=== PATIENT | female | born 1955 | race Caucasian/White ===

== ENCOUNTER 2020-01-18 07:59 | Outpatient (REF) | payer OTHER, SELFPAY ==
--- NOTE | 2020-01-18 | US_ITS ---
EXAMINATION: US RETROPERITONEAL LIMITED (RENAL ONLY) CLINICAL INFORMATION: Nephrolithiasis. COMPARISON: KUB 01/02/2020. Renal ultrasound 11/09/2019. Ultrasound abdomen 03/09/2018. TECHNIQUE: Real-time imaging of the kidneys. FINDINGS: RIGHT KIDNEY: 10.8 x 4.3 x 4.9 cm (SAG x AP x TRV). The kidney is normal in size, contour, and echogenicity. Renal cortical thickness is normal. No calculi or focal parenchymal lesions. No hydronephrosis. LEFT KIDNEY: 10.8 x 4.7 x 4.0 cm (SAG x AP x TRV). The kidney is normal in size, contour, and echogenicity. Renal cortical thickness is normal. No calculi or focal parenchymal lesions. No hydronephrosis. IMPRESSION: Unremarkable renal ultrasound.
== END 2020-01-18 08:00 | disposition home or self-care (01) ==
LOC: HO.US 07:59
PROVIDERS: PCP Internal Medicine; Visit Provider Urology
DX: N20.0 Calculus of kidney (principal)
CPT/HCPCS: 76775

== ENCOUNTER → 2020-04-30 10:30 | Outpatient (BNVA) | payer OTHER, SELFPAY | PROVIDERS: PCP Internal Medicine; Referring Provider Internal Medicine; Visit Provider Urology | DX: Z13.89 Encounter for screening for other disorder (principal) ==

== ENCOUNTER 2020-05-09 10:48 | Outpatient (REF) | payer OTHER, SELFPAY ==
[2020-05-19 15:22] LABS: Stone Source Kidney
== END 2020-05-09 10:49 | disposition home or self-care (01) ==
LOC: CF 10:48
PROVIDERS: PCP Internal Medicine; Visit Provider Urology
DX: N39.3 Stress incontinence (female) (male) (principal); N30.80 Other cystitis without hematuria
CPT/HCPCS: 52000; 81002; 82365; 88300; 99212

== ENCOUNTER 2020-05-16 06:04 | Day surgery (SDC) | payer OTHER, SELFPAY ==
--- NOTE | 2020-05-15 12:16 | HO.ANESPROP2 ---
Documented by User: Tricia Cao 05/15/20 12:19 HPI - Anesthesia Eval Consult details Narrative: 64yo F for Pubovaginal Sling PMFSH Past Medical History Medical History Asthma Cystitis cystica Gallstones HLD (hyperlipidemia) Hypothyroid Nephrolithiasis Nocturia VIVI (stress urinary incontinence, female) Trigeminy Urge incontinence Urinary frequency Urinary urgency Family History Family History Father Heart attack CVD (cardiovascular disease) HTN (hypertension) Mother Dementia Surgical History Surgical History History of gastric bypass (~2004) History of hysterectomy Social History Social History Smoking Status: Never smoker Use of substances other than those prescribed or required for medical reasons: No Have you been hit, kicked, punched, or otherwise hurt by someone within the past year? If so, by whom?: No Advance Directives: Yes Advance Directives Information Provided: No Advance Directives on File: Yes Advance Directives Date on File: 01/18/20 Meds Allergies Allergy/AdvReac Type Severity Reaction Status Date / Time sertraline Allergy Mild Stomach Verified 05/16/20 06:32 Upset levothyroxine sodium AdvReac Unknown insomnia Verified 06/18/15 00:00 bees Allergy Unknown swells Uncoded 06/18/15 00:00 Home Medications Medication Instructions Recorded Confirmed Type escitalopram oxalate 10 mg tablet 10 mg PO DAILY 04/30/20 04/30/20 History levothyroxine 112 mcg tablet 112 mcg PO DAILY 04/30/20 04/30/20 History Exam Exam Date and Time: May 15, 2020 1216 Assessment and Plan Assessment Anesthesia Assessment: Chart Reviewed Documented by User: Miriam Robles 05/16/20 07:26 [facility] Past Medical History Medical History Asthma Cystitis cystica Gallstones HLD (hyperlipidemia) Hypothyroid Nephrolithiasis Nocturia VIVI (stress urinary incontinence, female) Trigeminy Urge incontinence Urinary frequency Urinary urgency Family History Family History Father Heart attack CVD (cardiovascular disease) HTN (hypertension) Mother Dementia Surgical History Surgical History History of gastric bypass (~2004) History of hysterectomy Social History Social History Smoking Status: Never smoker Use of substances other than those prescribed or required for medical reasons: No Have you been hit, kicked, punched, or otherwise hurt by someone within the past year? If so, by whom?: No Advance Directives: Yes Advance Directives Information Provided: No Advance Directives on File: Yes Advance Directives Date on File: 01/18/20 Meds Allergies Allergy/AdvReac Type Severity Reaction Status Date / Time sertraline Allergy Mild Stomach Verified 05/16/20 06:32 Upset levothyroxine sodium AdvReac Unknown insomnia Verified 06/18/15 00:00 bees Allergy Unknown swells Uncoded 06/18/15 00:00 Home Medications Medication Instructions Recorded Confirmed Type escitalopram oxalate 10 mg tablet 10 mg PO DAILY 04/30/20 04/30/20 History levothyroxine 112 mcg tablet 112 mcg PO DAILY 04/30/20 04/30/20 History Exam Airway Mallampati Class: III TM Dist: >3cm Neck ROM: Full Heart: RRR Lungs: CTA
[2020-05-16] VITALS (8 sets, daily range): BP systolic 137–147; BP diastolic 51–68; PULSE 61–79; RESP 16–18; TEMP 36.2–36.6; O2SAT 94–96; BMI 27.8
[2020-05-16] MEDS: Lactated Ringers 1,000 ML 100 ML IVCONT (06:37)
--- NOTE | 2020-05-16 07:13 | MHC.SHP ---
Pre-Procedural Eval Section A The patient is an INPATIENT: No The History & Physical has been completed within 30 days and I have reviewed it.: Yes Section B Chief Complaint: stress incontinence Allergies: Allergies Allergy/AdvReac Type Severity Reaction Status Date / Time sertraline Allergy Mild Stomach Verified 05/16/20 06:32 Upset levothyroxine sodium AdvReac Unknown insomnia Verified 06/18/15 00:00 bees Allergy Unknown swells Uncoded 06/18/15 00:00 Plan Diagnosis/Plan: Unchanged I have reviewed the history and physical and performed a pertinent physical examination on my patient. No changes have occurred unless specified.
--- NOTE | 2020-05-16 08:23 | PM.OP ---
Brief Operative Note Date of Service: 05/16/20 Pre-op diagnosis: Stress Urinary incontinence Post-op diagnosis: same Procedure: Pubovaginal sling Surgeon: Shane Valladares III, MD Anesthesia: GLMA Estimated blood loss (mL): 0 Pathology: none sent Condition: stable Disposition: same day
--- NOTE | 2020-05-16 08:24 | W.PM.OPN ---
Operative Note Operative Note Date of Service: 05/16/20 Narrative: Preop diagnosis female stress urinary incontinence postop diagnosis is the same Procedures pubovaginal sling/lynx Surgeon mary Anesthesia general Drains none Blood loss none Complications none Patient in the operating after adequate anesthesia was obtained had a time-out done and was placed in dorsal lithotomy position. Patient had vaginal retractors Ayala catheter placed. At this point the patient had local injected into the anterior vaginal wall with a midline incision made carried out laterally to but not through into pelvic fascia. Stab wounds were made suprapubically and passers passed down into the vaginal incision under direct palpation of surgeon's finger. This point Ayala catheter is removed which remained clear and she underwent flexible cystoscopy with retroflexion there was no sign of any perforation or damage to the patient's bladder. Scope withdrawn in the Ayala catheter replaced. Patient had the sling elevated into place using the passers wants it was elevated into place with proximally 0.5 cm of space between the sling and the urethra the ends of the sling were truncated below the skin level and the sling deployed. Irrigation was then done and the vaginal wound and the suprapubic stab incisions were closed. Patient's Ayala catheter is removed continue drain clear throughout the case. There were no complications
--- NOTE | 2020-05-16 08:48 | HO.POSTANES ---
Post Anesthesia Evaluation Post Anesthesia Evaluation Vital Signs: Vital Signs Temp Pulse Resp BP Pulse Ox 05/16/20 08:35 98 F 77 16 147/51 H 96 05/16/20 06:15 97.1 F 79 18 137/68 96 Anesthesia: Monitored and General Mental Status: Awake Pain Control: Satisfactory Nausea/Vomiting: None Hydration: Adequate Anesthesia-Related Issues: No Anes. Related Issues
[2020-05-16] MEDS: oxyCODONE HCl Immed Release 5 MG TABLET PO (09:08)
--- NOTE | 2020-05-16 09:43 | PC.NURSE ---
0940MONITORS DCD AMB TO BR GAIT STEADY TO ATTEMPT VOID, BLAYNE PAD WITH BETADYNE STG, PT AWARE OF PACKING STS SHE WILL BE REMOVING IT TOMORROW
--- NOTE | 2020-05-16 10:03 | PC.NURSE ---
0950 VOID 100 ML HUEY URINE RET TO PACU 1 BLADDER SCAN DONE FOR 0 ML PVR, ASST BACK TO BS CHAIR IV DCD DRESSED SELF CALL KELLEY IN REACH PLAN T OAMB TO CT AREA
== END 2020-05-16 10:18 ==
LOC: HO.SSS 06:04
PROVIDERS: PCP Internal Medicine; Visit Provider Urology
PROC: (CPT 57288; principal; 2020-05-16 07:30)
DX: N39.3 Stress incontinence (female) (male) (principal); J45.909 Unspecified asthma, uncomplicated; R00.8 Other abnormalities of heart beat; Z87.442 Personal history of urinary calculi; Z98.84 Bariatric surgery status; Z79.899 Other long term (current) drug therapy; Z88.8 Allergy status to other drugs, medicaments and biological substances
CPT/HCPCS: 57288; C1772; J1100; J1580; J2250; J2405; J3010

== ENCOUNTER → 2020-05-27 08:32 | Outpatient (BNVA) | payer OTHER, SELFPAY | PROVIDERS: PCP Internal Medicine; Visit Provider Urology | DX: N20.0 Calculus of kidney (principal); N39.3 Stress incontinence (female) (male) | CPT/HCPCS: 51798; 81002; 99212 ==

== ENCOUNTER 2020-08-29 10:25 | Outpatient (REF) | payer OTHER, SELFPAY ==
--- NOTE | ~2020-08-29 | US_ITS ---
EXAMINATION: US RETROPERITONEAL LIMITED (RENAL ONLY) CLINICAL INFORMATION: Calculus of kidney. COMPARISON: Renal ultrasound 01/18/2020 and 11/09/2019. KUBs 01/02/2020. TECHNIQUE: Real-time imaging of the kidneys. FINDINGS: RIGHT KIDNEY: 11.3 x 4.9 x 5.1 cm (SAG x AP x TRV). The kidney is normal in size, contour, and echogenicity. Renal cortical thickness is normal. There is a 3 mm echogenic density with twinkle artifact in the upper to midpole questionable for a stone. No focal parenchymal lesions or hydronephrosis. LEFT KIDNEY: 10.5 x 5.2 x 3.6 cm (SAG x AP x TRV). The kidney is normal in size, contour, and echogenicity. Renal cortical thickness is normal. No calculi or focal parenchymal lesions. No hydronephrosis. US/US renal BI IMPRESSION: Question small right renal stone..
== END 2020-08-29 10:26 | disposition home or self-care (01) ==
LOC: HO.US 10:25
PROVIDERS: Visit Provider Urology
DX: N20.0 Calculus of kidney (principal)
CPT/HCPCS: 76775

== ENCOUNTER → 2020-09-30 14:29 | Outpatient (BNVA) | payer OTHER, SELFPAY | PROVIDERS: PCP Internal Medicine | DX: N20.0 Calculus of kidney (principal); N39.41 Urge incontinence; R35.0 Frequency of micturition | CPT/HCPCS: 99212 ==

== ENCOUNTER → 2020-10-14 13:00 | Outpatient (BNVA) | payer OTHER, SELFPAY | PROVIDERS: PCP Internal Medicine ==

== ENCOUNTER 2021-02-10 09:57 | Outpatient (REF) | payer OTHER, SELFPAY | END 2021-02-10 09:58 | disposition home or self-care (01) | LOC: HO.LAB 09:57 | PROVIDERS: PCP Internal Medicine | DX: R35.0 Frequency of micturition (principal); N39.41 Urge incontinence; N39.3 Stress incontinence (female) (male) | CPT/HCPCS: 87086; 87088; 87186 ==

== ENCOUNTER 2021-03-16 11:07 | Outpatient (REF) | payer OTHER, SELFPAY ==
[2021-03-16 13:32] LABS: Appearance Urine CLEAR; Color Urine YELLOW; Glucose Urine UA NEG (NEG); Leukocyte Esterase Urine 1+ (NEG); Nitrite Urine NEG (NEG); PH 5.5 (5.0-8.0); Specific Gravity - Urine >= 1.030 (1.005-1.025); Urine Blood NEG (NEG); Urine Ketones NEG (NEG); Urine Protein NEG (NEG-TRACE)
[2021-03-16 13:49] LABS: Bacteria Urine 1+ /LPF; RBC Urine 0-2 /HPF (0); Squamous Epithelial Cell Urine 1+ /LPF
== END 2021-03-16 11:08 | disposition home or self-care (01) ==
LOC: HO.LAB 11:07
DX: R35.0 Frequency of micturition (principal)
CPT/HCPCS: 81001; 87086

== ENCOUNTER → 2021-04-14 10:25 | Outpatient (BNVA) | payer OTHER, SELFPAY | PROVIDERS: PCP Internal Medicine ==

== ENCOUNTER 2021-10-14 14:56 | Emergency (ER) | payer OTHER, SELFPAY ==
--- NOTE | ~2021-10-14 | CT_ITS ---
EXAMINATION: CT HEAD WITHOUT CONTRAST CLINICAL INFORMATION: Right eye droop. Double vision. COMPARISON: None. TECHNIQUE: Contiguous axial imaging was performed from the skull base to vertex without intravenous contrast. This CT examination was performed using dose optimization techniques as appropriate, variously including the following: * Automated exposure control * Adjustment of mA and/or kV according to patient size (this includes techniques or standardized protocols for targeted exams where dose is matched to indication/reason for exam; i.e. extremities or head) Use of iterative reconstruction technique DLP: 647 mGy-cm. FINDINGS: There is no evidence of acute intracranial hemorrhage or territorial infarction. No abnormal mass effect or midline shift is seen. Cruz to white matter differentiation is well preserved. No extra-axial fluid collections are identified. No hydrocephalus. Proportional prominence of the ventricles and sulcal spaces is consistent with mild volume loss. Patchy periventricular and deep white matter hypoattenuation is consistent with mild small vessel ischemic changes. The osseous structures and soft tissues are normal. The mastoid air cells and visualized portions of the paranasal sinuses are well aerated. CT/CT head/brain wo con IMPRESSION: No acute intracranial pathology.
[2021-10-14 15:04] VITALS: BP 149/76; PULSE 66; RESP 19; TEMP 36.8; O2SAT 98; BMI 28.0
[2021-10-14 17:18] LABS: MANUAL DIFF FLAG NO
[2021-10-14 17:25] LABS: Basophils Absolute Auto 0.1 X10*3/uL (0.0-0.2); Basophils Percent Auto 1.3 % (0-2); Eosinophils Absolute Auto 0.2 X10*3/uL (0.0-0.4); Eosinophils Percent Auto 2.8 % (0-4); Hematocrit 34.9 % (37.0-47.0); Hemoglobin 11.5 g/dl (12.0-16.0); Imm Gran Abs Auto 0.02 X10*3/uL (0.00-0.03); Imm Gran Pct Auto 0.3 % (0.0-0.4); Lymphocytes Absolute Auto 1.8 X10*3/uL (1.2-4.9); Lymphocytes Percent Auto 25.9 % (20-40); Mean Corpuscular Volume 84.9 fL (80.0-98.0); Mean Platelet Volume 10.6 fL (9.4-12.3); Monocytes Absolute Auto 0.7 X10*3/uL (0.1-1.2); Monocytes Percent Auto 9.8 % (2-11); Neutrophils Absolute Auto 4.2 x10*3/uL (2.0-8.3); Neutrophils Percent Auto 59.9 % (45-73); Platelet Count 257 X10*3/uL (160-400); Red Blood Count 4.11 X10*6/uL (4.20-5.50); Red Cell Distribution Width 14.1 % (11.0-16.0); White Blood Count 7.1 X10*3/uL (4.8-10.8)
[2021-10-14 17:39] LABS: Alanine Aminotransferase 21 U/L (0-31); Alkaline Phosphatase 92 U/L (39-117); Anion Gap 11 (12-20); Aspartate Amino Transferase 21 U/L (5-31); Bilirubin Total 0.4 mg/dL (0.0-1.0); Blood Urea Nitrogen 12 mg/dL (9-16); Calcium 8.9 mg/dL (8.4-10.2); Carbon Dioxide 24 mmol/L (22-29); Chloride 107 mmol/L (96-108); Creatinine Clr Calc Pharmacy 51.9; Estimated Glomerular Filt Rate 44; Glucose Random 165 mg/dL (60-115); Potassium 4.7 mmol/L (3.3-5.1); Sodium 137 mmol/L (135-145); Total Protein 6.8 g/dL (6.5-8.0)
--- NOTE | 2021-10-14 22:08 | ED.EYEPROB ---
HPI - Eye Problem General Chief complaint: Eye Problems Stated complaint: double vision eye drooping Time Seen by Provider: 10/14/21 15:19 Source: patient Mode of arrival: ambulatory Limitations: no limitations History of Present Illness HPI Narrative: patient's history of double vision for last 6 months seen brazer repair and salvage negative workup had MRI of the brain no stroke try to close the right eye to see single from the left eye otherwise has double vision now she is saying since yesterday afternoon noticed right eye is more droopy than the left no other weakness no pain in the eye no other weakness no shortness of breath Related Data Home Medications Medication Instructions Recorded Confirmed escitalopram oxalate 10 mg tablet 10 mg PO DAILY 04/30/20 02/10/21 levothyroxine 112 mcg tablet 112 mcg PO DAILY 04/30/20 02/10/21 Previous Rx's Medication Instructions Recorded oxycodone-acetaminophen 5 mg-325 1 tab PO Q4-6H PRN pain #14 tabs 05/16/20 mg tablet (Percocet) levofloxacin 500 mg tablet 500 mg PO Q24H UTI 5 days #5 tabs 02/25/21 oxybutynin chloride 10 mg 10 mg PO DAILY OAB 30 days #90 tabs 06/01/21 tablet,extended release 24 hr Allergies Allergy/AdvReac Type Severity Reaction Status Date / Time sertraline Allergy Mild Stomach Verified 04/14/21 10:26 Upset levothyroxine sodium AdvReac Unknown insomnia Verified 04/14/21 10:26 bees Allergy Unknown swells Uncoded 06/18/15 00:00 Review of Systems Review of Systems: Yes all other systems are reviewed and are negative [facility] Past Medical History Attestation statement: The following information was validated with the patient. Medical History Asthma Cystitis cystica Gallstones HLD (hyperlipidemia) Hypothyroid Nephrolithiasis Nocturia VIVI (stress urinary incontinence, female) Trigeminy Urge incontinence Urinary frequency Urinary incontinence Urinary urgency UTI (urinary tract infection) Surgical History History of gastric bypass (~2004) History of hysterectomy History of pubovaginal sling Family History Family History Father Heart attack CVD (cardiovascular disease) HTN (hypertension) Mother Dementia Social History Social History Alcohol intake: current Alcohol intake frequency: holidays/special occasions only Patient Tobacco Use Status: Former Tobacco user Quit Date: 20 years ago Tobacco use type: Cigarette Advance Directives: No Advance Directives Information Provided: No Advance Directives Date on File: 01/18/20 Physical Exam Vital Signs: Vital Signs: Last Vital Signs Temp 98.1 F 10/14/21 22:49 Pulse 53 10/14/21 22:49 Resp 20 10/14/21 22:49 BP 144/55 H 10/14/21 22:49 Pulse Ox 98 10/14/21 22:49 O2 Del Method 10/14/21 22:49 BMI result Body Mass Index 28.0 Appearance: Alert. Oriented X3. No acute distress. Eyes: PERRLA, No Nystagmus right eyelid droop+ but she can open the right eye when the left eye is closed, EOMI ENT: Pharynx normal. Oral Mucosa moist Neck: Normal inspection. Neck supple. CVS: Normal heart rate and rhythm. Pulses normal. Respiratory: No respiratory distress. Equal air entry bilateral, no wheezing/rales/rhonchi Abdomen: Soft and nontender. Bowel sounds are present, no mass palpable, no CVA tenderness Skin: Skin warm and dry. Normal skin color. Normal skin turgor. Extremities: No lower extremity edema. No calf tenderness Neuro: Oriented X 3. No motor deficit. No sensory deficit.No cerebellar signs , cranial nerves II-XII intact MDM - Eye Problem MDM Narrative Medical decision making narrative: 2214 patient with right-sided eye droop with diplopia likely have myasthenia gravis although she does not have any other symptoms workup so far is negative patient denies any shortness of breath CT scan of the head which was negative for any lesion case discussed with Dr. Bruner plan to see his outpatient ice pack test was positive patient drooping lid of the right eye improved after putting ice pack with few minutes Lab Data Attestation: I reviewed the patient's lab results. Result diagrams: 10/14/21 17:13 10/14/21 17:13 Labs: Lab Results 10/14/21 10/14/21 Range/Units 17:13 17:13 WBC 7.1 (4.8-10.8) X10*3/uL RBC 4.11 L (4.20-5.50) X10*6/uL Hgb 11.5 L (12.0-16.0) g/dl Hct 34.9 L (37.0-47.0) % MCV 84.9 (80.0-98.0) fL MCH 28.0 (27.0-33.0) pg MCHC 33.0 (31.0-35.0) g/dl RDW 14.1 (11.0-16.0) % Plt Count 257 (160-400) X10*3/uL MPV 10.6 (9.4-12.3) fL Immature Gran % (Auto) 0.3 (0.0-0.4) % Neut % (Auto) 59.9 (45-73) % Lymph % (Auto) 25.9 (20-40) % [place] % (Auto) 9.8 (2-11) % Eos % (Auto) 2.8 (0-4) % Baso % (Auto) 1.3 (0-2) % Lymph # (Auto) 1.8 (1.2-4.9) X10*3/uL [place] # (Auto) 0.7 (0.1-1.2) X10*3/uL Eos # (Auto) 0.2 (0.0-0.4) X10*3/uL Baso # (Auto) 0.1 (0.0-0.2) X10*3/uL Abs Immat Gran (auto) 0.02 (0.00-0.03) X10*3/uL Absolute Neuts (auto) 4.2 (2.0-8.3) x10*3/uL Absolute Nucleated RBC 0.000 (0.0-0.012) X10*3/uL Nucleated RBC % (auto) 0.0 (0.0-0.2) /100WBC Sodium 137 (135-145) mmol/L Potassium 4.7 (3.3-5.1) mmol/L Chloride 107 (96-108) mmol/L Carbon Dioxide 24 (22-29) mmol/L Anion Gap 11 L (12-20) BUN 12 (9-16) mg/dL Creatinine 1.23 (0.5-1.4) mg/dL Estim Creat Clear Calc 51.9 Estimated GFR 44 Random Glucose 165 H (60-115) mg/dL Calcium 8.9 (8.4-10.2) mg/dL Total Bilirubin 0.4 (0.0-1.0) mg/dL AST 21 (5-31) U/L ALT 21 (0-31) U/L Alkaline Phosphatase 92 (39-117) U/L Total Protein 6.8 (6.5-8.0) g/dL Albumin 4.0 (3.5-5.0) g/dL Discharge Plan Discharge Clinical Impression: Myasthenia gravis Patient Disposition: Home, Self-Care Instructions: Myasthenia Gravis (ED) Additional Instructions: see neurologist for further workup and treatment report to the ER if increased shortness of breath you likely have myasthenia gravis Prescriptions: No Action oxycodone-acetaminophen [Percocet] 5-325 mg tablet 1 tab PO Q4-6H PRN (Reason: pain) Qty: 14 0RF levofloxacin 500 mg tablet 500 mg PO Q24H 5 Days Qty: 5 0RF oxybutynin chloride 10 mg tablet extended release 24hr 10 mg PO DAILY 30 Days Qty: 90 1RF escitalopram oxalate 10 mg tablet 10 mg PO DAILY levothyroxine 112 mcg tablet 112 mcg PO DAILY Referrals: Zack Bruner MD [Physician] - 1 week
[2021-10-14 22:49] VITALS: BP 144/55; PULSE 53; RESP 20; TEMP 36.7; O2SAT 98
[2021-10-22 19:01] LABS: Acetylcholine Receptor Binding 0.77 nmol/L
== END 2021-10-14 23:48 | disposition home or self-care (01) ==
PROVIDERS: Emergency Provider Internal Medicine; PCP Internal Medicine
DX: G70.00 Myasthenia gravis without (acute) exacerbation (principal); H53.2 Diplopia; Z87.891 Personal history of nicotine dependence
CPT/HCPCS: 36415; 70450; 80053; 83519; 85025; 99283; 99284

== ENCOUNTER 2021-10-21 15:27 | Outpatient (REF) | payer OTHER, SELFPAY ==
[2021-10-27 20:15] LABS: Acetylcholine Recept. Blocking 33 (<15)
[2021-11-05 17:37] LABS: Acetylcholine Recep Modulating 79
== END 2021-10-21 15:28 | disposition home or self-care (01) ==
LOC: HO.LAB 15:27
PROVIDERS: PCP Internal Medicine; Visit Provider Psychiatry & Neurology Neurology
DX: G70.00 Myasthenia gravis without (acute) exacerbation (principal)
CPT/HCPCS: 36415; 83519

== ENCOUNTER 2021-11-03 09:28 | Outpatient (REF) | payer OTHER, SELFPAY ==
--- NOTE | ~2021-11-03 | CT_ITS ---
EXAMINATION: CT CHEST WITH CONTRAST CLINICAL INFORMATION: Myasthenia gravis without acute exacerbation. COMPARISON: Chest x-ray 06/18/2015 TECHNIQUE: Multidetector volumetric CT imaging of the chest was obtained after the administration of 50 mL of Omnipaque 350 intravenous contrast without immediate adverse reactions. Axial MIP volume rendering provided. Sagittal and coronal reformatted images were obtained. This CT examination was performed using dose optimization techniques as appropriate, variously including the following: *Automated exposure control *Adjustment of mA and/or kV according to patient size (this includes techniques or standardized protocols for targeted exams where dose is matched to indication/reason for exam; i.e. extremities or head) *Use of iterative reconstruction technique DLP: 116 mGy-cm FINDINGS: TRENCHER DRIVER: Well-expanded lungs. LUNGS: The lungs are well-expanded and clear of acute pneumonic process. There is a 2 mm calcified nodule in the right lower lobe axial image 82/9, Two 1 mm noncalcified nodules right middle lobe axial image 84/9 and punctate 1-2 mm calcified nodules in the left lung base on axial image 78/8. MEDIASTINUM: The right thyroid lobe is slightly asymmetrically enlarged compared to left. The central trachea and the bronchi are widely patent. Heart size and the great vessels are of normal caliber. There is no pericardial effusion. No abnormal size mediastinal or hilar lymph nodes are seen. No anterior mediastinal mass is seen. PLEURA: There is no pleural effusion. No pleural mass or thickening. AXILLA: There are small shotty lymph nodes in the axilla. The chest wall is unremarkable. UPPER ABDOMEN: The liver is homogeneous in density, is of normal size and contour. No focal lesion or intrahepatic ductal dilatation is seen. The gallbladder has been removed. Visualized pancreas and spleen appear unremarkable. There are gastric bypass surgical changes. OSSEOUS STRUCTURES: No lytic or sclerotic process is seen. CT/CT chest w con IMPRESSION: No anterior mediastinal mass visualized. Several calcified nodules likely granulomas in the right lower lobe and left lower lobe. A solitary 2 mm noncalcified nodule is seen in right middle lobe. This could be a granuloma as well. Fleischner guidelines were followed.
[2021-11-03] MEDS: iohexoL 350 MG/ML 100 ML INFUS..BTL IV (10:41)
== END 2021-11-03 09:29 | disposition home or self-care (01) ==
LOC: HO.CT 09:28
PROVIDERS: PCP Internal Medicine; Visit Provider Internal Medicine
DX: G70.00 Myasthenia gravis without (acute) exacerbation (principal)
CPT/HCPCS: 71260; Q9967

== ENCOUNTER 2021-12-03 11:38 | Outpatient (REF) | payer OTHER, SELFPAY ==
[2021-12-03 14:21] LABS: Alanine Aminotransferase 26 U/L (0-31); Albumin Level 4.2 g/dL (3.5-5.0); Alkaline Phosphatase 83 U/L (39-117); Anion Gap 17 (12-20); Aspartate Amino Transferase 17 U/L (5-31); Bilirubin Total 1.1 mg/dL (0.0-1.0); Blood Urea Nitrogen 26 mg/dL (9-16); Calcium 9.5 mg/dL (8.4-10.2); Carbon Dioxide 24 mmol/L (22-29); Chloride 102 mmol/L (96-108); Cholesterol 206 mg/dL; Estimated Glomerular Filt Rate 32; Glucose Random 206 mg/dL (60-115); HDL Cholesterol 94 mg/dL; LDL Cholesterol Calculated 77 mg/dl; Potassium 4.1 mmol/L (3.3-5.1); Sodium 139 mmol/L (135-145); Total Protein 7.2 g/dL (6.5-8.0); Triglycerides 177 mg/dL
[2021-12-03 15:41] LABS: Creatinine Urine 230.02 mg/dL; Microalbum/Creatinine Ratio Ur 11.7 ug/mg cr
[2021-12-06 11:12] LABS: LDL Cholesterol Direct 87 mg/dL (<100)
== END 2021-12-03 11:39 | disposition home or self-care (01) ==
LOC: HO.LAB 11:38
PROVIDERS: PCP Internal Medicine; Visit Provider Internal Medicine
DX: E11.9 Type 2 diabetes mellitus without complications (principal); E78.5 Hyperlipidemia, unspecified; E27.40 Unspecified adrenocortical insufficiency; I10 Essential (primary) hypertension
CPT/HCPCS: 36415; 80053; 80061; 82043; 82947; 83036; 83721; 99202

== ENCOUNTER 2021-12-05 11:14 | Outpatient (REF) | payer OTHER, SELFPAY ==
--- NOTE | ~2021-12-05 | US_ITS ---
EXAMINATION: US THYROID CLINICAL INFORMATION: Unspecified adrenocortical insufficiency. COMPARISON: None TECHNIQUE: Linear transducer grayscale and color Doppler examination with attention to the region of the thyroid. FINDINGS: SIZE: Measurements of the thyroid lobes and nodules are given in sagittal, anteroposterior and transverse dimensions respectively. Right Thyroid Lobe: 4.0 x 1.4 x 1.1 cm, volume 3.2 mL. Parenchyma: The gland echotexture is heterogeneous. Thyroid vascularity is increased. Left Thyroid Lobe: 2.7 x 0.8 x 0.9 cm, volume 1.1 mL. Parenchyma: The gland echotexture is heterogeneous. Thyroid vascularity is increased. Isthmus: 0.2 cm in maximum AP dimension. Estimated total number of nodules greater than or equal to 1 cm: 0. Rod Piler nodules are described as follows: 1. Location: Right inferior. Size: 0.4 x 0.4 x 0.3 cm, volume 0.02 mL. Nodule characteristics: Composition: Cystic(0). ACR TI-RADS total points: 0 ACR TI-RADS category: 1 NODES: No lymphadenopathy is seen in the tissue surrounding the thyroid gland. US/US thyroid IMPRESSION: Slightly hypervascular and heterogeneous thyroid gland right slightly larger than left but still within normal limits. Solitary nonsuspicious nodule lower pole right lobe. ACR TI-RADS RECOMMENDATION REFERENCE: Ultrasound-guided fine-needle aspiration, followup ultrasound, no further follow up. * TR1 (0 point) and TR 2 (2 points): No FNA or follow up * TR3 (3 points): FNA if more than or equal to 2.5 cm in maximum dimension, followup ultrasound in 1, 3 and 5 years if 1.5 to 2.4 cm in maximum dimension. * TR4 (4-6 points): FNA if more than or equal to 1.5 cm in maximum dimension, followup ultrasound in 1, 2, 3 and 5 years if 1 to 1.4 cm in maximum dimension. * TR5 (more than or equal to 7 points): FNA if more than or equal to 1 cm in maximum dimension, followup ultrasound every year for 5 years if 0.5 to 0.9 cm in maximum dimension. * TR3, TR4 or TR5 nodules that are below the size threshold for follow up receive no follow up.
== END 2021-12-05 11:15 | disposition home or self-care (01) ==
LOC: HO.US 11:14
PROVIDERS: PCP Internal Medicine; Visit Provider Internal Medicine
DX: E27.40 Unspecified adrenocortical insufficiency (principal)
CPT/HCPCS: 76536

== ENCOUNTER → 2021-12-16 11:57 | Outpatient (BNVA) | payer OTHER, SELFPAY | PROVIDERS: PCP Internal Medicine; Visit Provider Internal Medicine | DX: E11.22 Type 2 diabetes mellitus with diabetic chronic kidney disease (principal); I12.9 Hypertensive chronic kidney disease with stage 1 through stage 4 chronic kidney disease, or unspecified chronic kidney disease; N18.9 Chronic kidney disease, unspecified; E27.40 Unspecified adrenocortical insufficiency; E04.1 Nontoxic single thyroid nodule; E78.5 Hyperlipidemia, unspecified | CPT/HCPCS: 82947; 83036; 99212 ==

== ENCOUNTER 2021-12-17 14:33 | Outpatient (REF) | payer OTHER, SELFPAY ==
--- NOTE | ~2021-12-17 | CT_ITS ---
EXAMINATION: CT ABDOMEN AND PELVIS WITHOUT CONTRAST CLINICAL INFORMATION: Left lower quadrant pain COMPARISON: Previous renal ultrasound August 2020 and abdominal ultrasound February 2018 TECHNIQUE: Multidetector volumetric imaging was performed from the superior aspect of the liver through the pubic symphysis. Sagittal and coronal reformatted images were obtained on the technologist's workstation. This CT examination was performed using dose optimization techniques as appropriate, variously including the following: *Automated exposure control *Adjustment of mA and/or kV according to patient size (this includes techniques or standardized protocols for targeted exams where dose is matched to indication/reason for exam; i.e. extremities or head) *Use of iterative reconstruction technique DLP: 735 mGy-cm FINDINGS: LUNG BASES: The visualized lung bases are clear. There is a small pericardial effusion. LIVER, GALLBLADDER, AND BILIARY TREE: The liver is normal in size, shape, and attenuation. No focal hepatic lesion or biliary ductal dilatation is present. The gallbladder has been removed. PANCREAS: Unremarkable. SPLEEN: Unremarkable. ADRENAL GLANDS: Unremarkable. KIDNEYS AND URETERS: There are small bilateral renal stones. No hydronephrosis. There is a 6 mm left distal ureteral stone and mild distal ureteral dilatation. BLADDER: There are small stones in the bladder. GASTROINTESTINAL TRACT: There are postsurgical changes to the stomach following gastric bypass. The small and large bowel are otherwise unremarkable. The appendix is unremarkable. ABDOMINAL WALL: There is a small umbilical hernia containing fat. LYMPH NODES: Normal. VASCULAR: Unremarkable. PELVIC VISCERA: Uterus appears to have been. No pelvic mass. OSSEOUS STRUCTURES: There are degenerative changes of the spine. CT/CT abdomen pelvis wo IV con IMPRESSION: Bilateral renal stones. 6 mm left distal ureteral stone and small bladder stones. Postsurgical changes from gastric bypass. Post cholecystectomy. Small pericardial effusion. Fleischner guidelines were followed. Findings will be communicated by the [place] work flow bight maker.
== END 2021-12-17 14:34 | disposition home or self-care (01) ==
LOC: HO.CT 14:33
PROVIDERS: PCP Internal Medicine; Visit Provider Internal Medicine
DX: R10.32 Left lower quadrant pain (principal)
CPT/HCPCS: 74176

== ENCOUNTER 2021-12-18 19:52 | Emergency (ER) | payer OTHER, SELFPAY ==
[2021-12-18 19:55] VITALS: BP 125/77; PULSE 81; RESP 16; TEMP 35.6; O2SAT 96; BMI 27.7
--- NOTE | 2021-12-18 20:09 | ED.GENADULT ---
HPI - General Adult General Chief complaint: Recheck/Abnormal Lab/Rx Stated complaint: abnormal labs Time Seen by Provider: 12/18/21 20:01 Source: patient and family (daughter) Mode of arrival: ambulatory Limitations: no limitations History of Present Illness HPI narrative: Patient is a 66 year old female presenting to the emergency department today with an elevated lactic acid and a kidney stone. Patient states that she was having intermittent abdominal pain so her doctor ordered some blood work and a CT scan of her abdomen. Patient states that the CT scan showed a 6mm kidney stone in the left ureter and that she had an elevated lactic acid so she thought she should be evaluated further. Patient denies any current dizziness, lightheadedness, abdominal pain, nausea, vomiting, fever, chills, blurry vision, double vision, loss of vision, chest pain, difficulty breathing, shortness of breath, back pain, night sweats, pain with urination, increased urinary frequency, increased urinary urgency, blood in her urine or stool, syncope or a near syncopal episode, recent trauma or falls, bowel incontinence, bladder incontinence, bowel retention, bladder retention, or any other complaints at this time. Patient states that she has an extensive history of kidney stones and passing them. Patient states that she follows with Dr. Chaudhary for this. Patient states that she picked up flomax today to help her pass this large stone. Patient states that she has been on prednisone recently to help with her myasthenia gravis. Location: abdomen Radiation: non-radiation Severity: mild Severity scale (1-10): 1 Quality: dull Pain Consistency: now resolved Relieving factors: none Exacerbating factors: none Associated symptoms: denies other symptoms Treatments prior to arrival: none Related Data Home Medications Medication Instructions Recorded Confirmed escitalopram oxalate 10 mg tablet 10 mg PO DAILY 04/30/20 12/16/21 levothyroxine 112 mcg tablet 112 mcg PO DAILY 04/30/20 12/16/21 albuterol sulfate 90 mcg/actuation 0 mcg inhalation 12/03/21 12/16/21 aerosol inhaler aspirin 81 mg tablet,delayed 81 mg PO DAILY 12/03/21 12/16/21 release (Adult Low Dose Aspirin) calcium carbonate 600 mg calcium 600 mg PO DAILY 12/03/21 12/16/21 (1,500 mg) tablet (Calcium) famotidine 20 mg tablet 20 mg PO BID 12/03/21 12/16/21 insulin glargine 100 unit/mL (3 unit subcut 12/03/21 12/16/21 mL) subcutaneous pen (Lantus Solostar U-100 Insulin) prednisone 20 mg tablet 20 mg PO BID 12/03/21 12/16/21 pyridostigmine bromide 60 mg tablet 60 mg PO TID 12/03/21 12/16/21 Previous Rx's Medication Instructions Recorded oxycodone-acetaminophen 5 mg-325 1 tab PO Q4-6H PRN pain #14 tabs 05/16/20 mg tablet (Percocet) levofloxacin 500 mg tablet 500 mg PO Q24H UTI 5 days #5 tabs 02/25/21 glycopyrrolate 1 mg tablet 1 mg PO TID #30 tabs 10/20/21 pyridostigmine bromide 30 mg tablet 30 mg PO TID #60 tabs 10/20/21 oxybutynin chloride 10 mg 10 mg PO DAILY OAB 30 days #90 tabs 11/20/21 tablet,extended release 24 hr hydrocortisone sod succ (PF) 100 100 mg (2 mL) IM ONCE PRN Unable 12/03/21 mg/2 mL solution for injection to tolerate PO 30 days #1 ea (Solu-Cortef Act-O-Vial (PF)) blood sugar diagnostic (FreeStyle #100 ea 12/07/21 Lite Strips) blood-glucose meter (FreeStyle #1 ea 12/07/21 Lite Meter kit) insulin lispro 100 unit/mL 5 unit (0.05 mL) subcut TID 30 12/07/21 subcutaneous pen (Humalog #4.5 mL (U-100) Insulin) lancets 28 gauge (FreeStyle #100 ea 12/07/21 Lancets) pen needle, diabetic 32 gauge x #100 ea 12/07/21 1/ (BD Ultra-Fine Micro Pen Needle) atorvastatin 40 mg tablet 40 mg PO DAILY 30 days #30 tabs 12/16/21 celecoxib 100 mg capsule 100 mg PO BID 30 days #60 caps 12/18/21 prednisone 20 mg tablet 20 mg PO DAILY 5 days #5 tabs 12/18/21 tamsulosin 0.4 mg capsule 0.4 mg PO BEDTIME 2 weeks #14 caps 12/18/21 cephalexin 500 mg capsule 500 mg PO Q6H 7 days #28 caps 12/19/21 Allergies Allergy/AdvReac Type Severity Reaction Status Date / Time sertraline Allergy Mild Stomach Verified 12/16/21 12:16 Upset levothyroxine sodium AdvReac Unknown insomnia Verified 12/16/21 12:16 bees Allergy Unknown swells Uncoded 12/16/21 12:16 Review of Systems Constitutional: Constitutional: Reports no additional constitutional complaints, Denies chills, Denies fever(s) and Denies night sweats Eyes: Eyes: Reports no additional eye complaints, Denies blurry vision, Denies change in vision, Denies diplopia, Denies eye discharge, Denies loss of vision and Denies eye pain ENT: Denies dizziness Cardiovascular: Cardiovascular: Reports no additional cardiovascular complaints, Denies chest pain, Denies lightheadedness, Denies Loss of Consciousness and Denies dyspnea Respiratory: Respiratory: Reports no additional respiratory complaints and Denies dyspnea Gastrointestinal: Gastrointestinal: Reports no additional gastrointestinal complaints, Denies abdominal pain, Denies melena, Denies hematochezia, Denies change in bowel habits and Denies change in stool character Genitourinary: Genitourinary: Denies hematuria, Denies urinary frequency, Denies dysuria, Denies urinary incontinence, Denies urinary hesitancy and Denies urinary urgency Musculoskeletal: Musculoskeletal: Reports no additional musculoskeletal complaints, Denies numbness and Denies tingling Neurologic: Denies dizziness, Denies loss of vision, Denies numbness and Denies tingling Psychiatric: Psychiatric: Reports no additional psychiatric complaints Endocrine: Endocrine: Reports no additional endocrine complaints Hematologic/Lymphatic: Hematologic/Lymphatic: Reports no additional hematologic/lymphatic complaints Allergic/Immunologic: Allergic/Immunologic: Reports no additional allergic/immunologic complaints [facility] Past Medical History Attestation statement: The following information was validated with the patient. Source: old records reviewed Medical History Adrenal insufficiency Asthma CKD (chronic kidney disease) Cystitis cystica Gallstones HLD (hyperlipidemia) HLD (hyperlipidemia) HTN (hypertension) Hypothyroid Multinodular thyroid Nephrolithiasis Nocturia VIVI (stress urinary incontinence, female) T2DM (type 2 diabetes mellitus) Thyroid nodule Trigeminy Urge incontinence Urinary frequency Urinary incontinence Urinary urgency UTI (urinary tract infection) Surgical History History of gastric bypass (~2004) History of hysterectomy History of pubovaginal sling Hx of cholecystectomy Family History Family History Father Heart attack CVD (cardiovascular disease) HTN (hypertension) Mother Dementia Social History Social History Alcohol intake: current Alcohol intake frequency: holidays/special occasions only Patient Tobacco Use Status: Former Tobacco user Quit Date: 20 years ago Tobacco use type: Cigarette Advance Directives: No Advance Directives Information Provided: No Advance Directives Date on File: 01/18/20 Physical Exam ED Vital Signs: Vital Signs - 24 hr 12/18/21 19:55 12/18/21 22:36 Temperature 96.1 F L Pulse Rate 81 62 Respiratory Rate 16 16 Blood Pressure 125/77 131/69 Pulse Oximetry 96 95 Oxygen Delivery Method Room Air Room Air BMI result Body Mass Index 27.7 Const General: cooperative, no acute distress, alert and awake Nutritional Appearance: well nourished Orientation/consciousness: patient oriented x3 Limitations: no limitations HENMT Head: Yes normal to inspection and Yes atraumatic Ears: hearing grossly normal bilaterally and external ears normal General nose exam: Normal external nose present, no nasal discharge noted and no epistaxis Face and sinus: Yes normal facial exam, No abrasion and No laceration Mouth: Normal oral and palatal mucosa present, no drooling and no muffled voice Eyes General: appearance normal, both eyes and all related structures Periorbital: periorbital findings normal Eyelids: Yes eyelids normal Conjunctivae: conjunctivae normal Pupils: Equal, round and reactive pupils present EOM: EOMs intact bilaterally Neck Neck: Yes normal visual inspection, Yes full ROM and Yes no lymphadenopathy Chest Chest palpation & inspection: normal inspection of the chest Resp Effort & Inspection: normal respiratory effort and able to speak in complete sentences Auscultation: clear to auscultation bilaterally Cardio Rate: regular rate Rhythm: regular rhythm GI Inspection: Yes normal to inspection Palpation (GI): Soft to palpation, not firm, nontender, no guarding and not rigid Neuro General: patient oriented x3 and moves all extremities Cranial nerves: Yes Equal, round and reactive pupils present Cognition (Neuro): normal cognition Motor exam (neuro): 5/5 motor strength present throughout Sensory Exam: Normal double simultaneous stimulation for sensation Coordination: [id number] test normal Extrem General: Yes normal to inspection, Yes full ROM and Yes capillary refill normal Psych Appearance: grossly normal Mental Status: mental status grossly normal Affect: normal affect Attitude: cooperative Thought process: Normal thought process present Thought content: Normal thought content present Insight: Good insight present (Psych) Medical Decision Making MDM Narrative Medical decision making narrative: Patient is a 66 year old female presenting to the emergency department today with an elevated lactic acid and a kidney stone. Patient's physical exam was unremarkable. Patient's blood work did show an elevated lactic acid of 3.5, an elevated creatinine of 1.50 that is chronic for the patient, an elevated BUN of 21 that is chronically elevated for the patient, and an elevated glucose of 425 - the patient is a diabetic on prednisone. Patient's urine showed an acute urinary tract infection. Patient's CT abdomen from earlier today showed a 6mm stone in the left ureter but no signs of obstruction or other acute abdominal process. Patient was given 1,500ml of NS. Her repeat lactic acid decreased significantly to 2.1. I spoke to the urologist electronics production supervisor who agreed with my plan of providing antibiotics and having her follow up on an outpatient basis with their office. I explained my physical exam findings as well as all test results to the patient and the patient's daughter. I answered all questions asked by the patient and the patient's daughter. I stressed the importance of the patient taking her medication as prescribed. I stressed the importance of the patient following up with her primary care provider and her urologist. I stressed the importance of the patient returning to the emergency department immediately if her symptoms were to worsen or if she were to develop any dizziness, shortness of breath, difficulty breathing, chest pain, blurry vision, loss of vision, nausea, vomiting, abdominal pain, fever, chills, back pain, or any other complaints. Patient and the patient's daughter verbalized agreement and understanding with this treatment plan and discharge. Medical Records Medical records reviewed: Yes I reviewed the patient's medical records. Lab Data Lab results reviewed: Yes I reviewed the patient's lab results. Result diagrams: 12/18/21 20:42 12/18/21 20:42 Labs: Lab Results 12/18/21 12/18/21 12/18/21 Range/Units 20:41 20:42 20:42 WBC 9.5 (4.8-10.8) X10*3/uL RBC 4.54 (4.20-5.50) X10*6/uL Hgb 12.6 (12.0-16.0) g/dl Hct 38.4 (37.0-47.0) % MCV 84.6 (80.0-98.0) fL MCH 27.8 (27.0-33.0) pg MCHC 32.8 (31.0-35.0) g/dl RDW 15.1 (11.0-16.0) % Plt Count 201 (160-400) X10*3/uL MPV 10.1 (9.4-12.3) fL Immature Gran % (Auto) 1.3 H (0.0-0.4) % Neut % (Auto) 85.9 H (45-73) % Lymph % (Auto) 7.2 L (20-40) % [place] % (Auto) 5.5 (2-11) % Eos % (Auto) 0.0 (0-4) % Baso % (Auto) 0.1 (0-2) % Lymph # (Auto) 0.7 L (1.2-4.9) X10*3/uL [place] # (Auto) 0.5 (0.1-1.2) X10*3/uL Eos # (Auto) 0.0 (0.0-0.4) X10*3/uL Baso # (Auto) 0.0 (0.0-0.2) X10*3/uL Abs Immat Gran (auto) 0.12 H (0.00-0.03) X10*3/uL Absolute Neuts (auto) 8.2 (2.0-8.3) x10*3/uL Absolute Nucleated RBC 0.000 (0.0-0.012) X10*3/uL Nucleated RBC % (auto) 0.0 (0.0-0.2) /100WBC PT (10.0-13.1) SEC INR (0.9-1.1) APTT (26.0-36.4) SEC Sodium 135 (135-145) mmol/L Potassium 4.0 (3.3-5.1) mmol/L Chloride 103 (96-108) mmol/L Carbon Dioxide 19 L (22-29) mmol/L Anion Gap 17 (12-20) BUN 21 H (9-16) mg/dL Creatinine 1.50 H (0.5-1.4) mg/dL Estim Creat Clear Calc 42.4 Estimated GFR 35 Random Glucose 425 H* (60-115) mg/dL Lactic Acid 3.5 H* (0.5-2.0) mmol/L Lactic Acid F/U @ 2Hr (0.5-2.0) mmol/L Calcium 8.6 D (8.4-10.2) mg/dL Magnesium 2.1 (1.6-2.6) mg/dL Total Bilirubin 0.7 (0.0-1.0) mg/dL AST 12 (5-31) U/L ALT 24 (0-31) U/L Alkaline Phosphatase 70 (39-117) U/L Total Protein 6.3 L (6.5-8.0) g/dL Albumin 3.7 (3.5-5.0) g/dL Urine Color Urine Appearance Urine pH (5.0-9.0) Ur Specific [place] (1.005-1.025) Urine Protein (Neg-Trace) mg/dL Urine Glucose (UA) (Negative) mg/dL Urine Ketones (Negative) mg/dL Urine Blood (Negative) Urine Nitrite (Negative) Ur Leukocyte Esterase (Negative) Urine RBC (0-2) /HPF Urine WBC (0-5) /HPF Ur Squamous Epith Cells (0-2) /HPF Urine Bacteria (None Seen) Hyaline Casts (0-2) /LPF Urine Yeast Influenza Type A (PCR) (Negative) Influenza Type B (PCR) (Negative) RSV RNA Qual (PCR) (Negative) SARS-CoV-2 RNA (RT-PCR) (Negative) 12/18/21 12/18/21 12/18/21 Range/Units 20:42 21:14 21:33 WBC (4.8-10.8) X10*3/uL RBC (4.20-5.50) X10*6/uL Hgb (12.0-16.0) g/dl Hct (37.0-47.0) % MCV (80.0-98.0) fL MCH (27.0-33.0) pg MCHC (31.0-35.0) g/dl RDW (11.0-16.0) % Plt Count (160-400) X10*3/uL MPV (9.4-12.3) fL Immature Gran % (Auto) (0.0-0.4) % Neut % (Auto) (45-73) % Lymph % (Auto) (20-40) % [place] % (Auto) (2-11) % Eos % (Auto) (0-4) % Baso % (Auto) (0-2) % Lymph # (Auto) (1.2-4.9) X10*3/uL [place] # (Auto) (0.1-1.2) X10*3/uL Eos # (Auto) (0.0-0.4) X10*3/uL Baso # (Auto) (0.0-0.2) X10*3/uL Abs Immat Gran (auto) (0.00-0.03) X10*3/uL Absolute Neuts (auto) (2.0-8.3) x10*3/uL Absolute Nucleated RBC (0.0-0.012) X10*3/uL Nucleated RBC % (auto) (0.0-0.2) /100WBC PT 9.5 L (10.0-13.1) SEC INR 0.8 L (0.9-1.1) APTT 21.3 L (26.0-36.4) SEC Sodium (135-145) mmol/L Potassium (3.3-5.1) mmol/L Chloride (96-108) mmol/L Carbon Dioxide (22-29) mmol/L Anion Gap (12-20) BUN (9-16) mg/dL Creatinine (0.5-1.4) mg/dL Estim Creat Clear Calc Estimated GFR Random Glucose (60-115) mg/dL Lactic Acid (0.5-2.0) mmol/L Lactic Acid F/U @ 2Hr (0.5-2.0) mmol/L Calcium (8.4-10.2) mg/dL Magnesium (1.6-2.6) mg/dL Total Bilirubin (0.0-1.0) mg/dL AST (5-31) U/L ALT (0-31) U/L Alkaline Phosphatase (39-117) U/L Total Protein (6.5-8.0) g/dL Albumin (3.5-5.0) g/dL Urine Color Yellow Urine Appearance Cloudy Urine pH 5.5 (5.0-9.0) Ur Specific [place] >= 1.030 H (1.005-1.025) Urine Protein 30 (1+) H (Neg-Trace) mg/dL Urine Glucose (UA) >=1000 H (Negative) mg/dL Urine Ketones Trace (Negative) mg/dL Urine Blood Trace H (Negative) Urine Nitrite Positive H (Negative) Ur Leukocyte Esterase Small (1+) H (Negative) Urine RBC >20 H (0-2) /HPF Urine WBC >50 H (0-5) /HPF Ur Squamous Epith Cells 3-5 (0-2) /HPF Urine Bacteria 4+ (None Seen) Hyaline Casts 6-10 (0-2) /LPF Urine Yeast Present Influenza Type A (PCR) NEGATIVE (Negative) Influenza Type B (PCR) NEGATIVE (Negative) RSV RNA Qual (PCR) NEGATIVE (Negative) SARS-CoV-2 RNA (RT-PCR) NEGATIVE (Negative) 12/18/21 12/19/21 Range/Units 23:05 00:49 WBC (4.8-10.8) X10*3/uL RBC (4.20-5.50) X10*6/uL Hgb (12.0-16.0) g/dl Hct (37.0-47.0) % MCV (80.0-98.0) fL MCH (27.0-33.0) pg MCHC (31.0-35.0) g/dl RDW (11.0-16.0) % Plt Count (160-400) X10*3/uL MPV (9.4-12.3) fL Immature Gran % (Auto) (0.0-0.4) % Neut % (Auto) (45-73) % Lymph % (Auto) (20-40) % [place] % (Auto) (2-11) % Eos % (Auto) (0-4) % Baso % (Auto) (0-2) % Lymph # (Auto) (1.2-4.9) X10*3/uL [place] # (Auto) (0.1-1.2) X10*3/uL Eos # (Auto) (0.0-0.4) X10*3/uL Baso # (Auto) (0.0-0.2) X10*3/uL Abs Immat Gran (auto) (0.00-0.03) X10*3/uL Absolute Neuts (auto) (2.0-8.3) x10*3/uL Absolute Nucleated RBC (0.0-0.012) X10*3/uL Nucleated RBC % (auto) (0.0-0.2) /100WBC PT (10.0-13.1) SEC INR (0.9-1.1) APTT (26.0-36.4) SEC Sodium (135-145) mmol/L Potassium (3.3-5.1) mmol/L Chloride (96-108) mmol/L Carbon Dioxide (22-29) mmol/L Anion Gap (12-20) BUN (9-16) mg/dL Creatinine (0.5-1.4) mg/dL Estim Creat Clear Calc Estimated GFR Random Glucose (60-115) mg/dL Lactic Acid 1.6 (0.5-2.0) mmol/L Lactic Acid F/U @ 2Hr 2.1 H* (0.5-2.0) mmol/L Calcium (8.4-10.2) mg/dL Magnesium (1.6-2.6) mg/dL Total Bilirubin (0.0-1.0) mg/dL AST (5-31) U/L ALT (0-31) U/L Alkaline Phosphatase (39-117) U/L Total Protein (6.5-8.0) g/dL Albumin (3.5-5.0) g/dL Urine Color Urine Appearance Urine pH (5.0-9.0) Ur Specific [place] (1.005-1.025) Urine Protein (Neg-Trace) mg/dL Urine Glucose (UA) (Negative) mg/dL Urine Ketones (Negative) mg/dL Urine Blood (Negative) Urine Nitrite (Negative) Ur Leukocyte Esterase (Negative) Urine RBC (0-2) /HPF Urine WBC (0-5) /HPF Ur Squamous Epith Cells (0-2) /HPF Urine Bacteria (None Seen) Hyaline Casts (0-2) /LPF Urine Yeast Influenza Type A (PCR) (Negative) Influenza Type B (PCR) (Negative) RSV RNA Qual (PCR) (Negative) SARS-CoV-2 RNA (RT-PCR) (Negative) Imaging Data CT scan - abdomen: Attestation: I personally reviewed and interpreted this imaging study as follows: My impression: 6mm stone in the left ureter. Radiologist's impression: EXAMINATION: CT ABDOMEN AND PELVIS WITHOUT CONTRAST? CLINICAL INFORMATION: Left lower quadrant pain? COMPARISON: Previous renal ultrasound August 2020 and abdominal ultrasound February 2018? TECHNIQUE: Multidetector volumetric imaging was performed from the superior aspect of the liver through the pubic symphysis. Sagittal and coronal reformatted images were obtained on the technologist's workstation.? This CT examination was performed using dose optimization techniques as appropriate, variously including the following: *Automated exposure control *Adjustment of mA and/or kV according to patient size (this includes techniques or standardized protocols for targeted exams where dose is matched to indication/reason for exam; i.e. extremities or head) *Use of iterative reconstruction technique DLP: 735 mGy-cm FINDINGS: LUNG BASES: The visualized lung bases are clear. There is a small pericardial effusion. LIVER, GALLBLADDER, AND BILIARY TREE: The liver is normal in size, shape, and attenuation. No focal hepatic lesion or biliary ductal dilatation is present. The gallbladder has been removed. PANCREAS: Unremarkable.? SPLEEN: Unremarkable.? ADRENAL GLANDS: Unremarkable.? KIDNEYS AND URETERS: There are small bilateral renal stones. No hydronephrosis. There is a 6 mm left distal ureteral stone and mild distal ureteral dilatation. BLADDER: There are small stones in the bladder.? GASTROINTESTINAL TRACT: There are postsurgical changes to the stomach following gastric bypass. The small and large bowel are otherwise unremarkable. The appendix is unremarkable.? ABDOMINAL WALL: There is a small umbilical hernia containing fat.? LYMPH NODES: Normal. VASCULAR: Unremarkable. PELVIC VISCERA: Uterus appears to have been. No pelvic mass. OSSEOUS STRUCTURES: There are degenerative changes of the spine. CT/CT abdomen pelvis wo IV con IMPRESSION: Bilateral renal stones. 6 mm left distal ureteral stone and small bladder stones. Postsurgical changes from gastric bypass. Post cholecystectomy. Small pericardial effusion. ? Fleischner guidelines were followed. ? Findings will be communicated by the [place] work flow fish farm manager. Dictated By: Adeline Singh MD Signed By: Electronically signed by Adeline Singh MD 12/18/21 2717 Discharge Plan Discharge Clinical Impression: Urinary tract infection Patient Disposition: Home, Self-Care Instructions: Urinary Tract Infection in Women (ED) Additional Instructions: Follow up with your primary care provider and your urologist. Return to the emergency department immediately if your symptoms worsen or if you develop any dizziness, shortness of breath, difficulty breathing, chest pain, blurry vision, loss of vision, nausea, vomiting, abdominal pain, fever, chills, back pain, or any other complaints. Prescriptions: New cephalexin 500 mg capsule 500 mg PO Q6H 7 Days Qty: 28 0RF No Action oxycodone-acetaminophen [Percocet] 5-325 mg tablet 1 tab PO Q4-6H PRN (Reason: pain) Qty: 14 0RF levofloxacin 500 mg tablet 500 mg PO Q24H 5 Days Qty: 5 0RF oxybutynin chloride 10 mg tablet extended release 24hr 10 mg PO DAILY 30 Days Qty: 90 0RF (DME) blood-glucose meter [FreeStyle Lite Meter] Kit See Rx Instructions .Route Qty: 1 0RF Rx Instructions: As directed (DME) FreeStyle Lite Strips Strip See Rx Instructions .ROUTE .MEDSUPPLY Qty: 100 11RF Rx Instructions: 4x daily (DME) lancets [FreeStyle Lancets] 28 gauge misc See Rx Instructions .ROUTE .MEDSUPPLY Qty: 100 11RF Rx Instructions: 4x daily insulin lispro [Humalog KwikPen Insulin] 100 unit/mL insulin pen 5 unit subcut TID 30 Days Qty: 4.5 11RF (DME) pen needle, diabetic [BD Ultra-Fine Micro Pen Needle] 32 gauge x 1/4 needle See Rx Instructions .ROUTE .MEDSUPPLY Qty: 100 11RF Rx Instructions: 4x daily with insulin tamsulosin 0.4 mg capsule 0.4 mg PO BEDTIME 14 Days Qty: 14 0RF prednisone 20 mg tablet 20 mg PO DAILY 5 Days Qty: 5 0RF celecoxib 100 mg capsule 100 mg PO BID 30 Days Qty: 60 0RF pyridostigmine bromide 30 mg tablet 30 mg PO TID Qty: 60 0RF glycopyrrolate 1 mg tablet 1 mg PO TID Qty: 30 0RF escitalopram oxalate 10 mg tablet 10 mg PO DAILY levothyroxine 112 mcg tablet 112 mcg PO DAILY pyridostigmine bromide 60 mg tablet 60 mg PO TID prednisone 20 mg tablet 20 mg PO BID albuterol sulfate 90 mcg/actuation HFA aerosol inhaler 0 mcg inhalation famotidine 20 mg tablet 20 mg PO BID insulin glargine [Lantus Solostar U-100 Insulin] 100 unit/mL (3 mL) insulin pen subcut calcium carbonate [Calcium 600] 600 mg calcium (1,500 mg) tablet 600 mg PO DAILY aspirin [Adult Low Dose Aspirin] 81 mg tablet,delayed release (DR/EC) 81 mg PO DAILY Solu-Cortef Act-O-Vial (PF) 100 mg/2 mL recon soln 100 mg IM ONCE PRN (Reason: Unable to tolerate PO) 30 Days Qty: 1 3RF atorvastatin 40 mg tablet 40 mg PO DAILY 30 Days Qty: 30 11RF Referrals: Itz Chaudhary MD [Physician] - RoTroy MD [Primary Care Provider] - Interventions: ED Discharge Assessment Last Done: 12/19/21 00:53 Discharge Date/Time: 12/19/21 00:50 Print Language: Tajik
[2021-12-18 20:48] LABS: MANUAL DIFF FLAG NO
[2021-12-18 20:51] LABS: Basophils Percent Auto 0.1 % (0-2); Hematocrit 38.4 % (37.0-47.0); Hemoglobin 12.6 g/dl (12.0-16.0); Imm Gran Abs Auto 0.12 X10*3/uL (0.00-0.03); Imm Gran Pct Auto 1.3 % (0.0-0.4); Lymphocytes Absolute Auto 0.7 X10*3/uL (1.2-4.9); Lymphocytes Percent Auto 7.2 % (20-40); Mean Corpuscular HGB Conc 32.8 g/dl (31.0-35.0); Mean Corpuscular Hemoglobin 27.8 pg (27.0-33.0); Mean Corpuscular Volume 84.6 fL (80.0-98.0); Mean Platelet Volume 10.1 fL (9.4-12.3); Monocytes Absolute Auto 0.5 X10*3/uL (0.1-1.2); Monocytes Percent Auto 5.5 % (2-11); Neutrophils Absolute Auto 8.2 x10*3/uL (2.0-8.3); Neutrophils Percent Auto 85.9 % (45-73); Platelet Count 201 X10*3/uL (160-400); Red Blood Count 4.54 X10*6/uL (4.20-5.50); Red Cell Distribution Width 15.1 % (11.0-16.0); White Blood Count 9.5 X10*3/uL (4.8-10.8)
[2021-12-18 20:55] LABS: INTERNATIONAL NORM RATIO 0.8 (0.9-1.1); Prothrombin Time 9.5 SEC (10.0-13.1)
[2021-12-18 20:59] LABS: Partial Thromboplastin Time 21.3 SEC (26.0-36.4)
[2021-12-18 21:22] LABS: Alanine Aminotransferase 24 U/L (0-31); Albumin Level 3.7 g/dL (3.5-5.0); Alkaline Phosphatase 70 U/L (39-117); Anion Gap 17 (12-20); Aspartate Amino Transferase 12 U/L (5-31); Bilirubin Total 0.7 mg/dL (0.0-1.0); Blood Urea Nitrogen 21 mg/dL (9-16); Calcium 8.6 mg/dL (8.4-10.2); Carbon Dioxide 19 mmol/L (22-29); Chloride 103 mmol/L (96-108); Creatinine Clr Calc Pharmacy 42.4; Estimated Glomerular Filt Rate 35; Glucose Random 425 mg/dL (60-115); Magnesium 2.1 mg/dL (1.6-2.6); Sodium 135 mmol/L (135-145); Total Protein 6.3 g/dL (6.5-8.0)
[2021-12-18 21:23] LABS: Lactic Acid 3.5 mmol/L (0.5-2.0)
[2021-12-18] MEDS: 0.9 % Sodium Chloride 1,000 ML 999 ML IV (21:36)
[2021-12-18 22:02] LABS: Influenza A PCR NEGATIVE (Negative); Influenza B PCR NEGATIVE (Negative); Resp Syncy Virus RNA Qual PCR NEGATIVE (Negative); SARS COV2 PCR INHOUSE NEGATIVE (Negative)
[2021-12-18] MEDS: 0.9 % Sodium Chloride 500 ML IV (22:19)
[2021-12-18 22:29] LABS: Appearance Urine Cloudy; Color Urine Yellow; Glucose Urine UA >=1000 mg/dL (Negative); Leukocyte Esterase Urine Small (1+) (Negative); Nitrite Urine Positive (Negative); PH 5.5 (5.0-9.0); Specific Gravity - Urine >= 1.030 (1.005-1.025); Urine Blood Trace (Negative); Urine Ketones Trace mg/dL (Negative); Urine Protein 30 (1+) mg/dL (Neg-Trace)
[2021-12-18 22:36] VITALS: BP 131/69; PULSE 62; RESP 16; O2SAT 95
[2021-12-18 22:46] LABS: Reflex Lactate? Lactic Acid Added
[2021-12-18 22:48] LABS: Bacteria Urine 4+ (None Seen); RBC Urine >20 /HPF (0-2); UACC Culture Trigger YES; WBC Urine >50 /HPF (0-5)
[2021-12-18 23:32] LABS: ~Lactic Acid-LAB USE ONLY 2.1 mmol/L (0.5-2.0)
--- NOTE | 2021-12-19 00:22 | PC.NURSE ---
Assumed care of pt at 0022
[2021-12-19] MEDS: cephALEXin 500 MG CAPSULE PO (00:41)
--- NOTE | 2021-12-19 00:41 | PC.NURSE ---
Administered 500 mg cephalexin per MAR.
--- NOTE | 2021-12-19 00:52 | PC.NURSE ---
Discharge instructions given and explained to pt. All questions answered. Pt ambulates independently and safely.
[2021-12-19 01:03] LABS: Lactic Acid 1.6 mmol/L (0.5-2.0)
[2021-12-19 01:15] LABS: Reflex Lactate? 2 Y
== END 2021-12-19 00:50 | disposition home or self-care (01) ==
PROVIDERS: Physician Assistant Medical; Emergency Provider Emergency Medicine Emergency Medical Services; PCP Internal Medicine
DX: N39.0 Urinary tract infection, site not specified (principal); R79.89 Other specified abnormal findings of blood chemistry; Z87.891 Personal history of nicotine dependence; Z79.899 Other long term (current) drug therapy; Z20.822 Contact with and (suspected) exposure to COVID-19
CPT/HCPCS: 0241U; 36415; 80053; 81001; 83605; 83735; 85025; 85610; 85730; 87040; 87086; 87088; 87186; 96360; 96361; 99284

== ENCOUNTER 2021-12-23 10:00 | Inpatient (IN) | payer OTHER, SELFPAY ==
[2021-12-23] VITALS (8 sets, daily range): BP systolic 108–136; BP diastolic 56–64; PULSE 64–84; RESP 16–18; TEMP 36.6–37.1; O2SAT 95–99; BMI 27.7
--- NOTE | ~2021-12-23 | CT_ITS ---
EXAMINATION: CT ABDOMEN AND PELVIS WITHOUT CONTRAST CLINICAL INFORMATION: Right flank pain history of known's renal stones COMPARISON: CT abdomen and pelvis 12/17/2021. TECHNIQUE: Multidetector volumetric imaging was performed from the superior aspect of the liver through the pubic symphysis. Sagittal and coronal reformatted images were obtained on the technologist's workstation. This CT examination was performed using dose optimization techniques as appropriate, variously including the following: *Automated exposure control *Adjustment of mA and/or kV according to patient size (this includes techniques or standardized protocols for targeted exams where dose is matched to indication/reason for exam; i.e. extremities or head) *Use of iterative reconstruction technique DLP: 685 mGy-cm FINDINGS: LUNG BASES: There is minimal bibasilar atelectasis. Heart size is mildly enlarged. There is a tiny posterior pericardial effusion. There is minimal posterior pleural thickening LIVER, GALLBLADDER, AND BILIARY TREE: The liver is normal in size, shape, and attenuation. No focal hepatic lesion or biliary ductal dilatation is present. The gallbladder has been surgically removed. PANCREAS: Unremarkable. SPLEEN: Unremarkable. ADRENAL GLANDS: Unremarkable. KIDNEYS AND URETERS: The kidneys are normal in size, shape, and attenuation. There are multiple right radiopaque renal calculi. The largest in the upper pole right kidney measures 4 mm axial image 29/3. Solitary midpole left renal calculi measures 2 mm on axial image 36/3. There is no hydronephrosis or caliectasis. There is an 8 mm partially obstructive left distal ureter calculi unchanged to 12/17/2021. There is bilateral perinephric stranding. BLADDER: There is a calcification in between the bladder and the would be the uterus. The uterus is absent GASTROINTESTINAL TRACT: There is scattered stool and gas seen throughout the colon without distention. The small bowel loops are normal caliber. There is gastric sleeve surgical changes. There is no obstruction, free air free fluid. Scattered surgical luis are seen in the pelvis. ABDOMINAL WALL: No significant hernia is appreciated. LYMPH NODES: Normal. VASCULAR: Unremarkable. PELVIC VISCERA: There is no free air or free fluid. No pelvic mass seen. OSSEOUS STRUCTURES: No lytic or sclerotic process seen. There is mild ventral spondylosis throughout lumbar spine. CT/CT abdomen pelvis wo IV con IMPRESSION: Partially obstructing old left distal ureteral 8 mm calculi and a solitary stone midpole left kidney without caliectasis. Nonobstructive several right renal calculi are stable. Mild constipation without obstruction. Minimal bilateral posterior pleural thickening and small posterior pericardial effusion Fleischner guidelines were followed.
--- NOTE | ~2021-12-23 | XR_ITS ---
EXAMINATION: XR CHEST CLINICAL INFORMATION: Lightheaded COMPARISON: CT chest 11/03/2021 TECHNIQUE: Frontal view of the chest was obtained. FINDINGS: The lungs are well-expanded and clear of acute process. There is no pleural effusion. There is borderline cardiomegaly. Pulmonary vascularity is normal. No gross bony abnormality seen. XR/XR chest 1V IMPRESSION: Unremarkable chest examination.
--- NOTE | ~2021-12-23 | US_ITS ---
EXAMINATION: US RETROPERITONEAL LIMITED (RENAL ONLY) CLINICAL INFORMATION: Right lower quadrant pain. No ureteral stone.. COMPARISON: Previous CT of the abdomen and pelvis 12/17/2020 and renal ultrasound August 2020 TECHNIQUE: Grayscale and color imaging of the kidneys FINDINGS: RIGHT KIDNEY: 12 x 5.3 x 5.5 cm (SAG x AP x TRV). The kidney is normal in size, contour, and echogenicity. Renal cortical thickness is normal. Multiple small stones largest measuring 3 mm in the midpole. No focal parenchymal lesions. No hydronephrosis. LEFT KIDNEY: 11 x 5.2 x 4.4 cm (SAG x AP x TRV). The kidney is normal in size, contour, and echogenicity. Renal cortical thickness is normal. Multiple small stones largest measuring 2 mm in the lower pole. No focal parenchymal lesions. No hydronephrosis. US/US renal BI IMPRESSION: Small bilateral renal stones. No hydronephrosis..
--- NOTE | ~2021-12-23 | FL_ITS ---
EXAMINATION: XR FLUOROSCOPY WITH IMAGES CLINICAL INFORMATION: Left ureteral stone COMPARISON: Previous CT of the abdomen and pelvis most recent from 12/23/2021 TECHNIQUE: Fluoroscopy performed by Dr. Chaudhary. Fluoroscopy time: 19 seconds. Cumulative Dose: 4.7 mGy. Images: 2. FINDINGS: Initial image demonstrates a filling defect in the left distal ureter suggestive of a stone. Final image demonstrates distal end of an internal ureteral stent. FL/FL guidance in OR IMPRESSION: Fluoroscopic guidance for urologic procedure.
--- NOTE | 2021-12-23 11:04 | ECG_ITS ---
Test Reason : Lightheaded Blood Pressure : / mmHG Vent. Rate : 065 BPM Atrial Rate : 065 BPM P-R Int : 172 ms QRS Dur : 088 ms QT Int : 452 ms P-R-T Axes : 033 -04 -02 degrees QTc Int : 470 ms Sinus rhythm with frequent Premature ventricular complexes and Fusion complexes Low voltage QRS Inferior infarct , age undetermined Abnormal ECG No previous ECGs available Referred By: Peace Maddox Electronically Signed By:PATRICIA VIEIRA
--- NOTE | 2021-12-23 11:06 | ED.GENADULT ---
HPI - General Adult General Chief complaint: General Medical Stated complaint: Diabetic issues/Kidney stone Time Seen by Provider: 12/23/21 10:55 Source: patient Mode of arrival: ambulatory History of Present Illness HPI narrative: 66-year-old female with a past medical history of adrenal insufficiency, asthma, CKD, HLD, HTN, hypothyroid, nephrolithiasis, diabetes on insulin, myasthenia gravis on prednisone taper, recently diagnosed with UTI and 6 mm left ureteral stone on 12/18/21 currently on Keflex presenting to the ED complaining of lightheadedness with presyncopal episode in waiting room, nausea, continued RLQ abdominal discomfort since prior visit, and difficulty managing glucose at home. Denies known fever, chills, vomiting, diarrhea, dysuria/hematuria, headache, room spinning dizziness, CP/SOB Onset (ago): day(s) Related Data Home Medications Medication Instructions Recorded Confirmed escitalopram oxalate 10 mg tablet 10 mg PO DAILY 04/30/20 12/16/21 levothyroxine 112 mcg tablet 112 mcg PO DAILY 04/30/20 12/16/21 albuterol sulfate 90 mcg/actuation 0 mcg inhalation 12/03/21 12/16/21 aerosol inhaler aspirin 81 mg tablet,delayed 81 mg PO DAILY 12/03/21 12/16/21 release (Adult Low Dose Aspirin) calcium carbonate 600 mg calcium 600 mg PO DAILY 12/03/21 12/16/21 (1,500 mg) tablet (Calcium) famotidine 20 mg tablet 20 mg PO BID 12/03/21 12/16/21 insulin glargine 100 unit/mL (3 unit subcut 12/03/21 12/16/21 mL) subcutaneous pen (Lantus Solostar U-100 Insulin) prednisone 20 mg tablet 20 mg PO BID 12/03/21 12/16/21 pyridostigmine bromide 60 mg tablet 60 mg PO TID 12/03/21 12/16/21 Previous Rx's Medication Instructions Recorded oxycodone-acetaminophen 5 mg-325 1 tab PO Q4-6H PRN pain #14 tabs 05/16/20 mg tablet (Percocet) levofloxacin 500 mg tablet 500 mg PO Q24H UTI 5 days #5 tabs 02/25/21 glycopyrrolate 1 mg tablet 1 mg PO TID #30 tabs 10/20/21 pyridostigmine bromide 30 mg tablet 30 mg PO TID #60 tabs 10/20/21 oxybutynin chloride 10 mg 10 mg PO DAILY OAB 30 days #90 tabs 11/20/21 tablet,extended release 24 hr hydrocortisone sod succ (PF) 100 100 mg (2 mL) IM ONCE PRN Unable 12/03/21 mg/2 mL solution for injection to tolerate PO 30 days #1 ea (Solu-Cortef Act-O-Vial (PF)) blood sugar diagnostic (FreeStyle #100 ea 12/07/21 Lite Strips) blood-glucose meter (FreeStyle #1 ea 12/07/21 Lite Meter kit) insulin lispro 100 unit/mL 5 unit (0.05 mL) subcut TID 30 12/07/21 subcutaneous pen (Humalog KwikPen days #4.5 mL (U-100) Insulin) lancets 28 gauge (FreeStyle #100 ea 12/07/21 Lancets) pen needle, diabetic 32 gauge x #100 ea 12/07/2104/21 (BD Ultra-Fine Micro Pen Needle) atorvastatin 40 mg tablet 40 mg PO DAILY 30 days #30 tabs 12/16/21 celecoxib 100 mg capsule 100 mg PO BID 30 days #60 caps 12/18/21 prednisone 20 mg tablet 20 mg PO DAILY 5 days #5 tabs 12/18/21 tamsulosin 0.4 mg capsule 0.4 mg PO BEDTIME 2 weeks #14 caps 12/18/21 cephalexin 500 mg capsule 500 mg PO Q6H 7 days #28 caps 12/19/21 ondansetron 4 mg disintegrating 4 mg PO Q8H 3 days #9 tabs 12/20/21 tablet insulin NPH isoph U-100 human 100 12 unit (0.12 mL) subcut QAM 30 12/22/21 unit/mL (3 mL) subcutaneous pen days #3.6 mL (Humulin N NPH U-100 Insulin KwikPen) Allergies Allergy/AdvReac Type Severity Reaction Status Date / Time sertraline Allergy Mild Stomach Verified 12/16/21 12:16 Upset levothyroxine sodium AdvReac Unknown insomnia Verified 12/16/21 12:16 bees Allergy Unknown swells Uncoded 12/16/21 12:16 Review of Systems Review of Systems: Constitutional: No Fever, No Chills, No Fatigue, No Malaise ENT/Mouth: No Ear Pain, No Nasal Congestion, No Sinus Pain, No sore throat, No Rhinorrhea, No Swallowing Difficulty Eyes: No Eye Pain, No Swelling, No Redness, No Vision Changes Cardiovascular: No Chest Pain, No SOB, No Edema, No Palpitations Respiratory: No Cough, No Sputum, No Dyspnea Gastrointestinal: + Nausea, No Vomiting, No Diarrhea, No Constipation, + Abdominal pain Genitourinary: No irregular bleeding, No Dysuria, No Urinary Frequency, No Hematuria, No Urinary Incontinence/retention, + Flank Pain, No Urinary Flow Changes Musculoskeletal: No joint pain, No Myalgias, No Joint Swelling Skin: No Skin Lesions, No rash Neuro: +Generalized Weakness, No Numbness, No Paresthesias, No Loss of Consciousness, + lightheaded, No Headache Yes all other systems are reviewed and are negative Constitutional: Constitutional: Reports as per HPI Neurologic: Denies Abnormal speech present [facility] Past Medical History Attestation statement: The following information was validated with the patient. Medical History Adrenal insufficiency Asthma CKD (chronic kidney disease) Cystitis cystica Gallstones HLD (hyperlipidemia) HLD (hyperlipidemia) HTN (hypertension) Hypothyroid Multinodular thyroid Nephrolithiasis Nocturia VIVI (stress urinary incontinence, female) T2DM (type 2 diabetes mellitus) Thyroid nodule Trigeminy Urge incontinence Urinary frequency Urinary incontinence Urinary urgency UTI (urinary tract infection) Surgical History History of gastric bypass (~2004) History of hysterectomy History of pubovaginal sling Hx of cholecystectomy Family History Family History Father Heart attack CVD (cardiovascular disease) HTN (hypertension) Mother Dementia Social History Social History Alcohol intake: current Alcohol intake frequency: holidays/special occasions only Patient Tobacco Use Status: Former Tobacco user Quit Date: 20 years ago Tobacco use type: Cigarette Advance Directives: No Advance Directives Information Provided: No Advance Directives Date on File: 01/18/20 Physical Exam ED Vital Signs: Vital Signs - 24 hr 12/23/21 10:19 12/23/21 15:33 Temperature 98.8 F 98.2 F Pulse Rate 84 64 Respiratory Rate 16 16 Blood Pressure 108/62 119/58 L Pulse Oximetry 97 98 Oxygen Delivery Method Room Air Room Air BMI result Body Mass Index 27.7 Const General: cooperative, healthy appearing and no acute distress Orientation/consciousness: patient oriented x3 Limitations: no limitations HENMT Head: Yes normal to inspection and Yes atraumatic Ears: hearing grossly normal bilaterally General nose exam: Normal external nose present Face and sinus: Yes normal facial exam Eyes General: appearance normal, both eyes and all related structures EOM: EOMs intact bilaterally Neck Neck: Yes normal visual inspection and Yes no meningeal signs Resp Effort & Inspection: normal respiratory effort and no respiratory distress Auscultation: clear to auscultation bilaterally, no crackles, no rales, no rhonchi and no wheezes Cardio Rate: regular rate Heart sounds: S1 normal heart sound present and S2 normal heart sound present GI Inspection: Yes normal to inspection Palpation (GI): Soft to palpation, Tenderness to palpation present (GI) in the RLQ (mild); with no rebound tenderness, no guarding and not rigid General: Yes CVA tenderness on the right Back/Spine/Pelvis Back: CVA tenderness Skin Rashes: no rashes Wounds: no wounds Neuro General: patient oriented x3, tone normal, moves all extremities, no meningeal signs, no focal motor deficits and CN's II-XI intact bilaterally Cranial nerves: Yes CN's II-XII intact bilaterally and Yes Bilaterally intact EOM present Cognition (Neuro): normal cognition Speech: No Abnormal speech present Gait exam (Neuro): Normal gait present Motor exam (neuro): 5/5 motor strength present throughout Extrem General: Yes normal to inspection Course Course Course Narrative: -1220--mild leukocytosis of 12.9. BUN chronically elevated. Glucose 335, no anion gap. Lactic acid elevated to 2.4 > will give 2 L IVF and repeat. Low suspicion for severe sepsis, likely from dehydration. > patient admits to taking Keflex this AM > which is culture sensitive from 12/18 > case d/w Dr. Hernandez >> will give additional dose IV Rocephin in the ED -Initial troponin 4.8 > will obtain 3 hour repeat XR chest 1V IMPRESSION: Unremarkable chest examination. US renal BI IMPRESSION: Small bilateral renal stones. No hydronephrosis. 1516--CT abdomen pelvis wo IV con IMPRESSION: Partially obstructing old left distal ureteral 8 mm calculi and a solitary stone midpole left kidney without caliectasis. ? Nonobstructive several right renal calculi are stable. ? Mild constipation without obstruction. ? Minimal bilateral posterior pleural thickening and small posterior pericardial effusion ? Fleischner guidelines were followed. > will re-consult Dr. Jet Chaudhary recommended admission, IVF, IV antibiotics and will add on to OR schedule tomorrow. This was discussed with patient who is agreeable with plan Medical Decision Making MDM Narrative Medical decision making narrative: 66-year-old female with a PMHx of adrenal insufficiency, asthma, CKD, HLD, HTN, hypothyroid, nephrolithiasis, diabetes on insulin, myasthenia gravis on prednisone taper, recently diagnosed with UTI and 6 mm left ureteral stone on 12/18/21 currently on Keflex presenting to the ED c/o lightheadedness with presyncopal episode, nausea, continued RLQ abdominal discomfort, and difficulty managing glucose at home. On exam vital signs stable, NAD, nontoxic appearing, abdomen soft with right CVA tenderness and mild right lower quadrant tenderness, no rebound or guarding. No focal neuro deficits. Concern for DKA vs continued renal stone/UTI pain (although on contralateral side-pt reports unchanged) vs metabolic/infectious etiologies including dehydration. Rule out ACS. Lower suspicion for PE. Unlikely appendicitis/diverticulitis/pancreatitis Plan: EKG, labs, UA, CXR, renal ultrasound, IVF, orthostatic, re-evaluate Medical Records Medical records reviewed: Yes I reviewed the patient's medical records. Lab Data Lab results reviewed: Yes I reviewed the patient's lab results. Result diagrams: 12/23/21 11:19 12/23/21 11:19 Labs: Lab Results 12/23/21 12/23/21 12/23/21 Range/Units 11:19 11:19 11:19 WBC 12.9 H (4.8-10.8) X10*3/uL RBC 4.42 (4.20-5.50) X10*6/uL Hgb 12.4 (12.0-16.0) g/dl Hct 37.3 (37.0-47.0) % MCV 84.4 (80.0-98.0) fL MCH 28.1 (27.0-33.0) pg MCHC 33.2 (31.0-35.0) g/dl RDW 15.1 (11.0-16.0) % Plt Count 201 (160-400) X10*3/uL MPV 10.3 (9.4-12.3) fL Immature Gran % (Auto) 1.5 H (0.0-0.4) % Neut % (Auto) 82.8 H (45-73) % Lymph % (Auto) 9.0 L (20-40) % [place] % (Auto) 6.1 (2-11) % Eos % (Auto) 0.4 (0-4) % Baso % (Auto) 0.2 (0-2) % Lymph # (Auto) 1.2 (1.2-4.9) X10*3/uL [place] # (Auto) 0.8 (0.1-1.2) X10*3/uL Eos # (Auto) 0.1 (0.0-0.4) X10*3/uL Baso # (Auto) 0.0 (0.0-0.2) X10*3/uL Abs Immat Gran (auto) 0.19 H (0.00-0.03) X10*3/uL Absolute Neuts (auto) 10.6 H (2.0-8.3) x10*3/uL Absolute Nucleated RBC 0.000 (0.0-0.012) X10*3/uL Nucleated RBC % (auto) 0.0 (0.0-0.2) /100WBC Sodium 136 (135-145) mmol/L Potassium 3.6 (3.3-5.1) mmol/L Chloride 101 (96-108) mmol/L Carbon Dioxide 22 (22-29) mmol/L Anion Gap 17 (12-20) BUN 23 H (9-16) mg/dL Creatinine 1.39 (0.5-1.4) mg/dL Estim Creat Clear Calc 45.7 Estimated GFR 38 Random Glucose 335 H (60-115) mg/dL Lactic Acid 2.4 H* (0.5-2.0) mmol/L Calcium 8.8 (8.4-10.2) mg/dL Magnesium 1.8 (1.6-2.6) mg/dL Total Bilirubin 1.1 H (0.0-1.0) mg/dL Direct Bilirubin 0.5 (0.0-0.5) mg/dL AST 15 (5-31) U/L ALT 22 (0-31) U/L Alkaline Phosphatase 72 (39-117) U/L Troponin I High Sens (<3.5-17.0) ng/L Total Protein 6.3 L (6.5-8.0) g/dL Albumin 3.7 (3.5-5.0) g/dL Lipase 68 (8-78) U/L Acetone, Qual Negative (Negative) COVID-19 (MARIE) (Negative) COVID-19 Clin Com 12/23/21 12/23/21 Range/Units 11:19 11:19 WBC (4.8-10.8) X10*3/uL RBC (4.20-5.50) X10*6/uL Hgb (12.0-16.0) g/dl Hct (37.0-47.0) % MCV (80.0-98.0) fL MCH (27.0-33.0) pg MCHC (31.0-35.0) g/dl RDW (11.0-16.0) % Plt Count (160-400) X10*3/uL MPV (9.4-12.3) fL Immature Gran % (Auto) (0.0-0.4) % Neut % (Auto) (45-73) % Lymph % (Auto) (20-40) % [place] % (Auto) (2-11) % Eos % (Auto) (0-4) % Baso % (Auto) (0-2) % Lymph # (Auto) (1.2-4.9) X10*3/uL [place] # (Auto) (0.1-1.2) X10*3/uL Eos # (Auto) (0.0-0.4) X10*3/uL Baso # (Auto) (0.0-0.2) X10*3/uL Abs Immat Gran (auto) (0.00-0.03) X10*3/uL Absolute Neuts (auto) (2.0-8.3) x10*3/uL Absolute Nucleated RBC (0.0-0.012) X10*3/uL Nucleated RBC % (auto) (0.0-0.2) /100WBC Sodium (135-145) mmol/L Potassium (3.3-5.1) mmol/L Chloride (96-108) mmol/L Carbon Dioxide (22-29) mmol/L Anion Gap (12-20) BUN (9-16) mg/dL Creatinine (0.5-1.4) mg/dL Estim Creat Clear Calc Estimated GFR Random Glucose (60-115) mg/dL Lactic Acid (0.5-2.0) mmol/L Calcium (8.4-10.2) mg/dL Magnesium (1.6-2.6) mg/dL Total Bilirubin (0.0-1.0) mg/dL Direct Bilirubin (0.0-0.5) mg/dL AST (5-31) U/L ALT (0-31) U/L Alkaline Phosphatase (39-117) U/L Troponin I High Sens 4.8 (<3.5-17.0) ng/L Total Protein (6.5-8.0) g/dL Albumin (3.5-5.0) g/dL Lipase (8-78) U/L Acetone, Qual (Negative) COVID-19 (MARIE) Negative (Negative) COVID-19 Clin Com See Note Critical Care Time Critical Care Time Critical Care Time: Yes Total Critical Care Time: 40 Attestation: I have personally provided critical care time exclusive of time spent on separately billable procedures. Time includes review of lab data, radiology results, discussion with consultants, and monitoring for potential decompensation. Intervention performed as documented. Discharge Plan Discharge Clinical Impression: Calculus of distal left ureter, Acute UTI Patient Disposition: Admitted As Inpatient
[2021-12-23] MEDS: 0.9 % Sodium Chloride 1,000 ML 999 ML IV ×2 (11:22→13:07)
--- NOTE | 2021-12-23 11:24 | PC.NURSE ---
lower abd pain and r flank pain 4/10, skin wpd, aware of care plan, nad, ns infusing
[2021-12-23 11:31] LABS: MANUAL DIFF FLAG NO
[2021-12-23 11:35] LABS: Basophils Percent Auto 0.2 % (0-2); Eosinophils Absolute Auto 0.1 X10*3/uL (0.0-0.4); Eosinophils Percent Auto 0.4 % (0-4); Hematocrit 37.3 % (37.0-47.0); Hemoglobin 12.4 g/dl (12.0-16.0); Imm Gran Abs Auto 0.19 X10*3/uL (0.00-0.03); Imm Gran Pct Auto 1.5 % (0.0-0.4); Lymphocytes Absolute Auto 1.2 X10*3/uL (1.2-4.9); Mean Corpuscular HGB Conc 33.2 g/dl (31.0-35.0); Mean Corpuscular Hemoglobin 28.1 pg (27.0-33.0); Mean Corpuscular Volume 84.4 fL (80.0-98.0); Mean Platelet Volume 10.3 fL (9.4-12.3); Monocytes Absolute Auto 0.8 X10*3/uL (0.1-1.2); Monocytes Percent Auto 6.1 % (2-11); Neutrophils Absolute Auto 10.6 x10*3/uL (2.0-8.3); Neutrophils Percent Auto 82.8 % (45-73); Platelet Count 201 X10*3/uL (160-400); Red Blood Count 4.42 X10*6/uL (4.20-5.50); Red Cell Distribution Width 15.1 % (11.0-16.0); White Blood Count 12.9 X10*3/uL (4.8-10.8)
[2021-12-23 11:55] LABS: Alanine Aminotransferase 22 U/L (0-31); Albumin Level 3.7 g/dL (3.5-5.0); Alkaline Phosphatase 72 U/L (39-117); Anion Gap 17 (12-20); Aspartate Amino Transferase 15 U/L (5-31); Bilirubin Direct 0.5 mg/dL (0.0-0.5); Bilirubin Total 1.1 mg/dL (0.0-1.0); Blood Urea Nitrogen 23 mg/dL (9-16); Calcium 8.8 mg/dL (8.4-10.2); Carbon Dioxide 22 mmol/L (22-29); Chloride 101 mmol/L (96-108); Creatinine Clr Calc Pharmacy 45.7; Estimated Glomerular Filt Rate 38; Glucose Random 335 mg/dL (60-115); Lipase 68 U/L (8-78); Magnesium 1.8 mg/dL (1.6-2.6); Potassium 3.6 mmol/L (3.3-5.1); Sodium 136 mmol/L (135-145); Total Protein 6.3 g/dL (6.5-8.0)
[2021-12-23 11:58] LABS: Troponin-I High Sensitivity 4.8 ng/L (<3.5-17.0)
[2021-12-23 12:02] LABS: Lactic Acid 2.4 mmol/L (0.5-2.0)
[2021-12-23 12:05] LABS: COVID-19 Test Negative (Negative); IDNOW Serial# 9DB6401D
[2021-12-23 13:00] LABS: Acetone, serum QL Negative (Negative)
[2021-12-23] MEDS: cefTRIAXone sodium 1 GM in 0.9 % Sodium Chloride 50 ML IV (13:09)
[2021-12-23] MEDS: Ketorolac Tromethamine 15 MG/ML VIAL IVPUSH (13:09)
[2021-12-23 13:25] LABS: Reflex Lactate? Lactic Acid Added
--- NOTE | 2021-12-23 15:46 | P.HPHOSP_ITS ---
History of Present Illness Date of Service: 12/23/21 Attending physician on admission: Ramila Hernandez Chief Complaint: renal obstruction with UTI 66 year old female with history of myasthenia gravis on prednisone taper diag September 2021, adrenal insufficiency, insulin dependent type 2 diabetes, htn, hypothyroidism, hld, CKD stage 3, hiatal hernia with gerd, depression, nephrolithiasis with history lithotripsy, and mild intermittent asthma without exacerbation recently diagnosed with 8mm partially obstructing left ureteral stone and UTI currently on keflex and flomax presented to the ED with nausea, ongoing right lower quadrant pain. Ct abd/pelvis this morning showed old 8mm partially obstructing left ureteral stone and a solitary stone midpole left kidney without caliectasis with several nonobstructing right renal calculi. Urine culture from 12/18 grew e.coli. Repeat pending. Leukocytosis 12.9. Mildly elevated lactic acid 2.4, repeat pending. Afebrile. No tachycardia, hypotension. Renal function at baseline. She tells me she has a short-lived episode of lightheadedness in the ED waiting room like she was going to pass out but did not. Brief vision changes. No associated palpitations, sob, cp. No syncope. EKG with frequent PVC's and age indetermine inferior infarct, sinus rhythm rate 65. Troponin pending. No recurrent episodes. No prior history presyncope. Has received 2L IVF and Iv rocephin in ED. ED spoke with Dr. Mota who will be taking the patient to the OR tomorrow. Review of Systems Review of Systems: General: No fevers, malaise, unintentional weight loss HEENT: +blurred vision. No diplopia Cardiovascular: No chest pain, palpitations, or leg edema Respiratory: No shortness of breath, wheezing, cough GI: +nausea, +RLQ pain. No vomiting, diarrhea, constipation, melena, hematochezia : No dysuria, hematuria, increased urianry frequency Neuro: No headaches, weakness, paresthesias Skin: No rashes or lesions [facility] Medical History Adrenal insufficiency Asthma CKD (chronic kidney disease) Cystitis cystica Gallstones HLD (hyperlipidemia) HLD (hyperlipidemia) HTN (hypertension) Hypothyroid Multinodular thyroid Nephrolithiasis Nocturia VIVI (stress urinary incontinence, female) T2DM (type 2 diabetes mellitus) Thyroid nodule Trigeminy Urge incontinence Urinary frequency Urinary incontinence Urinary urgency UTI (urinary tract infection) Family History Father Heart attack CVD (cardiovascular disease) HTN (hypertension) Mother Dementia Surgical History History of gastric bypass (~2004) History of hysterectomy History of pubovaginal sling Hx of cholecystectomy Social History Alcohol intake: never Patient Tobacco Use Status: Former Tobacco user Quit Date: 20 years ago Tobacco use type: Cigarette Use of substances other than those prescribed or required for medical reasons: No Advance Directives: No Advance Directives Information Provided: No Advance Directives Date on File: 01/18/20 Meds Allergies Allergy/AdvReac Type Severity Reaction Status Date / Time sertraline Allergy Mild Stomach Verified 12/16/21 12:16 Upset levothyroxine sodium AdvReac Unknown insomnia Verified 12/16/21 12:16 bees Allergy Unknown swells Uncoded 12/16/21 12:16 Home Medications Medication Instructions Recorded Confirmed Last Taken Type escitalopram oxalate 10 mg tablet 10 mg PO DAILY 04/30/20 12/23/21 12/23/21 History levothyroxine 112 mcg tablet 112 mcg PO DAILY 04/30/20 12/23/21 12/23/21 History albuterol sulfate 90 mcg/actuation 90 mcg inhalation Q4H PRN 12/03/21 12/23/21 12/23/21 History aerosol inhaler Shortness Of Breath aspirin 81 mg tablet,delayed 81 mg PO DAILY 12/03/21 12/23/21 12/23/21 History release (Adult Low Dose Aspirin) calcium carbonate 600 mg calcium 600 mg PO DAILY 12/03/21 12/23/21 12/23/21 History (1,500 mg) tablet (Calcium) famotidine 20 mg tablet 20 mg PO BID 12/03/21 12/23/21 12/23/21 History insulin glargine 100 unit/mL (3 40 unit subcut DAILY 08/18/22 09/07/22 09/07/22 History mL) subcutaneous pen (Lantus Solostar U-100 Insulin) pyridostigmine bromide 60 mg tablet 60 mg PO TID 12/03/21 12/23/21 12/23/21 History cholecalciferol (vitamin D3) 50 50 mcg PO DAILY 12/23/21 12/23/21 Unknown History mcg (2,000 unit) tablet (Vitamin D3) prednisone 20 mg tablet 30 mg PO DAILY 12/23/21 12/23/21 12/23/21 History trazodone 50 mg tablet 25 mg PO BEDTIME PRN Insomnia 12/23/21 12/23/21 Unknown History Physical Exam Vital Signs and Narrative: Vital Signs: Last Vital Signs Temp 98.2 F 12/23/21 15:33 Pulse 64 12/23/21 15:33 Resp 16 12/23/21 15:33 BP 119/58 L 12/23/21 15:33 Pulse Ox 98 12/23/21 15:33 O2 Del Method 12/23/21 15:33 BMI result Body Mass Index 27.7 Constitutional - Awake and Alert, No apparent distress Eyes - PERRLA, EOMI Cardiovascular - S1S2, RRR, No edema Respiratory - Normal lung expansion, Normal respiratory effort, No respiratory distress, CTA bilaterally Gastrointestinal - Moderate RLQ/suprapubic ttp without guarding or rebound. ND; +BS - No CVA tenderness Extremities - no calf tenderness bilaterally, no swelling Skin - Warm/Dry Neurological - Alert & oriented x3, CN II-XII in tact. 5/5 strength BUE and BLE Psychological - Appropriate affect Results Labs CBC and Chem 7: 12/23/21 11:19 12/23/21 11:19 Labs: Laboratory Results - last 24 hr 12/23/21 12/23/21 12/23/21 11:19 11:19 11:19 MCV 84.4 MCH 28.1 MCHC 33.2 RDW 15.1 Plt Count 201 MPV 10.3 Immature Gran % (Auto) 1.5 H Neut % (Auto) 82.8 H Lymph % (Auto) 9.0 L [place] % (Auto) 6.1 Eos % (Auto) 0.4 Baso % (Auto) 0.2 Lymph # (Auto) 1.2 [place] # (Auto) 0.8 Eos # (Auto) 0.1 Baso # (Auto) 0.0 Abs Immat Gran (auto) 0.19 H Absolute Neuts (auto) 10.6 H Absolute Nucleated RBC 0.000 Nucleated RBC % (auto) 0.0 Anion Gap 17 Estim Creat Clear Calc 45.7 Estimated GFR 38 Random Glucose 335 H Lactic Acid 2.4 H* Calcium 8.8 Magnesium 1.8 Total Bilirubin 1.1 H Direct Bilirubin 0.5 AST 15 ALT 22 Alkaline Phosphatase 72 Total Protein 6.3 L Albumin 3.7 Lipase 68 Acetone, Qual Negative COVID-19 (MARIE) COVID-19 Clin Com 12/23/21 11:19 MCV MCH MCHC RDW Plt Count MPV Immature Gran % (Auto) Neut % (Auto) Lymph % (Auto) [place] % (Auto) Eos % (Auto) Baso % (Auto) Lymph # (Auto) [place] # (Auto) Eos # (Auto) Baso # (Auto) Abs Immat Gran (auto) Absolute Neuts (auto) Absolute Nucleated RBC Nucleated RBC % (auto) Anion Gap Estim Creat Clear Calc Estimated GFR Random Glucose Lactic Acid Calcium Magnesium Total Bilirubin Direct Bilirubin AST ALT Alkaline Phosphatase Total Protein Albumin Lipase Acetone, Qual COVID-19 (MARIE) Negative COVID-19 Clin Com See Note Imaging Radiologist's Impressions: Impressions Chest X-Ray 12/23/21 11:32 IMPRESSION: Unremarkable chest examination. Renal Ultrasound 12/23/21 12:26 IMPRESSION: Small bilateral renal stones. No hydronephrosis.. Abdomen/Pelvis CT 12/23/21 13:52 IMPRESSION: Partially obstructing old left distal ureteral 8 mm calculi and a solitary stone midpole left kidney without caliectasis. Nonobstructive several right renal calculi are stable. Mild constipation without obstruction. Minimal bilateral posterior pleural thickening and small posterior pericardial effusion Fleischner guidelines were followed. Assessment and Plan (1) Calculus of distal left ureter: Status: Acute (2) Acute UTI: Status: Acute Plan 66 year old female with history of myasthenia gravis on prednisone taper diag September 2021, adrenal insufficiency, insulin dependent type 2 diabetes, htn, hld, h ypothyroidism, CKD stage 3, hiatal hernia with gerd, depression, nephrolithiasis with history lithotripsy, and mild intermittent asthma without exacerbation recently diagnosed with 8mm partially obstructing left ureteral stone and UTI currently on keflex and flomax admitted for nephrolithiaisis and UTI. 1-Distal left ureteral calculus- Ct abd/pelvis old 8mm partially obstructing left ureteral stone and a solitary stone midpole left kidney without caliectasis with several nonobstructing right renal calculi -ED discussed case with Dr. Chaudhary. Patient to OR tomorrow. Consult to urology placed -Received 2L IVF in ED. NPO after midnight -Hold asa and nsaids -Ondansetron prn n/v -Oxycodone and dilaudid for pain management per pain scale -Contineu flomax 2-Acute UTI -Urine culture 12/18 with e.coli sensitive to ceftriaxone. Has been on PO keflex since 12/19 -Received IV ceftriaxone in ED. Continue IV ceftriaxone -Leukocytosis of 12.9 likely related to chronic prednisone use, not sepsis. Pt afebrile, vitals stable. Lactic acid intitially elevated 2.4, improved to 1.0. Not severe sepsis 3-Presyncope- isolated incident -EKG with frequent PVC's and inferior infarct indeterminate age. Trops pending. On statin -Received 2l IVF without recurrence. Possible dehydration -No focal neuro deficits on exam -Monitor for recurrent symptoms 3-Insulin dependent type 2 diabetes- uncontrolled -Pt experiencing hyperglycemia secondary to chronic prednisone use and infection -Change lantus 25 units at bedtime. Humalog on ss -Diabetic diet -POC glucose 4-HTN- controlled -Not on meds -Continue monitoring bps 5-HLD -Continue atorvastatin 6-Mild intermittent asthma without exacerbation -Albuterol nebs prn 7-Myasthenia gravis -Continue home prednisone taper and pyridostigmine 8-Adrenal insuffieincy -Continue steroids 9-Hypothyroidism -Continue levothyroxine -GERD-stable -continue famotidine DVt prophylaxis- mechanical and ambulation. Reassess post-operatively Full code Pt to require inpt stay of at least 2 midnights due to partially obstructing nephrolithiasis requiring surgical intervention and UTI failing to improve following outpatient treatment requiring IV abx. Quality Stroke Does the patient have a stroke diagnosis?: No VTE Prior VTE?: No VTE Risk Level:: Medical - moderate - high VTE Device Contraindication: N/A - Device Ordered VTE Drug Contraindication: Treatment Not Indicated
[2021-12-23 16:03] LABS: Troponin-I High Sensitivity 5.9 ng/L (<3.5-17.0)
[2021-12-23 16:29] LABS: Appearance Urine Clear; Color Urine Yellow; Glucose Urine UA 500 mg/dL (Negative); Leukocyte Esterase Urine Moderate (2+) (Negative); Nitrite Urine Negative (Negative); PH 5.5 (5.0-9.0); Specific Gravity - Urine 1.015 (1.005-1.025); Urine Blood Negative (Negative); Urine Ketones Trace mg/dL (Negative); Urine Protein Trace mg/dL (Neg-Trace)
--- NOTE | 2021-12-23 16:53 | PHA.MEDREC ---
Pharmacy Consult ? Medication Reconciliation Pharmacy has completed the medication reconciliation. Patient provided an updated list at bedside. Noted that her prednisone and lantus dose have changed recently.
[2021-12-23 17:50] LABS: Bacteria Urine None Seen (None Seen); Hyaline Casts Urine 0-2 /LPF (0-2); RBC Urine 0-2 /HPF (0-2); Squamous Epithelial Cell Urine 0-2 /HPF (0-2); WBC Urine >50 /HPF (0-5)
[2021-12-23 18:45] LABS: Glucose, Whole Blood 308 mg/dL (60-115)
[2021-12-23] MEDS: Insulin Lispro 100 UNIT/ML 3 ML VIAL SUBCUT (19:53)
[2021-12-23] MEDS: oxyCODONE HCl Immed Release 5 MG TABLET PO (20:03)
--- NOTE | 2021-12-23 20:04 | PC.NURSE ---
pt a&ox3, vss, medicated per provider order, pt reporting 4/10 abd pain, POC 306 per provider okay to give 2100 sliding scale early. .
[2021-12-23 21:52] LABS: Glucose, Whole Blood 252 mg/dL (60-115)
[2021-12-23] MEDS: Tamsulosin HCL 0.4 MG CAPSULE PO (22:06)
[2021-12-23] MEDS: Famotidine 20 MG TABLET PO (22:06)
[2021-12-23] MEDS: Insulin Glargine,Hum.rec.anlog 100 UNIT/ML 10 ML VIAL 25 UNIT SUBCUT (22:06)
[2021-12-24] VITALS (14 sets, daily range): BP systolic 107–151; BP diastolic 53–71; PULSE 52–85; RESP 10–20; TEMP 36.1–37; O2SAT 93–98
--- NOTE | 2021-12-24 01:54 | PC.NURSE ---
Pt up to nearby bathroom with this RN standing by for assistance as needed.PT noted to ambulate to the bathroom with even and steady gait without distress and/or physical assistance required. Pt had an inconitent episode x1 of urine and was provided with clean items to change into.
--- NOTE | 2021-12-24 05:37 | PC.NURSE ---
pt resting comfortably in bed with eyes closed, respirations even and unlabored without distress noted. Call landin remains in place adn RN will continue to monitor.
[2021-12-24] MEDS: Levothyroxine Sodium 112 MCG TABLET PO (06:09)
[2021-12-24] MEDS: 0.9 % Sodium Chloride Flush 3 ML SYRINGE IVFLUSH ×2 (06:10→20:50)
[2021-12-24 08:02] LABS: Glucose, Whole Blood 128 mg/dL (60-115)
--- NOTE | 2021-12-24 08:21 | PM.UROCN ---
History of Present Illness Consult details Consult date: 12/24/21 Narrative: Consulting complaint left distal ureteric stone Sarah is a very pleasant female. Known to Urology for previous kidney stones Had called with left-sided flank pain and been treated for potential kidney stone passage Had episode of pain to 8/10 that was not responsive to medication Present to emergency room and found to have combination of urinary tract infection and distal left ureteric stone Minimal hydro ureteral nephrosis Creatinine 1.6, baseline 1.2 WBC 12.9 Has been admitted to Medicine will get hydration and antibiotics with plan for intervention on left side Review of Systems Constitutional: Constitutional: Reports as per HPI and Reports no additional constitutional complaints Cardiovascular: Cardiovascular: Reports as per HPI and Reports no additional cardiovascular complaints Respiratory: Respiratory: Reports as per HPI and Reports no additional respiratory complaints Gastrointestinal: Gastrointestinal: Reports as per HPI and Reports no additional gastrointestinal complaints Genitourinary: Genitourinary: Reports as per HPI Musculoskeletal: Musculoskeletal: Reports no additional musculoskeletal complaints and Reports as per HPI Neurologic: Reports system reviewed and no additional complaints, except as documented and Reports as per HPI [facility] Past Medical History Medical History Adrenal insufficiency Asthma CKD (chronic kidney disease) Cystitis cystica Gallstones HLD (hyperlipidemia) HLD (hyperlipidemia) HTN (hypertension) Hypothyroid Multinodular thyroid Nephrolithiasis Nocturia VIVI (stress urinary incontinence, female) T2DM (type 2 diabetes mellitus) Thyroid nodule Trigeminy Urge incontinence Urinary frequency Urinary incontinence Urinary urgency UTI (urinary tract infection) Family History Family History Father Heart attack CVD (cardiovascular disease) HTN (hypertension) Mother Dementia Surgical History Surgical History History of gastric bypass (~2004) History of hysterectomy History of pubovaginal sling Hx of cholecystectomy Social History Social History Alcohol intake: never Patient Tobacco Use Status: Former Tobacco user Quit Date: 20 years ago Tobacco use type: Cigarette Use of substances other than those prescribed or required for medical reasons: No Advance Directives: No Advance Directives Information Provided: No Advance Directives Date on File: 01/18/20 Meds Allergies Allergy/AdvReac Type Severity Reaction Status Date / Time sertraline Allergy Mild Stomach Verified 12/16/21 12:16 Upset levothyroxine sodium AdvReac Unknown insomnia Verified 12/16/21 12:16 bees Allergy Unknown swells Uncoded 12/16/21 12:16 Active Medications: Current Medications Atorvastatin Calcium (Atorvastatin Calcium 40 Mg Tablet) 40 mg PO DAILY [facility] Calcium Carbonate (Calcium Carbonate 500 Mg Tablet) 500 mg PO DAILY [facility] Escitalopram Oxalate (Escitalopram Oxalate 10 Mg Tablet) 10 mg PO DAILY [facility] Famotidine (Famotidine 20 Mg Tablet) 20 mg PO BID [facility] Last Admin: 12/23/21 22:06 Dose: 20 mg Hydromorphone HCl (Hydromorphone Hcl 1 Mg/Ml Syringe) 0.5 mg SUBCUT Q4H PRN; Protocol PRN Reason: Pain, Severe (Pain Scale 7-10) Ceftriaxone Sodium 1 gm/ (Sodium Chloride) 50 mls @ 100 mls/hr IV Q24H [facility] Insulin Glargine (Insulin Glargine,Hum.Rec.Anlog 100 Unit/Ml 10 Ml Vial) 25 unit SUBCUT BEDTIME [facility] Last Admin: 12/23/21 22:06 Dose: 25 unit Insulin Human Lispro (Insulin Lispro 100 Unit/Ml 3 Ml Vial) 0 unit SUBCUT QIDACHS [facility]; Protocol Last Admin: 12/23/21 19:53 Dose: 8 unit Levothyroxine Sodium (Levothyroxine Sodium 112 Mcg Tablet) 112 mcg PO DAILY@0600 [facility] Last Admin: 12/24/21 06:09 Dose: 112 mcg Ondansetron HCl (Ondansetron Hcl 4 Mg/2 Ml Vial) 4 mg IVPUSH Q8H PRN PRN Reason: Nausea and Vomiting Oxybutynin Chloride (Oxybutynin Chloride Er 5 Mg Tab.Er.24) 10 mg PO DAILY [facility] Oxycodone HCl (Oxycodone Hcl Immed Release 5 Mg Tablet) 5 mg PO Q6H PRN PRN Reason: Pain, Moderate (Pain Scale 4-6 Last Admin: 12/23/21 20:03 Dose: 5 mg Pharmacy Consult (Consult Rx Perform Med Rec) 1 each MISCELLANE ONCE PRN PRN Reason: Consult order Prednisone (Prednisone 10 Mg Tablet) 30 mg PO DAILY [facility] Pyridostigmine [place] (Pyridostigmine [place] 60 Mg Tablet) 60 mg PO TID [facility] Last Admin: 12/23/21 22:06 Dose: 60 mg Sodium Chloride (0.9 % Sodium Chloride Flush 3 Ml Syringe) 3 ml IVFLUSH QSHIFT [facility] Last Admin: 12/24/21 06:10 Dose: 3 ml Tamsulosin HCl (Tamsulosin Hcl 0.4 Mg Capsule) 0.4 mg PO BEDTIME [facility] Last Admin: 12/23/21 22:06 Dose: 0.4 mg Trazodone HCl (Trazodone Hcl 25 Mg Halftab) 25 mg PO BEDTIME PRN PRN Reason: Insomnia Vitamin D (Cholecalciferol (Vitamin D3) 25 Mcg Tablet) 50 mcg PO DAILY [facility] Home Medications Medication Instructions Recorded Confirmed Last Taken Type escitalopram oxalate 10 mg tablet 10 mg PO DAILY 04/30/20 12/23/21 12/23/21 History levothyroxine 112 mcg tablet 112 mcg PO DAILY 04/30/20 12/23/21 12/23/21 History albuterol sulfate 90 mcg/actuation 90 mcg inhalation Q4H PRN 12/03/21 12/23/21 12/23/21 History aerosol inhaler Shortness Of Breath aspirin 81 mg tablet,delayed 81 mg PO DAILY 12/03/21 12/23/21 12/23/21 History release (Adult Low Dose Aspirin) calcium carbonate 600 mg calcium 600 mg PO DAILY 12/03/21 12/23/21 12/23/21 History (1,500 mg) tablet (Calcium) famotidine 20 mg tablet 20 mg PO BID 12/03/21 12/23/21 12/23/21 History insulin glargine 100 unit/mL (3 40 unit subcut DAILY 12/03/21 12/23/21 12/23/21 History mL) subcutaneous pen (Lantus Solostar U-100 Insulin) pyridostigmine bromide 60 mg tablet 60 mg PO TID 12/03/21 12/23/21 12/23/21 History cholecalciferol (vitamin D3) 50 50 mcg PO DAILY 12/23/21 12/23/21 Unknown History mcg (2,000 unit) tablet (Vitamin D3) prednisone 20 mg tablet 30 mg PO DAILY 12/23/21 12/23/21 12/23/21 History trazodone 50 mg tablet 25 mg PO BEDTIME PRN Insomnia 12/23/21 12/23/21 Unknown History Physical Exam Vital Signs: Vital Signs: Last Vital Signs Temp 98.0 F 12/24/21 08:00 Pulse 59 12/24/21 08:00 Resp 16 12/24/21 08:00 BP 121/56 L 12/24/21 08:00 Pulse Ox 97 12/24/21 08:00 O2 Del Method 12/24/21 08:00 BMI result Body Mass Index 27.7 Const: General: cooperative, healthy appearing, comfortable and no acute distress Orientation/consciousness: patient oriented x3 HEENT: Face and sinus: Yes normal facial exam Mouth: moist mucous membranes Neck: Neck: Yes normal visual inspection, Yes full ROM and Yes trachea midline Chest: Chest palpation & inspection: normal inspection of the chest Resp: Effort & Inspection: normal respiratory effort, able to speak in complete sentences and no respiratory distress GI: Inspection: Yes normal to inspection Back/Spine/Pelvis: Cervical Spine: normal cervical lordosis Thoracic/Lumbar Spine: thoracic and lumbar spine normal to inspection Skin: General skin exam: no rashes or lesions noted Neuro: General: patient oriented x3, tone normal and moves all extremities Extrem: General: Yes normal to inspection and Yes capillary refill normal Results Labs Result diagrams: 12/23/21 11:19 12/23/21 11:19 Labs: Abnormal lab results 12/23/21 12/23/21 12/23/21 Range/Units 11:19 11:19 11:19 WBC 12.9 H (4.8-10.8) X10*3/uL Immature Gran % (Auto) 1.5 H (0.0-0.4) % Neut % (Auto) 82.8 H (45-73) % Lymph % (Auto) 9.0 L (20-40) % Abs Immat Gran (auto) 0.19 H (0.00-0.03) X10*3/uL Absolute Neuts (auto) 10.6 H (2.0-8.3) x10*3/uL BUN 23 H (9-16) mg/dL POC Glucose (60-115) mg/dL Random Glucose 335 H (60-115) mg/dL Lactic Acid 2.4 H* (0.5-2.0) mmol/L Total Bilirubin 1.1 H (0.0-1.0) mg/dL Total Protein 6.3 L (6.5-8.0) g/dL Urine Glucose (UA) (Negative) mg/dL Ur Leukocyte Esterase (Negative) Urine WBC (0-5) /HPF 12/23/21 12/23/21 12/23/21 Range/Units 16:16 18:37 21:46 WBC (4.8-10.8) X10*3/uL Immature Gran % (Auto) (0.0-0.4) % Neut % (Auto) (45-73) % Lymph % (Auto) (20-40) % Abs Immat Gran (auto) (0.00-0.03) X10*3/uL Absolute Neuts (auto) (2.0-8.3) x10*3/uL BUN (9-16) mg/dL POC Glucose 308 H 252 H (60-115) mg/dL Random Glucose (60-115) mg/dL Lactic Acid (0.5-2.0) mmol/L Total Bilirubin (0.0-1.0) mg/dL Total Protein (6.5-8.0) g/dL Urine Glucose (UA) 500 H (Negative) mg/dL Ur Leukocyte Esterase Moderate (2+) H (Negative) Urine WBC >50 H (0-5) /HPF 12/24/21 Range/Units 07:57 WBC (4.8-10.8) X10*3/uL Immature Gran % (Auto) (0.0-0.4) % Neut % (Auto) (45-73) % Lymph % (Auto) (20-40) % Abs Immat Gran (auto) (0.00-0.03) X10*3/uL Absolute Neuts (auto) (2.0-8.3) x10*3/uL BUN (9-16) mg/dL POC Glucose 128 H (60-115) mg/dL Random Glucose (60-115) mg/dL Lactic Acid (0.5-2.0) mmol/L Total Bilirubin (0.0-1.0) mg/dL Total Protein (6.5-8.0) g/dL Urine Glucose (UA) (Negative) mg/dL Ur Leukocyte Esterase (Negative) Urine WBC (0-5) /HPF Short CBC 12/23/21 Range/Units 11:19 WBC 12.9 H (4.8-10.8) X10*3/uL Hgb 12.4 (12.0-16.0) g/dl Hct 37.3 (37.0-47.0) % Plt Count 201 (160-400) X10*3/uL BMP 12/23/21 11:19 Sodium 136 Potassium 3.6 Chloride 101 Carbon Dioxide 22 BUN 23 H Creatinine 1.39 Calcium 8.8 Liver Function 12/23/21 Range/Units 11:19 Total Bilirubin 1.1 H (0.0-1.0) mg/dL Direct Bilirubin 0.5 (0.0-0.5) mg/dL AST 15 (5-31) U/L ALT 22 (0-31) U/L Alkaline Phosphatase 72 (39-117) U/L Albumin 3.7 (3.5-5.0) g/dL Urine 12/23/21 Range/Units 16:16 Urine Color Yellow Urine Appearance Clear Urine pH 5.5 (5.0-9.0) Ur Specific [place] 1.015 (1.005-1.025) Urine Protein Trace (Neg-Trace) mg/dL Urine Glucose (UA) 500 H (Negative) mg/dL All other labs normal. Assessment and Plan (1) Calculus of distal left ureter: Status: Acute Plan Ureteroscopy We discussed the nature of the decision and reasonable alternatives for performing the above surgery. Interventions include chemical dissolution, ESWL, ureteroscopy with laser lithotripsy and stent placement, PCNL. Options such as medical therapy were discussed. The relative uncertainties and benefits related to each alternate procedure were adequately discussed. General surgical risks including, but not limited to, pain, bleeding, infection, myocardial infarction, pulmonary embolus, deep vein thrombosis and cerebrovascular accident which may result in further hospitalization were discussed. Full disclosure of the procedure as well as all major risks, benefits and complications were discussed including but not limited to damage to the urethra, bladder and kidney infection, damage to the ureter, stent migration or malposition, scarring to the renal pelvis, remnant stone fragments, subsequent stone passage with need for secondary procedures. The overall secondary procedure rate is approximately 10-15%. The success rate of the procedure was discussed. Success of the procedure in the short-term does not necessarily guarantee that long-term success will be maintained. Suitable follow up will need to be maintained. The patient showed understanding of discussion and wishes to proceed with - cystoscopy, retrograde, ureteroscopy, possible lithotripsy/stone basketing and stent on the left side Procedures Date of Service Date of Service: 12/24/21
[2021-12-24] MEDS: Insulin Glargine,Hum.rec.anlog 100 UNIT/ML 10 ML VIAL 25 UNIT SUBCUT ×2 (08:56→20:37)
[2021-12-24] MEDS: Cholecalciferol (Vitamin D3) 25 MCG TABLET 50 MCG PO (08:57)
[2021-12-24] MEDS: Atorvastatin Calcium 40 MG TABLET PO (08:58)
[2021-12-24] MEDS: levoFLOXacin/D5W 500 MG/100 ML PIGGYBACK 100 MG IV (08:58)
[2021-12-24] MEDS: Escitalopram Oxalate 10 MG TABLET PO (08:58)
[2021-12-24] MEDS: Famotidine 20 MG TABLET PO ×2 (08:58→20:40)
[2021-12-24] MEDS: predniSONE 10 MG TABLET 30 MG PO (08:58)
[2021-12-24 09:03] LABS: Hematocrit 31.8 % (37.0-47.0); Hemoglobin 10.2 g/dl (12.0-16.0); Mean Corpuscular HGB Conc 32.1 g/dl (31.0-35.0); Mean Corpuscular Hemoglobin 27.6 pg (27.0-33.0); Mean Corpuscular Volume 85.9 fL (80.0-98.0); Mean Platelet Volume 10.1 fL (9.4-12.3); Platelet Count 144 X10*3/uL (160-400); Red Cell Distribution Width 15.6 % (11.0-16.0); White Blood Count 7.6 X10*3/uL (4.8-10.8)
[2021-12-24 10:08] LABS: Anion Gap 13 (12-20); Blood Urea Nitrogen 17 mg/dL (9-16); Calcium 7.9 mg/dL (8.4-10.2); Carbon Dioxide 23 mmol/L (22-29); Chloride 109 mmol/L (96-108); Creatinine Clr Calc Pharmacy 52.5; Estimated Glomerular Filt Rate 44; Glucose Random 116 mg/dL (60-115); Potassium 4.2 mmol/L (3.3-5.1); Sodium 141 mmol/L (135-145)
[2021-12-24] MEDS: cefTRIAXone sodium 1 GM in 0.9 % Sodium Chloride 50 ML IV (12:32)
--- NOTE | 2021-12-24 13:36 | HO.PM.IMPN ---
Subjective Subjective Date of Service: 12/24/21 Interval History: seen and examined this morning Follow-up for left partial obstructing ureteral stone Plan for surgical intervention this afternoon with Dr. Chaudhary no nausea or vomiting, fever or chills Review of Systems Review of Systems: Yes all other systems are reviewed and are negative Constitutional Constitutional: Denies chills and Denies fever(s) ENT Ears, Nose, Mouth, and Throat: Denies dizziness Cardiovascular Cardiovascular: Denies chest pain, Denies palpitations and Denies dyspnea Respiratory Respiratory: Denies cough and Denies dyspnea Gastrointestinal Gastrointestinal: Denies nausea and Denies vomiting Neurologic Neurologic: Denies dizziness Endocrine Endocrine: Denies palpitations Physical Exam Vital Signs: Vital Signs: Last Vital Signs Temp 98.0 F 12/24/21 08:00 Pulse 59 12/24/21 08:00 Resp 16 12/24/21 08:00 BP 121/56 L 12/24/21 08:00 Pulse Ox 97 12/24/21 08:00 O2 Del Method 12/24/21 08:00 BMI result Body Mass Index 27.7 Const: General: cooperative, comfortable and no acute distress Nutritional Appearance: average body habitus Resp: Effort & Inspection: normal respiratory effort and able to speak in complete sentences Cardio: Rate: regular rate Heart sounds: S1 normal heart sound present and S2 normal heart sound present GI: Inspection: No distended Palpation (GI): Soft to palpation Neuro: General: CN's II-XI intact bilaterally Extrem: General: Yes no pedal edema Objective Data Active Medications Atorvastatin Calcium (Atorvastatin Calcium 40 Mg Tablet) 40 mg PO DAILY [facility] Last Admin: 12/24/21 08:58 Dose: 40 mg Documented By: STEVE Calcium Carbonate (Calcium Carbonate 500 Mg Tablet) 500 mg PO DAILY [facility] Last Admin: 12/24/21 10:51 Dose: 500 mg Documented By: STEVE Escitalopram Oxalate (Escitalopram Oxalate 10 Mg Tablet) 10 mg PO DAILY [facility] Last Admin: 12/24/21 08:58 Dose: 10 mg Documented By: STEVE Famotidine (Famotidine 20 Mg Tablet) 20 mg PO BID [facility] Last Admin: 12/24/21 08:58 Dose: 20 mg Documented By: STEVE Hydromorphone HCl (Hydromorphone Hcl 1 Mg/Ml Syringe) 0.5 mg SUBCUT Q4H PRN; Protocol PRN Reason: Pain, Severe (Pain Scale 7-10) Ceftriaxone Sodium 1 gm/ (Sodium Chloride) 50 mls @ 100 mls/hr IV Q24H [facility] Last Admin: 12/24/21 12:32 Dose: 100 mls/hr Documented By: STEVE Insulin Glargine (Insulin Glargine,Hum.Rec.Anlog 100 Unit/Ml 10 Ml Vial) 25 unit SUBCUT BEDTIME [facility] Last Admin: 12/24/21 08:56 Dose: 25 unit Documented By: STEVE Insulin Human Lispro (Insulin Lispro 100 Unit/Ml 3 Ml Vial) 0 unit SUBCUT QIDACHS [facility]; Protocol Last Admin: 12/24/21 11:43 Dose: Not Given Documented By: STEVE Non-Admin Reason: No Insulin Coverage Levothyroxine Sodium (Levothyroxine Sodium 112 Mcg Tablet) 112 mcg PO DAILY@0600 [facility] Last Admin: 12/24/21 06:09 Dose: 112 mcg Documented By: PARKER Ondansetron HCl (Ondansetron Hcl 4 Mg/2 Ml Vial) 4 mg IVPUSH Q8H PRN PRN Reason: Nausea and Vomiting Oxybutynin Chloride (Oxybutynin Chloride Er 5 Mg Tab.Er.24) 10 mg PO DAILY [facility] Last Admin: 12/24/21 08:57 Dose: 10 mg Documented By: STEVE Oxycodone HCl (Oxycodone Hcl Immed Release 5 Mg Tablet) 5 mg PO Q6H PRN PRN Reason: Pain, Moderate (Pain Scale 4-6 Last Admin: 12/23/21 20:03 Dose: 5 mg Documented By: DAVIDA Pharmacy Consult (Consult Rx Perform Med Rec) 1 each MISCELLANE ONCE PRN PRN Reason: Consult order Prednisone (Prednisone 10 Mg Tablet) 30 mg PO DAILY [facility] Last Admin: 12/24/21 08:58 Dose: 30 mg Documented By: STEVE Pyridostigmine [place] (Pyridostigmine [place] 60 Mg Tablet) 60 mg PO TID [facility] Last Admin: 12/24/21 08:58 Dose: 60 mg Documented By: STEVE Sodium Chloride (0.9 % Sodium Chloride Flush 3 Ml Syringe) 3 ml IVFLUSH QSHIFT [facility] Last Admin: 12/24/21 10:27 Dose: Not Given Documented By: STEVE Non-Admin Reason: IV Running Tamsulosin HCl (Tamsulosin Hcl 0.4 Mg Capsule) 0.4 mg PO BEDTIME [facility] Last Admin: 12/23/21 22:06 Dose: 0.4 mg Documented By: MADDENL Trazodone HCl (Trazodone Hcl 25 Mg Halftab) 25 mg PO BEDTIME PRN PRN Reason: Insomnia Vitamin D (Cholecalciferol (Vitamin D3) 25 Mcg Tablet) 50 mcg PO DAILY [facility] Last Admin: 12/24/21 08:57 Dose: 50 mcg Documented By: STEVE Labs CBC & Chem 7: 12/24/21 08:41 12/24/21 08:41 Labs: Laboratory Results - last 24 hr 12/23/21 12/23/21 12/23/21 15:38 16:16 18:37 MCV MCH MCHC RDW Plt Count MPV Absolute Nucleated RBC Nucleated RBC % (auto) Anion Gap Estim Creat Clear Calc Estimated GFR POC Glucose 308 H Random Glucose Lactic Acid F/U @ 2Hr 1.0 Calcium Urine Color Yellow Urine Appearance Clear Urine pH 5.5 Ur Specific [place] 1.015 Urine Protein Trace Urine Glucose (UA) 500 H Urine Ketones Trace Urine Blood Negative Urine Nitrite Negative Ur Leukocyte Esterase Moderate (2+) H Urine RBC 0-2 Urine WBC >50 H Ur Squamous Epith Cells 0-2 Urine Bacteria None Seen Hyaline Casts 0-2 Urine Yeast Present 12/23/21 12/24/21 12/24/21 21:46 07:57 08:41 MCV 85.9 MCH 27.6 MCHC 32.1 RDW 15.6 Plt Count 144 L D MPV 10.1 Absolute Nucleated RBC 0.000 Nucleated RBC % (auto) 0.0 Anion Gap Estim Creat Clear Calc Estimated GFR POC Glucose 252 H 128 H Random Glucose Lactic Acid F/U @ 2Hr Calcium Urine Color Urine Appearance Urine pH Ur Specific [place] Urine Protein Urine Glucose (UA) Urine Ketones Urine Blood Urine Nitrite Ur Leukocyte Esterase Urine RBC Urine WBC Ur Squamous Epith Cells Urine Bacteria Hyaline Casts Urine Yeast 12/24/21 08:41 MCV MCH MCHC RDW Plt Count MPV Absolute Nucleated RBC Nucleated RBC % (auto) Anion Gap 13 Estim Creat Clear Calc 52.5 Estimated GFR 44 POC Glucose Random Glucose 116 H Lactic Acid F/U @ 2Hr Calcium 7.9 L D Urine Color Urine Appearance Urine pH Ur Specific [place] Urine Protein Urine Glucose (UA) Urine Ketones Urine Blood Urine Nitrite Ur Leukocyte Esterase Urine RBC Urine WBC Ur Squamous Epith Cells Urine Bacteria Hyaline Casts Urine Yeast Microbiology Microbiology Results: Microbiology 12/23/21 11:19 Blood Culture - Preliminary Blood - Venous No growth after 24 hours. Assessment and Plan (1) Calculus of distal left ureter: Status: Acute Plan 66 year old female with history of myasthenia gravis on prednisone taper diag September 2021, adrenal insufficiency, insulin dependent type 2 diabetes, htn, hld, hypothyroidism, CKD stage 3, hiatal hernia with gerd, depression, nephrolithiasis with history lithotripsy, and mild intermittent asthma without exacerbation recently diagnosed with 8mm partially obstructing left ureteral stone and UTI currently on keflex and flomax admitted for nephrolithiaisis and UTI. 1-Distal left ureteral calculus- Ct abd/pelvis showing old 8mm partially obstructing left ureteral stone and a solitary stone midpole left kidney without caliectasis -ED discussed case with Dr. Chaudhary. Patient to OR today -Hold asa and nsaids -Oxycodone and dilaudid for pain management -Continue flomax 2-Acute UTI Urine culture 12/18 with e.coli sensitive to ceftriaxone. Has been on PO keflex since 12/19 -Continue IV ceftriaxone -Leukocytosis resolved. likely related to chronic prednisone use, not sepsis. Pt afebrile, vitals stable. Lactic acid initially elevated 2.4, improved to 1.0. Not severe sepsis 3-Presyncope- isolated incident -EKG with frequent PVC's Trops flat -Received 2l IVF without recurrence. Possible dehydration -Monitor for recurrent symptoms 3-Insulin dependent type 2 diabetes- uncontrolled -Change lantus 25 units at bedtime. Humalog on ss -Diabetic diet 4-HTN- controlled -Not on meds -Continue monitoring bps 5-HLD -Continue atorvastatin 6-Mild intermittent asthma without exacerbation -Albuterol nebs prn 7-Myasthenia gravis -Continue home prednisone taper and pyridostigmine 8-Adrenal insuffieincy -Continue steroids 9-Hypothyroidism -Continue levothyroxine -GERD-stable -continue famotidine DVt prophylaxis- mechanical and ambulation. Reassess post-operatively Full code attending - dr. estrada requires ongoing inpatient hospitalization for intervention secondary to partially obstructing kidney stone Quality Stroke Does the patient have a stroke diagnosis?: No VTE Prior VTE?: No VTE Risk Level:: Medical - moderate - high VTE Device Contraindication: N/A - Device Ordered VTE Drug Contraindication: Treatment Not Indicated
[2021-12-24 16:17] LABS: Glucose, Whole Blood 184 mg/dL (60-115)
--- NOTE | 2021-12-24 16:29 | P.HPSUR_ITS ---
Pre-Procedural Eval Section A Date of Service: 12/24/21 The patient is an INPATIENT: Yes Changes since office visit: No Cold of Flu in the past 2 weeks, No New Medical Problems, No Changes in Medication and No Patient answered all questions The History & Physical has been completed within 30 days and I have reviewed it.: Yes Section B Chief Complaint: Nephrolithiasis,UTI Details of Present Illness: distal left ureteric stone Relevant Family History (Specify if Yes): No Relevant Social History: None Present Medications: see Short Stay Collaborative assessment Medical History: No relevant PMH History of Previous Operations: No relevant previous surgery Allergies: Allergies Allergy/AdvReac Type Severity Reaction Status Date / Time sertraline Allergy Mild Stomach Verified 12/16/21 12:16 Upset levothyroxine sodium AdvReac Unknown insomnia Verified 12/16/21 12:16 bees Allergy Unknown swells Uncoded 12/16/21 12:16 Review of Systems Sugical H&P ROS: Negative: Constitution, Cardiovascular, Respiratory, Neurological, Psychiatric, Hem-Onc, Allergic/Immunologic, Gastrointestinal, Genitourinary, Musculoskeletal, Integumentary, Endocrine and Eyes/Ears /Nose/Throat Exam Surgical H&P Exam: Normal: HEENT, Normal: Heart, Normal: Lungs, Normal: Extremities, Normal: Abdomen, Normal: Skin and Normal: Neurological Plan Diagnosis/Plan: Unchanged (left rigid ureteroscopy with laser) I have reviewed the history and physical and performed a pertinent physical examination on my patient. No changes have occurred unless specified.
--- NOTE | 2021-12-24 16:47 | HO.ANESPROP2 ---
[facility] Active Problems Active Problems: All Active Problems (Updated 12/23/21 @ 15:39 by JAZIEL Haro) Calculus of distal left ureter (Acute) Acute UTI (Acute) Thyroid nodule (Acute) CKD (chronic kidney disease) (Acute) Multinodular thyroid (Acute) Adrenal insufficiency (Acute) HLD (hyperlipidemia) (Acute) HTN (hypertension) (Acute) T2DM (type 2 diabetes mellitus) (Acute) Urinary incontinence (Acute) Nephrolithiasis (Acute) Cystitis cystica (Acute) VIVI (stress urinary incontinence, female) (Acute) Urinary frequency (Acute) Urge incontinence (Acute) Past Medical History Medical History Adrenal insufficiency Asthma CKD (chronic kidney disease) Cystitis cystica Gallstones HLD (hyperlipidemia) HLD (hyperlipidemia) HTN (hypertension) Hypothyroid Multinodular thyroid Nephrolithiasis Nocturia VIVI (stress urinary incontinence, female) T2DM (type 2 diabetes mellitus) Thyroid nodule Trigeminy Urge incontinence Urinary frequency Urinary incontinence Urinary urgency UTI (urinary tract infection) Family History Family History Father Heart attack CVD (cardiovascular disease) HTN (hypertension) Mother Dementia Family history of problems with anesthesia: No Surgical History Surgical History History of gastric bypass (~2004) History of hysterectomy History of pubovaginal sling Hx of cholecystectomy History of Problems with Anesthesia: No Social History Social History Alcohol intake: never Patient Tobacco Use Status: Former Tobacco user Quit Date: 20 years ago Tobacco use type: Cigarette Use of substances other than those prescribed or required for medical reasons: No Are you DNR?: No Advance Directives: No Advance Directives Information Provided: No Advance Directives Date on File: 01/18/20 Meds Allergies Allergy/AdvReac Type Severity Reaction Status Date / Time sertraline Allergy Mild Stomach Verified 12/16/21 12:16 Upset levothyroxine sodium AdvReac Unknown insomnia Verified 12/16/21 12:16 bees Allergy Unknown swells Uncoded 12/16/21 12:16 Active Medications: Current Medications Atorvastatin Calcium (Atorvastatin Calcium 40 Mg Tablet) 40 mg PO DAILY [facility] Last Admin: 12/24/21 08:58 Dose: 40 mg Calcium Carbonate (Calcium Carbonate 500 Mg Tablet) 500 mg PO DAILY [facility] Last Admin: 12/24/21 10:51 Dose: 500 mg Escitalopram Oxalate (Escitalopram Oxalate 10 Mg Tablet) 10 mg PO DAILY [facility] Last Admin: 12/24/21 08:58 Dose: 10 mg Famotidine (Famotidine 20 Mg Tablet) 20 mg PO BID [facility] Last Admin: 12/24/21 08:58 Dose: 20 mg Hydromorphone HCl (Hydromorphone Hcl 1 Mg/Ml Syringe) 0.5 mg SUBCUT Q4H PRN; Protocol PRN Reason: Pain, Severe (Pain Scale 7-10) Ceftriaxone Sodium 1 gm/ (Sodium Chloride) 50 mls @ 100 mls/hr IV Q24H [facility] Last Infusion: 12/24/21 13:57 Dose: Infused Insulin Glargine (Insulin Glargine,Hum.Rec.Anlog 100 Unit/Ml 10 Ml Vial) 25 unit SUBCUT BEDTIME [facility] Last Admin: 12/24/21 08:56 Dose: 25 unit Insulin Human Lispro (Insulin Lispro 100 Unit/Ml 3 Ml Vial) 0 unit SUBCUT QIDACHS [facility]; Protocol Last Admin: 12/24/21 11:43 Dose: Not Given Levothyroxine Sodium (Levothyroxine Sodium 112 Mcg Tablet) 112 mcg PO DAILY@0600 [facility] Last Admin: 12/24/21 06:09 Dose: 112 mcg Ondansetron HCl (Ondansetron Hcl 4 Mg/2 Ml Vial) 4 mg IVPUSH Q8H PRN PRN Reason: Nausea and Vomiting Oxybutynin Chloride (Oxybutynin Chloride Er 5 Mg Tab.Er.24) 10 mg PO DAILY [facility] Last Admin: 12/24/21 08:57 Dose: 10 mg Oxycodone HCl (Oxycodone Hcl Immed Release 5 Mg Tablet) 5 mg PO Q6H PRN PRN Reason: Pain, Moderate (Pain Scale 4-6 Last Admin: 12/23/21 20:03 Dose: 5 mg Pharmacy Consult (Consult Rx Perform Med Rec) 1 each MISCELLANE ONCE PRN PRN Reason: Consult order Prednisone (Prednisone 10 Mg Tablet) 30 mg PO DAILY [facility] Last Admin: 12/24/21 08:58 Dose: 30 mg Pyridostigmine [place] (Pyridostigmine [place] 60 Mg Tablet) 60 mg PO TID [facility] Last Admin: 12/24/21 14:01 Dose: 60 mg Sodium Chloride (0.9 % Sodium Chloride Flush 3 Ml Syringe) 3 ml IVFLUSH QSHIFT [facility] Last Admin: 12/24/21 10:27 Dose: Not Given Tamsulosin HCl (Tamsulosin Hcl 0.4 Mg Capsule) 0.4 mg PO BEDTIME [facility] Last Admin: 12/23/21 22:06 Dose: 0.4 mg Trazodone HCl (Trazodone Hcl 25 Mg Halftab) 25 mg PO BEDTIME PRN PRN Reason: Insomnia Vitamin D (Cholecalciferol (Vitamin D3) 25 Mcg Tablet) 50 mcg PO DAILY [facility] Last Admin: 12/24/21 08:57 Dose: 50 mcg Home Medications Medication Instructions Recorded Confirmed Last Taken Type escitalopram oxalate 10 mg tablet 10 mg PO DAILY 04/30/20 12/23/21 12/23/21 History levothyroxine 112 mcg tablet 112 mcg PO DAILY 04/30/20 12/23/21 12/23/21 History albuterol sulfate 90 mcg/actuation 90 mcg inhalation Q4H PRN 12/03/21 12/23/21 12/23/21 History aerosol inhaler Shortness Of Breath aspirin 81 mg tablet,delayed 81 mg PO DAILY 12/03/21 12/23/21 12/23/21 History release (Adult Low Dose Aspirin) calcium carbonate 600 mg calcium 600 mg PO DAILY 12/03/21 12/23/21 12/23/21 History (1,500 mg) tablet (Calcium) famotidine 20 mg tablet 20 mg PO BID 12/03/21 12/23/21 12/23/21 History insulin glargine 100 unit/mL (3 40 unit subcut DAILY 12/03/21 12/23/21 12/23/21 History mL) subcutaneous pen (Lantus Solostar U-100 Insulin) pyridostigmine bromide 60 mg tablet 60 mg PO TID 12/03/21 12/23/21 12/23/21 History cholecalciferol (vitamin D3) 50 50 mcg PO DAILY 12/23/21 12/23/21 Unknown History mcg (2,000 unit) tablet (Vitamin D3) prednisone 20 mg tablet 30 mg PO DAILY 12/23/21 12/23/21 12/23/21 History trazodone 50 mg tablet 25 mg PO BEDTIME PRN Insomnia 12/23/21 12/23/21 Unknown History Exam Exam Date and Time: December 24, 2021 1647 Height,Weight and Vital Signs: Height 5 ft 9 in Weight 188 lb Last Vital Signs Temp 97.4 F 12/24/21 15:54 Pulse 63 12/24/21 15:54 Resp 20 12/24/21 15:54 BP 121/71 12/24/21 15:54 Pulse Ox 98 12/24/21 15:54 O2 Del Method 12/24/21 15:54 Pertinent Lab Results Pertinent Lab Results: Laboratory Tests 12/23/21 12/23/21 12/23/21 11:19 11:19 11:19 WBC 12.9 H RBC 4.42 Hgb 12.4 Hct 37.3 MCV 84.4 MCH 28.1 MCHC 33.2 RDW 15.1 Plt Count 201 MPV 10.3 Immature Gran % (Auto) 1.5 H Neut % (Auto) 82.8 H Lymph % (Auto) 9.0 L [place] % (Auto) 6.1 Eos % (Auto) 0.4 Baso % (Auto) 0.2 Lymph # (Auto) 1.2 [place] # (Auto) 0.8 Eos # (Auto) 0.1 Baso # (Auto) 0.0 Abs Immat Gran (auto) 0.19 H Absolute Neuts (auto) 10.6 H Absolute Nucleated RBC 0.000 Nucleated RBC % (auto) 0.0 Sodium 136 Potassium 3.6 Chloride 101 Carbon Dioxide 22 Anion Gap 17 BUN 23 H Creatinine 1.39 Estim Creat Clear Calc 45.7 Estimated GFR 38 POC Glucose Random Glucose 335 H Lactic Acid 2.4 H* Lactic Acid F/U @ 2Hr Calcium 8.8 Magnesium 1.8 Total Bilirubin 1.1 H Direct Bilirubin 0.5 AST 15 ALT 22 Alkaline Phosphatase 72 Troponin I High Sens Total Protein 6.3 L Albumin 3.7 Lipase 68 Urine Color Urine Appearance Urine pH Ur Specific [place] Urine Protein Urine Glucose (UA) Urine Ketones Urine Blood Urine Nitrite Ur Leukocyte Esterase Urine RBC Urine WBC Ur Squamous Epith Cells Urine Bacteria Hyaline Casts Urine Yeast Acetone, Qual Negative COVID-19 (MARIE) COVID-19 Clin Com 12/23/21 12/23/21 12/23/21 11:19 11:19 15:38 WBC RBC Hgb Hct MCV MCH MCHC RDW Plt Count MPV Immature Gran % (Auto) Neut % (Auto) Lymph % (Auto) [place] % (Auto) Eos % (Auto) Baso % (Auto) Lymph # (Auto) [place] # (Auto) Eos # (Auto) Baso # (Auto) Abs Immat Gran (auto) Absolute Neuts (auto) Absolute Nucleated RBC Nucleated RBC % (auto) Sodium Potassium Chloride Carbon Dioxide Anion Gap BUN Creatinine Estim Creat Clear Calc Estimated GFR POC Glucose Random Glucose Lactic Acid Lactic Acid F/U @ 2Hr Calcium Magnesium Total Bilirubin Direct Bilirubin AST ALT Alkaline Phosphatase Troponin I High Sens 4.8 5.9 Total Protein Albumin Lipase Urine Color Urine Appearance Urine pH Ur Specific [place] Urine Protein Urine Glucose (UA) Urine Ketones Urine Blood Urine Nitrite Ur Leukocyte Esterase Urine RBC Urine WBC Ur Squamous Epith Cells Urine Bacteria Hyaline Casts Urine Yeast Acetone, Qual COVID-19 (MARIE) Negative COVID-19 [facility] See Note 12/23/21 12/23/21 12/23/21 15:38 16:16 18:37 WBC RBC Hgb Hct MCV MCH MCHC RDW Plt Count MPV Immature Gran % (Auto) Neut % (Auto) Lymph % (Auto) [place] % (Auto) Eos % (Auto) Baso % (Auto) Lymph # (Auto) [place] # (Auto) Eos # (Auto) Baso # (Auto) Abs Immat Gran (auto) Absolute Neuts (auto) Absolute Nucleated RBC Nucleated RBC % (auto) Sodium Potassium Chloride Carbon Dioxide Anion Gap BUN Creatinine Estim Creat Clear Calc Estimated GFR POC Glucose 308 H Random Glucose Lactic Acid Lactic Acid F/U @ 2Hr 1.0 Calcium Magnesium Total Bilirubin Direct Bilirubin AST ALT Alkaline Phosphatase Troponin I High Sens Total Protein Albumin Lipase Urine Color Yellow Urine Appearance Clear Urine pH 5.5 Ur Specific [place] 1.015 Urine Protein Trace Urine Glucose (UA) 500 H Urine Ketones Trace Urine Blood Negative Urine Nitrite Negative Ur Leukocyte Esterase Moderate (2+) H Urine RBC 0-2 Urine WBC >50 H Ur Squamous Epith Cells 0-2 Urine Bacteria None Seen Hyaline Casts 0-2 Urine Yeast Present Acetone, Qual COVID-19 (MARIE) COVID-19 [facility] 12/23/21 12/24/21 12/24/21 21:46 07:57 08:41 WBC 7.6 RBC 3.70 L Hgb 10.2 L Hct 31.8 L MCV 85.9 MCH 27.6 MCHC 32.1 RDW 15.6 Plt Count 144 L D MPV 10.1 Immature Gran % (Auto) Neut % (Auto) Lymph % (Auto) [place] % (Auto) Eos % (Auto) Baso % (Auto) Lymph # (Auto) [place] # (Auto) Eos # (Auto) Baso # (Auto) Abs Immat Gran (auto) Absolute Neuts (auto) Absolute Nucleated RBC 0.000 Nucleated RBC % (auto) 0.0 Sodium Potassium Chloride Carbon Dioxide Anion Gap BUN Creatinine Estim Creat Clear Calc Estimated GFR POC Glucose 252 H 128 H Random Glucose Lactic Acid Lactic Acid F/U @ 2Hr Calcium Magnesium Total Bilirubin Direct Bilirubin AST ALT Alkaline Phosphatase Troponin I High Sens Total Protein Albumin Lipase Urine Color Urine Appearance Urine pH Ur Specific [place] Urine Protein Urine Glucose (UA) Urine Ketones Urine Blood Urine Nitrite Ur Leukocyte Esterase Urine RBC Urine WBC Ur Squamous Epith Cells Urine Bacteria Hyaline Casts Urine Yeast Acetone, Qual COVID-19 (MARIE) COVID-[employer] 12/24/21 12/24/21 08:41 16:13 WBC RBC Hgb Hct MCV MCH MCHC RDW Plt Count MPV Immature Gran % (Auto) Neut % (Auto) Lymph % (Auto) [place] % (Auto) Eos % (Auto) Baso % (Auto) Lymph # (Auto) [place] # (Auto) Eos # (Auto) Baso # (Auto) Abs Immat Gran (auto) Absolute Neuts (auto) Absolute Nucleated RBC Nucleated RBC % (auto) Sodium 141 Potassium 4.2 Chloride 109 H Carbon Dioxide 23 Anion Gap 13 BUN 17 H Creatinine 1.21 Estim Creat Clear Calc 52.5 Estimated GFR 44 POC Glucose 184 H Random Glucose 116 H Lactic Acid Lactic Acid F/U @ 2Hr Calcium 7.9 L D Magnesium Total Bilirubin Direct Bilirubin AST ALT Alkaline Phosphatase Troponin I High Sens Total Protein Albumin Lipase Urine Color Urine Appearance Urine pH Ur Specific [place] Urine Protein Urine Glucose (UA) Urine Ketones Urine Blood Urine Nitrite Ur Leukocyte Esterase Urine RBC Urine WBC Ur Squamous Epith Cells Urine Bacteria Hyaline Casts Urine Yeast Acetone, Qual COVID-19 (MARIE) COVID-19 [facility] Airway Mallampati Class: III TM Dist: >3cm Neck ROM: Full Loose/Missing/Broken Teeth: Yes Assessment and Plan Assessment Anesthesia Assessment: Anesthesia Plan Discussed and Chart Reviewed Final Anesthetic Review Family History of Problems with Anesthesia: No History of Problems with Anesthesia: No NPO: Yes ASA Class: III Final Preanesthetic Review: No Changes in Pt Med Stat, Meds/Allgs Chart Reviewed, Consent Obtained/Reviewed and Anes Risks/Benef Reviewed Patient Risk: Intermediate Procedure Risk: Low Anesthetic Plan Anesthetic Plan: GA Disposition: Standard PACU
--- NOTE | 2021-12-24 17:13 | P.OP_ITS ---
Operative Note Operative Note Date of Service: 12/24/21 Narrative: PreOperative Diagnosis: left distal ureteric stone Post Operative Diagnosis: left distal ureteric stone Procedure: - cystoscopy, left retrograde - left dilatation of ureteric orifice under fluoroscopy - left rigid ureteroscopy, laser lithotripsy, stone basketing - left stent placement Surgeon: Dr Itz Chaudhary Anesthesia: General Indications for procedure: left distal 6 mm stone failure to pass with medical therapy. Procedure: After informed consent was verified patient was brought to the operating placed in supine position. Anesthesia was administered per protocol. Patient was placed in modified dorsal lithotomy position and prepped and draped in a sterile fashion. Safety pause time-out and side of surgery confirmed. Antibiotics confirmed. A 22 [place] cystoscope was inserted per urethra. Bladder was normal in its entirety. Both ureteric orifices were in normal position. The Left ureteric orifice was cannulated and a retrograde examination was performed. filling defect of left distal ureter with proximal hydrouret eronephrosis . A Sensor guidewire was placed up to the level of the renal pelvis under fluoroscopy. The rigid cystoscope was removed. The semi rigid ureteral scope was placed alongside the Sensor guidewire. stone was encountered in using a 362 micron holmium laser fiber the stone was broken into small pieces. Using a sure catch basket fragments of stone within removed will be sent for analysis. A 6 [place] by Twenty-six cm double-J stent was placed into the renal pelvis and bladder under a combination of fluoroscopy and direct visualization. The bladder was emptied. The patient tolerated the procedure well and was extubated in the operating room, and transferred in stable condition to the recovery area. Pathology: stones Drains: double-J stent
[2021-12-24 20:11] LABS: Glucose, Whole Blood 229 mg/dL (60-115)
[2021-12-24 20:20] LABS: Anion Gap 13 (12-20); Blood Urea Nitrogen 14 mg/dL (9-16); Calcium 8.4 mg/dL (8.4-10.2); Carbon Dioxide 24 mmol/L (22-29); Chloride 104 mmol/L (96-108); Estimated Glomerular Filt Rate 45; Glucose Random 229 mg/dL (60-115); Magnesium 1.8 mg/dL (1.6-2.6); Potassium 4.2 mmol/L (3.3-5.1); Sodium 137 mmol/L (135-145)
[2021-12-24] MEDS: Tamsulosin HCL 0.4 MG CAPSULE PO (20:39)
[2021-12-24] MEDS: Insulin Lispro 100 UNIT/ML 3 ML VIAL SUBCUT (20:41)
[2021-12-24] MEDS: oxyCODONE HCl Immed Release 5 MG TABLET PO (20:49)
[2021-12-25] VITALS (7 sets, daily range): BP systolic 113–146; BP diastolic 57–69; PULSE 53–62; RESP 15–19; TEMP 36.2–36.9; O2SAT 92–96
[2021-12-25] MEDS: Levothyroxine Sodium 112 MCG TABLET PO (05:16)
[2021-12-25 07:30] LABS: Glucose, Whole Blood 142 mg/dL (60-115)
[2021-12-25] MEDS: predniSONE 10 MG TABLET 30 MG PO (08:26)
[2021-12-25] MEDS: Atorvastatin Calcium 40 MG TABLET PO (08:26)
[2021-12-25] MEDS: Famotidine 20 MG TABLET PO ×2 (08:26→20:56)
[2021-12-25] MEDS: Cholecalciferol (Vitamin D3) 25 MCG TABLET 50 MCG PO (08:26)
[2021-12-25] MEDS: 0.9 % Sodium Chloride Flush 3 ML SYRINGE IVFLUSH (08:27)
[2021-12-25] MEDS: Escitalopram Oxalate 10 MG TABLET PO (08:27)
[2021-12-25 08:50] LABS: Anion Gap 12 (12-20); Blood Urea Nitrogen 14 mg/dL (9-16); Calcium 8.5 mg/dL (8.4-10.2); Carbon Dioxide 28 mmol/L (22-29); Chloride 106 mmol/L (96-108); Creatinine Clr Calc Pharmacy 38.5; Estimated Glomerular Filt Rate 31; Glucose Random 132 mg/dL (60-115); Potassium 4.3 mmol/L (3.3-5.1); Sodium 142 mmol/L (135-145)
--- NOTE | 2021-12-25 08:58 | HO.POSTANES ---
Post Anesthesia Evaluation Post Anesthesia Evaluation Vital Signs: Vital Signs Temp Pulse Resp BP Pulse Ox O2 Del Method 12/25/21 07:38 97.4 F 53 18 118/61 96 Room Air 12/25/21 03:03 97.1 F 62 16 114/62 95 Room Air 12/24/21 23:20 122/62 12/24/21 23:12 97 F 59 16 107/53 L 95 Room Air Anesthesia: General Mental Status: Awake Pain Control: Satisfactory Nausea/Vomiting: None Hydration: Adequate Anesthesia-Related Issues: No Anes. Related Issues
--- NOTE | 2021-12-25 09:16 | CA_ITS ---
Transthoracic Echocardiogram Patient (Last, First, Middle): Sarah Mobley, Gender: Female Date of : 1955 Age: 66 Procedure Date: 12/25/2021 Procedure Type: Transthoracic Echocardiogram Location: S3E Height: 175.26 cm Weight: 85.28 kg BSA: 2.01 m2 Heart Rate: bpm BP: 118 / 61 mmHg Quill Stripper: SB Referring MD: Iman SHERIFF Symptoms: frequent bigeminy Study Quality: Adequate ECG Rhythm: Sinus w occasional PVCs Conclusions: - Normal left ventricular size and systolic function. There is mildly increased left ventricular wall thickness. The visually estimated ejection fraction is between 60-65%. - E/E prime ratio is >15, consistent with elevated filling pressures. - Normal right ventricular cavity size and systolic function. - Prominent epicardial adipose tissue noted. There is a small pericardial effusion. There are no definitive echocardiographic findings of tamponade physiology. Findings Procedure Information Contrast agent, definity, is being given per protocol without apparent complications. Left Ventricle Normal left ventricular size and systolic function. There is mildly increased left ventricular wall thickness. The visually estimated ejection fraction is between 60-65%. There is no evidence of regional wall motion abnormalities. Abnormal diastolic function is noted. Spectral Doppler is indicative of an impaired relaxation filling pattern. E/E prime ratio is >15, consistent with elevated filling pressures. Right Ventricle Normal right ventricular cavity size and systolic function. Atria The left atrium is normal in size. Aortic Valve There is a normal trileaflet aortic valve. There is mild calcification of the aortic valve. There is no aortic valve stenosis. There is no aortic valve regurgitation. Mitral Valve Normal mitral valve structure and function. There is trace mitral valve regurgitation. There is no mitral valve stenosis. Pulmonic Valve Normal pulmonic valve structure and function. There is trace pulmonic valve regurgitation. Tricuspid Valve Normal tricuspid valve structure. There is no tricuspid valve regurgitation. Tricuspid regurgitation envelope is inadequate for calculation of right ventricular systolic pressure. Normal right atrial pressure. Great Vessels All visible segments of the aorta are normal in size. The visualized portions of the pulmonary artery and branches are normal. Venous The inferior vena cava is normal in size and collapses greater than 50% with inspiration. Pericardium/Pleural Prominent epicardial adipose tissue noted. There is a small pericardial effusion. There are no definitive echocardiographic findings of tamponade physiology. Prior Study Comparison No prior study available for comparison. Measurements 2D Linear Measurements IVSd: 1.03 0.6-0.9/0.6-1.0 cm LVIDd: 4.75 3.9-5.3/4.2-5.9 cm LVIDd Index: 2.36 2.4-3.2/2.2-3.1 cm/m2 LVIDs: 2.64 2.0-3.6 cm LVPWd: 0.96 0.7-1.1 cm LA Diam: 3.90 2.7-3.8/3.0-4.0 cm LAIDs Index: 1.94 1.5-2.3 cm/m2 LV Mass: 206.55 67-162/88-224 g LV Mass Index: 102.76 43-95/49-115 g/m2 LVOT Diam: 2.10 3.0+(-)1.3 cm 2D Systolic Function EF 4C: 56.70 >55% EF 2C: 68.80 >55% EF BiP: 64.10 >55% Mitral Valve MV Pk E: 1.00 MV PK A: 1.10 MV Decel Time: 223.00 E/A: 0.90 E'Lateral: 5.00 E'Medial: 5.11 E/E' Med: 19.60 E/E' Lat: 20.00 PHT: 65.00 MVA PHT: 3.38 Decel Dewey: 4.50 Aortic Valve AoV Pk Peng: 1.70 AoV Mn Peng: 1.07 AoV VTI: 0.31 AoV Pk Grad: 12.00 Aov Mn Grad: 5.00 JOSUE Cont.VTI: 2.86 LVOT LVOT Pk Peng: 1.26 LVOT Mn Peng: 0.83 LVOT VTI: 0.25 LVOT Pk Grad: 6.00 LVOT Mn Grad: 3.00 LVOT Diam: 2.10 LVOT Area: 3.46 Diastolic Function MV Pk E: 1.00 MV Pk A: 1.10 E/A: 0.90 E'Medial: 5.11 E/E' Med: 19.60 E' Laterial: 5.00 E/E' Lat: 20.00 Right Ventricle TVS' Peng: 19.40 Great Vessels Aorta Sinus of Valsalva: 2.80 2.0-3.5 cm Ao Asc: 3.20 2.1-3.4 cm Ao Arch: 2.80 Pulmonary Veins Pulm Vein S/D 1.70 Pulmonary Valve PV Pk Peng: 1.08 Peak PV Grad: 5.00 Updated in Other Vendor System with Status of Final Nghia Vicente MD electronically signed on 12/25/2021 9:59:38 PM with status of Final
--- NOTE | 2021-12-25 09:31 | MHC.CM.PN ---
JEFFERSON ADDRESSED, ORIGINAL TO PATIENT/YELLOW COPY IN CHART PATIENT LIVES WITH HER SPOUSE HCP- COPY REQUESTED INDEPENDENT AT HOME AND COMMUNITY NO SERVICES [employer] X2 BOOSTER PCP: [facility] WILL TRANSPORT D/C PLAN: HOME SELF-CARE
--- NOTE | 2021-12-25 10:01 | MHC.CLN ---
NUTRITION DIET CHANGED TO DIABETIC 2000 KCALS, 2 GRAM SODIUM. PATIENT WTH DX DM AND CKD STAGE 3.
[2021-12-25 11:14] LABS: Glucose, Whole Blood 254 mg/dL (60-115)
[2021-12-25] MEDS: Lactated Ringers 1,000 ML 100 ML IVCONT ×2 (12:01→21:00)
[2021-12-25] MEDS: Insulin Lispro 100 UNIT/ML 3 ML VIAL SUBCUT ×3 (12:01→20:55)
[2021-12-25] MEDS: cefTRIAXone sodium 1 GM in 0.9 % Sodium Chloride 50 ML IV (12:01)
[2021-12-25] MEDS: traMADoL HCL 50 MG TABLET PO (12:13)
--- NOTE | 2021-12-25 13:16 | P.PNIM_ITS ---
Subjective Subjective Date of Service: 12/25/21 Interval History: Seen and examined this morning Follow-up for kidney stones Underwent cystoscopy with laser lithotripsy and left stent placement yesterday afternoon with Dr. Chaudhary. During procedure noted to have frequent trigeminy. Was monitored on telemetry overnight, had occasional PVCs but no bigeminy or trigeminy. Patient asymptomatic. Reporting some crampy abdominal pain. No nausea, vomiting no fever, chills Stating some blurry vision last night and today - initially started when she was diagnosed with myasthenia gravis. Dose of prednisone decreased yesterday, patient concern she should increase her dose of prednisone. Review of Systems Review of Systems: Yes all other systems are reviewed and are negative Constitutional Constitutional: Denies chills and Denies fever(s) Eyes Eyes: Reports blurry vision ENT Ears, Nose, Mouth, and Throat: Denies dizziness Cardiovascular Cardiovascular: Denies chest pain, Denies palpitations and Denies dyspnea Respiratory Respiratory: Denies cough and Denies dyspnea Gastrointestinal Gastrointestinal: Denies nausea and Denies vomiting Neurologic Neurologic: Denies dizziness Endocrine Endocrine: Denies palpitations Physical Exam Vital Signs: Vital Signs: Last Vital Signs Temp 97.7 F 12/25/21 11:06 Pulse 57 12/25/21 11:06 Resp 17 12/25/21 11:06 BP 113/57 L 12/25/21 11:06 Pulse Ox 92 12/25/21 11:06 O2 Del Method 12/25/21 11:06 O2 Flow Rate 2 12/24/21 17:30 BMI result Body Mass Index 27.7 Const: General: cooperative, comfortable and no acute distress Nutritional Appearance: average body habitus Resp: Effort & Inspection: normal respiratory effort and able to speak in complete sentences Cardio: Rate: regular rate Heart sounds: S1 normal heart sound present and S2 normal heart sound present GI: Inspection: No distended Palpation (GI): Soft to palpation Neuro: General: CN's II-XI intact bilaterally Extrem: General: Yes no pedal edema Objective Data Active Medications Acetaminophen (Acetaminophen 325 Mg Tablet) 650 mg PO ONCE PRN PRN Reason: Pain, Mild (Pain Scale 1-3) Atorvastatin Calcium (Atorvastatin Calcium 40 Mg Tablet) 40 mg PO DAILY HAYDE Last Admin: 12/25/21 08:26 Dose: 40 mg Documented By: TYLER Calcium Carbonate (Calcium Carbonate 500 Mg Tablet) 500 mg PO DAILY [facility] Last Admin: 12/25/21 08:26 Dose: 500 mg Documented By: TYLER Escitalopram Oxalate (Escitalopram Oxalate 10 Mg Tablet) 10 mg PO DAILY [facility] Last Admin: 12/25/21 08:27 Dose: 10 mg Documented By: TYLER Famotidine (Famotidine 20 Mg Tablet) 20 mg PO BID [facility] Last Admin: 12/25/21 08:26 Dose: 20 mg Documented By: TYLER Fentanyl (Fentanyl Citrate/Pf 100 Mcg/2 Ml Vial) 25 mcg IVPUSH Q5M PRN; Protocol PRN Reason: Pain, Moderate (Pain Scale 4-6 Hydromorphone HCl (Hydromorphone Hcl 1 Mg/Ml Syringe) 0.5 mg SUBCUT Q4H PRN; Protocol PRN Reason: Pain, Severe (Pain Scale 7-10) Ceftriaxone Sodium 1 gm/ (Sodium Chloride) 50 mls @ 100 mls/hr IV Q24H [facility] Last Admin: 12/25/21 12:01 Dose: 100 mls/hr Documented By: TYLER Lactated Ringer's (Lr) 1,000 mls @ 100 mls/hr IVCONT .Q10H [facility] Last Admin: 12/25/21 12:01 Dose: 100 mls/hr Documented By: TYLER Insulin Glargine (Insulin Glargine,Hum.Rec.Anlog 100 Unit/Ml 10 Ml Vial) 25 unit SUBCUT BEDTIME [facility] Last Admin: 12/24/21 20:37 Dose: 25 unit Documented By: WING Insulin Human Lispro (Insulin Lispro 100 Unit/Ml 3 Ml Vial) 0 unit SUBCUT QIDAC HS [facility]; Protocol Last Admin: 12/25/21 12:01 Dose: 6 unit Documented By: TYLER Levothyroxine Sodium (Levothyroxine Sodium 112 Mcg Tablet) 112 mcg PO DAILY@0600 [facility] Last Admin: 12/25/21 05:16 Dose: 112 mcg Documented By: WING Ondansetron HCl (Ondansetron Hcl 4 Mg/2 Ml Vial) 4 mg IVPUSH Q8H PRN PRN Reason: Nausea and Vomiting Ondansetron HCl (Ondansetron Hcl 4 Mg/2 Ml Vial) 4 mg IVPUSH ONCE PRN PRN Reason: Nausea and Vomiting Oxybutynin Chloride (Oxybutynin Chloride Er 5 Mg Tab.Er.24) 10 mg PO DAILY [facility] Last Admin: 12/25/21 08:26 Dose: 10 mg Documented By: TYLER Oxycodone HCl (Oxycodone Hcl Immed Release 5 Mg Tablet) 5 mg PO Q6H PRN PRN Reason: Pain, Moderate (Pain Scale 4-6 Last Admin: 12/24/21 20:49 Dose: 5 mg Documented By: WING Pharmacy Consult (Consult Rx Perform Med Rec) 1 each MISCELLANE ONCE PRN PRN Reason: Consult order Prednisone (Prednisone 10 Mg Tablet) 30 mg PO DAILY [facility] Last Admin: 12/25/21 08:26 Dose: 30 mg Documented By: TYLER Pyridostigmine [place] (Pyridostigmine [place] 60 Mg Tablet) 60 mg PO TID [facility] Last Admin: 12/25/21 08:36 Dose: 60 mg Documented By: TYLER Sodium Chloride (0.9 % Sodium Chloride Flush 3 Ml Syringe) 3 ml IVFLUSH [facility] Last Admin: 12/25/21 08:27 Dose: 3 ml Documented By: TYLER Tamsulosin HCl (Tamsulosin Hcl 0.4 Mg Capsule) 0.4 mg PO BEDTIME [facility] Last Admin: 12/24/21 20:39 Dose: 0.4 mg Documented By: WING Tramadol HCl (Tramadol Hcl 50 Mg Tablet) 50 mg PO Q6H PRN PRN Reason: Pain, Moderate (Pain Scale 4-6 Last Admin: 12/25/21 12:13 Dose: 50 mg Documented By: TYLER Trazodone HCl (Trazodone Hcl 25 Mg Halftab) 25 mg PO BEDTIME PRN PRN Reason: Insomnia Vitamin D (Cholecalciferol (Vitamin D3) 25 Mcg Tablet) 50 mcg PO DAILY [facility] Last Admin: 12/25/21 08:26 Dose: 50 mcg Documented By: TYLER Labs CBC & Chem 7: 12/24/21 08:41 12/25/21 07:44 Labs: Laboratory Results - last 24 hr 12/24/21 12/24/21 12/24/21 16:13 19:36 19:49 Anion Gap 13 Estim Creat Clear Calc 53.0 Estimated GFR 45 POC Glucose 184 H 229 H Random Glucose 229 H Calcium 8.4 D Magnesium 1.8 12/25/21 12/25/21 12/25/21 07:26 07:44 11:08 Anion Gap 12 Estim Creat Clear Calc 38.5 Estimated GFR 31 POC Glucose 142 H 254 H Random Glucose 132 H Calcium 8.5 Magnesium 2.0 Microbiology Microbiology Results: Microbiology 12/23/21 11:44 Blood Culture - Preliminary Blood - Venous No growth after 24 hours. 12/23/21 11:19 Blood Culture - Preliminary Blood - Venous No growth after 24 hours. Assessment and Plan (1) Calculus of distal left ureter: Status: Acute Plan 66 year old female with history of myasthenia gravis on prednisone taper diag September 2021, adrenal insufficiency, insulin dependent type 2 diabetes, htn, hld, hypothyroidism, CKD stage 3, hiatal hernia with gerd, depression, nephrolithiasis with history lithotripsy, and mild intermittent asthma without exacerbation recently diagnosed with 8mm partially obstructing left ureteral stone and UTI currently on keflex and flomax admitted for nephrolithiaisis and UTI. MELVA on CKD 3 Creatinine up to 1.65 -IV fluid -monitor renal function Distal left ureteral calculus- Ct abd/pelvis showing old 8mm partially obst ructing left ureteral stone and a solitary stone midpole left kidney without caliectasis s/p cystoscopy, lithotripsy, left stent placement - plan for follow up in office for stent removal next week -Hold asa and nsaids -Oxycodone and dilaudid for pain management -Continue flomax Trigeminy No further episodes overnight on telemetry Echocardiogram pending Monitor electrolyte Acute UTI Urine culture 12/18 with e.coli sensitive to ceftriaxone. Has been on PO keflex since 12/19 -Continue IV ceftriaxone -urine culture pending -Leukocytosis resolved. likely related to chronic prednisone use, not sepsis. Pt afebrile, vitals stable. Lactic acid initially elevated 2.4, improved to 1.0. Not severe sepsis Presyncope- isolated incident -EKG with frequent PVC's Trops flat -Received 2l IVF without recurrence. Possible dehydration -Monitor for recurrent symptoms Insulin dependent type 2 diabetes -Change lantus 25 units at bedtime. Humalog on ss -Diabetic diet HTN- controlled -Not on meds -Continue monitoring bps HLD -Continue atorvastatin Mild intermittent asthma without exacerbation -Albuterol nebs prn Myasthenia gravis -Continue home prednisone taper and pyridostigmine -pt reporting blurry vision - intermittent - d/w neuro, recommended outpatient follow up Adrenal insuffieincy -Continue steroids Hypothyroidism -Continue levothyroxine -GERD-stable -continue famotidine DVt prophylaxis- mechanical and ambulation. Reassess post-operatively Full code attending - dr. estrada requires ongoing inpatient hospitalization for intervention secondary to MELVA Quality Stroke Does the patient have a stroke diagnosis?: No VTE Prior VTE?: No VTE Risk Level:: Medical - moderate - high VTE Device Contraindication: N/A - Device Ordered VTE Drug Contraindication: Treatment Not Indicated
[2021-12-25] MEDS: predniSONE 10 MG TABLET PO (14:27)
[2021-12-25 16:51] LABS: Glucose, Whole Blood 137 mg/dL (60-115)
[2021-12-25 17:01] LABS: Glucose, Whole Blood 234 mg/dL (60-115)
[2021-12-25 20:34] LABS: Glucose, Whole Blood 311 mg/dL (60-115)
[2021-12-25] MEDS: Insulin Glargine,Hum.rec.anlog 100 UNIT/ML 10 ML VIAL 25 UNIT SUBCUT (20:55)
[2021-12-25] MEDS: Tamsulosin HCL 0.4 MG CAPSULE PO (20:56)
[2021-12-26 03:27] VITALS: BP 151/70; PULSE 55; RESP 17; TEMP 36.1; O2SAT 95
[2021-12-26] MEDS: Levothyroxine Sodium 112 MCG TABLET PO (06:34)
[2021-12-26 07:04] VITALS: BP 136/63; PULSE 58; RESP 20; TEMP 36.1; O2SAT 96
[2021-12-26 07:32] LABS: Glucose, Whole Blood 106 mg/dL (60-115)
[2021-12-26 07:41] LABS: Anion Gap 13 (12-20); Blood Urea Nitrogen 14 mg/dL (9-16); Calcium 8.3 mg/dL (8.4-10.2); Carbon Dioxide 27 mmol/L (22-29); Chloride 107 mmol/L (96-108); Creatinine Clr Calc Pharmacy 51.3; Estimated Glomerular Filt Rate 43; Glucose Random 113 mg/dL (60-115); Potassium 4.7 mmol/L (3.3-5.1); Sodium 142 mmol/L (135-145)
[2021-12-26] MEDS: Cholecalciferol (Vitamin D3) 25 MCG TABLET 50 MCG PO (08:23)
[2021-12-26] MEDS: Famotidine 20 MG TABLET PO (08:23)
[2021-12-26] MEDS: Atorvastatin Calcium 40 MG TABLET PO (08:23)
[2021-12-26] MEDS: predniSONE 20 MG TABLET PO (08:23)
[2021-12-26] MEDS: Escitalopram Oxalate 10 MG TABLET PO (08:23)
--- NOTE | 2021-12-26 10:47 | MHC.CM.PN ---
PT WILL DC HOME TODAY WITH NO SERVICES. PT TO ARRANGE TRANSPORT
[2021-12-26 11:04] VITALS: BP 117/59; PULSE 60; RESP 18; TEMP 36.3; O2SAT 95
--- NOTE | 2021-12-26 11:23 | P.DS_ITS ---
DS: Providers Provider Date of Service: 12/26/21 Date of admission: 12/23/21 16:51 Date of discharge: 12/26/21 Primary care physician: Troy Montgomery MD Consults: 12/23/21 17:00 Consult to Urology Routine Consulting Provider: Itz Chaudhary Reason for consultation: nephrolithiasis, lithotripsy Has provider been notified: No Attending physician on discharge: Ramila Hernandez Discharging clinician: Iman Bess DS: Diagnosis Discharge Diagnosis (1) Calculus of distal left ureter: Status: Acute (2) Acute UTI: Status: Acute (3) MELVA (acute kidney injury): Status: Acute DS: Summary Hospital Course Hospital Course: From H&P on day of admission 66 year old female with history of myasthenia gravis on prednisone taper diag September 2021, adrenal insufficiency, insulin dependent type 2 diabetes, htn, hypothyroidism, hld, CKD stage 3, hiatal hernia with gerd, depression, nephrolithiasis with history lithotripsy, and mild intermittent asthma without exacerbation recently diagnosed with 8mm partially obstructing left ureteral stone and UTI currently on keflex and flomax presented to the ED with nausea, ongoing right lower quadrant pain. Ct abd/pelvis this morning showed old 8mm partially obstructing left ureteral stone and a solitary stone midpole left kidney without caliectasis with several nonobstructing right renal calculi. Urine culture from 12/18 grew e.coli. Repeat pending. Leukocytosis 12.9. Mildly elevated lactic acid 2.4, repeat pending. Afebrile. No tachycardia, hypotension. Renal function at baseline. She tells me she has a short-lived episode of lightheadedness in the ED waiting room like she was going to pass out but did not. Brief vision changes. No associated palpitations, sob, cp. No syncope. EKG with frequent PVC's and age indetermine inferior infarct, sinus rhythm rate 65. Troponin pending. No recurrent episodes. No prior history presyncope. Has received 2L IVF and Iv rocephin in ED. ED spoke with Dr. Mota who will be taking the patient to the OR tomorrow. MELVA on CKD 3. The day after procedure, Creatinine increased up to 1.65. She was treated with IV fluid and her creatinine improved to 1.2 on the day of discharge Distal left ureteral calculus- Ct abd/pelvis showing old 8mm partially o bstructing left ureteral stone and a solitary stone midpole left kidney without caliectasis. She was seen by urology and had cystoscopy, lithotripsy, left stent placement on 12/24?. plan for follow up in office for stent removal in urology office next week. Continue antibiotics as prescribed. During procedure she was noted to have Trigeminy. She was given a dose of IV magnesium empirically. Magnesium levels were checked and were normal at 2.0. She was monitored on telemetry and had no further episodes of bigeminy or trigeminy. Echocardiogram was obtained and showed impaired relaxation filling pattern and small pericardial effusion with no findings of tamponade physiology. Patient had no chest pain, palpitations, shortness of breath. Recommend outpatient follow-up with PCP Acute UTI Urine culture 12/18 with e.coli sensitive to ceftriaxone. Has been on PO keflex since 12/19. She was treated with IV ceftriaxone during her hospitalization. Levofloxacin has been prescribed by Urology for the next 1 week. Leukocytosis resolved, patient has remained afebrile. Myasthenia gravis Patient is currently being tapered on prednisone. She noted some blurry vision, this was discussed with Neurology who recommended to increase her prednisone back to 20 mg twice daily for the next 1 week. She is encouraged to call the neurology office on Tuesday to check in and see how she is doing. She should call earlier if she develops any new symptoms or if symptoms worsen. Time Spent with Patient Time attestation: Total time spent providing and/or coordinating discharge services: Discharge coordination time: Greater than 30 minutes Quality: Safe Use of Opioids Does Pt have an Active Cancer Diagnosis on the Problem List?: No Quality: Stroke Does the patient have a stroke diagnosis?: No Physical Exam Vital Signs: Vital Signs: Last Vital Signs Temp 97.4 F 12/26/21 11:04 Pulse 60 12/26/21 11:04 Resp 18 12/26/21 11:04 BP 117/59 L 12/26/21 11:04 Pulse Ox 95 12/26/21 11:04 O2 Del Method 12/26/21 11:04 O2 Flow Rate 2 12/24/21 17:30 BMI result Body Mass Index 27.7 Const: General: cooperative, comfortable and no acute distress Nutritional Appearance: average body habitus Resp: Effort & Inspection: normal respiratory effort and able to speak in complete sentences Cardio: Rate: regular rate Heart sounds: S1 normal heart sound present and S2 normal heart sound present GI: Inspection: No distended Palpation (GI): Soft to palpation Neuro: General: CN's II-XI intact bilaterally Extrem: General: Yes no pedal edema DS: Data Data Completed and Pending Pending studies at discharge: Pending at discharge 12/24/21 17:27 Surgical [PTH] Routine Labs on day of discharge: Laboratory Results - last 24 hr 12/24/21 12/25/21 12/25/21 11:42 16:57 20:19 Sodium Potassium Chloride Carbon Dioxide Anion Gap BUN Creatinine Estim Creat Clear Calc Estimated GFR POC Glucose 137 H 234 H 311 H Random Glucose Calcium 12/26/21 12/26/21 06:35 07:08 Sodium 142 Potassium 4.7 Chloride 107 Carbon Dioxide 27 Anion Gap 13 BUN 14 Creatinine 1.24 Estim Creat Clear Calc 51.3 Estimated GFR 43 POC Glucose 106 Random Glucose 113 Calcium 8.3 L Preliminary micro results at discharge 12/23/21 16:16 Urine Culture - Preliminary Urine clean catch - Urine garcia top Yeast 12/23/21 11:44 Blood Culture - Preliminary Blood - Venous No growth after 48 hours. 12/23/21 11:19 Blood Culture - Preliminary Blood - Venous No growth after 48 hours. Discharge Plan Discharge Patient Disposition: Home, Self-Care Discharge Diagnosis: Left ureteral stone UTI Referrals: Itz Chaudhary MD [Physician] - 1 Week Troy Montgomery MD [Primary Care Provider] - 1 Week Discharge Medications: New tramadol 50 mg tablet 50 mg PO Q6H PRN (Reason: pain (scale score 1-3)) Qty: 8 0RF tamsulosin 0.4 mg capsule 0.4 mg PO BEDTIME 14 Days Qty: 14 0RF phenazopyridine [Pyridium] 100 mg tablet 100 mg PO TID PRN (Reason: spasm) 4 Days Qty: 12 0RF levofloxacin 500 mg tablet 500 mg PO DAILY Qty: 7 0RF naproxen 500 mg tablet 500 mg PO BID PRN (Reason: pain) 7 Days Qty: 14 0RF Continued oxybutynin chloride 10 mg tablet extended release 24hr 10 mg PO DAILY 30 Days Qty: 90 0RF (DME) blood-glucose meter [FreeStyle Lite Meter] Kit See Rx Instructions .Route Qty: 1 0RF Rx Instructions: As directed (DME) FreeStyle Lite Strips Strip See Rx Instructions .ROUTE .MEDSUPPLY Qty: 100 11RF Rx Instructions: 4x daily (DME) lancets [FreeStyle Lancets] 28 gauge misc See Rx Instructions .ROUTE .MEDSUPPLY Qty: 100 11RF Rx Instructions: 4x daily insulin lispro [Humalog KwikPen Insulin] 100 unit/mL insulin pen 5 unit subcut TID 30 Days Qty: 4.5 11RF (DME) pen needle, diabetic [BD Ultra-Fine Micro Pen Needle] 32 gauge x 1/4 needle See Rx Instructions .ROUTE .MEDSUPPLY Qty: 100 11RF Rx Instructions: 4x daily with insulin tamsulosin 0.4 mg capsule 0.4 mg PO BEDTIME 14 Days Qty: 14 0RF celecoxib 100 mg capsule 100 mg PO BID 30 Days Qty: 60 0RF prednisone 20 mg tablet 30 mg PO DAILY trazodone 50 mg Tablet 25 mg PO BEDTIME PRN (Reason: Insomnia) cholecalciferol (vitamin D3) [Vitamin D3] 50 mcg (2,000 unit) Tablet 50 mcg PO DAILY escitalopram oxalate 10 mg tablet 10 mg PO DAILY levothyroxine 112 mcg tablet 112 mcg PO DAILY pyridostigmine bromide 60 mg tablet 60 mg PO TID albuterol sulfate 90 mcg/actuation HFA aerosol inhaler 90 mcg inhalation Q4H PRN (Reason: Shortness Of Breath) famotidine 20 mg tablet 20 mg PO BID insulin glargine [Lantus Solostar U-100 Insulin] 100 unit/mL (3 mL) insulin pen 40 unit subcut DAILY calcium carbonate [Calcium 600] 600 mg calcium (1,500 mg) tablet 600 mg PO DAILY aspirin [Adult Low Dose Aspirin] 81 mg tablet,delayed release (DR/EC) 81 mg PO DAILY atorvastatin 40 mg tablet 40 mg PO DAILY 30 Days Qty: 30 11RF Discharge Orders: Discharge Order (Routine); Ordered 12/26/21 Ordered By: Iman Bess Activity on Discharge: As tolerated Stand Alone Forms: Patient Portal Discharge page Care Plan Goals: see below Health Concerns: Left ureteral kidney stone UTI Trigeminy Myasthenia gravis MELVA Pericardial Effusion Plan of Treatment: Left ureteral stone status post cystoscopy, lithotripsy, left stent placement - please continue antibiotics as prescribed by Dr. Chaudhary. Call to schedule follow-up appointment in his office next week for stent removal. MELVA. Renal function improved back to baseline Trigeminy - no further episodes seen on telemetry following procedure. Outpatient follow up with PCP Myasthenia gravis- your dose of prednisone has been increased back to 20 mg twice daily for the next week. call Dr. Bruner's office and let him know how you are doing next tuesday. Call his office sooner if you have any additional symptoms Pericardial Effusion - small effusion seen on echo. recommend to repeat ECHO is 6 weeks to ensure resolution Assessment: see discharge summary Discharge Date/Time: 12/26/21 12:44
[2021-12-26 11:26] LABS: Glucose, Whole Blood 221 mg/dL (60-115)
[2021-12-26] MEDS: Insulin Lispro 100 UNIT/ML 3 ML VIAL SUBCUT (12:19)
[2021-12-31 15:46] LABS: Stone Source URETERAL STONE
== END 2021-12-26 12:44 | disposition home or self-care (01) | DRG 660 ==
LOC: HO.ED 15:39 → HO.EDOVER 17:11 → HO.S3 12-24 13:54
PROVIDERS: Physician Assistant; Urology; Admitting Provider Physician Assistant; Emergency Provider Emergency Medicine Emergency Medical Services; PCP Internal Medicine; Visit Provider Physician Assistant Medical
PROC: 0T778DZ Dilation of Left Ureter with Intraluminal Device, Via Natural or Artificial Opening Endoscopic (ICD-10-PCS; principal; 2021-12-24 16:30)
DX: N20.1 Calculus of ureter (principal); E27.40 Unspecified adrenocortical insufficiency; N39.0 Urinary tract infection, site not specified; I12.9 Hypertensive chronic kidney disease with stage 1 through stage 4 chronic kidney disease, or unspecified chronic kidney disease; N18.30 Chronic kidney disease, stage 3 unspecified; E11.22 Type 2 diabetes mellitus with diabetic chronic kidney disease; J45.20 Mild intermittent asthma, uncomplicated; E86.0 Dehydration; G70.00 Myasthenia gravis without (acute) exacerbation; E11.65 Type 2 diabetes mellitus with hyperglycemia; E03.9 Hypothyroidism, unspecified; Z20.822 Contact with and (suspected) exposure to COVID-19; Z98.84 Bariatric surgery status; Z87.891 Personal history of nicotine dependence; Z91.030 Bee allergy status; Z87.440 Personal history of urinary (tract) infections; Z87.442 Personal history of urinary calculi; Z88.8 Allergy status to other drugs, medicaments and biological substances; Z79.4 Long term (current) use of insulin; Z79.52 Long term (current) use of systemic steroids; Z79.82 Long term (current) use of aspirin; Z79.890 Hormone replacement therapy; Z79.899 Other long term (current) drug therapy
CPT/HCPCS: 36415; 71045; 74176; 76775; 80048; 80076; 81001; 82009; 82365; 82947; 83605; 83690; 83735; 84484; 85025; 85027; 87040; 87086; 87088; 87635; 88300; 93005; 93306; 96361; 96374; 96375; 99285; C1758; C1769; J0696; J1885; J1956; J2250; J3010; Q9957; Q9967

== ENCOUNTER → 2021-12-29 14:52 | Outpatient (BNVA) | payer OTHER, SELFPAY | PROVIDERS: PCP Internal Medicine; Visit Provider Registered Nurse Diabetes Educator | DX: E11.9 Type 2 diabetes mellitus without complications (principal) | CPT/HCPCS: 99211 ==

== ENCOUNTER → 2022-01-01 08:56 | Outpatient (BNVA) | payer OTHER, SELFPAY | PROVIDERS: PCP Internal Medicine; Visit Provider Urology | DX: Z48.816 Encounter for surgical aftercare following surgery on the genitourinary system (principal); N39.3 Stress incontinence (female) (male) | CPT/HCPCS: 52310; 99212 ==

== ENCOUNTER → 2022-01-06 15:23 | Outpatient (BNVA) | payer OTHER, SELFPAY | PROVIDERS: PCP Internal Medicine; Visit Provider Internal Medicine | DX: E11.22 Type 2 diabetes mellitus with diabetic chronic kidney disease (principal); I12.9 Hypertensive chronic kidney disease with stage 1 through stage 4 chronic kidney disease, or unspecified chronic kidney disease; N18.30 Chronic kidney disease, stage 3 unspecified; E78.5 Hyperlipidemia, unspecified; E27.40 Unspecified adrenocortical insufficiency; E04.1 Nontoxic single thyroid nodule | CPT/HCPCS: 82947; 99212 ==

== ENCOUNTER → 2022-01-08 07:30 | Outpatient (REF) | payer OTHER, SELFPAY ==
--- NOTE | ~2022-01-08 | XR_ITS ---
EXAMINATION: XR CHEST CLINICAL INFORMATION: Heartburn. COMPARISON: Chest radiograph dated from 12/23/2021. TECHNIQUE: 2 views of the chest were obtained. FINDINGS: Stable prominence of the cardiomediastinal silhouette. No focal airspace opacity, pleural effusion or pneumothorax. No acute osseous abnormalities. The included portions of the upper abdomen are within normal limits. Mild thoracic spondylosis. XR/XR chest 2V IMPRESSION: No acute cardiopulmonary findings.
--- NOTE | ~2022-01-08 | NM_ITS ---
PULMONARY PERFUSION ONLY STUDY: CLINICAL INDICATION: Shortness of breath. Abnormal blood work. PROCEDURE: Following the intravenous administration of 4.0 millicuries technetium 99m MAA, images of the chest were obtained in multiple projections using a gamma scintiphotographic camera. COMPARISON: Chest radiograph done on 01/08/2022. PERFUSION IMAGES: Segmental perfusion defects are present, one on each side, at both lower lobes (left greater than right). Given the absence of airspace disease on the chest radiograph done today, the findings are consistent with thromboembolism based on modified PIOPED 2 criteria. NM/NM pul perfusion IMPRESSION: Abnormal study. Based on modified PIOPED 2 criteria, pulmonary thromboembolism is present. This critical result was discussed with Dr. Montgomery at 10:22 AM on 01/08/2022 and it was ascertained that the content and urgency of the report was understood at the time of direct communication.
== END ==
LOC: HO.NUCMED 07:30
PROVIDERS: PCP Internal Medicine; Visit Provider Internal Medicine
DX: R79.89 Other specified abnormal findings of blood chemistry (principal); R12 Heartburn
CPT/HCPCS: 71046; 78580; A9540

== ENCOUNTER 2022-01-08 10:43 | Emergency (ER) | payer OTHER, SELFPAY ==
--- NOTE | ~2022-01-08 | US_ITS ---
EXAMINATION: US VENOUS ULTRASOUND WITH DOPPLER LOWER EXTREMITY, BILATERAL CLINICAL INFORMATION: Pulmonary embolism. COMPARISON: None TECHNIQUE: Ultrasound of the deep veins is performed from the hip to the calf with compression sonography and color and pulse Doppler assessment. Spectral analysis with color-flow imaging is performed. FINDINGS: RIGHT: There is normal venous compression and respiratory variation and augmented flow. The visualized common femoral vein, superficial femoral vein, profunda femoral vein, popliteal vein, and the trifurcation region show no evidence of deep venous thrombosis. LEFT: Examination demonstrates lack of flow within the left peroneal vein. There is otherwise normal venous compression and respiratory variation and augmented flow. The visualized common femoral vein, superficial femoral vein, profunda femoral vein, popliteal vein, and remaining veins of the trifurcation region show no evidence of deep venous thrombosis. No Panda's cyst cyst is seen on either side. US/US venous duplex LE BI IMPRESSION: Findings consistent with left peroneal venous thrombosis (infrapopliteal). Otherwise, no evidence of deep venous thrombosis throughout the remainder of the lower extremity deep venous systems, bilaterally.
[2022-01-08 10:49] VITALS: BP 147/45; PULSE 56; RESP 18; TEMP 36.8; O2SAT 98; BMI 27.3
--- NOTE | 2022-01-08 11:41 | ECG_ITS ---
Test Reason : cp Blood Pressure : / mmHG Vent. Rate : 059 BPM Atrial Rate : 059 BPM P-R Int : 158 ms QRS Dur : 080 ms QT Int : 396 ms P-R-T Axes : 031 -03 -04 degrees QTc Int : 392 ms Sinus bradycardia with occasional Premature ventricular complexes Low voltage QRS Cannot rule out Anterior infarct , age undetermined Nonspecific T wave abnormality Abnormal ECG When compared with ECG of 23-DEC-2021 12:18, Fusion complexes are no longer Present Nonspecific T wave abnormality, worse in Lateral leads QT has shortened Referred By: Peace Maddox Electronically Signed By:PATRICIA VIEIRA
--- NOTE | 2022-01-08 11:57 | ED.GENADULT ---
HPI - General Adult General Chief complaint: General Medical Stated complaint: Pulmonary embolism Time Seen by Provider: 01/08/22 11:23 Source: patient Mode of arrival: ambulatory History of Present Illness HPI narrative: 66-year-old female with past medical history of myasthenia gravis on prednisone taper, adrenal insufficiency diabetes, HC, hypothyroid, HLD, CKD stage 3, hiatal hernia, GERD, depression, nephrolithiasis s/p recent lithotripsy stent placement, presenting to the ED from PCP for positive PE on V/Q scan today. Patient reports lower chest pain x few weeks with associated shallow breathing and mild SOB. Admit saw PCP yesterday who did outpatient labs which showed elevated D-dimer which prompted V/Q scan today. Denies history of clots, recent travel, pedal edema, calf pain, abdominal pain, nausea/vomiting, fever. Was previous cigarette smoker 40 years ago. Onset (ago): week(s) Related Data Home Medications Medication Instructions Recorded Confirmed escitalopram oxalate 10 mg tablet 10 mg PO DAILY 04/30/20 01/06/22 levothyroxine 112 mcg tablet 112 mcg PO DAILY 04/30/20 01/06/22 albuterol sulfate 90 mcg/actuation 90 mcg inhalation Q4H PRN 12/03/21 01/06/22 aerosol inhaler Shortness Of Breath aspirin 81 mg tablet,delayed 81 mg PO DAILY 12/03/21 01/06/22 release (Adult Low Dose Aspirin) calcium carbonate 600 mg calcium 600 mg PO DAILY 12/03/21 01/06/22 (1,500 mg) tablet (Calcium) famotidine 20 mg tablet 20 mg PO BID 12/03/21 01/06/22 insulin glargine 100 unit/mL (3 40 unit subcut DAILY 12/03/21 01/06/22 mL) subcutaneous pen (Lantus Solostar U-100 Insulin) pyridostigmine bromide 60 mg tablet 60 mg PO TID 12/03/21 01/06/22 cholecalciferol (vitamin D3) 50 50 mcg PO DAILY 12/23/21 01/06/22 mcg (2,000 unit) tablet (Vitamin D3) prednisone 20 mg tablet 30 mg PO DAILY 12/23/21 01/06/22 trazodone 50 mg tablet 25 mg PO BEDTIME PRN Insomnia 12/23/21 01/06/22 insulin NPH isoph U-100 human 100 unit subcut 01/01/22 01/06/22 unit/mL (3 mL) subcutaneous pen (Humulin N NPH U-100 Insulin KwikPen) Previous Rx's Medication Instructions Recorded oxybutynin chloride 10 mg 10 mg PO DAILY OAB 30 days #90 tabs 11/20/21 tablet,extended release 24 hr blood sugar diagnostic (FreeStyle #100 ea 12/07/21 Lite Strips) blood-glucose meter (FreeStyle #1 ea 12/07/21 Lite Meter kit) insulin lispro 100 unit/mL 5 unit (0.05 mL) subcut TID 30 12/07/21 subcutaneous pen (Humalog KwikPen days #4.5 mL (U-100) Insulin) lancets 28 gauge (FreeStyle #100 ea 12/07/21 Lancets) atorvastatin 40 mg tablet 40 mg PO DAILY 30 days #30 tabs 12/16/21 celecoxib 100 mg capsule 100 mg PO BID 30 days #60 caps 12/18/21 tamsulosin 0.4 mg capsule 0.4 mg PO BEDTIME 2 weeks #14 caps 12/18/21 levofloxacin 500 mg tablet 500 mg PO DAILY #7 tabs 12/24/21 naproxen 500 mg tablet 500 mg PO BID PRN pain 7 days #14 12/24/21 tabs phenazopyridine 100 mg tablet 100 mg PO TID PRN spasm 4 days #12 12/24/21 (Pyridium) tabs tamsulosin 0.4 mg capsule 0.4 mg PO BEDTIME 14 days #14 caps 12/24/21 tramadol 50 mg tablet 50 mg PO Q6H PRN pain (scale score 12/24/21 1-3) #8 tabs flash glucose sensor (FreeStyle #2 ea 12/30/21 Coretta 2 Sensor kit) allopurinol 100 mg tablet 100 mg PO DAILY 90 days #90 tabs 01/01/22 pyridoxine (vitamin B6) 100 mg 100 mg PO DAILY 90 days #90 tabs 01/01/22 tablet pen needle, diabetic 31 gauge x #100 ea 01/04/2208/31 (BD Ultra-Fine Short Pen Needle) apixaban 5 mg (74 tabs) tablets in 5 mg PO BID #74 ea 01/08/22 a dose pack (Eliquis DVT-PE Treat 30D Start) Allergies Allergy/AdvReac Type Severity Reaction Status Date / Time sertraline Allergy Mild Stomach Verified 01/06/22 15:46 Upset levothyroxine sodium AdvReac Unknown insomnia Verified 01/06/22 15:46 bees Allergy Unknown swells Uncoded 01/06/22 15:46 Review of Systems Review of Systems: Constitutional:No Fever, No Chills, No Fatigue, No Malaise ENT/Mouth: No Hearing loss, No Ear Pain, No Nasal Congestion, No sore throat, No Rhinorrhea, No Swallowing Difficulty Eyes: No Eye Pain, No Swelling, No Redness, No Vision Changes Cardiovascular: + Chest Pain, + SOB, No Edema, No Palpitations Respiratory: No Cough, No Sputum, No Dyspnea Gastrointestinal: No Nausea, No Vomiting, No Diarrhea, No Constipation, No Abdominal pain Genitourinary: No Dysuria, No Urinary Frequency, No Hematuria, No Flank Pain, No Urinary Flow Changes, No Hesitancy Musculoskeletal: No joint pain, No Myalgias, No Joint Swelling Skin: No Skin Lesions, No rash Neuro: No Weakness, No Numbness, No Dizziness, No Headache Yes all other systems are reviewed and are negative Constitutional: Constitutional: Reports as per [facility] Past Medical History Attestation statement: The following information was validated with the patient. Medical History Adrenal insufficiency Asthma CKD (chronic kidney disease) Cystitis cystica Gallstones HLD (hyperlipidemia) HLD (hyperlipidemia) HTN (hypertension) Hypothyroid Multinodular thyroid Nephrolithiasis Nocturia VIVI (stress urinary incontinence, female) T2DM (type 2 diabetes mellitus) Thyroid nodule Trigeminy Urge incontinence Urinary frequency Urinary incontinence Urinary urgency UTI (urinary tract infection) Surgical History History of gastric bypass (~2004) History of hysterectomy History of pubovaginal sling Hx of cholecystectomy Family History Family History Father Heart attack CVD (cardiovascular disease) HTN (hypertension) Mother Dementia Social History Social History Alcohol intake: never Patient Tobacco Use Status: Former Tobacco user Quit Date: 20 years ago Tobacco use type: Cigarette Advance Directives: Yes Advance Directives Information Provided: Yes Advance Directives on File: No Advance Directives Date on File: 01/18/20 service: No Current occupational status: other Physical Exam ED Vital Signs: Vital Signs - 24 hr 01/08/22 10:49 01/08/22 12:30 Temperature 98.2 F 98.3 F Pulse Rate 56 57 Respiratory Rate 18 14 Blood Pressure 147/45 H 148/60 H Pulse Oximetry 98 97 Oxygen Delivery Method Room Air Room Air BMI result Body Mass Index 27.3 Const General: cooperative, healthy appearing and no acute distress Orientation/consciousness: patient oriented x3 Limitations: no limitations HENMT Head: Yes normal to inspection and Yes atraumatic Ears: hearing grossly normal bilaterally General nose exam: Normal external nose present Face and sinus: Yes normal facial exam Eyes General: appearance normal, both eyes and all related structures EOM: EOMs intact bilaterally Neck Neck: Yes normal visual inspection and Yes no meningeal signs Resp Effort & Inspection: normal respiratory effort and no respiratory distress Auscultation: clear to auscultation bilaterally, no crackles, no rales, no rhonchi and no wheezes Cardio Rate: regular rate Heart sounds: S1 normal heart sound present and S2 normal heart sound present GI Inspection: Yes normal to inspection Palpation (GI): Soft to palpation, nontender, no guarding and not rigid General: Yes no CVA tenderness Back/Spine/Pelvis Back: no CVA tenderness Skin Rashes: no rashes Wounds: no wounds Neuro General: patient oriented x3, tone normal and no meningeal signs Gait exam (Neuro): Normal gait present Extrem General: Yes normal to inspection, Yes no pedal edema and Yes no calf tenderness Course Course Course Narrative: -1428--mild leukocytosis of 12.2. H&H at patient's baseline. Troponin WNL. BNP 123 US venous duplex LE BIIMPRESSION: Findings consistent with left peroneal venous thrombosis (infrapopliteal). ? Otherwise, no evidence of deep venous thrombosis throughout the remainder of the lower extremity deep venous systems, bilaterally. > suspect DVT/PE from patient's recent hospital admissions/sedentary. Patient reports previous coagulopathy workup which was negative > patient's vital signs are stable, no hypoxia, no tachycardia. No evidence of right heart strain. Case discussed with Dr. Roberts who agrees with plan, patient is safe to discharge home with close Hematology/cardiology follow-up. Will initiate on Eliquis PESI score =67 which is low risk Medical Decision Making MDM Narrative Medical decision making narrative: 66-year-old female with past medical history of myasthenia gravis on prednisone taper, adrenal insufficiency diabetes, HC, hypothyroid, HLD, CKD stage 3, hiatal hernia, GERD, depression, nephrolithiasis s/p recent lithotripsy stent placement, presenting to the ED from PCP for positive PE on V/Q scan today. On exam vital signs stable, NAD, no tachycardia, satting 98% on RA, lungs CTA, no pedal edema/calf tenderness. First fusion scan from this morning showing segmental perfusion defects on both lower lobes. CXR was unremarkable. Concern for DVT. Rule right heart strain. ? Clotting disorder Plan: EKG, labs, bilateral venous duplex ultrasound, reassess Medical Records Medical records reviewed: Yes I reviewed the patient's medical records. Lab Data Lab results reviewed: Yes I reviewed the patient's lab results. Result diagrams: 01/08/22 12:44 01/08/22 12:44 Labs: Lab Results 01/08/22 01/08/22 01/08/22 Range/Units 12:36 12:44 12:44 WBC 12.2 H (4.8-10.8) X10*3/uL RBC 3.90 L (4.20-5.50) X10*6/uL Hgb 10.9 L (12.0-16.0) g/dl Hct 34.2 L (37.0-47.0) % MCV 87.7 (80.0-98.0) fL MCH 27.9 (27.0-33.0) pg MCHC 31.9 (31.0-35.0) g/dl RDW 17.0 H (11.0-16.0) % Plt Count 207 D (160-400) X10*3/uL MPV 10.4 (9.4-12.3) fL Immature Gran % (Auto) 1.3 H (0.0-0.4) % Neut % (Auto) 83.9 H (45-73) % Lymph % (Auto) 10.7 L (20-40) % [place] % (Auto) 3.9 (2-11) % Eos % (Auto) 0.1 (0-4) % Baso % (Auto) 0.1 (0-2) % Lymph # (Auto) 1.3 (1.2-4.9) X10*3/uL [place] # (Auto) 0.5 (0.1-1.2) X10*3/uL Eos # (Auto) 0.0 (0.0-0.4) X10*3/uL Baso # (Auto) 0.0 (0.0-0.2) X10*3/uL Abs Immat Gran (auto) 0.16 H (0.00-0.03) X10*3/uL Absolute Neuts (auto) 10.2 H (2.0-8.3) x10*3/uL Absolute Nucleated RBC 0.000 (0.0-0.012) X10*3/uL Nucleated RBC % (auto) 0.0 (0.0-0.2) /100WBC PT 10.1 (10.0-13.1) SEC INR 0.9 (0.9-1.1) APTT 19.6 L (26.0-36.4) SEC Sodium (135-145) mmol/L Potassium (3.3-5.1) mmol/L Chloride (96-108) mmol/L Carbon Dioxide (22-29) mmol/L Anion Gap (12-20) BUN (9-16) mg/dL Creatinine (0.5-1.4) mg/dL Estim Creat Clear Calc Estimated GFR POC Glucose 139 H (60-115) mg/dL Random Glucose (60-115) mg/dL Calcium (8.4-10.2) mg/dL Troponin I High Sens (<3.5-17.0) ng/L B-Natriuretic Peptide (<100) pg/mL COVID-19 (MARIE) (Negative) COVID-19 Clin Com 01/08/22 01/08/22 01/08/22 Range/Units 12:44 12:44 12:44 WBC (4.8-10.8) X10*3/uL RBC (4.20-5.50) X10*6/uL Hgb (12.0-16.0) g/dl Hct (37.0-47.0) % MCV (80.0-98.0) fL MCH (27.0-33.0) pg MCHC (31.0-35.0) g/dl RDW (11.0-16.0) % Plt Count (160-400) X10*3/uL MPV (9.4-12.3) fL Immature Gran % (Auto) (0.0-0.4) % Neut % (Auto) (45-73) % Lymph % (Auto) (20-40) % [place] % (Auto) (2-11) % Eos % (Auto) (0-4) % Baso % (Auto) (0-2) % Lymph # (Auto) (1.2-4.9) X10*3/uL [place] # (Auto) (0.1-1.2) X10*3/uL Eos # (Auto) (0.0-0.4) X10*3/uL Baso # (Auto) (0.0-0.2) X10*3/uL Abs Immat Gran (auto) (0.00-0.03) X10*3/uL Absolute Neuts (auto) (2.0-8.3) x10*3/uL Absolute Nucleated RBC (0.0-0.012) X10*3/uL Nucleated RBC % (auto) (0.0-0.2) /100WBC PT (10.0-13.1) SEC INR (0.9-1.1) APTT (26.0-36.4) SEC Sodium 143 (135-145) mmol/L Potassium 4.1 (3.3-5.1) mmol/L Chloride 107 (96-108) mmol/L Carbon Dioxide 27 (22-29) mmol/L Anion Gap 13 (12-20) BUN 17 H (9-16) mg/dL Creatinine 1.09 (0.5-1.4) mg/dL Estim Creat Clear Calc 57.9 Estimated GFR 50 POC Glucose (60-115) mg/dL Random Glucose 148 H (60-115) mg/dL Calcium 8.9 D (8.4-10.2) mg/dL Troponin I High Sens 4.3 (<3.5-17.0) ng/L B-Natriuretic Peptide 123 H (<100) pg/mL COVID-19 (MARIE) Negative (Negative) COVID-19 Clin Com See Note ECG Data Attestation: I personally reviewed and interpreted this ECG as follows: Prior ECG tracings: available for review Interpretation: EKG showing sinus bradycardia with occasional PVCs at a rate of 59. [place] interval 158. QTC 392. No STEMI Discharge Plan Discharge Clinical Impression: Pulmonary embolism, Acute deep vein thrombosis of left peroneal vein Patient Disposition: Home, Self-Care Instructions: Deep Vein Thrombosis (ED) Additional Instructions: You have pulmonary embolisms and a clot in your left leg You need to start taking Eliquis, 10 mg twice daily for the 1st 7 days and then followed by 5 mg twice daily. YOU NEED TO HAVE VERY CLOSE FOLLOW-UP WITH HEMATOLOGY AND CARDIOLOGY If her symptoms persist or worsen, you develop constant worsening chest pain, shortness of breath, swelling in her legs, fever, he feels short of breath, lightheaded or dizzy please return to the emergency department immediately If you fall, hit her head, or develop blood in her stool please return to the Prescriptions: New Eliquis DVT-PE Treat 30D Start 5 mg (74 tabs) tablets,dose pack 5 mg PO BID Qty: 74 0RF No Action oxybutynin chloride 10 mg tablet extended release 24hr 10 mg PO DAILY 30 Days Qty: 90 0RF (DME) blood-glucose meter [FreeStyle Lite Meter] Kit See Rx Instructions .Route Qty: 1 0RF Rx Instructions: As directed (DME) FreeStyle Lite Strips Strip See Rx Instructions .ROUTE .MEDSUPPLY Qty: 100 11RF Rx Instructions: 4x daily (DME) lancets [FreeStyle Lancets] 28 gauge misc See Rx Instructions .ROUTE .MEDSUPPLY Qty: 100 11RF Rx Instructions: 4x daily insulin lispro [Humalog KwikPen Insulin] 100 unit/mL insulin pen 5 unit subcut TID 30 Days Qty: 4.5 11RF tamsulosin 0.4 mg capsule 0.4 mg PO BEDTIME 14 Days Qty: 14 0RF celecoxib 100 mg capsule 100 mg PO BID 30 Days Qty: 60 0RF (DME) FreeStyle Coretta 2 Sensor Kit See Rx Instructions .ROUTE .MEDSUPPLY Qty: 2 11RF Rx Instructions: Once every 14 days (DME) pen needle, diabetic [BD Ultra-Fine Short Pen Needle] 31 gauge x 5/16 needle See Rx Instructions .Route Qty: 100 11RF Rx Instructions: 4x daily prednisone 20 mg tablet 30 mg PO DAILY trazodone 50 mg Tablet 25 mg PO BEDTIME PRN (Reason: Insomnia) cholecalciferol (vitamin D3) [Vitamin D3] 50 mcg (2,000 unit) Tablet 50 mcg PO DAILY tramadol 50 mg tablet 50 mg PO Q6H PRN (Reason: pain (scale score 1-3)) Qty: 8 0RF tamsulosin 0.4 mg capsule 0.4 mg PO BEDTIME 14 Days Qty: 14 0RF phenazopyridine [Pyridium] 100 mg tablet 100 mg PO TID PRN (Reason: spasm) 4 Days Qty: 12 0RF levofloxacin 500 mg tablet 500 mg PO DAILY Qty: 7 0RF naproxen 500 mg tablet 500 mg PO BID PRN (Reason: pain) 7 Days Qty: 14 0RF escitalopram oxalate 10 mg tablet 10 mg PO DAILY levothyroxine 112 mcg tablet 112 mcg PO DAILY pyridostigmine bromide 60 mg tablet 60 mg PO TID albuterol sulfate 90 mcg/actuation HFA aerosol inhaler 90 mcg inhalation Q4H PRN (Reason: Shortness Of Breath) famotidine 20 mg tablet 20 mg PO BID insulin glargine [Lantus Solostar U-100 Insulin] 100 unit/mL (3 mL) insulin pen 40 unit subcut DAILY calcium carbonate [Calcium 600] 600 mg calcium (1,500 mg) tablet 600 mg PO DAILY aspirin [Adult Low Dose Aspirin] 81 mg tablet,delayed release (DR/EC) 81 mg PO DAILY atorvastatin 40 mg tablet 40 mg PO DAILY 30 Days Qty: 30 11RF Humulin N NPH Insulin KwikPen 100 unit/mL (3 mL) insulin pen subcut allopurinol 100 mg tablet 100 mg PO DAILY 90 Days Qty: 90 1RF pyridoxine (vitamin B6) 100 mg tablet 100 mg PO DAILY 90 Days Qty: 90 1RF Referrals: Nohemi Palmer MD [Physician] - Otto Johnson MD [Physician] - Discharge Date/Time: 01/08/22 15:20
[2022-01-08 12:30] VITALS: BP 148/60; PULSE 57; RESP 14; TEMP 36.8; O2SAT 97
[2022-01-08 12:42] LABS: Glucose, Whole Blood 139 mg/dL (60-115)
[2022-01-08 12:52] LABS: MANUAL DIFF FLAG NO
[2022-01-08 12:53] LABS: Basophils Percent Auto 0.1 % (0-2); Eosinophils Percent Auto 0.1 % (0-4); Hematocrit 34.2 % (37.0-47.0); Hemoglobin 10.9 g/dl (12.0-16.0); Imm Gran Abs Auto 0.16 X10*3/uL (0.00-0.03); Imm Gran Pct Auto 1.3 % (0.0-0.4); Lymphocytes Absolute Auto 1.3 X10*3/uL (1.2-4.9); Lymphocytes Percent Auto 10.7 % (20-40); Mean Corpuscular HGB Conc 31.9 g/dl (31.0-35.0); Mean Corpuscular Hemoglobin 27.9 pg (27.0-33.0); Mean Corpuscular Volume 87.7 fL (80.0-98.0); Mean Platelet Volume 10.4 fL (9.4-12.3); Monocytes Absolute Auto 0.5 X10*3/uL (0.1-1.2); Monocytes Percent Auto 3.9 % (2-11); Neutrophils Absolute Auto 10.2 x10*3/uL (2.0-8.3); Neutrophils Percent Auto 83.9 % (45-73); Platelet Count 207 X10*3/uL (160-400); White Blood Count 12.2 X10*3/uL (4.8-10.8)
[2022-01-08 13:06] LABS: Anion Gap 13 (12-20); Blood Urea Nitrogen 17 mg/dL (9-16); Calcium 8.9 mg/dL (8.4-10.2); Carbon Dioxide 27 mmol/L (22-29); Chloride 107 mmol/L (96-108); Creatinine Clr Calc Pharmacy 57.9; Estimated Glomerular Filt Rate 50; Glucose Random 148 mg/dL (60-115); Potassium 4.1 mmol/L (3.3-5.1); Sodium 143 mmol/L (135-145)
[2022-01-08 13:09] LABS: COVID-19 Test Negative (Negative); IDNOW Serial# 16C4AD1C
[2022-01-08 13:14] LABS: B Type Natriuretic Peptide 123 pg/mL (<100); Troponin-I High Sensitivity 4.3 ng/L (<3.5-17.0)
[2022-01-08 13:35] LABS: INTERNATIONAL NORM RATIO 0.9 (0.9-1.1); Prothrombin Time 10.1 SEC (10.0-13.1)
[2022-01-08 13:38] LABS: Partial Thromboplastin Time 19.6 SEC (26.0-36.4)
[2022-01-08] MEDS: Apixaban 5 MG TABLET 10 MG PO (15:18)
[2022-01-08 15:27] LABS: Fibrinogen 430 MG/DL (259-690)
== END 2022-01-08 15:20 | disposition home or self-care (01) ==
PROVIDERS: Physician Assistant; Emergency Provider Emergency Medicine; PCP Internal Medicine
DX: I26.99 Other pulmonary embolism without acute cor pulmonale (principal); I82.452 Acute embolism and thrombosis of left peroneal vein; R06.02 Shortness of breath; E11.22 Type 2 diabetes mellitus with diabetic chronic kidney disease; I12.9 Hypertensive chronic kidney disease with stage 1 through stage 4 chronic kidney disease, or unspecified chronic kidney disease; N18.9 Chronic kidney disease, unspecified; E78.5 Hyperlipidemia, unspecified; Z79.82 Long term (current) use of aspirin; Z79.899 Other long term (current) drug therapy; Z79.4 Long term (current) use of insulin; Z79.02 Long term (current) use of antithrombotics/antiplatelets; Z20.822 Contact with and (suspected) exposure to COVID-19; Z87.891 Personal history of nicotine dependence
CPT/HCPCS: 80048; 82947; 83880; 84484; 85025; 85384; 85610; 85730; 87635; 93005; 93970; 99284

== ENCOUNTER → 2022-01-19 10:55 | Outpatient (BNVA) | payer OTHER, SELFPAY | PROVIDERS: PCP Internal Medicine; Visit Provider Registered Nurse Diabetes Educator | DX: E11.9 Type 2 diabetes mellitus without complications (principal) | CPT/HCPCS: 99211 ==

== ENCOUNTER → 2022-01-27 12:53 | Outpatient (BNVA) | payer OTHER, SELFPAY | PROVIDERS: PCP Internal Medicine; Visit Provider Physician Assistant Surgical | DX: Z98.84 Bariatric surgery status (principal); E66.3 Overweight | CPT/HCPCS: 99202; 99212 ==

== ENCOUNTER 2022-02-01 15:14 | Outpatient (REF) | payer OTHER, SELFPAY ==
[2022-02-01 17:51] LABS: Appearance Urine Cloudy; Color Urine Yellow; Glucose Urine UA Negative (Negative); Leukocyte Esterase Urine Large (3+) (Negative); Nitrite Urine Positive (Negative); PH 5.5 (5.0-9.0); Specific Gravity - Urine 1.015 (1.005-1.025); UMIC TRIGGER UA YES; Urine Blood Moderate (2+) (Negative); Urine Ketones Negative (Negative); Urine Protein Trace mg/dL (Neg-Trace)
[2022-02-01 18:14] LABS: Bacteria Urine 4+ (None Seen); Calcium Oxalate Crystals Urine Present; Hyaline Casts Urine 0-2 /LPF (0-2); RBC Urine >20 /HPF (0-2); WBC Urine >50 /HPF (0-5)
== END 2022-02-01 15:15 | disposition home or self-care (01) ==
LOC: HO.XRAY 15:14
PROVIDERS: Urology; PCP Internal Medicine; Visit Provider Urology
DX: N39.0 Urinary tract infection, site not specified (principal)
CPT/HCPCS: 81001; 87086; 87088; 87186

== ENCOUNTER → 2022-02-04 10:56 | Outpatient (BNVA) | payer OTHER, SELFPAY | PROVIDERS: PCP Internal Medicine; Visit Provider Registered Nurse Diabetes Educator | DX: E11.9 Type 2 diabetes mellitus without complications (principal); Z79.4 Long term (current) use of insulin | CPT/HCPCS: 99211 ==

== ENCOUNTER 2022-02-08 12:25 | Outpatient (REF) | payer OTHER, SELFPAY ==
--- NOTE | ~2022-02-08 | CT_ITS ---
EXAMINATION: CT ABDOMEN WITHOUT CONTRAST CLINICAL INFORMATION: Bariatric surgery status COMPARISON: 12/23/2021 TECHNIQUE: Contiguous axial thin section helical images of the abdomen were performed without contrast. The data set was reformatted in the coronal and sagittal planes and reviewed on an independent workstation. This CT examination was performed using dose optimization techniques as appropriate, variously including the following: *Automated exposure control *Adjustment of mA and/or kV according to patient size (this includes techniques or standardized protocols for targeted exams where dose is matched to indication/reason for exam; i.e. extremities or head) *Use of iterative reconstruction technique DLP: 289 mGy-cm FINDINGS: LUNG BASES: Trace left pleural effusion. Normal heart size. Moderate circumferential pericardial effusion. No coronary artery calcification seen. LIVER, GALLBLADDER, BILIARY TREE: No focal liver lesion on noncontrast imaging. Gallbladder surgically absent. No biliary ductal dilatation. PANCREAS: Normal. No mass or peripancreatic inflammatory changes. SPLEEN: Normal. ADRENAL GLANDS AND KIDNEYS: No adrenal mass. 2 mm right proximal ureteral calculus. Punctate 1 to 2 mm right lower pole renal calculus. No left renal calculi. BOWEL LOOPS: Postoperative changes status post Hemal-en-Y gastric bypass. Oral contrast is seen in the small bowel beyond the gastrojejunostomy. Small bowel is nondilated. There is runoff of contrast into the distal small bowel as far distally as the right colon. LYMPH NODES: Normal. VASCULAR: Normal caliber aorta. BONES: Degenerative changes. No acute or suspicious osseous abnormality. CT/CT abdomen wo IV con IMPRESSION: Status post Hemal-en-Y gastric bypass. No evidence of obstruction. Oral contrast followed distally to the colon. Nonobstructing tiny right renal calculi. Fleischner guidelines were followed.
[2022-02-08] MEDS: Barium Sulfate Oral (Vanilla) 450 ML ORAL.SUSP 900 ML PO (13:41)
== END 2022-02-08 12:26 | disposition home or self-care (01) ==
LOC: HO.CT 12:25
PROVIDERS: PCP Internal Medicine; Visit Provider Physician Assistant Surgical
DX: K21.9 Gastro-esophageal reflux disease without esophagitis (principal); Z98.84 Bariatric surgery status
CPT/HCPCS: 74150

== ENCOUNTER → 2022-02-09 14:52 | Outpatient (BNVA) | payer OTHER, SELFPAY | PROVIDERS: PCP Internal Medicine; Visit Provider Internal Medicine Cardiovascular Disease | DX: I31.39 Other pericardial effusion (noninflammatory) (principal); E78.5 Hyperlipidemia, unspecified; R79.89 Other specified abnormal findings of blood chemistry | CPT/HCPCS: 99202 ==

== ENCOUNTER → 2022-02-10 12:47 | Outpatient (REF) | payer OTHER, SELFPAY ==
--- NOTE | 2022-02-10 13:11 | CA_ITS ---
Transthoracic Echocardiogram Patient (Last, First, Middle): Sarah Mobley, Gender: Female Date of : 1955 Age: 66 Procedure Date: 02/10/2022 Procedure Type: Transthoracic Echocardiogram Location: OP Height: 175.26 cm Weight: 82.56 kg BSA: 1.98 m2 Heart Rate: 70 bpm BP: 120 / 70 mmHg Recreation Aide: JUAN Wilson MD: George Rosado MD Pipe Fitter Gas Pipe: George Rosado MD Symptoms: I31.39 - Other pericardial effusion (noninflammatory) Study Quality: Fair ECG Rhythm: Sinus Conclusions: - Small pericardial effusion without evidence of tamponade Findings Left Ventricle Normal left ventricular size, thickness, and systolic function. The visually estimated ejection fraction is between 60-65%. Spectral Doppler is indicative of an impaired relaxation filling pattern. Pericardium/Pleural There is a small circumferential pericardial effusion. There are no definitive echocardiographic findings of tamponade physiology. Measurements Tricuspid Valve RA Press: 3.00 Updated in Other Vendor System with Status of Final George Rosado MD electronically signed on 02/10/2022 4:52:44 PM with status of Final
[2022-02-10 14:27] LABS: Rheumatoid Factor < 15.0 IU/mL (<15.0)
[2022-02-10 14:40] LABS: Erythrocyte Sedimentation Rate 16 MM/HR (0-20)
[2022-02-10 14:51] LABS: TSH reflex Free T4 15.79 uIU/mL (0.32-4.0)
[2022-02-10 16:13] LABS: Free T4 (Free Thyroxine) 1.02 ng/dL (0.71-1.85)
[2022-02-12 11:43] LABS: CRP High Sensitivity 1.7 mg/L
[2022-02-12 15:52] LABS: Anti Nuclear Antibody Screen NEGATIVE (NEGATIVE)
== END ==
LOC: HO.CARD 12:47
PROVIDERS: PCP Internal Medicine; Visit Provider Internal Medicine Cardiovascular Disease
DX: I31.39 Other pericardial effusion (noninflammatory) (principal); E78.5 Hyperlipidemia, unspecified
CPT/HCPCS: 36415; 84439; 84443; 85652; 86038; 86039; 86141; 86431; 93308

== ENCOUNTER 2022-02-18 09:39 | Outpatient (REF) | payer OTHER, SELFPAY ==
[2022-02-18 11:07] LABS: Anion Gap 17 (12-20); Blood Urea Nitrogen 13 mg/dL (9-16); Calcium 8.8 mg/dL (8.4-10.2); Carbon Dioxide 24 mmol/L (22-29); Chloride 104 mmol/L (96-108); Estimated Glomerular Filt Rate 35; Glucose Random 243 mg/dL (60-115); Potassium 3.8 mmol/L (3.3-5.1); Sodium 141 mmol/L (135-145)
[2022-02-18 11:11] LABS: B Type Natriuretic Peptide 25 pg/mL (<100)
== END 2022-02-18 09:40 | disposition home or self-care (01) ==
LOC: HO.LAB 09:39
PROVIDERS: PCP Internal Medicine; Visit Provider Internal Medicine Cardiovascular Disease
DX: R79.89 Other specified abnormal findings of blood chemistry (principal)
CPT/HCPCS: 36415; 80048; 83880; 99211

== ENCOUNTER 2022-03-10 12:17 | Outpatient (REF) | payer OTHER, SELFPAY ==
--- NOTE | ~2022-03-10 | US_ITS ---
EXAMINATION: US RETROPERITONEAL LIMITED (RENAL ONLY) CLINICAL INFORMATION: Calculus of kidney. COMPARISON: CT abdomen 02/08/2022. Renal ultrasound 12/23/2021 and 08/29/2020. X-ray abdomen KUB 01/02/2020. TECHNIQUE: Real-time imaging of the kidneys. FINDINGS: RIGHT KIDNEY: 10.1 x 4.0 x 5.2 cm (SAG x AP x TRV). The kidney is normal in size, contour, and echogenicity. Renal cortical thickness is normal. No focal parenchymal lesions or hydronephrosis. There is an echogenic stone midpole measuring 3 mm without caliectasis LEFT KIDNEY: 10.0 x 4.3 x 4.6 cm (SAG x AP x TRV). The kidney is normal in size, contour, and echogenicity. Renal cortical thickness is normal. No focal parenchymal lesions or hydronephrosis. There are nonobstructive echogenic stone lower pole measuring 5 mm. US/US renal BI IMPRESSION: Nonobstructive bilateral echogenic renal calculi without caliectasis or hydronephrosis.
== END 2022-03-10 12:18 | disposition home or self-care (01) ==
LOC: HO.US 12:17
PROVIDERS: Visit Provider Urology
DX: N20.0 Calculus of kidney (principal)
CPT/HCPCS: 76775

== ENCOUNTER → 2022-03-16 12:50 | Outpatient (REF) | payer OTHER, SELFPAY ==
--- NOTE | 2022-03-16 12:56 | CA_ITS ---
Transthoracic Echocardiogram Patient (Last, First, Middle): Sarah Mobley, Gender: Female Date of : 1955 Age: 66 Procedure Date: 03/16/2022 Procedure Type: Transthoracic Echocardiogram Location: OP Height: 175.26 cm Weight: 83.01 kg BSA: 1.99 m2 Heart Rate: bpm BP: 122 / 60 mmHg Director Workforce Management: Referring MD: George Rosado MD Symptoms: I42.9 - Cardiomyopathy, unspecified, assess Pericardial effusion Study Quality: Fair ECG Rhythm: Sinus Conclusions: - The left ventricular systolic function is normal. The calculated ejection fraction is 65% by biplane method. - There is a small loculated pericardial effusion overlying the left ventricle. Findings Left Ventricle Normal left ventricular cavity size. There is mildly increased left ventricular wall thickness. The left ventricular systolic function is normal. The calculated ejection fraction is 65% by biplane method. There is no evidence of regional wall motion abnormalities. Venous The inferior vena cava is normal in size and collapses greater than 50% with inspiration. Pericardium/Pleural Prominent epicardial adipose tissue noted. There is a small loculated pericardial effusion overlying the left ventricle. Prior Study Comparison No significant change compared to prior study dated: 02/10/2022. Measurements 2D Linear Measurements IVSd: 1.09 0.6-0.9/0.6-1.0 cm LVIDd: 4.61 3.9-5.3/4.2-5.9 cm LVIDd Index: 2.32 2.4-3.2/2.2-3.1 cm/m2 LVIDs: 3.04 2.0-3.6 cm LVPWd: 1.13 0.7-1.1 cm LV Mass: 229.47 67-162/88-224 g LV Mass Index: 115.31 43-95/49-115 g/m2 2D Systolic Function EF 4C: 61.20 >55% EF 2C: 71.40 >55% EF BiP: 65.10 >55% Updated in Other Vendor System with Status of Final Otto Johnson MD electronically signed on 03/17/2022 9:52:21 AM with status of Final
== END ==
LOC: HO.CARD 12:50
PROVIDERS: Visit Provider Internal Medicine Cardiovascular Disease
DX: I31.39 Other pericardial effusion (noninflammatory) (principal); I42.9 Cardiomyopathy, unspecified
CPT/HCPCS: 93308

== ENCOUNTER → 2022-03-17 09:15 | Outpatient (BNVA) | payer OTHER, SELFPAY | PROVIDERS: PCP Internal Medicine; Visit Provider Internal Medicine Cardiovascular Disease | DX: R79.89 Other specified abnormal findings of blood chemistry (principal); I31.39 Other pericardial effusion (noninflammatory); Z79.899 Other long term (current) drug therapy | CPT/HCPCS: 99212 ==

== ENCOUNTER → 2022-03-18 14:59 | Outpatient (BNVA) | payer OTHER, SELFPAY | PROVIDERS: PCP Internal Medicine; Visit Provider Internal Medicine | DX: E11.22 Type 2 diabetes mellitus with diabetic chronic kidney disease (principal); I12.9 Hypertensive chronic kidney disease with stage 1 through stage 4 chronic kidney disease, or unspecified chronic kidney disease; N18.9 Chronic kidney disease, unspecified; E27.40 Unspecified adrenocortical insufficiency; E04.1 Nontoxic single thyroid nodule; E03.9 Hypothyroidism, unspecified; E78.5 Hyperlipidemia, unspecified | CPT/HCPCS: 82947; 83036; 99212 ==

== ENCOUNTER → 2022-04-07 13:54 | Outpatient (BNVA) | payer OTHER, SELFPAY | PROVIDERS: PCP Internal Medicine; Visit Provider Urology | DX: Z13.89 Encounter for screening for other disorder (principal) ==

== ENCOUNTER 2022-04-09 12:11 | Outpatient (REF) | payer OTHER, SELFPAY ==
--- NOTE | ~2022-04-09 | XR_ITS ---
EXAMINATION: XR CHEST CLINICAL INFORMATION: Covid 19 COMPARISON: None TECHNIQUE: 2 views of the chest were obtained. FINDINGS: No significant abnormality is noted involving the heart, lungs, mediastinum, bony thorax or soft tissues. XR/XR chest 2V IMPRESSION: Unremarkable chest exam.
== END 2022-04-09 12:12 | disposition home or self-care (01) ==
LOC: HO.XRAY 12:11
PROVIDERS: PCP Internal Medicine; Visit Provider Surgery
DX: U07.1 COVID-19 (principal)
CPT/HCPCS: 71046

== ENCOUNTER → 2022-04-13 05:56 | Day surgery (SDC) | payer OTHER, SELFPAY ==
[2022-03-30 10:21] VITALS: BMI 26.6
--- NOTE | 2022-03-31 09:31 | HO.ANESPROP2 ---
HPI - Anesthesia Eval Consult details Narrative: 66yo F for Upper Endoscopy Mysethenia Gravis - taking pyridostigmine & prednisone Eliquis for PE/DVT - to bridge with lovenox per Heme s/p cysto etc 12/2021 with GA-LMA 4 PMFSH Active Problems Active Problems: All Active Problems (Updated 03/30/22 @ 10:29 by Jessica Pinto RN) Urge incontinence (Acute) Urinary incontinence (Acute) Thyroid nodule (Acute) Calculus of distal left ureter (Acute) Acute UTI (Acute) MELVA (acute kidney injury) (Acute) Pulmonary emboli (Acute) History of Hemal-en-Y gastric bypass (Acute) Overweight (Acute) Acid reflux (Acute) Pericardial effusion (Acute) Hypothyroidism (Acute) Elevated brain natriuretic peptide (BNP) level (Acute) Hypothyroidism (Acute) CKD (chronic kidney disease) (Acute) Multinodular thyroid (Acute) Adrenal insufficiency (Acute) HLD (hyperlipidemia) (Acute) HTN (hypertension) (Acute) T2DM (type 2 diabetes mellitus) (Acute) Nephrolithiasis (Acute) Cystitis cystica (Acute) VIVI (stress urinary incontinence, female) (Acute) Urinary frequency (Acute) Past Medical History Medical History (Updated 03/30/22 @ 10:29 by Jessica Pinto RN) Adrenal insufficiency Asthma CKD (chronic kidney disease) Congenital myasthenia gravis 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 Gallstones HLD (hyperlipidemia) HTN (hypertension) Hypothyroidism Multinodular thyroid Nephrolithiasis Nocturia Pulmonary embolism VIVI (stress urinary incontinence, female) T2DM (type 2 diabetes mellitus) Trigeminy Urinary frequency Urinary urgency UTI (urinary tract infection) Family History Family History Father CVD (cardiovascular disease) Heart attack HTN (hypertension) Mother Dementia Family history of problems with anesthesia: No Surgical History Surgical History (Updated 03/30/22 @ 10:28 by Jessica Pinto RN) History of gastric bypass (~2004) History of hysterectomy History of lithotripsy History of pubovaginal sling Hx of cholecystectomy Hx of cystoscopy History of Problems with Anesthesia: No Social History Social History Household Members: Spouse Housing: House Are you a primary healthcare receptionist to a significant other at home: No Do you presently have visiting nurse or other home services: No Alcohol intake: never Patient Tobacco Use Status: Former Tobacco user Quit Date: age 46 Tobacco use type: Cigarette Advance Directives Date on File: 02/18/20 service: No Current occupational status: retired and other Meds Allergies Allergy/AdvReac Type Severity Reaction Status Date / Time bee pollen [bee stings] Allergy Intermediate Swelling Verified 03/26/22 12:00 sertraline Allergy Mild Stomach Verified 03/18/22 15:31 Upset Home Medications Medication Instructions Recorded Confirmed Last Taken Type escitalopram oxalate 10 mg tablet 10 mg PO DAILY 04/30/20 03/30/22 12/23/21 History (Lexapro) albuterol sulfate 90 mcg/actuation 90 mcg inhalation Q4H PRN 12/03/21 03/30/22 12/23/21 History aerosol inhaler Shortness Of Breath calcium carbonate 600 mg calcium 600 mg PO DAILY 12/03/21 03/30/22 12/23/21 History (1,500 mg) tablet (Calcium) famotidine 20 mg tablet 20 mg PO BID 12/03/21 03/30/22 12/23/21 History pyridostigmine bromide 60 mg tablet 60 mg PO TID 12/03/21 03/30/22 12/23/21 History cholecalciferol (vitamin D3) 50 50 mcg PO DAILY 12/23/21 03/30/22 Unknown History mcg (2,000 unit) tablet (Vitamin D3) insulin lispro 100 unit/mL See Rx Instructions .Route .COMPLEX 03/30/22 03/30/22 Unknown History subcutaneous pen (Humalog KwikPen (U-100) Insulin) prednisone 5 mg tablet 15 mg PO DAILY 03/30/22 03/30/22 Unknown History Exam Exam Date and Time: March 31, 2022 0931 Height,Weight and Vital Signs: Height 5 ft 9 in Weight 82 kg Pertinent Lab Results Pertinent Lab Results: Laboratory Tests 01/08/22 02/18/22 12:44 09:55 WBC 12.2 H Hgb 10.9 L Hct 34.2 L Sodium 141 Potassium 3.8 Chloride 104 Carbon Dioxide 24 BUN 13 Creatinine 1.48 H Narrative Narrative: EKG 11/30/22 SR with occ PVCs Low volt QRS Cannot r/o anterior infarct, age undetermined Assessment and Plan Assessment Anesthesia Assessment: Chart Reviewed Final Anesthetic Review Family History of Problems with Anesthesia: No History of Problems with Anesthesia: No
[2022-03-31 14:44] LABS: COVID-19 Test Positive (Negative); IDNOW Serial# 16C4AD1C
[2022-04-09 12:25] LABS: COVID-19 Test Negative (Negative); IDNOW Serial# 9DB6401D
--- NOTE | 2022-04-10 14:09 | MHC.SHP ---
Pre-Procedural Eval Section A Date of Service: 04/10/22 The patient is an INPATIENT: No The History & Physical has been completed within 30 days and I have reviewed it.: Yes Section B Chief Complaint: Bariatric surgery status Relevant Family History (Specify if Yes): No Relevant Social History: None Present Medications: None Medical History: No relevant PMH History of Previous Operations: Relevant previous surgery/procedure and date(s) (lap gastric bypass) Allergies: Allergies Allergy/AdvReac Type Severity Reaction Status Date / Time bee pollen [bee stings] Allergy Intermediate Swelling Verified 04/07/22 13:55 sertraline Allergy Mild Stomach Verified 04/07/22 13:55 Upset Review of Systems Sugical H&P ROS: Negative: Constitution, Cardiovascular, Respiratory, Neurological, Psychiatric, Hem-Onc, Allergic/Immunologic, Gastrointestinal, Genitourinary, Musculoskeletal, Integumentary, Endocrine and Eyes/Ears/Nose/Throat Exam Surgical H&P Exam: Normal: HEENT, Normal: Heart, Normal: Lungs, Normal: Extremities, Normal: Abdomen, Normal: Skin and Normal: Neurological Plan Diagnosis/Plan: Unchanged (Endoscopy to assess for esophagitis and hiatal hernia. Risks of bleeding and perforation were discussed with the patient.) I have reviewed the history and physical and performed a pertinent physical examination on my patient. No changes have occurred unless specified. Time Spent With Patient Time: Total time managing care of this patient today ____ minutes.
[2022-04-13 06:31] LABS: COVID-19 Test Positive (Negative); IDNOW Serial# 16C4AD1C
[2022-04-13 06:37] LABS: Glucose, Whole Blood 127 mg/dL (60-115)
[2022-04-13 06:42] VITALS: BP 139/58; PULSE 73; RESP 18; TEMP 36.6; O2SAT 97; BMI 26.6
--- NOTE | 2022-04-13 06:44 | PC.NURSE ---
pt covid neg 04/09/22, covid + 04/13/22 - team aware, case cancelled. pt updated, dressed, no iv
== END ==
PROVIDERS: Physician Assistant Surgical; PCP Internal Medicine; Visit Provider Surgery
DX: K21.9 Gastro-esophageal reflux disease without esophagitis (principal); Z98.84 Bariatric surgery status; Z53.8 Procedure and treatment not carried out for other reasons; U07.1 COVID-19; E11.9 Type 2 diabetes mellitus without complications; Z20.822 Contact with and (suspected) exposure to COVID-19
CPT/HCPCS: 82947; 87635

== ENCOUNTER 2022-04-15 07:54 | Outpatient (REF) | payer OTHER, SELFPAY ==
--- NOTE | ~2022-04-15 | FL_ITS ---
EXAMINATION: XR FLUOROSCOPY UPPER GI WITH AIR CLINICAL INFORMATION: Obesity. Preop COMPARISON: None TECHNIQUE: Routine upper GI air-contrast study was performed in upright and lying position. FINDINGS: Following oral administration of thick barium and effervescent granules, there is normal propagation of bolus from the oral cavity through the pharynx, esophagus into stomach without any evidence of obstruction, narrowing or stricture. On placing patient supine and prone lying, there is evidence of previous gastric bypass with a small stomach. The gastroduodenal anastomosis is widely patent. There is spontaneous passage of barium from the stomach into the small bowel. Minimal gastroesophageal reflux was seen but no hiatal hernia noted. The mucosal pattern of stomach appears normal. There is evidence of previous cholecystectomy. FLUOROSCOPY TIME: 2.0 DOSE AREA PRODUCT: 32.590 uGy-m2 (microgray-meter squared) FL/FL upper GI w air IMPRESSION: Previous gastric bypass surgery noted. There is a widely patent gastrojejunal anastomosis. There is mild gastroesophageal reflux.
== END 2022-04-15 07:55 | disposition home or self-care (01) ==
LOC: HO.XRAY 07:54
PROVIDERS: PCP Internal Medicine; Visit Provider Surgery
DX: K21.9 Gastro-esophageal reflux disease without esophagitis (principal); E66.9 Obesity, unspecified; Z98.84 Bariatric surgery status; Z90.49 Acquired absence of other specified parts of digestive tract
CPT/HCPCS: 74246

== ENCOUNTER 2022-04-29 13:28 | Outpatient (REF) | payer OTHER, SELFPAY | END 2022-04-29 13:29 | disposition home or self-care (01) | LOC: HO.LAB 13:28 | PROVIDERS: PCP Internal Medicine; Visit Provider Internal Medicine | DX: Z13.89 Encounter for screening for other disorder (principal) ==

== ENCOUNTER 2022-05-06 06:51 | Day surgery (SDC) | payer OTHER, SELFPAY ==
[2022-04-29 14:43] LABS: Estimated Average Glucose 194 mg/dL; Hemoglobin A1c % 8.4 %
[2022-04-29 15:17] LABS: Alanine Aminotransferase 41 U/L (0-31); Albumin Level 3.9 g/dL (3.5-5.0); Alkaline Phosphatase 71 U/L (39-117); Anion Gap 13 (12-20); Aspartate Amino Transferase 46 U/L (5-31); Bilirubin Total 0.7 mg/dL (0.0-1.0); Blood Urea Nitrogen 12 mg/dL (9-16); Calcium 9.1 mg/dL (8.4-10.2); Carbon Dioxide 24 mmol/L (22-29); Chloride 107 mmol/L (96-108); Cholesterol 123 mg/dL; Estimated Glomerular Filt Rate 41; Glucose Random 159 mg/dL (60-115); HDL Cholesterol 71 mg/dL; LDL Cholesterol Calculated 38 mg/dl; Sodium 140 mmol/L (135-145); Total Protein 6.3 g/dL (6.5-8.0); Triglycerides 74 mg/dL
[2022-04-29 15:34] LABS: Free T4 (Free Thyroxine) 1.29 ng/dL (0.71-1.85); Thyroid Stimulating Hormone 2.19 uIU/mL (0.32-4.0)
[2022-04-29 16:30] LABS: Appearance Urine Cloudy; Color Urine Yellow; Glucose Urine UA Negative (Negative); Leukocyte Esterase Urine Moderate (2+) (Negative); Nitrite Urine Positive (Negative); PH 5.5 (5.0-9.0); UMIC TRIGGER UA YES; Urine Blood Negative (Negative); Urine Ketones Trace mg/dL (Negative); Urine Protein Negative (Neg-Trace)
[2022-04-29 16:36] LABS: Bacteria Urine 4+ (None Seen); Hyaline Casts Urine 0-2 /LPF (0-2); RBC Urine 0-2 /HPF (0-2); Squamous Epithelial Cell Urine 0-2 /HPF (0-2); WBC Urine >50 /HPF (0-5)
[2022-04-29 16:42] LABS: Creatinine Urine 215.47 mg/dL; Microalbum/Creatinine Ratio Ur 12.9 ug/mg cr
[2022-04-30 14:15] VITALS: BMI 29.5
--- NOTE | 2022-04-30 23:32 | MHC.SHP ---
Pre-Procedural Eval Section A Date of Service: 04/30/22 The patient is an INPATIENT: No The History & Physical has been completed within 30 days and I have reviewed it.: Yes Section B Chief Complaint: Bariatric surgery status Relevant Family History (Specify if Yes): No Relevant Social History: None Present Medications: None Medical History: No relevant PMH History of Previous Operations: Relevant previous surgery/procedure and date(s) (Gastric bypass surgery) Allergies: Allergies Allergy/AdvReac Type Severity Reaction Status Date / Time bee pollen [bee stings] Allergy Intermediate Swelling Verified 04/07/22 13:55 sertraline Allergy Mild Stomach Verified 04/07/22 13:55 Upset Review of Systems Sugical H&P ROS: Negative: Constitution, Cardiovascular, Respiratory, Neurological, Psychiatric, Hem-Onc, Allergic/Immunologic, Gastrointestinal, Genitourinary, Musculoskeletal, Integumentary, Endocrine and Eyes/Ears/Nose/Throat Exam Surgical H&P Exam: Normal: HEENT, Normal: Heart, Normal: Lungs, Normal: Extremities, Normal: Abdomen, Normal: Skin and Normal: Neurological Plan Diagnosis/Plan: Unchanged (Upper endoscopy to assess the gastric bypass surgery. Risks for perforation and bleeding were discussed with patient. She is in agreement with the plan) I have reviewed the history and physical and performed a pertinent physical examination on my patient. No changes have occurred unless specified. Time Spent With Patient Time: Total time managing care of this patient today ____ minutes.
[2022-05-01 02:29] LABS: LDL Cholesterol Direct 34 mg/dL (<100)
--- NOTE | 2022-05-05 10:30 | HO.ANESPROP2 ---
Documented by User: Tricia Cao NP 05/05/22 10:37 HPI - Anesthesia Eval Consult details Narrative: 66yo F for Upper Endoscopy Cardiac cleared previously cx'd 03/2022 d/t COVID+ s/p cysto, etc 12/2021 with GA-LMA 4 PMFSH Active Problems Active Problems: All Active Problems (Updated 04/30/22 @ 14:13 by Jessica Pinto, RN) Urge incontinence (Acute) Urinary incontinence (Acute) Thyroid nodule (Acute) Calculus of distal left ureter (Acute) Acute UTI (Acute) MELVA (acute kidney injury) (Acute) Pulmonary emboli (Acute) History of Hemal-en-Y gastric bypass (Acute) Overweight (Acute) Acid reflux (Acute) Pericardial effusion (Acute) Hypothyroidism (Acute) Elevated brain natriuretic peptide (BNP) level (Acute) COVID (Acute) Hypothyroidism (Acute) CKD (chronic kidney disease) (Acute) Multinodular thyroid (Acute) Adrenal insufficiency (Acute) HLD (hyperlipidemia) (Acute) HTN (hypertension) (Acute) T2DM (type 2 diabetes mellitus) (Acute) Nephrolithiasis (Acute) Cystitis cystica (Acute) VIVI (stress urinary incontinence, female) (Acute) Urinary frequency (Acute) Past Medical History Medical History Adrenal insufficiency Asthma CKD (chronic kidney disease) Congenital myasthenia gravis 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 Gallstones History of COVID-19 HLD (hyperlipidemia) HTN (hypertension) Hypothyroidism Multinodular thyroid Myasthenia gravis Nephrolithiasis Nocturia Pulmonary embolism VIVI (stress urinary incontinence, female) T2DM (type 2 diabetes mellitus) Trigeminy Urinary frequency Urinary urgency UTI (urinary tract infection) Family History Family History Father CVD (cardiovascular disease) Heart attack HTN (hypertension) Mother Dementia Family history of problems with anesthesia: No Surgical History Surgical History History of gastric bypass (~2004) History of hysterectomy History of lithotripsy History of pubovaginal sling Hx of cholecystectomy Hx of cystoscopy History of Problems with Anesthesia: No Social History Social History Household Members: Spouse Housing: House Are you a primary in home caregiver to a significant other at home: No Do you presently have visiting nurse or other home services: No Alcohol intake: never Patient Tobacco Use Status: Former Tobacco user Quit Date: age 46 Tobacco use type: Cigarette Are you DNR?: No Advance Directives: Yes Advance Directives on File: Yes Advance Directives Date on File: 02/18/20 Patient : Yes service: No Current occupational status: retired and other Meds Allergies Allergy/AdvReac Type Severity Reaction Status Date / Time bee pollen [bee stings] Allergy Intermediate Swelling Verified 04/07/22 13:55 sertraline Allergy Mild Stomach Verified 04/07/22 13:55 Upset Home Medications Medication Instructions Recorded Confirmed Last Taken Type escitalopram oxalate 10 mg tablet 10 mg PO DAILY 04/30/20 04/07/22 05/06/22 History (Lexapro) albuterol sulfate 90 mcg/actuation 90 mcg inhalation Q4H PRN 12/03/21 04/07/22 03/03/22 History aerosol inhaler Shortness Of Breath calcium carbonate 600 mg calcium 600 mg PO DAILY 12/03/21 04/07/22 05/05/22 History (1,500 mg) tablet (Calcium) famotidine 20 mg tablet 20 mg PO BID 12/03/21 04/07/22 05/05/22 History pyridostigmine bromide 60 mg tablet 60 mg PO TID 12/03/21 04/07/22 05/05/22 History cholecalciferol (vitamin D3) 50 50 mcg PO DAILY 12/23/21 04/07/22 05/05/22 History mcg (2,000 unit) tablet (Vitamin D3) prednisone 5 mg tablet 10 mg PO DAILY 03/30/22 04/07/22 05/05/22 History Exam Exam Date and Time: May 05, 2022 1030 Height,Weight and Vital Signs: Height 5 ft 9 in Weight 90.718 kg Pertinent Lab Results Pertinent Lab Results: Laboratory Tests 04/29/22 04/29/22 04/29/22 13:38 13:38 13:44 Sodium 140 Potassium 4.0 Chloride 107 Carbon Dioxide 24 Anion Gap 13 BUN 12 Creatinine 1.30 Estim Creat Clear Calc TNP Estimated GFR 41 Random Glucose 159 H Estimat Average Glucose Hemoglobin A1c % Calcium 9.1 Total Bilirubin 0.7 AST 46 H ALT 41 H Alkaline Phosphatase 71 Total Protein 6.3 L Albumin 3.9 Triglycerides 74 Cholesterol 123 LDL Cholesterol Direct LDL Cholesterol, Calc 38 HDL Cholesterol 71 TSH 2.19 Free T4 1.29 Urine Color Yellow Urine Appearance Cloudy Urine pH 5.5 Ur Specific [place] 1.020 Urine Protein Negative Urine Glucose (UA) Negative Urine Ketones Trace Urine Blood Negative Urine Nitrite Positive H Ur Leukocyte Esterase Moderate (2+) H Urine RBC 0-2 Urine WBC >50 H Ur Squamous Epith Cells 0-2 Urine Bacteria 4+ Hyaline Casts 0-2 Urine Creatinine 215.47 Urine Microalbumin 28.0 Microalb/Creat Ratio 12.9 04/29/22 04/29/22 13:44 13:44 Sodium Potassium Chloride Carbon Dioxide Anion Gap BUN Creatinine Estim Creat Clear Calc Estimated GFR Random Glucose Estimat Average Glucose 194 Hemoglobin A1c % 8.4 Calcium Total Bilirubin AST ALT Alkaline Phosphatase Total Protein Albumin Triglycerides Cholesterol LDL Cholesterol Direct 34 LDL Cholesterol, Calc HDL Cholesterol TSH Free T4 Urine Color Urine Appearance Urine pH Ur Specific [place] Urine Protein Urine Glucose (UA) Urine Ketones Urine Blood Urine Nitrite Ur Leukocyte Esterase Urine RBC Urine WBC Ur Squamous Epith Cells Urine Bacteria Hyaline Casts Urine Creatinine Urine Microalbumin Microalb/Creat Ratio Narrative Narrative: ECHO 2021 Conclusions: - The left ventricular systolic function is normal.? The ? calculated ejection fraction is 65% by biplane method. ? - There is a small loculated pericardial effusion overlying the? left ventricle.? ? ? EKG 02/2022 SR with occ PVC Low volt QRS Cannot r/o anterior infarct, age undetermined Assessment and Plan Assessment Anesthesia Assessment: Chart Reviewed Final Anesthetic Review Family History of Problems with Anesthesia: No History of Problems with Anesthesia: No Documented by User: Adeline Pizano MD 05/06/22 08:20 [facility] Past Medical History Medical History Adrenal insufficiency Asthma CKD (chronic kidney disease) Congenital myasthenia gravis 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 Gallstones History of COVID-19 HLD (hyperlipidemia) HTN (hypertension) Hypothyroidism Multinodular thyroid Myasthenia gravis Nephrolithiasis Nocturia Pulmonary embolism VIVI (stress urinary incontinence, female) T2DM (type 2 diabetes mellitus) Trigeminy Urinary frequency Urinary urgency UTI (urinary tract infection) Patient : Yes Family History Family History Father CVD (cardiovascular disease) Heart attack HTN (hypertension) Mother Dementia Surgical History Surgical History History of gastric bypass (~2004) History of hysterectomy History of lithotripsy History of pubovaginal sling Hx of cholecystectomy Hx of cystoscopy Social History Social History Household Members: Spouse Housing: House Are you a primary in home caregiver to a significant other at home: No Do you presently have visiting nurse or other home services: No Alcohol intake: never Patient Tobacco Use Status: Former Tobacco user Quit Date: age 46 Tobacco use type: Cigarette Are you DNR?: No Advance Directives: Yes Advance Directives on File: Yes Advance Directives Date on File: 02/18/20 Patient : Yes service: No Current occupational status: retired and other Meds Allergies Allergy/AdvReac Type Severity Reaction Status Date / Time bee pollen [bee stings] Allergy Intermediate Swelling Verified 04/07/22 13:55 sertraline Allergy Mild Stomach Verified 04/07/22 13:55 Upset Home Medications Medication Instructions Recorded Confirmed Last Taken Type escitalopram oxalate 10 mg tablet 10 mg PO DAILY 04/30/20 04/07/22 05/06/22 History (Lexapro) albuterol sulfate 90 mcg/actuation 90 mcg inhalation Q4H PRN 12/03/21 04/07/22 03/03/22 History aerosol inhaler Shortness Of Breath calcium carbonate 600 mg calcium 600 mg PO DAILY 12/03/21 04/07/22 05/05/22 History (1,500 mg) tablet (Calcium) famotidine 20 mg tablet 20 mg PO BID 12/03/21 04/07/22 05/05/22 History pyridostigmine bromide 60 mg tablet 60 mg PO TID 12/03/21 04/07/22 05/05/22 History cholecalciferol (vitamin D3) 50 50 mcg PO DAILY 12/23/21 04/07/22 05/05/22 History mcg (2,000 unit) tablet (Vitamin D3) prednisone 5 mg tablet 10 mg PO DAILY 03/30/22 04/07/22 05/05/22 History Exam Airway Mallampati Class: II TM Dist: >3cm Neck ROM: Full Loose/Missing/Broken Teeth: No Heart: RRR Lungs: CTA Assessment and Plan Assessment Anesthesia Assessment: Anesthesia Plan Discussed Final Anesthetic Review NPO: Yes ASA Class: III Final Preanesthetic Review: Meds/Allgs Chart Reviewed, Consent Obtained/Reviewed and Anes Risks/Benef Reviewed Patient Risk: Intermediate Procedure Risk: Intermediate Anesthetic Plan Anesthetic Plan: MAC: Disposition: Standard PACU
[2022-05-05 13:52] LABS: COVID-19 Test Negative (Negative); IDNOW Serial# 16C4AD1C
[2022-05-06 07:08] VITALS: BP 130/45; PULSE 82; RESP 18; TEMP 36.8; O2SAT 98
[2022-05-06 07:10] LABS: Glucose, Whole Blood 188 mg/dL (60-115)
[2022-05-06] MEDS: Lactated Ringers 1,000 ML 100 ML IVCONT (07:21)
--- NOTE | 2022-05-06 08:09 | P.BOP_ITS ---
Brief Operative Note Date of Service: 05/06/22 Pre-op diagnosis: Left mid-abdominal pain Post-op diagnosis: same Procedure: PROCEDURE DATE: ?05/06/2022 PREOPERATIVE DIAGNOSIS: Left side mid-abdominal pain, s/p gastric bypass POSTOPERATIVE DIAGNOSIS: ?Same as above. 1) Small hiatal hernia PROCEDURE: [id number] with biopsies Surgeon: ?Alejandro Severino M.D.. Ph.D. Diesel Machinist: ?None ? Anesthesia: IV sedation Estimated blood loss: ?Minimal FINDINGS AND PROCEDURE: ? OPERATIVE INDICATIONS: ?The patient is a 66 year old female known to me who underwent a laparoscopic gastric bypass at [facility]. The patient had adequate weight loss so far. The last 6 months has been complaining of left side mid- abdominal pain that seems to be associated with food intake. She also has a previous diagnosis of an ulcer based on a capsule endoscopy.? Based on this information I recommended an upper endoscopy to evaluate the patient's symptoms.? Risks and complications of the surgery were discussed with the patient in advance particularly the possibility of perforation or bleeding that may require surgical intervention. The patient understood the risks and was in agreement with the plan. ? PROCEDURE: After informed consent was obtained by the patient, the patient was ?transferred to the Operating Room and was placed in the supine position.? After successful induction of IV sedation, a mouth block was placed and the patient was placed in the left lateral decubitus position. An upper endoscopy was performed next, the oropharynx and esophagus appeared within the normal limits. There is a 1-2 cm hiatal hernia.? The z-line was smooth. The small pouch was entered, appeared to be of normal size. There was no gastritis and the gastrojejunostomy was patent. There was no anastomotic ulcer.? At that point the scope was advanced into the proximal small intestine (proximal Hemal limb) up to 80cm from incisors which appeared to be normal as well. The Hemal limb and the pouch were decompressed and the scope was withdrawn from the patient's mouth. No biopsies were obtained as the patient needs to re-start her Eliquis. The patient was awaken and was transferred in stable condition to the Recovery Room for further care. I was present and performed all steps of the procedure. There were no residents to assist with this case. Alejandro Severino M.D., Ph.D. Surgeon: Kolby Severino MD Anesthesia: MAC Was an Diesel Machinist used for this Procedure?: No Estimated blood loss (mL): 0 IV fluids (mL): 400 Urine output (mL): 0 (No Ayala to record output) Pathology: none sent Condition: stable Disposition: PACU
[2022-05-06 08:34] VITALS: BP 123/56; PULSE 88; RESP 16; TEMP 36.9; O2SAT 98
[2022-05-06 08:49] VITALS: BP 129/56; PULSE 67; RESP 16; TEMP 36.9; O2SAT 96
== END 2022-05-06 09:15 | disposition home or self-care (01) ==
PROVIDERS: Internal Medicine; Physician Assistant Surgical; Urology; PCP Internal Medicine; Visit Provider Surgery
PROC: 0DJ08ZZ Inspection of Upper Intestinal Tract, Via Natural or Artificial Opening Endoscopic (ICD-10-PCS; CPT 43235; principal; 2022-05-06 08:10)
DX: R10.9 Unspecified abdominal pain (principal); E66.3 Overweight; Z68.27 Body mass index [BMI] 27.0-27.9, adult; Z98.84 Bariatric surgery status; K21.9 Gastro-esophageal reflux disease without esophagitis; Z87.11 Personal history of peptic ulcer disease; E04.2 Nontoxic multinodular goiter; K44.9 Diaphragmatic hernia without obstruction or gangrene; G70.00 Myasthenia gravis without (acute) exacerbation; E11.22 Type 2 diabetes mellitus with diabetic chronic kidney disease; I12.9 Hypertensive chronic kidney disease with stage 1 through stage 4 chronic kidney disease, or unspecified chronic kidney disease; N18.9 Chronic kidney disease, unspecified; Z79.4 Long term (current) use of insulin; Z79.01 Long term (current) use of anticoagulants; Z79.52 Long term (current) use of systemic steroids; Z79.899 Other long term (current) drug therapy; Z88.8 Allergy status to other drugs, medicaments and biological substances; Z90.49 Acquired absence of other specified parts of digestive tract; Z87.891 Personal history of nicotine dependence; Z20.822 Contact with and (suspected) exposure to COVID-19
CPT/HCPCS: 43235; 36415; 80053; 80061; 81001; 82043; 82947; 83036; 83721; 84439; 84443; 87086; 87088; 87186; 87635

== ENCOUNTER → 2022-05-10 09:45 | Outpatient (BNVA) | payer OTHER, SELFPAY | PROVIDERS: PCP Internal Medicine; Referring Provider Internal Medicine; Visit Provider Physician Assistant Surgical | DX: E66.3 Overweight (principal); Z98.84 Bariatric surgery status; Z68.26 Body mass index [BMI] 26.0-26.9, adult | CPT/HCPCS: 99212 ==

== ENCOUNTER → 2022-05-24 09:53 | Outpatient (BNVA) | payer OTHER, SELFPAY | PROVIDERS: PCP Internal Medicine; Visit Provider Physician Assistant Surgical | DX: R10.9 Unspecified abdominal pain (principal); Z98.84 Bariatric surgery status | CPT/HCPCS: 99212 ==

== ENCOUNTER → 2022-06-02 13:17 | Outpatient (BNVA) | payer OTHER, SELFPAY | PROVIDERS: PCP Internal Medicine; Visit Provider Dietitian, Registered | DX: Z13.89 Encounter for screening for other disorder (principal) ==

== ENCOUNTER 2022-06-23 10:30 | Outpatient (REF) | payer OTHER, SELFPAY ==
[2022-06-25 14:47] LABS: Immunoglobulin A 247 mg/dL (70-320)
[2022-06-28 11:39] LABS: Transglutaminase Ab IgG 2.8 U/mL
== END 2022-06-23 10:31 | disposition home or self-care (01) ==
LOC: HO.10HDL 10:30
PROVIDERS: Visit Provider Internal Medicine Gastroenterology
DX: R10.9 Unspecified abdominal pain (principal)
CPT/HCPCS: 36415; 82784; 86364

== ENCOUNTER 2022-06-28 11:03 | Outpatient (REF) | payer OTHER, SELFPAY ==
--- NOTE | ~2022-06-28 | US_ITS ---
EXAMINATION: US VENOUS ULTRASOUND WITH DOPPLER LOWER EXTREMITY, LEFT CLINICAL INFORMATION: History of DVT COMPARISON: 01/08/2022 TECHNIQUE: Ultrasound of the deep veins is performed from the hip to the calf with compression sonography and color and pulse Doppler assessment. Spectral analysis with color-flow imaging is performed. FINDINGS: There is normal venous compression and respiratory variation and augmented flow. The visualized common femoral vein, superficial femoral vein, profunda femoral vein, popliteal vein, and the trifurcation region shows no evidence of deep venous thrombosis. There is no significant popliteal fossa cyst. If the patient's symptoms persist, followup ultrasound in 5 days 7 days might be of value to exclude proximal propagation from a non-visualized calf vein. US/US venous duplex LE LT IMPRESSION: No DVT demonstrated in the left lower extremity.
== END 2022-06-28 11:04 | disposition home or self-care (01) ==
LOC: HO.US 11:03
PROVIDERS: PCP Internal Medicine; Visit Provider Internal Medicine
DX: I80.202 Phlebitis and thrombophlebitis of unspecified deep vessels of left lower extremity (principal)
CPT/HCPCS: 93971

== ENCOUNTER 2022-07-07 07:21 | Outpatient (REF) | payer OTHER, SELFPAY ==
[2022-07-07 08:10] LABS: Anion Gap 11 (12-20); Blood Urea Nitrogen 13 mg/dL (9-16); Calcium 9.1 mg/dL (8.4-10.2); Carbon Dioxide 28 mmol/L (22-29); Chloride 109 mmol/L (96-108); Estimated Glomerular Filt Rate 46; Glucose Fasting 115 mg/dL (60-99); Potassium 4.2 mmol/L (3.3-5.1); Sodium 144 mmol/L (135-145)
[2022-07-07 08:24] LABS: Free T4 (Free Thyroxine) 1.25 ng/dL (0.71-1.85); Insulin 8 uU/mL (2-29); Thyroid Stimulating Hormone 0.16 uIU/mL (0.32-4.0)
[2022-07-07 10:44] LABS: Glucose 1 Hour 383 mg/dL
[2022-07-07 11:34] LABS: Glucose 2 Hour 269 mg/dL
[2022-07-07 11:38] LABS: Glucose 3 Hour 162 mg/dL
[2022-07-07 13:06] LABS: Glucose 4 Hour 117 mg/dL
[2022-07-10 21:19] LABS: C Peptide 2.25 ng/mL (0.80-3.85); DHEA Sulfate 21 mcg/dL (9-118)
[2022-07-12 12:33] LABS: Adrenocorticotropic Hormone 18 pg/mL (6-50)
[2022-07-15 03:10] LABS: Proinsulin 10.9 pmol/L (< OR = 18.8)
[2022-07-15 15:59] LABS: Insulin Growth Factor 2 658 ng/mL (267-616)
[2022-07-15 16:19] LABS: Insulinoma associated 2 aatb <5.4 U/mL (<5.4)
[2022-07-16 03:04] LABS: Beta-Hydroxybutyrate 0.09 mmol/L
[2022-07-19 15:10] LABS: Chlorpropamide None Detected; Glimepiride None Detected; Glipizide None Detected; Glyburide None Detected; Nateglinide None Detected; Pioglitazone None Detected; Repaglinide None Detected; Rosiglitazone None Detected; Tolazamide None Detected; Tolbutamide None Detected
== END 2022-07-07 07:22 | disposition home or self-care (01) ==
LOC: HO.LAB 07:21
PROVIDERS: PCP Internal Medicine; Visit Provider Internal Medicine
DX: E16.2 Hypoglycemia, unspecified (principal)
CPT/HCPCS: 36415; 80048; 80337; 82010; 82024; 82533; 82627; 82951; 82952; 83525; 83789; 84206; 84439; 84443; 84681

== ENCOUNTER 2022-07-13 10:46 | Day surgery (SDC) | payer OTHER, SELFPAY ==
--- NOTE | 2022-07-12 14:11 | HO.ANESPROP2 ---
Documented by User: Tricia Cao NP 07/12/22 14:16 HPI - Anesthesia Eval Consult details Narrative: 66yo F for Upper Endoscopy s/p EGD 04/2022 with TIVA Myesthenia gravis - prednisone 10mg daily Eliquis for DVT/PE 12/2021 [facility] Active Problems Active Problems: All Active Problems (Updated 07/05/22 @ 10:23 by Laverne Ruano DO) Hypoglycemia (Acute) Abdominal pain (Acute) Urge incontinence (Acute) Urinary incontinence (Acute) Thyroid nodule (Acute) Calculus of distal left ureter (Acute) Acute UTI (Acute) MELVA (acute kidney injury) (Acute) Pulmonary emboli (Acute) History of Hemal-en-Y gastric bypass (Acute) Overweight (Acute) Acid reflux (Acute) Pericardial effusion (Acute) Hypothyroidism (Acute) Elevated brain natriuretic peptide (BNP) level (Acute) COVID (Acute) Hypothyroidism (Acute) CKD (chronic kidney disease) (Acute) Multinodular thyroid (Acute) Adrenal insufficiency (Acute) HLD (hyperlipidemia) (Acute) HTN (hypertension) (Acute) T2DM (type 2 diabetes mellitus) (Acute) Nephrolithiasis (Acute) Cystitis cystica (Acute) VIVI (stress urinary incontinence, female) (Acute) Urinary frequency (Acute) Past Medical History Medical History Adrenal insufficiency Asthma CKD (chronic kidney disease) Congenital myasthenia gravis 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 Gallstones GERD (gastroesophageal reflux disease) History of COVID-19 HLD (hyperlipidemia) HTN (hypertension) Hypoglycemia Hypothyroidism Multinodular thyroid Myasthenia gravis Nephrolithiasis Nocturia Pulmonary embolism VIVI (stress urinary incontinence, female) T2DM (type 2 diabetes mellitus) Trigeminy Urinary frequency Urinary urgency UTI (urinary tract infection) Family History Family History Father CVD (cardiovascular disease) Heart attack HTN (hypertension) Mother Dementia Family history of problems with anesthesia: No Surgical History Surgical History History of gastric bypass (~2004) History of hysterectomy History of lithotripsy History of pubovaginal sling Hx of cholecystectomy Hx of cystoscopy S/P panniculectomy History of Problems with Anesthesia: No Social History Social History Household Members: Spouse Housing: House Are you a primary child care lead teacher to a significant other at home: No Do you presently have visiting nurse or other home services: No Alcohol intake: never Patient Tobacco Use Status: Former Tobacco user Quit Date: 42 YRS AGO Tobacco use type: Cigarette Advance Directives Date on File: 02/18/20 service: No Current occupational status: retired and other Meds Allergies Allergy/AdvReac Type Severity Reaction Status Date / Time bee pollen [bee stings] Allergy Intermediate Swelling Verified 07/13/22 11:32 sertraline Allergy Mild Stomach Verified 07/13/22 11:32 Upset Home Medications Medication Instructions Recorded Confirmed Last Taken Type escitalopram oxalate 10 mg tablet 10 mg PO DAILY 04/30/20 06/28/22 05/06/22 History (Lexapro) albuterol sulfate 90 mcg/actuation 90 mcg inhalation Q4H PRN 12/03/21 06/28/22 03/03/22 History aerosol inhaler (ProAir HFA) Shortness Of Breath calcium carbonate 600 mg calcium 600 mg PO DAILY 12/03/21 06/28/22 05/05/22 History (1,500 mg) tablet (Calcium) famotidine 20 mg tablet (Pepcid) 20 mg PO BID 12/03/21 06/28/22 05/05/22 History pyridostigmine bromide 60 mg 60 mg PO TID 12/03/21 06/28/22 05/05/22 History tablet (Mestinon) cholecalciferol (vitamin D3) 50 50 mcg PO DAILY 12/23/21 06/28/22 05/05/22 History mcg (2,000 unit) tablet (Vitamin D3) prednisone 5 mg tablet 10 mg PO DAILY 03/30/22 06/28/22 05/05/22 History allopurinol 100 mg tablet 100 mg PO DAILY 07/13/22 Unknown History (Zyloprim) apixaban 5 mg (74 tabs) tablets in 5 mg PO BID 07/13/22 06/29/22 History a dose pack (Eliquis DVT-PE Treat 30D Start) atorvastatin 40 mg tablet (Lipitor) 40 mg PO DAILY 07/13/22 Unknown History ferrous sulfate 325 mg (65 mg 325 mg PO DAILY 07/13/22 07/06/22 History iron) tablet (Iron (ferrous sulfate)) furosemide 20 mg tablet 20 mg PO DAILY PRN LEG EDEMA 07/13/22 07/13/22 06/29/22 History levothyroxine 112 mcg tablet 112 mcg PO DAILY 07/13/22 Unknown History (Synthroid) oxybutynin chloride 10 mg 10 mg PO DAILY OAB 07/13/22 Unknown History tablet,extended release 24 hr (Ditropan XL) potassium citrate 10 mEq (1,080 PO 07/13/22 07/13/22 Unknown History mg) tablet,extended release Exam Exam Date and Time: July 12, 2022 1411 Height,Weight and Vital Signs: Height 5 ft 9 in Weight 90.718 kg Pertinent Lab Results Pertinent Lab Results: Laboratory Tests 06/28/22 07/07/22 10:38 07:39 WBC 9.6 Hgb 10.3 L Hct 35.1 L Plt Count 265 D Sodium 144 Potassium 4.2 Chloride 109 H Carbon Dioxide 28 BUN 13 Creatinine 1.17 Narrative Narrative: ECHO 2021 Conclusions: - The left ventricular systolic function is normal.? The ? calculated ejection fraction is 65% by biplane method. ? - There is a small loculated pericardial effusion overlying the? left ventricle.? ? ? EKG 02/2022 SR with occ PVC Low volt QRS Cannot r/o anterior infarct, age undetermined Assessment and Plan Assessment Anesthesia Assessment: Chart Reviewed Final Anesthetic Review Family History of Problems with Anesthesia: No History of Problems with Anesthesia: No Documented by User: Cammie Seo MD 07/13/22 13:21 HPI - Anesthesia Eval Consult details Narrative: 66yo F for Colonoscopy s/p EGD 04/2022 with MAC Anesthesia Myasthenia gravis - prednisone 10mg daily. Taper. Started 10/2021 at 40mg Eliquis for DVT/PE 12/2021. Last dose 06/29/22 [facility] Active Problems Active Problems: All Active Problems (Updated 07/05/22 @ 10:23 by Laverne Ruano DO) Hypoglycemia (Acute) Abdominal pain (Acute) Urge incontinence (Acute) Urinary incontinence (Acute) Thyroid nodule (Acute) Calculus of distal left ureter (Acute) Acute UTI (Acute). On antibiotics MELVA (acute kidney injury) (Acute) Pulmonary emboli (Acute) History of Hemal-en-Y gastric bypass (Acute) Overweight (Acute) Acid reflux (Acute) Pericardial effusion (Acute) Hypothyroidism (Acute) Elevated brain natriuretic peptide (BNP) level (Acute) COVID (Acute) Hypothyroidism (Acute) CKD (chronic kidney disease) (Acute) Multinodular thyroid (Acute) Adrenal insufficiency (Acute) HLD (hyperlipidemia) (Acute) HTN (hypertension) (Acute) T2DM (type 2 diabetes mellitus) (Acute) Nephrolithiasis (Acute) Cystitis cystica (Acute) VIVI (stress urinary incontinence, female) (Acute) Urinary frequency (Acute) Myasthenia gravis. Pyridostigmine dose 180mg/ day. Doing well. No recent respiratory issues Past Medical History Medical History Adrenal insufficiency Asthma CKD (chronic kidney disease) Congenital myasthenia gravis 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 Gallstones GERD (gastroesophageal reflux disease) History of COVID-19 HLD (hyperlipidemia) HTN (hypertension) Hypoglycemia Hypothyroidism Multinodular thyroid Myasthenia gravis Nephrolithiasis Nocturia Pulmonary embolism VIVI (stress urinary incontinence, female) T2DM (type 2 diabetes mellitus) Trigeminy Urinary frequency Urinary urgency UTI (urinary tract infection) Family History Family History Father CVD (cardiovascular disease) Heart attack HTN (hypertension) Mother Dementia Surgical History Surgical History History of gastric bypass (~2004) History of hysterectomy History of lithotripsy History of pubovaginal sling Hx of cholecystectomy Hx of cystoscopy S/P panniculectomy Social History Social History Household Members: Spouse Housing: House Are you a primary child care lead teacher to a significant other at home: No Do you presently have visiting nurse or other home services: No Alcohol intake: never Patient Tobacco Use Status: Former Tobacco user Quit Date: 42 YRS AGO Tobacco use type: Cigarette Advance Directives Date on File: 02/18/20 service: No Current occupational status: retired and other Meds Allergies Allergy/AdvReac Type Severity Reaction Status Date / Time bee pollen [bee stings] Allergy Intermediate Swelling Verified 07/13/22 11:32 sertraline Allergy Mild Stomach Verified 07/13/22 11:32 Upset Home Medications Medication Instructions Recorded Confirmed Last Taken Type escitalopram oxalate 10 mg tablet 10 mg PO DAILY 04/30/20 06/28/22 05/06/22 History (Lexapro) albuterol sulfate 90 mcg/actuation 90 mcg inhalation Q4H PRN 12/03/21 06/28/22 03/03/22 History aerosol inhaler (ProAir HFA) Shortness Of Breath calcium carbonate 600 mg calcium 600 mg PO DAILY 12/03/21 06/28/22 05/05/22 History (1,500 mg) tablet (Calcium) famotidine 20 mg tablet (Pepcid) 20 mg PO BID 12/03/21 06/28/22 05/05/22 History pyridostigmine bromide 60 mg 60 mg PO TID 12/03/21 06/28/22 05/05/22 History tablet (Mestinon) cholecalciferol (vitamin D3) 50 50 mcg PO DAILY 12/23/21 06/28/22 05/05/22 History mcg (2,000 unit) tablet (Vitamin D3) prednisone 5 mg tablet 10 mg PO DAILY 03/30/22 06/28/22 05/05/22 History allopurinol 100 mg tablet 100 mg PO DAILY 07/13/22 Unknown History (Zyloprim) apixaban 5 mg (74 tabs) tablets in 5 mg PO BID 07/13/22 06/29/22 History a dose pack (Eliquis DVT-PE Treat 30D Start) atorvastatin 40 mg tablet (Lipitor) 40 mg PO DAILY 07/13/22 Unknown History ferrous sulfate 325 mg (65 mg 325 mg PO DAILY 07/13/22 07/06/22 History iron) tablet (Iron (ferrous sulfate)) furosemide 20 mg tablet 20 mg PO DAILY PRN LEG EDEMA 07/13/22 07/13/22 06/29/22 History levothyroxine 112 mcg tablet 112 mcg PO DAILY 07/13/22 Unknown History (Synthroid) oxybutynin chloride 10 mg 10 mg PO DAILY OAB 07/13/22 Unknown History tablet,extended release 24 hr (Ditropan XL) potassium citrate 10 mEq (1,080 PO 07/13/22 07/13/22 Unknown History mg) tablet,extended release Exam Height,Weight and Vital Signs: Height 5 ft 9 in Weight 90.718 kg Vital Signs Temp Pulse Resp BP Pulse Ox O2 Del Method 07/13/22 11:32 97.9 F 65 15 130/57 L 98 Room Air Pertinent Lab Results Pertinent Lab Results: Laboratory Tests 06/28/22 07/07/22 10:38 07:39 WBC 9.6 Hgb 10.3 L Hct 35.1 L Plt Count 265 D Sodium 144 Potassium 4.2 Chloride 109 H Carbon Dioxide 28 BUN 13 Creatinine 1.17 Lab Results 07/13/22 Range/Units 11:41 POC Glucose 122 H (60-115) mg/dL Airway Mallampati Class: II TM Dist: >3cm Neck ROM: Full Loose/Missing/Broken Teeth: No (Denies broken, loose, missing teeth) Heart: RRR Lungs: CTAB Assessment and Plan Assessment Anesthesia Assessment: Anesthesia Plan Discussed Final Anesthetic Review NPO: Yes ASA Class: III Final Preanesthetic Review: No Changes in Pt Med Stat, Meds/Allgs Chart Reviewed, Consent Obtained/Reviewed and Anes Risks/Benef Reviewed Patient Risk: Intermediate Procedure Risk: Low Assessment/Block/Sedation in SS: Assess/Block/Sedation-SS Anesthetic Plan Anesthetic Plan: MAC: Disposition: Standard PACU
[2022-07-13 11:24] VITALS: BMI 25.8
[2022-07-13 11:32] VITALS: BP 130/57; PULSE 65; RESP 15; TEMP 36.6; O2SAT 98
[2022-07-13] MEDS: Lactated Ringers 1,000 ML 100 ML IVCONT (11:50)
[2022-07-13 11:55] LABS: Glucose, Whole Blood 122 mg/dL (60-115)
--- NOTE | 2022-07-13 12:26 | MHC.SHP ---
Pre-Procedural Eval Section A Date of Service: 07/13/22 The patient is an INPATIENT: No Changes since office visit: No Cold of Flu in the past 2 weeks, No New Medical Problems, No Changes in Medication and No Patient answered all questions The History & Physical has been completed within 30 days and I have reviewed it.: Yes Section B Chief Complaint: Unspecified abdominal pain Allergies: Allergies Allergy/AdvReac Type Severity Reaction Status Date / Time bee pollen [bee stings] Allergy Intermediate Swelling Verified 07/13/22 11:32 sertraline Allergy Mild Stomach Verified 07/13/22 11:32 Upset Plan I have reviewed the history and physical and performed a pertinent physical examination on my patient. No changes have occurred unless specified. Time Spent With Patient Time: Total time managing care of this patient today ____ minutes.
[2022-07-13 13:14] VITALS: BP 94/48; PULSE 61; RESP 18; TEMP 36.2; O2SAT 97
[2022-07-13 13:38] VITALS: BP 124/54; PULSE 64; RESP 17; TEMP 36.9; O2SAT 97
--- NOTE | 2022-07-13 23:26 | OP_ITS ---
DATE OF SERVICE: 07/13/2022 SURGEON: Antonino Kaur MD INDICATIONS: Abdominal pain and diarrhea. PREOPERATIVE DIAGNOSIS: POSTOPERATIVE DIAGNOSIS: PROCEDURE PERFORMED: Colonoscopy to the terminal ileum with biopsy and snare polypectomy. ESTIMATED BLOOD LOSS: COMPLICATIONS: ANESTHESIA: Monitored anesthesia care. ASSISTANTS: SPECIMENS: DESCRIPTION OF PROCEDURE: A history and physical was performed. The risks and benefits of the procedure were explained to the patient. The procedure was performed on 07/13/2022. Informed consent was obtained. The patient was placed in the left lateral decubitus position. A digital rectal exam was performed and was found to be normal. The Olympus pediatric video colonoscope was introduced into the rectum and advanced to the cecum without difficulty. The cecum was identified by transillumination, palpation, and identification of ileocecal valve. Examination was performed. The scope was removed. She tolerated the procedure well and was returned to the recovery area in stable condition. FINDINGS: The terminal ileum was examined and appeared normal. This was biopsied. The visualized colonic mucosa appeared normal. There was some liquid stool left, which limited the sensitivity examination for detection of small polyps. This was washed and suctioned. There was a small 6 mm, polyp in the right colon just above the ileocecal valve. This was removed with a hot snare and recovered via suction. No other polyps were identified. Random sigmoid biopsies were obtained to rule out microscopic colitis. There were a few scattered diverticula seen throughout the colon. Retroflexed examination showed moderate-sized internal hemorrhoids. IMPRESSION: Colon polyp. RECOMMENDATION: Follow up the biopsy results. MD AVE Dye/LEANDROL / [id number]
== END 2022-07-13 14:06 | disposition home or self-care (01) ==
PROVIDERS: PCP Internal Medicine; Visit Provider Internal Medicine Gastroenterology
PROC: 0DJD8ZZ Inspection of Lower Intestinal Tract, Via Natural or Artificial Opening Endoscopic (ICD-10-PCS; CPT 45378; principal; 2022-07-13 12:00)
DX: R10.9 Unspecified abdominal pain (principal); R19.7 Diarrhea, unspecified; D12.2 Benign neoplasm of ascending colon; K57.30 Diverticulosis of large intestine without perforation or abscess without bleeding; K64.8 Other hemorrhoids; Z83.79 Family history of other diseases of the digestive system; G70.00 Myasthenia gravis without (acute) exacerbation; E03.9 Hypothyroidism, unspecified; E78.00 Pure hypercholesterolemia, unspecified; E11.9 Type 2 diabetes mellitus without complications; E27.40 Unspecified adrenocortical insufficiency; H91.91 Unspecified hearing loss, right ear; Z86.718 Personal history of other venous thrombosis and embolism; Z79.52 Long term (current) use of systemic steroids; Z79.899 Other long term (current) drug therapy; Z79.01 Long term (current) use of anticoagulants; Z79.85 Long-term (current) use of injectable non-insulin antidiabetic drugs; Z88.8 Allergy status to other drugs, medicaments and biological substances; Z87.442 Personal history of urinary calculi; Z98.84 Bariatric surgery status; Z90.49 Acquired absence of other specified parts of digestive tract; Z87.891 Personal history of nicotine dependence
CPT/HCPCS: 45385; 45380; 82947; 88305

== ENCOUNTER 2022-07-17 09:55 | Outpatient (REF) | payer OTHER, SELFPAY ==
[2022-07-17 10:39] LABS: Appearance Urine Cloudy; Color Urine Yellow; Glucose Urine UA Negative (Negative); Leukocyte Esterase Urine Large (3+) (Negative); Nitrite Urine Negative (Negative); PH 5.5 (5.0-9.0); UMIC TRIGGER UA YES; Urine Blood Small (1+) (Negative); Urine Ketones Negative (Negative); Urine Protein Trace mg/dL (Neg-Trace)
[2022-07-17 11:15] LABS: Bacteria Urine None Seen (None Seen); Hyaline Casts Urine 0-2 /LPF (0-2); WBC Urine >50 /HPF (0-5)
== END 2022-07-17 09:56 | disposition home or self-care (01) ==
LOC: HO.LAB 09:55
PROVIDERS: PCP Internal Medicine; Visit Provider Urology
DX: N39.0 Urinary tract infection, site not specified (principal)
CPT/HCPCS: 81001; 87086

== ENCOUNTER → 2022-07-22 14:24 | Outpatient (BNVA) | payer OTHER, SELFPAY | PROVIDERS: PCP Internal Medicine; Visit Provider Internal Medicine | DX: E11.22 Type 2 diabetes mellitus with diabetic chronic kidney disease (principal); I12.9 Hypertensive chronic kidney disease with stage 1 through stage 4 chronic kidney disease, or unspecified chronic kidney disease; N18.9 Chronic kidney disease, unspecified; E78.5 Hyperlipidemia, unspecified; E27.40 Unspecified adrenocortical insufficiency; E04.1 Nontoxic single thyroid nodule; E03.9 Hypothyroidism, unspecified | CPT/HCPCS: 82947; 83036; 99212 ==

== ENCOUNTER → 2022-08-27 12:54 | Outpatient (REF) | payer OTHER, SELFPAY ==
--- NOTE | 2022-08-27 12:59 | CA_ITS ---
Transthoracic Echocardiogram Patient (Last, First, Middle): Sarah Mobley, Gender: Female Date of : 1955 Age: 67 Procedure Date: 08/27/2022 Procedure Type: Transthoracic Echocardiogram Location: OP Height: 175.26 cm Weight: 79.38 kg BSA: 1.95 m2 Heart Rate: bpm BP: 118 / 68 mmHg Lens Molder: TO Referring MD: George Rosado MD Symptoms: I42.9 - Cardiomyopathy, unspecified Study Quality: Fair ECG Rhythm: Sinus Conclusions: - The left ventricular systolic function is low normal. The calculated ejection fraction is 54% by biplane method. - There is a small loculated pericardial effusion overlying the left ventricle. Findings Left Ventricle Normal left ventricular cavity size. The left ventricular systolic function is low normal. The calculated ejection fraction is 54% by biplane method. There is no evidence of regional wall motion abnormalities. There is mild septal asymmetric hypertrophy. LV peak GLS -15.8%. Right Ventricle Normal right ventricular cavity size and systolic function. Aortic Valve There is no aortic valve stenosis. There is no aortic valve regurgitation. Tricuspid Valve There is trace tricuspid valve regurgitation. There is no evidence of pulmonary hypertension. Venous The inferior vena cava is normal in size and collapses greater than 50% with inspiration. Pericardium/Pleural There is a small loculated pericardial effusion overlying the left ventricle. Prior Study Comparison Changes noted compared to prior study dated: 03/16/2022. LVEF slightly lower; this could also be technical as the endocardial definition is suboptimal Measurements 2D Linear Measurements IVSd: 1.10 0.6-0.9/0.6-1.0 cm LVIDd: 5.02 3.9-5.3/4.2-5.9 cm LVIDd Index: 2.57 2.4-3.2/2.2-3.1 cm/m2 LVIDs: 3.22 2.0-3.6 cm LVPWd: 0.74 0.7-1.1 cm LV Mass: 204.18 67-162/88-224 g LV Mass Index: 104.71 43-95/49-115 g/m2 LVOT Diam: 2.10 3.0+(-)1.3 cm 2D Systolic Function EF 4C: 56.30 >55% EF 2C: 52.00 >55% EF BiP: 54.10 >55% LVOT LVOT Pk Peng: 0.71 LVOT Mn Peng: 0.42 LVOT VTI: 0.18 LVOT Pk Grad: 2.00 LVOT Mn Grad: 1.00 LVOT Diam: 2.10 LVOT Area: 3.46 Tricuspid Valve TR Pk Peng: 1.93 TR Pk Grad: 15.00 RA Press: 3.00 RVSP: 18.00 Updated in Other Vendor System with Status of Final Otto Johnson MD electronically signed on 08/28/2022 11:24:50 AM with status of Final
[2022-08-27 14:10] LABS: Free T4 (Free Thyroxine) 1.14 ng/dL (0.71-1.85); Thyroid Stimulating Hormone 0.13 uIU/mL (0.32-4.0)
== END ==
LOC: HO.CARD 12:54
PROVIDERS: Internal Medicine; PCP Internal Medicine; Visit Provider Internal Medicine Cardiovascular Disease
DX: I31.39 Other pericardial effusion (noninflammatory) (principal); I42.9 Cardiomyopathy, unspecified; E03.9 Hypothyroidism, unspecified
CPT/HCPCS: 36415; 84439; 84443; 93308; 93356

== ENCOUNTER 2022-09-21 11:18 | Outpatient (REF) | payer OTHER, SELFPAY ==
--- NOTE | ~2022-09-21 | US_ITS ---
EXAMINATION: US RETROPERITONEAL LIMITED (RENAL ONLY) CLINICAL INFORMATION: Calculus of kidney. COMPARISON: Bilateral renal ultrasound dated 03/10/2022 and 12/23/2021. CT abdomen without contrast dated 02/08/2022. KUB dated 01/02/2020. TECHNIQUE: Real-time imaging of the kidneys. FINDINGS: RIGHT KIDNEY: 11.1 x 4.7 x 4.7 cm (SAG x AP x TRV). The kidney is normal in size, contour, and echogenicity. Renal cortical thickness is normal. No calculi or focal parenchymal lesions. No hydronephrosis. Scattered punctate hyperechoic foci with no shadowing or twinkle, likely related with vascular calcifications. LEFT KIDNEY: 10.1 x 3.9 x 4.7 cm (SAG x AP x TRV). The kidney is normal in size, contour, and echogenicity. Renal cortical thickness is normal. No focal parenchymal lesions or hydronephrosis. Scattered punctate hyperechoic foci with no shadowing and twinkle, likely related with vascular calcifications. There is a 0.2 cm hyperechoic focus in the lower pole that could represent a nonobstructive calculus, there is no discrete associated posterior shadowing or twinkle artifact. US/US renal BI IMPRESSION: 1. There is a 0.2 cm hyperechoic focus in the lower pole of the left kidney that likely represents a nonobstructive calculus. 2. No hydronephrosis. 3. Bilateral renal vascular calcifications
== END 2022-09-21 11:19 | disposition home or self-care (01) ==
LOC: HO.US 11:18
PROVIDERS: PCP Internal Medicine; Visit Provider Urology
DX: I31.39 Other pericardial effusion (noninflammatory) (principal); N20.0 Calculus of kidney; R79.89 Other specified abnormal findings of blood chemistry; E78.5 Hyperlipidemia, unspecified; R35.0 Frequency of micturition
CPT/HCPCS: 76775; 99212

== ENCOUNTER → 2022-09-24 08:27 | Outpatient (BNVA) | payer OTHER, SELFPAY | PROVIDERS: PCP Internal Medicine; Visit Provider Internal Medicine Gastroenterology ==

== ENCOUNTER → 2022-10-13 15:07 | Outpatient (BNVA) | payer OTHER, SELFPAY | PROVIDERS: Visit Provider Urology | DX: N20.0 Calculus of kidney (principal); N39.0 Urinary tract infection, site not specified; N39.46 Mixed incontinence; Z79.52 Long term (current) use of systemic steroids; Z79.899 Other long term (current) drug therapy | CPT/HCPCS: 51798; 99212 ==

== ENCOUNTER 2022-11-03 09:49 | Outpatient (REF) | payer OTHER, SELFPAY ==
[2022-11-03 10:54] LABS: Estimated Average Glucose 140 mg/dL; Hemoglobin A1c % 6.5 %
[2022-11-03 11:32] LABS: Creatinine Urine 142.33 mg/dL; Microalbum/Creatinine Ratio Ur 9.1 ug/mg cr
[2022-11-03 11:34] LABS: Alanine Aminotransferase 67 U/L (0-31); Albumin Level 3.8 g/dL (3.5-5.0); Alkaline Phosphatase 84 U/L (39-117); Anion Gap 11 (12-20); Aspartate Amino Transferase 56 U/L (5-31); Bilirubin Total 0.8 mg/dL (0.0-1.0); Blood Urea Nitrogen 12 mg/dL (9-16); Calcium 9.4 mg/dL (8.4-10.2); Carbon Dioxide 28 mmol/L (22-29); Chloride 107 mmol/L (96-108); Cholesterol 128 mg/dL; Estimated Glomerular Filt Rate 49; Glucose Random 119 mg/dL (60-115); HDL Cholesterol 74 mg/dL; LDL Cholesterol Calculated 41 mg/dl; Potassium 4.2 mmol/L (3.3-5.1); Sodium 142 mmol/L (135-145); Total Protein 6.5 g/dL (6.5-8.0); Triglycerides 67 mg/dL
[2022-11-03 11:52] LABS: Free T4 (Free Thyroxine) 0.88 ng/dL (0.71-1.85); Thyroid Stimulating Hormone 1.09 uIU/mL (0.32-4.0)
[2022-11-05 14:17] LABS: LDL Cholesterol Direct 42 mg/dL (<100)
== END 2022-11-03 09:50 | disposition home or self-care (01) ==
LOC: HO.LAB 09:49
PROVIDERS: PCP Internal Medicine; Visit Provider Internal Medicine
DX: E11.9 Type 2 diabetes mellitus without complications (principal); E03.9 Hypothyroidism, unspecified
CPT/HCPCS: 36415; 80053; 80061; 82043; 83036; 83721; 84439; 84443

== ENCOUNTER 2022-11-04 12:29 | Outpatient (REF) | payer OTHER, SELFPAY ==
[2022-11-04 15:22] LABS: Alanine Aminotransferase 64 U/L (0-31); Alkaline Phosphatase 86 U/L (39-117); Aspartate Amino Transferase 50 U/L (5-31); Bilirubin Direct 0.3 mg/dL (0.0-0.5); Bilirubin Total 0.9 mg/dL (0.0-1.0); Total Protein 6.7 g/dL (6.5-8.0)
[2022-11-04 16:00] LABS: Free T4 (Free Thyroxine) 1.08 ng/dL (0.71-1.85)
[2022-11-10 20:38] LABS: CK-BB None Detected (None Detected); CK-MB 0 % (<5); CK-MM 100 % (95-100); Creatine Kinase,Total,Serum 45 U/L (29-143)
== END 2022-11-04 12:30 | disposition home or self-care (01) ==
LOC: HO.LAB 12:29
PROVIDERS: PCP Internal Medicine; Visit Provider Internal Medicine
DX: E03.9 Hypothyroidism, unspecified (principal); E11.9 Type 2 diabetes mellitus without complications
CPT/HCPCS: 36415; 80076; 82552; 84439; 84443

== ENCOUNTER 2022-11-19 09:48 | Outpatient (REF) | payer OTHER, SELFPAY ==
[2022-11-19 22:33] LABS: Alanine Aminotransferase 35 U/L (0-31); Albumin Level 3.7 g/dL (3.5-5.0); Alkaline Phosphatase 74 U/L (39-117); Aspartate Amino Transferase 28 U/L (5-31); Bilirubin Direct 0.3 mg/dL (0.0-0.5); Bilirubin Total 0.9 mg/dL (0.0-1.0); Total Protein 6.2 g/dL (6.5-8.0)
== END 2022-11-19 09:49 | disposition home or self-care (01) ==
LOC: HO.LAB 09:48
PROVIDERS: PCP Internal Medicine; Visit Provider Internal Medicine
DX: R10.9 Unspecified abdominal pain (principal)
CPT/HCPCS: 36415; 80076

== ENCOUNTER 2023-03-17 14:26 | Outpatient (REF) | payer OTHER, SELFPAY ==
[2023-03-17 14:59] LABS: Hematocrit 43.3 % (37.0-47.0); Hemoglobin 13.7 g/dl (12.0-16.0); Mean Corpuscular HGB Conc 31.6 g/dl (31.0-35.0); Mean Corpuscular Hemoglobin 29.8 pg (27.0-33.0); Mean Corpuscular Volume 94.1 fL (80.0-98.0); Mean Platelet Volume 9.9 fL (9.4-12.3); Platelet Count 222 X10*3/uL (160-400); Red Cell Distribution Width 14.4 % (11.0-16.0); White Blood Count 13.8 X10*3/uL (4.8-10.8)
[2023-03-17 15:50] LABS: Anion Gap 14 (12-20); Blood Urea Nitrogen 17 mg/dL (9-16); Calcium 9.3 mg/dL (8.4-10.2); Carbon Dioxide 27 mmol/L (22-29); Chloride 98 mmol/L (96-108); Estimated Glomerular Filt Rate 38; Glucose Random 544 mg/dL (60-115); Potassium 4.8 mmol/L (3.3-5.1); Sodium 134 mmol/L (135-145); Uric Acid 3.3 mg/dL (2.4-5.7)
== END 2023-03-17 14:27 | disposition home or self-care (01) ==
LOC: HO.LAB 14:26
PROVIDERS: Visit Provider Internal Medicine Hypertension Specialist
DX: N20.0 Calculus of kidney (principal); N18.31 Chronic kidney disease, stage 3a
CPT/HCPCS: 36415; 80048; 84550; 85027

== ENCOUNTER 2023-03-21 15:56 | Outpatient (REF) | payer OTHER, SELFPAY ==
--- NOTE | 2023-03-21 16:54 | PFT_ITS ---
Indication: Myasthenia gravis Spirometry [FEV1 to FVC 70%; with an SUV 1 of 2.23 L which is 102% predicted; FVC 3.17 L which is 113% predicted. There is a significant response to bronchodilators noted. Maximum voluntary ventilation 85% predicted.] Lung Volumes [Total lung capacity 68% predicted] Diffusion Capacity [DLCO 66% predicted in correcting to 106% predicted when corrected for the alveolar volume] MIP/MEP(Max inspiratory pressure/Max expiratory pressure) [Not done] Interpretation [No obstructive ventilatory defects identified. The patient did have a significant response to bronchodilators noted. Normal maximum voluntary ventilation which is reassuring with a history of myasthenia gravis. Although, the patient has a restrictive ventilatory defect consistent with [id number] restrictive lung disease. Indeed this may be due to the underlying neuromuscular condition although cannot rule out underlying parenchymal lung conditions. The diffusing capacity is mildly decreased although it does correct to normal when correcting for the alveolar volume. Would be helpful to assess the maximum inspiratory and maximum expiratory pressures. Clinical correlation warranted. No comparison is at this time.] MTDD
== END 2023-03-21 15:57 | disposition home or self-care (01) ==
LOC: HO.US 15:56
PROVIDERS: PCP Internal Medicine; Visit Provider Student in an Organized Health Care Education/Training Program
DX: G70.00 Myasthenia gravis without (acute) exacerbation (principal)
CPT/HCPCS: 94010; 94727; 94729

== ENCOUNTER 2023-03-22 13:06 | Outpatient (REF) | payer OTHER, SELFPAY ==
[2023-03-22 13:41] LABS: Appearance Urine Hazy; Color Urine Yellow; Glucose Urine UA >=1000 mg/dL (Negative); Leukocyte Esterase Urine Trace (Negative); Nitrite Urine Positive (Negative); PH 5.5 (5.0-9.0); Specific Gravity - Urine 1.025 (1.005-1.025); UMIC TRIGGER UA YES; Urine Blood Negative (Negative); Urine Ketones Trace mg/dL (Negative); Urine Protein Negative (Neg-Trace)
[2023-03-22 13:53] LABS: Bacteria Urine 4+ (None Seen); Hyaline Casts Urine 0-2 /LPF (0-2); Squamous Epithelial Cell Urine 0-2 /HPF (0-2); WBC Urine >50 /HPF (0-5)
== END 2023-03-22 13:07 | disposition home or self-care (01) ==
LOC: HO.LAB 13:06
PROVIDERS: Visit Provider Urology
DX: N39.0 Urinary tract infection, site not specified (principal)
CPT/HCPCS: 81001; 87086; 87088; 87186

== ENCOUNTER 2023-03-23 10:24 | Outpatient (REF) | payer OTHER, SELFPAY ==
--- NOTE | ~2023-03-23 | US_ITS ---
EXAMINATION: US RETROPERITONEAL LIMITED (RENAL ONLY) CLINICAL INFORMATION: Calculus of kidney. COMPARISON: Renal ultrasound 09/21/2022 and 03/10/2022. CT abdomen 02/08/2022. TECHNIQUE: Real-time imaging of the kidneys. FINDINGS: RIGHT KIDNEY: 11.6 x 4.6 x 5.0 cm (SAG x AP x TRV). The kidney is normal in size, contour, and echogenicity. Renal cortical thickness is normal. No calculi or focal parenchymal lesions. No hydronephrosis. LEFT KIDNEY: 9.8 x 4.6 x 4.2 cm (SAG x AP x TRV). The kidney is normal in size, contour, and echogenicity. Renal cortical thickness is normal. No focal parenchymal lesions or hydronephrosis. 4 mm nonobstructing calculus in the lower kidney. US/US renal BI IMPRESSION: 4 mm nonobstructing calculus in the lower pole of the left kidney is similar to the prior study. No hydronephrosis.
== END 2023-03-23 10:25 | disposition home or self-care (01) ==
LOC: HO.US 10:24
PROVIDERS: PCP Internal Medicine; Visit Provider Student in an Organized Health Care Education/Training Program
DX: N20.0 Calculus of kidney (principal)
CPT/HCPCS: 76775

== ENCOUNTER 2023-03-30 11:00 | Outpatient (AMB) | payer OTHER, SELFPAY ==
--- NOTE | 2023-03-30 11:07 | HO.NEPHOV ---
HPI HPI Comments History of Present Illness Details I had the privilege of seeing Sarah in the office in follow-up of her chronic kidney disease. She has myasthenia gravis and has been followed up by neurologist in [facility]. She is not on Mestinone, Imuran, cellcept or IVIG. She has not had a chest CT. She is not having any weight loss, chest pain, shortness of breath, cough. She remains on significantly high dose of prednisone and has developed mariano facies. Her blood sugar control is quite suboptimal. She is just on Ozempic. She has not been on any Jardiance or Farxiga. She has history of renal calculus and is on potassium citrate. Her last renal ultrasound showed 1 calculus on the lower pole of the kidney. She used to get frequent UTIs. She claims that she does not have any symptoms. Recently she had a CBC done which showed high WBC which on further investigation proved that she has UTI. She has been treated with antibiotics. She is concerned about her high blood sugar. She denies nausea, vomiting, diarrhea, fever, chills, rigors, chest pain, shortness of breath, proximal nocturnal dyspnea, orthopnea, pedal edema or orthostatic symptoms. She does not take any nonsteroidal anti-inflammatory medications. She tries to maintain good hydration. She also sees urologist. He was accompanied by her during this office visit. 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 Gallstones GERD (gastroesophageal reflux disease) History of COVID-19 HLD (hyperlipidemia) HTN (hypertension) Hypoglycemia Hypothyroidism Multinodular thyroid Myasthenia gravis Nephrolithiasis Nocturia Pulmonary embolism VIVI (stress urinary incontinence, female) T2DM (type 2 diabetes mellitus) Trigeminy Urinary frequency Urinary urgency UTI (urinary tract infection) Surgical History Hx of colonoscopy S/P panniculectomy History of lithotripsy Hx of cystoscopy Hx of cholecystectomy History of pubovaginal sling History of hysterectomy History of gastric bypass (~2004) Family History Father CVD (cardiovascular disease) Heart attack HTN (hypertension) Mother Dementia Social History Household Members: Spouse Housing: House Are you a primary home health care respiratory therapist to a significant other at home: No Do you presently have visiting nurse or other home services: No Alcohol intake: never Patient Tobacco Use Status: Former Tobacco user Quit Date: 42 YRS AGO Tobacco use type: Cigarette Advance Directives Date on File: 02/18/20 service: No Current occupational status: retired and other Vital Signs 03/30/23 11:08 Height 5 ft 9 in Weight 170 lb 2 oz BMI 25.1 BP 102/68 Blood Pressure Location Rt brachial Position Sitting Pulse 82 Pulse Source Pulse Oximeter Pulse Oximetry (%) 99 Oxygen Delivery Method Room Air Physical Exam Vital Signs: Last Vital Signs Pulse 82 03/30/23 11:08 BP 102/68 03/30/23 11:08 Pulse Ox 99 03/30/23 11:08 Oxygen Delivery Method Room Air 03/30/23 11:08 BMI result Body Mass Index 25.1 Const General: comfortable and no acute distress Orientation/consciousness: patient oriented x3 HEENT Head: Yes normocephalic Mouth: Normal oral and palatal mucosa present Eyes EOM: EOMs intact bilaterally Neck Neck: Yes supple Resp Auscultation: clear to auscultation bilaterally Cardio Jugular venous distension: no JVD Rate: regular rate GI Palpation (GI): Soft to palpation Auscultation: normal bowel sounds General: Yes no CVA tenderness Back/Spine/Pelvis Back: no CVA tenderness Skin General skin exam: no rashes or lesions noted Neuro General: patient oriented x3 and moves all extremities Extrem General: Yes no pedal edema Assessment & Plan Assessment & Plan (1) CKD (chronic kidney disease) stage 3, GFR 30-59 ml/min: Code(s): N18.30 - Chronic kidney disease, stage 3 unspecified Qualifiers: Chronic kidney disease stage 3 subtype: stage 3a (GFR 45-59) Qualified Code(s): N18.31 - Chronic kidney disease, stage 3a (2) Nephrolithiasis: Code(s): N20.0 - Calculus of kidney Plan Sarah has stage 3 chronic kidney disease. Her renal functions are currently stable. She recently had UTI which has been treated. She is renal calculus which is stable in size. She is on potassium citrate. Her blood sugar control is suboptimal. She is a great candidate for [place]. She needs further workup and aggressive management for her myasthenia gravis by her neurologist. Her blood pressure is at goal. She avoids nonsteroidal anti-inflammatory medications and maintain good hydration. She should closely follow up with her urologist as well.(she had overactive bladder and a sling procedure done in the past). I did not make any medication changes today. I ordered follow-up lab work. Time spent retrieving data, patient encounter and documentation 39 minutes. Follow-up given. Orders: Orders Protein Creatinine Ratio, Ur 03/30/23 N18.30 - Chronic kidney disease, stage 3 unspecified Electrolytes 03/30/23 N18.30 - Chronic kidney disease, stage 3 unspecified Blood Urea Nitrogen 03/30/23 N18.30 - Chronic kidney disease, stage 3 unspecified Creatinine 03/30/23 N18.30 - Chronic kidney disease, stage 3 unspecified Coding Level of Care Code Est Pt Level 4 (84745) Diagnoses Stage 3a chronic kidney disease N18.31 Chronic kidney disease stage 3 subtype: stage 3a (GFR 45-59) Nephrolithiasis N20.0 Results Reviewed Nephrology Results: Hgb 13.7 g/dl (12.0-16.0) 03/17/23 WBC 13.8 X10*3/uL (4.8-10.8) H 03/17/23 Plt Count 222 X10*3/uL (160-400) 03/17/23 Sodium 134 mmol/L (135-145) L 03/17/23 Potassium 4.8 mmol/L (3.3-5.1) 03/17/23 Chloride 98 mmol/L (96-108) 03/17/23 Carbon Dioxide 27 mmol/L (22-29) 03/17/23 BUN 17 mg/dL (9-16) H 03/17/23 Creatinine 1.37 mg/dL (0.5-1.4) 03/17/23 Calcium 9.3 mg/dL (8.4-10.2) 03/17/23 Urine Protein Negative mg/dL (Neg-Trace) 03/22/23 Urine Creatinine 142.33 mg/dL 11/03/22 Renal US 03/23/23
[2023-03-30 11:08] VITALS: BP 102/68; PULSE 82; O2SAT 99; BMI 25.1
== END 2023-03-30 11:56 | disposition home or self-care (01) ==
PROVIDERS: PCP Internal Medicine; Visit Provider Internal Medicine Nephrology
DX: N18.31 Chronic kidney disease, stage 3a (principal); N20.0 Calculus of kidney
CPT/HCPCS: 99214

== ENCOUNTER → 2023-03-30 11:00 | Outpatient (BNVA) | payer OTHER, SELFPAY | PROVIDERS: PCP Internal Medicine; Visit Provider Internal Medicine Nephrology | DX: N18.31 Chronic kidney disease, stage 3a (principal); N20.0 Calculus of kidney | CPT/HCPCS: 99212 ==

== ENCOUNTER 2023-04-05 14:22 | Outpatient (REF) | payer OTHER, SELFPAY ==
--- NOTE | ~2023-04-05 | FL_ITS ---
EXAMINATION: Modified Barium Swallows CLINICAL INFORMATION: Dysphagia COMPARISON: None TECHNIQUE: Modified barium swallow was performed under lateral fluoroscopy with patient in standing position. Different consistency of barium was administered by the speech therapist. FINDINGS: No laryngeal penetration or aspiration is seen on this examination. FLUOROSCOPY TIME: 29 seconds Number of Spot Images: 1 DOSE AREA PRODUCT: 288 uGy-m2 (microgray-meter squared) FL/FL barium swallow modified IMPRESSION: No laryngeal penetration or aspiration Refer to the speech therapy report for further clarification This procedure was performed by Ousmane Mishra PA-C, and supervised by Dr. Mcdaniel
--- NOTE | 2023-04-12 21:01 | MHC.SL.IMP ---
Date of Plan of Treatment: 04/05/23 Onset of Symptoms/Illness: 04/05/23 Date Treatment Started: 04/05/23 Admitting Diagnosis: Myasthenia gravis Primary Speech & Language Diagnosis: R13.12 Oropharyngeal Phase Dysphagia Reason for Today's Visit: 10102 Modified Barium Swallow Study Comments: Pre-evaluation Dietary Consistencies: Regular Pre-evaluation Liquid Consistency: Thin Pre-evaluation Medication Administration: Whole with Liquid Medical History: Comments: Past medical History includes: Adrenal insufficiency Asthma CKD (chronic kidney disease) Congenital myasthenia gravis 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 Gallstones GERD (gastroesophageal reflux disease) History of COVID-19 HLD (hyperlipidemia) HTN (hypertension) Hypoglycemia Hypothyroidism Multinodular thyroid Myasthenia gravis Nephrolithiasis Nocturia Pulmonary embolism VIVI (stress urinary incontinence, female) T2DM (type 2 diabetes mellitus) Trigeminy Urinary frequency Urinary urgency UTI (urinary tract infection) Surgical History includes: Hx of colonoscopy S/P panniculectomy History of lithotripsy Hx of cystoscopy Hx of cholecystectomy History of pubovaginal sling History of hysterectomy History of gastric bypass (~2004) Oral Motor Exam Facial Symmetry: Normal for Patient Symmetrical Mouth Occlusion: Normal Oral-Facial Teeth Characteristics: Intact/Normal Oral-Facial Lip Pucker Description: Normal Oral-Facial Smile (Lips) Description: Normal Oral-Facial Puff Cheeks Description: Normal Tongue Size: Normal Tongue Frenum Length: Oral Expression Ability: No Impairment Is patient able to manage secretions?: Yes Is patient able to produce volitional cough?: Yes Food and Liquid Trials: Oral Impairment: Lip Closure: 0=No labial escape Oral Impairment: Tongue Control During Bolus Hold: 0=Cohesive bolus between tongue to palatal seal Oral Impairment: Bolus Preparation/Mastication: 0=Timely and efficient chewing and mashing Oral Impairment: Bolus Transport/Lingual Motion: 0=Brisk tongue motion Oral Impairment: Oral Residue: 1=Trace residue lining oral structures Oral Impairment:Initiation of Pharyngeal Swallow: 2=Bolus head at posterior laryngeal surface of epiglottis Pharyngeal Impairment: Soft Palate Elevation: 0=No bolus between soft palate (SP)/pharyngeal wall (PW) Pharyngeal Impairment: Laryngeal Elevation: 0=Complete superior movement of thyroid cartilage (see description) Pharyngeal Impairment: Anterior Hyoid Excursion: 1=Partial anterior movement Pharyngeal Impairment: Epiglottic Movement: 1=Partial inversion Pharyngeal Impairment: Laryngeal Vestibular Closure:: 0=Complete: no air/contrast in laryngeal vestibule Pharyngeal Impairment: Pharyngeal Stripping Wave: 0=Present: complete Pharyngeal Impairment: Pharyngeal Contraction: Did not test Pharyngeal Impairment: Pharyngoesophageal Segment Opening: Pharyngeal Impairment: Tongue Base (TB) Retraction: 1=Trace column of contrast/air between TB and posterior PW Pharyngeal Impairment: Pharyngeal Residue: 2=Collection of residue within or on pharyngeal structures Pharyngeal Impairment: Esophageal Clearance Upright Position: Did not test Impressions and Recommendations [id number] Results: Lip closure for intraoral bolus containment resulted in no labial escape. Tongue control during bolus hold maintained a cohesive bolus held between tongue to palate seal. Bolus preparation and mastication resulted in timely and efficient chewing and mashing. Bolus transport/lingual motion was with brisk tongue motion. Oral residue was a trace, lining oral structures. Initiation of the pharyngeal swallow occurred as the bolus head was at the posterior laryngeal surface of the epiglottis. Soft palate elevation resulted in no bolus between the soft palate and the pharyngeal wall. Laryngeal elevation demonstrated complete superior movement of the thyroid cartilage with complete approximation of the arytenoids to the epiglottic petiole. Anterior hyoid excursion demonstrated partial anterior movement. Epiglottic movement resulted in partial inversion. Laryngeal vestibular closure was complete, as indicated by no air or contrast within the laryngeal vestibule at the height of the swallow. Pharyngeal stripping wave was present and complete. Pharyngeal contraction could not be determined due to logistical reasons not related to physiologic impairment. Pharyngoesophageal segment opening demonstrated partial distension/partial duration, with partial obstruction of bolus flow. Tongue base retraction allowed a trace column of contrast or air between the retracted tongue base and the posterior pharyngeal wall. Pharyngeal residue was a trace within or on pharyngeal structures. Esophageal clearance in the upright position could not be assessed due to logistical reasons not related to physiologic impairment. Oral Impairment Score: 2 Pharyngeal Impairment Score: 3 (absence of score, component 13) Esophageal Impairment Score: --- (absence of score, component 17) Laryngeal Penetration and Aspiration: Neither penetration nor aspiration was observed in today's study with Cookie, Pudding-thick, Thin. SUMMARY: Pt was given Thin Liquids, Puree and Regular Solids coated in Barium contrast. Significant findings included mild pharyngeal retention, reduced hyoid excursion, reduced thyroid cartilage elevation, delayed swallow initiation with the bolus head coating the posterior wall of the epiglottis. Contrast passed through the upper esophageal sphincter with no pharyngeal residue that would explain her sensation of food being stuck in her throat. She did not endorse this sensation, however with the limited trials attempted. Liquid Intake Recommendation: Thin Liquid Intake Strategies: Unrestricted Dietary Recommendations: Regular Medication Administration: Whole with Liquid Please contact the pharmacy regarding appropriate crushable or liquid drug formulations that are available whenever modified delivery is recommended. Compensatory Strategies Recommended: Sitting Upright (90 deg) Small Bites and Sips Alternate Liquids/Solids Rate of Ingestion Change Supervision during eating and or drinking: None Needed Recommended Treatments: Compens. Strategy Educat. Recommendation for Speech Therapy: NA:Typical Evaluation Text Comment: Pt provided with recommendations to prevent symptoms of esophageal dysphagia. Recommend full Esophagram to rule out esophageal dysmotility or stricture. Recommend Pt follow-up with her referring provider to review results and determine further assessment. Timeline to reassess: PRN Rn Clinician Clinician/Clinical Fellow: No Supervisory Statement: N/A Speech Language Pathologist: Ho Cancino M.A., CCC-BAG MACHINE ADJUSTER
== END 2023-04-05 14:23 | disposition home or self-care (01) ==
LOC: HO.XRAY 14:22
PROVIDERS: PCP Internal Medicine; Visit Provider Student in an Organized Health Care Education/Training Program
DX: G70.00 Myasthenia gravis without (acute) exacerbation (principal)
CPT/HCPCS: 74230; 92611

== ENCOUNTER → 2023-04-05 14:24 | Outpatient (BNV) | payer OTHER, SELFPAY | PROVIDERS: PCP Internal Medicine; Visit Provider Radiology Diagnostic Radiology | DX: R13.10 Dysphagia, unspecified (principal) | CPT/HCPCS: 74230 ==

== ENCOUNTER 2023-04-12 14:13 | Outpatient (AMB) | payer OTHER, SELFPAY ==
--- NOTE | 2023-04-12 14:13 | A.OFFVIS_ITS ---
Intake Intake Visit Reasons: 6m/US(03/21) Intake Note: Patient is present for follow up nephrolithiasis/incontinence/ultrasound (imaging 03/23/23) Urology Medication: Oxybutynin Blood Thinner: none Aquatics Assistant Department Head Required: No Accompanied by: Self / Same As Patient Allergies bee pollen [bee stings] Allergy (Intermediate, Verified 04/12/23 21:01) Swelling sertraline Allergy (Mild, Verified 04/12/23 21:01) Stomach Upset Medication List - Last Reconciled 04/12/23 by MALIHA Dorado- albuterol sulfate 90 mcg/actuation (ProAir HFA) 90 mcg inhalation Q4H PRN allopurinol 100 mg PO DAILY 90 days atorvastatin (Lipitor) 40 mg PO DAILY 30 days blood sugar diagnostic (FreeStyle Lite Strips) 4x daily blood-glucose meter (FreeStyle Lite Meter kit) As directed blood-glucose meter,continuous (Dexcom G6 Sheet Metal Former) As directed blood-glucose sensor (Dexcom G6 Sensor device) As directed blood-glucose transmitter (Dexcom G6 Transmitter device) As directed calcium carbonate (Calcium) 600 mg PO DAILY cholecalciferol (vitamin D3) (Vitamin D3) 50 mcg PO DAILY empagliflozin (Jardiance) 10 mg PO DAILY escitalopram oxalate 20 mg PO DAILY estradiol (Yuvafem) 10 mcg vaginal 2XW 90 days ferrous sulfate 325 mg PO DAILY flash glucose sensor (FreeStyle Coretta 2 Sensor kit) Once every 14 days lancets (FreeStyle Lancets) 4x daily oxybutynin chloride ER 10 mg PO DAILY 90 days pen needle, diabetic (BD Ultra-Fine Short Pen Needle) 4x daily potassium citrate ER 20 mEq (2 x 10 mEq (1,080 mg)) PO BID 90 days prednisone 40 mg PO DAILY semaglutide (Ozempic) mg subcut Synthroid (levothyroxine) 100 mcg PO DAILY 30 days NS HPI HPI Comments History of Present Illness Details Sarah is a pleasant 67-year-old female patient of Dr. Montgomery. She has a past medical history of GERD, myasthenia gravis, hypothyroidism, DVT, chronic kidney disease, hyperlipidemia, hypertension, type 2 diabetes, recurrent urinary tract infections, trigeminy, asthma, stress urinary incontinence, gallstones, and nephrolithiasis. She is being follow-up on today via video telehealth for her nephrolithiasis, recurrent urinary tract infections, and stress urinary incontinence. Recent renal imaging results reviewed with the patient today. 4 mm nonobstructing calculus in the lower pole of the left kidney which is similar to prior study. No hydronephrosis. She reports having finished antibiotic therapy as prescribed with Dr. Chaudhary however has not had any UTI like symptoms. When asked she reports compliance with Vagifem as prescribed. She currently denies any bothersome urinary issues or concerns. However she does discuss her increase use in steroids related to her myasthenia gravis at which time she has been noting increased sugars related to use of prednisone. She reports that although she has no UTI like symptoms she did take a home test for urinary tract infection and was noted to be positive. Discussed at length treatment of urinary tract infection despite no UTI like symptoms versus surveillance monitoring. She otherwise reports to be happy with current voiding parameters on 10 mg of oxybutynin daily. Nephrolithiasis Recurrent Prior gastric bypass TUMS with main meal Intervention - 01/07 left ureteroscopy Imaging - 01/07 CT scan left 6 mm distal ureteric stone, right 4 mm - 10/08 renal US minimal stones -04/09 renal US 4 mm left lower pole Composition - 01/07 mixed calcium oxalate monohydrate 80% Therapeutic plan - continue potassium citrate from At [facility] Stress urinary incontinence Status post vaginal sling Slight feelings of incomplete emptying PVR is less than 30 cc Otherwise doing well Would like to go on the water in 2 weeks time. She is cleared for water walking but not swimming. At cystoscopy had low Valsalva leak point pressure with posterior urethra rotation Overactive Bladder Good response to oxybuytinin [facility] Medical History GERD (gastroesophageal reflux disease) Hypoglycemia Myasthenia gravis History of COVID-19 Hypothyroidism Deep vein thrombophlebitis of left leg Pulmonary embolism Congenital myasthenia gravis CKD (chronic kidney disease) Multinodular thyroid Adrenal insufficiency HLD (hyperlipidemia) HTN (hypertension) T2DM (type 2 diabetes mellitus) UTI (urinary tract infection) Trigeminy Asthma Cystitis cystica VIVI (stress urinary incontinence, female) Urinary frequency Gallstones Nocturia Urinary urgency Nephrolithiasis Surgical History Hx of colonoscopy S/P panniculectomy History of lithotripsy Hx of cystoscopy Hx of cholecystectomy History of pubovaginal sling History of hysterectomy History of gastric bypass (~2004) Family History Father CVD (cardiovascular disease) Heart attack HTN (hypertension) Mother Dementia Social History Household Members: Spouse Housing: House Are you a primary pediatric care coordinator to a significant other at home: No Do you presently have visiting nurse or other home services: No Alcohol intake: never Patient Tobacco Use Status: Former Tobacco user Quit Date: 42 YRS AGO Tobacco use type: Cigarette Advance Directives Date on File: 02/18/20 service: No Current occupational status: retired and other Review of Systems Const Reports as per HPI Eyes Reports as per HPI ENT Reports no additional complaints Card Reports as per HPI Resp Reports as per HPI GI Reports as per HPI Reports as per HPI Musc Reports as per HPI Neuro Reports as per HPI Psych Reports no additional complaints Endo Reports as per HPI Physical Exam Const General: cooperative, healthy appearing, comfortable, no acute distress, well developed, alert and awake Orientation/consciousness: patient oriented x3 Resp Effort & Inspection: normal respiratory effort and able to speak in complete sentences Neuro General: patient oriented x3 Psych Appearance: grossly normal Mental Status: mental status grossly normal Speech and movement: Clear speech present Affect: normal affect Attitude: cooperative Thought process: Normal thought process present Thought content: Normal thought content present Insight: Fair insight present (Psych) Judgement: Fair judgement present (Psych) Results Reviewed Results Reviewed: Date of Service: 03/23/23 EXAMINATION: US RETROPERITONEAL LIMITED (RENAL ONLY) FINDINGS: RIGHT KIDNEY: 11.6 x 4.6 x 5.0 cm (SAG x AP x TRV). The kidney is normal in size, contour, and echogenicity. Renal cortical thickness is normal. No calculi or focal parenchymal lesions. No hydronephrosis. LEFT KIDNEY: 9.8 x 4.6 x 4.2 cm (SAG x AP x TRV). The kidney is normal in size, contour, and echogenicity. Renal cortical thickness is normal. No focal parenchymal lesions or hydronephrosis. 4 mm nonobstructing calculus in the lower kidney. IMPRESSION: 4 mm nonobstructing calculus in the lower pole of the left kidney is similar to the prior study. No hydronephrosis. Assessment & Plan Assessment & Plan (1) Urge incontinence: Code(s): N39.41 - Urge incontinence (2) Urinary incontinence: Code(s): R32 - Unspecified urinary incontinence (3) VIVI (stress urinary incontinence, female): Code(s): N39.3 - Stress incontinence (female) (male) (4) Nephrolithiasis: Code(s): N20.0 - Calculus of kidney (5) Recurrent urinary tract infection: Code(s): N39.0 - Urinary tract infection, site not specified Plan Recent renal imaging results reviewed with the patient today; as noted above. Patient currently denies any bothersome urinary issues or concerns at this time Will send order for urine culture for further assessment evaluation. Discussed at length treatment of a symptomatic urinary tract infection versus surveillance monitoring; all questions were answered Continue Vagifem, vitamin B6, and oxybutynin as prescribed. Discussed UTI prevention with D mannose supplement, vitamin-C, increasing fluid intake, behavioral therapy with timed voiding, perineal hygiene and postcoital voiding, and management of constipation with stool softeners and increased fiber intake. Discussed at length affects of diabetes on the bladder as well as overall health and well-being. Follow-up in 3 months with PVR; or sooner with any issues, concerns, and or questions. Orders: Orders Urine Culture Today N39.0 - Urinary tract infection, site not specified Patient Instructions: The patient had an opportunity to ask questions regarding the treatment plan. All questions were answered. Physical exam, labs, and imaging were discussed and reviewed in detail. As well as risks, benefits, and discussion of treatment choices. No major barriers to understanding were identified. The patient expressed understanding and agreement with the above treatment plan. The patient was made aware they should contact our office by phone for worsening of their current condition, the appearance of new symptoms, or with any question s or concerns. Compliance is encouraged with any medications and follow up testing that is ordered. It is a privilege to be allowed the opportunity to participate in? your urological care.? Again, if you have any questions or concerns If you have any questions or concerns please do not hesitate to contact me. The office is [phone]. This note is constructed using voice recognition software. While every effort has been made to ensure accuracy stuntman errors may have been included. Yours sincerely, MALIHA Dorado- Telehealth Telehealth Location of provider rendering services: practice address Location of patient: address on file Patient Identification confirmed using: Name, : Yes Telehealth method: video Patient verbally consented to treatment: Yes Patient verbally consented to billing insurance company: Yes Patient informed of any privacy concerns related to visit: Yes Minutes spent on Phone/Video with Pt.: 25 Coding Level of Care Code Est Pt Level 3 (27048) Diagnoses Urge incontinence N39.41 Urinary incontinence R32 VIVI (stress urinary incontinence, female) N39.3 Nephrolithiasis N20.0 Recurrent urinary tract infection N39.0
== END 2023-04-12 15:21 | disposition home or self-care (01) ==
LOC: HO.HUSH 14:13
PROVIDERS: PCP Internal Medicine; Visit Provider Nurse Practitioner Family
DX: N39.41 Urge incontinence (principal); R32 Unspecified urinary incontinence; N39.3 Stress incontinence (female) (male); N20.0 Calculus of kidney; N39.0 Urinary tract infection, site not specified
CPT/HCPCS: 99213

== ENCOUNTER → 2023-04-12 14:13 | Outpatient (BNVA) | payer OTHER, SELFPAY | LOC: CF 04-13 11:29 | PROVIDERS: PCP Internal Medicine; Visit Provider Nurse Practitioner Family | DX: N39.41 Urge incontinence (principal); N39.3 Stress incontinence (female) (male); N20.0 Calculus of kidney; R32 Unspecified urinary incontinence; N39.0 Urinary tract infection, site not specified | CPT/HCPCS: 99212 ==

== ENCOUNTER 2023-04-13 11:29 | Outpatient (REF) | payer OTHER, SELFPAY | END 2023-04-13 11:30 | disposition home or self-care (01) | LOC: HO.LAB 11:29 | PROVIDERS: PCP Internal Medicine; Visit Provider Nurse Practitioner Family | DX: N39.0 Urinary tract infection, site not specified (principal); N18.30 Chronic kidney disease, stage 3 unspecified | CPT/HCPCS: 87086; 87088; 87186 ==

== ENCOUNTER 2023-06-23 14:10 | Outpatient (REF) | payer OTHER, SELFPAY ==
[2023-06-23 15:25] LABS: Anion Gap 15 (12-20); Blood Urea Nitrogen 10 mg/dL (9-16); Carbon Dioxide 25 mmol/L (22-29); Chloride 103 mmol/L (96-108); Estimated Glomerular Filt Rate 48; Sodium 139 mmol/L (135-145)
[2023-06-23 16:11] LABS: Creatinine Urine 67.42 mg/dL; Total Protein Urine Random < 7 mg/dL (<12)
== END 2023-06-23 14:11 | disposition home or self-care (01) ==
LOC: HO.LAB 14:10
PROVIDERS: PCP Internal Medicine; Visit Provider Internal Medicine Nephrology
DX: N18.30 Chronic kidney disease, stage 3 unspecified (principal)
CPT/HCPCS: 36415; 80051; 82565; 82570; 84156; 84520

== ENCOUNTER 2023-06-29 10:57 | Outpatient (AMB) | payer OTHER, SELFPAY ==
[2023-06-29 10:59] VITALS: BP 114/76; PULSE 82; O2SAT 98; BMI 24.5
--- NOTE | 2023-06-29 10:59 | HO.NEPHOV ---
HPI HPI Comments History of Present Illness Details I had the privilege of seeing Sarah in the office in follow-up of her chronic kidney disease. She has myasthenia gravis and has been followed up by neurologist in [facility]. She is not on Mestinone, Imuran, cellcept or IVIG. She has not had a chest CT. She is not having any weight loss, chest pain, shortness of breath, cough. She remains on significantly high dose of prednisone and has developed mariano facies. Her blood sugar control is quite suboptimal. She is just on Ozempic. She has not been on any Jardiance or Farxiga. She has history of renal calculus and is on potassium citrate. Her last renal ultrasound showed 1 calculus on the lower pole of the kidney. She used to get frequent UTIs. She claims that she does not have any symptoms. Recently she had a CBC done which showed high WBC which on further investigation proved that she has UTI. She has been treated with antibiotics. She is concerned about her high blood sugar. She denies nausea, vomiting, diarrhea, fever, chills, rigors, chest pain, shortness of breath, proximal nocturnal dyspnea, orthopnea, pedal edema or orthostatic symptoms. She does not take any nonsteroidal anti-inflammatory medications. She tries to maintain good hydration. She also sees urologist. He was accompanied by her and daughter during this office visit. [facility] Medical History GERD (gastroesophageal reflux disease) Hypoglycemia Myasthenia gravis History of COVID-19 Hypothyroidism Deep vein thrombophlebitis of left leg Pulmonary embolism Congenital myasthenia gravis CKD (chronic kidney disease) Multinodular thyroid Adrenal insufficiency HLD (hyperlipidemia) HTN (hypertension) T2DM (type 2 diabetes mellitus) UTI (urinary tract infection) Trigeminy Asthma Cystitis cystica VIVI (stress urinary incontinence, female) Urinary frequency Gallstones Nocturia Urinary urgency Nephrolithiasis Surgical History Hx of colonoscopy S/P panniculectomy History of lithotripsy Hx of cystoscopy Hx of cholecystectomy History of pubovaginal sling History of hysterectomy History of gastric bypass (~2004) Family History Father CVD (cardiovascular disease) Heart attack HTN (hypertension) Mother Dementia Social History Household Members: Spouse Housing: House Are you a primary care coordination manager to a significant other at home: No Do you presently have visiting nurse or other home services: No Alcohol intake: never Patient Tobacco Use Status: Former Tobacco user Quit Date: 42 YRS AGO Tobacco use type: Cigarette Advance Directives Date on File: 02/18/20 service: No Current occupational status: retired and other Vital Signs 06/29/23 10:59 Height 5 ft 9 in Weight 166 lb BMI 24.5 BP 114/76 Blood Pressure Location Lt brachial Position Sitting Pulse 82 Pulse Source Pulse Oximeter Pulse Oximetry (%) 98 Oxygen Delivery Method Room Air Physical Exam Vital Signs: Last Vital Signs Pulse 82 06/29/23 10:59 BP 114/76 06/29/23 10:59 Pulse Ox 98 06/29/23 10:59 Oxygen Delivery Method Room Air 06/29/23 10:59 BMI result Body Mass Index 24.5 Const General: comfortable and no acute distress Orientation/consciousness: patient oriented x3 HEENT Head: Yes normocephalic Mouth: Normal oral and palatal mucosa present Eyes EOM: EOMs intact bilaterally Neck Neck: Yes supple Resp Auscultation: clear to auscultation bilaterally Cardio Jugular venous distension: no JVD Rate: regular rate GI Palpation (GI): Soft to palpation Auscultation: normal bowel sounds General: Yes no CVA tenderness Back/Spine/Pelvis Back: no CVA tenderness Skin General skin exam: no rashes or lesions noted Neuro General: patient oriented x3 and moves all extremities Extrem General: Yes no pedal edema Assessment & Plan Assessment & Plan (1) CKD (chronic kidney disease) stage 3, GFR 30-59 ml/min: Code(s): N18.30 - Chronic kidney disease, stage 3 unspecified Qualifiers: Chronic kidney disease stage 3 subtype: stage 3a (GFR 45-59) Qualified Code(s): N18.31 - Chronic kidney disease, stage 3a (2) Nephrolithiasis: Code(s): N20.0 - Calculus of kidney (3) HTN (hypertension): Code(s): I10 - Essential (primary) hypertension Qualifiers: Hypertension type: primary hypertension Qualified Code(s): I10 - Essential (primary) hypertension Plan Sarah has stage 3 chronic kidney disease. Her renal functions are currently stable She is renal calculus which had been stable in size. She is on potassium citrate. Her blood sugar control is suboptimal. She is on Jardiance. She needs further workup and aggressive management for her myasthenia gravis by her neurologist. Her blood pressure is at goal. She avoids nonsteroidal anti-inflammatory medications and maintain good hydration. She should closely follow up with her urologist as well.(she had overactive bladder and a sling procedure done in the past). I did not make any medication changes today. I ordered follow-up lab work. All questions answered Orders: Orders Creatinine Today I10 - Essential (primary) hypertension, N18.30 - Chronic kidney disease, stage 3 unspecified, N20.0 - Calculus of kidney Blood Urea Nitrogen Today I10 - Essential (primary) hypertension, N18.30 - Chronic kidney disease, stage 3 unspecified, N20.0 - Calculus of kidney Electrolytes Today I10 - Essential (primary) hypertension, N18.30 - Chronic kidney disease, stage 3 unspecified, N20.0 - Calculus of kidney Protein Creatinine Ratio, Ur Today I10 - Essential (primary) hypertension, N18.30 - Chronic kidney disease, stage 3 unspecified, N20.0 - Calculus of kidney Coding Level of Care Code Est Pt Level 4 (97737) Diagnoses Stage 3a chronic kidney disease N18.31 Chronic kidney disease stage 3 subtype: stage 3a (GFR 45-59) Nephrolithiasis N20.0 Primary hypertension I10 Hypertension type: primary hypertension Results Reviewed Nephrology Results: Sodium 139 mmol/L (135-145) 06/23/23 Potassium 4.0 mmol/L (3.3-5.1) 06/23/23 Chloride 103 mmol/L (96-108) 06/23/23 Carbon Dioxide 25 mmol/L (22-29) 06/23/23 BUN 10 mg/dL (9-16) 06/23/23 Creatinine 1.12 mg/dL (0.5-1.4) 06/23/23 Urine Protein Negative mg/dL (Neg-Trace) 03/22/23 Urine Creatinine 67.42 mg/dL 06/23/23 Protein/Creatinin Ratio TNP 06/23/23 Renal US 03/23/23
== END 2023-06-29 11:37 | disposition home or self-care (01) ==
PROVIDERS: PCP Internal Medicine; Visit Provider Internal Medicine Nephrology
DX: N18.31 Chronic kidney disease, stage 3a (principal); N20.0 Calculus of kidney; I10 Essential (primary) hypertension
CPT/HCPCS: 99214

== ENCOUNTER → 2023-06-29 10:57 | Outpatient (BNVA) | payer OTHER, SELFPAY | PROVIDERS: PCP Internal Medicine; Visit Provider Internal Medicine Nephrology | DX: I12.9 Hypertensive chronic kidney disease with stage 1 through stage 4 chronic kidney disease, or unspecified chronic kidney disease (principal); N18.31 Chronic kidney disease, stage 3a; N20.0 Calculus of kidney | CPT/HCPCS: 99212 ==

== ENCOUNTER 2023-07-15 12:49 | Outpatient (AMB) | payer OTHER, SELFPAY ==
--- NOTE | 2023-07-15 13:12 | MHC.OFFVIS ---
Intake Intake Visit Reasons: 3m/PVR Intake Note: Patient presents today for a follow up on PVR Meds- None Allergies to Antibiotic- No Known Allergies Blood Thinner- None [facility] Nurse Required: No Accompanied by: Self / Same As Patient Allergies bee pollen [bee stings] Allergy (Intermediate, Verified 07/15/23 13:28) Swelling sertraline Allergy (Mild, Verified 07/15/23 13:28) Stomach Upset Medication List - Last Reconciled 07/15/23 by Itz Chaudhary MD albuterol sulfate 90 mcg/actuation (ProAir HFA) 90 mcg inhalation Q4H PRN alendronate (Fosamax) 70 mg PO QWEEK allopurinol 100 mg PO DAILY 90 days blood-glucose meter,continuous (Dexcom G6 Water Meter Installer) As directed blood-glucose sensor (Intelligent Mobile Supportcom G6 Sensor device) As directed blood-glucose transmitter (Dexcom G6 Transmitter device) As directed calcium carbonate (Calcium) 600 mg PO DAILY cholecalciferol (vitamin D3) (Vitamin D3) 50 mcg PO DAILY empagliflozin (Jardiance) 10 mg PO DAILY escitalopram oxalate 20 mg PO DAILY estradiol (Yuvafem) 10 mcg vaginal 2XW 90 days ferrous sulfate 325 mg PO DAILY oxybutynin chloride ER 10 mg PO DAILY 90 days potassium citrate ER 20 mEq (2 x 10 mEq (1,080 mg)) PO BID 90 days prednisone 20 mg PO DAILY semaglutide (Ozempic) mg subcut Synthroid (levothyroxine) 100 mcg PO DAILY 30 days NS HPI HPI Comments History of Present Illness Details Sarah is a pleasant female. She is a patient of Dr. Montgomery. Seen for the following urologic conditions - nephrolithiasis - stress urinary incontinence - urge incontinence PVR 0 cc Nitrites positive with glucose on visit today Great improvement with potassium citrate Followed by Dr. Knight Continues with estradiol Add methenamine and vitamin-C Stop Jardiance which is putting glucose in urine leading to colonization 3 month follow-up Nephrolithiasis Recurrent Prior gastric bypass TUMS with main meal Intervention - 01/07 left ureteroscopy Imaging - 01/07 CT scan left 6 mm distal ureteric stone, right 4 mm - 10/08 renal US minimal stones - 04/09 renal ultrasound 4 mm left Composition - 01/07 mixed calcium oxalate monohydrate 80% Therapeutic plan - continue potassium citrate from Dr. Knight Stress urinary incontinence Status post vaginal sling Slight feelings of incomplete emptying PVR is less than 30 cc Otherwise doing well Would like to go on the water in 2 weeks time. She is cleared for water walking but not swimming. At cystoscopy had low Valsalva leak point pressure with posterior urethra rotation Overactive Bladder Good response to oxybuytinin PFSH Medical History GERD (gastroesophageal reflux disease) Hypoglycemia Myasthenia gravis History of COVID-19 Hypothyroidism Deep vein thrombophlebitis of left leg Pulmonary embolism Congenital myasthenia gravis CKD (chronic kidney disease) Multinodular thyroid Adrenal insufficiency HLD (hyperlipidemia) HTN (hypertension) T2DM (type 2 diabetes mellitus) UTI (urinary tract infection) Trigeminy Asthma Cystitis cystica VIVI (stress urinary incontinence, female) Urinary frequency Gallstones Nocturia Urinary urgency Nephrolithiasis Surgical History Hx of colonoscopy S/P panniculectomy History of lithotripsy Hx of cystoscopy Hx of cholecystectomy History of pubovaginal sling History of hysterectomy History of gastric bypass (~2004) Family History Father CVD (cardiovascular disease) Heart attack HTN (hypertension) Mother Dementia Social History Household Members: Spouse Housing: House Are you a primary home care specialist to a significant other at home: No Do you presently have visiting nurse or other home services: No Alcohol intake: never Patient Tobacco Use Status: Former Tobacco user Quit Date: 42 YRS AGO Tobacco use type: Cigarette Advance Directives Date on File: 02/18/20 service: No Current occupational status: retired and other Review of Systems Const Denies chills and Denies fever(s) Card Reports no additional complaints and Denies syncope Resp Denies cough GI Denies abdominal pain and Denies heartburn Reports as per HPI and Denies change in libido Neuro Denies syncope Psych Denies change in libido Endo Denies change in libido Physical Exam Const General: cooperative, healthy appearing, comfortable and no acute distress Orientation/consciousness: patient oriented x3 HEENT Face and sinus: Yes normal facial exam Mouth: moist mucous membranes Neck Neck: Yes normal visual inspection, Yes full ROM and Yes trachea midline Chest Chest palpation & inspection: normal inspection of the chest Resp Effort & Inspection: normal respiratory effort, able to speak in complete sentences and no respiratory distress GI Inspection: Yes normal to inspection Back/Spine/Pelvis Cervical Spine: normal cervical lordosis Thoracic/Lumbar Spine: thoracic and lumbar spine normal to inspection Skin General skin exam: no rashes or lesions noted Neuro General: patient oriented x3, gait normal, tone normal and moves all extremities Extrem General: Yes normal to inspection and Yes capillary refill normal Office Procedures Post Void Residual Post Residual Void Post Void Residual (PVR): 0 [id number]-[id number] Void Residual by ultrasound Results AMB Urinalysis, Automated UA Leukoctes 0 Angelica/uL Last Edit by Maryjo Eastman CMA on 07/15/23 13:29 UA Nitrite Positive Last Edit by Maryjo Eastman CMA on 07/15/23 13:29 UA Urobilinogen 0.2 mg/dL Last Edit by Maryjo Eastman CMA on 07/15/23 13:29 UA Protein 0 mg/dL Last Edit by Maryjo Eastman CMA on 07/15/23 13:29 UA pH 6.0 Last Edit by Maryjo Eastman CMA on 07/15/23 13:29 UA Blood 10 Armond/uL Last Edit by Maryjo Eastman CMA on 07/15/23 13:29 UA Specific Gary 1.015 Last Edit by Maryjo Eastman CMA on 07/15/23 13:29 UA Ketone Negative Last Edit by Maryjo Eastman CMA on 07/15/23 13:29 UA Bilirubin 0 mg/dL Last Edit by Maryjo Eastman CMA on 07/15/23 13:29 UA Glucose 1000 mg/dL Last Edit by Maryjo Eastman CMA on 07/15/23 13:29 Results Reviewed Results Reviewed: Laboratory Last Values Urine pH (Auto) 6.0 07/15/23 13:13 Specific Gary (Auto) 1.015 07/15/23 13:13 Urine Protein (Auto) 0 mg/dL 07/15/23 13:13 Glucose (UA)(Auto) 1000 mg/dL 07/15/23 13:13 Urine Ketones (Auto) Negative 07/15/23 13:13 Urine Blood (Auto) 10 Armond/uL 07/15/23 13:13 Urine Nitrite (Auto) Positive 07/15/23 13:13 Urine Bilirubin (Auto) 0 mg/dL 07/15/23 13:13 Urine Urobilinogen (Auto) 0.2 mg/dL 07/15/23 13:13 Leukocyte Esterase (Auto) 0 Angelica/uL 07/15/23 13:13 Assessment & Plan Assessment & Plan (1) Recurrent urinary tract infection: Code(s): N39.0 - Urinary tract infection, site not specified (2) Nephrolithiasis: Code(s): N20.0 - Calculus of kidney (3) Cystitis cystica: Code(s): N30.80 - Other cystitis without hematuria Plan Three-month follow-up UA Orders: Orders AMB Urinalysis Automated Today R33.9 - Retention of urine, unspecified AMB Post Void Residual by ultrasound Today R33.9 - Retention of urine, unspecified Medications: New ascorbic acid (vitamin C) 1 g PO DAILY 90 days 90 tabs 1RF N30.80 - Other cystitis without hematuria, N39.0 - Urinary tract infection, site not specified methenamine hippurate 1 g PO DAILY 90 days 90 tabs 1RF N30.80 - Other cystitis without hematuria, N39.0 - Urinary tract infection, site not specified Refilled estradiol (Yuvafem) 10 mcg vaginal 2XW 90 days 26 tabs 1RF N20.0 - Calculus of kidney, N39.0 - Urinary tract infection, site not specified, N95.8 - Other specified menopausal and perimenopausal disorders Patient Instructions: Imaging studies, laboratory and physical exam results were discussed and reviewed in detail. No major barriers to patient understanding were identified. An opportunity to ask questions regarding the treatment plan was provided. All questions were answered. The patient expressed understanding and agreement with the above treatment plan. The patient is aware they should contact our office by phone for worsening of their current condition or the appearance of new urologic symptoms. Compliance is encouraged with any medications and followup testing that is ordered. It is a privilege to participate in the urologic care of your patient. If you have any questions or concerns regarding treatment for the above conditions, or other urologic issues, please do not hesitate to contact me. The office telephone contact is [phone]. This note is constructed using voice recognition software. While every effort has been made to ensure accuracy locomotive operator helper errors may have been included. Yours sincerely, Dr Itz Chaudhary MD, [facility] - Urology Providers of Expert, Compassionate Care for the Genitourinary System Coding Level of Care Code Est Pt Level 4 (68065) Diagnoses Recurrent urinary tract infection N39.0 Nephrolithiasis N20.0 Cystitis cystica N30.80 CPT Codes Post Residual Void - PVR CPT Code: 32146-Owhf Void Residual by ultrasound ([id number])
== END 2023-07-15 13:58 | disposition home or self-care (01) ==
PROVIDERS: PCP Internal Medicine; Referring Provider Internal Medicine; Visit Provider Urology
DX: N39.0 Urinary tract infection, site not specified (principal); N20.0 Calculus of kidney; N30.80 Other cystitis without hematuria; R33.9 Retention of urine, unspecified
CPT/HCPCS: 99214

== ENCOUNTER 2023-07-15 12:49 | Outpatient (REF) | payer OTHER, SELFPAY | END 2023-07-15 12:50 | disposition home or self-care (01) | LOC: HO.LAB 12:49 | PROVIDERS: PCP Internal Medicine; Visit Provider Urology | DX: N30.80 Other cystitis without hematuria (principal); N20.0 Calculus of kidney; N39.3 Stress incontinence (female) (male); N32.81 Overactive bladder; R33.9 Retention of urine, unspecified; N95.8 Other specified menopausal and perimenopausal disorders; Z79.899 Other long term (current) drug therapy | CPT/HCPCS: 51798; 81003; 87086; 87088; 87186; 99212 ==

== ENCOUNTER 2023-09-27 10:25 | Outpatient (AMB) | payer OTHER, SELFPAY ==
[2023-09-27 10:33] VITALS: BP 120/80; PULSE 76; BMI 24.7
--- NOTE | 2023-09-27 10:33 | A.OFFVIS_ITS ---
Vital Signs 09/27/23 10:33 Height 5 ft 9 in Weight 167 lb 8.821 oz BMI 24.7 BP 120/80 Blood Pressure Location Lt brachial Position Sitting Pulse 76 Intake Visit Reasons: 1 yr f/up Intake Note: 1 year follow-up with Ekg [employer] Pl Sql Developer Required: No Allergies bee pollen [bee stings] Allergy (Intermediate, Verified 07/15/23 13:28) Swelling sertraline Allergy (Mild, Verified 07/15/23 13:28) Stomach Upset Medication List - Last Reconciled 09/27/23 by George Rosado MD albuterol sulfate 90 mcg/actuation (ProAir HFA) 90 mcg inhalation Q4H PRN alendronate (Fosamax) 70 mg PO QWEEK allopurinol 100 mg PO DAILY 90 days ascorbic acid (vitamin C) 1 g PO DAILY 90 days blood-glucose meter,continuous (Dexcom G6 Mold Dresser) As directed blood-glucose sensor (Dexcom G6 Sensor device) As directed blood-glucose transmitter (Dexcom G6 Transmitter device) As directed calcium carbonate (Calcium 600) 600 mg PO DAILY cholecalciferol (vitamin D3) (Vitamin D3) 50 mcg PO DAILY escitalopram oxalate 20 mg PO DAILY estradiol (Yuvafem) 10 mcg vaginal 2XW 90 days ferrous sulfate 325 mg PO DAILY methenamine hippurate 1 g PO DAILY 90 days oxybutynin chloride ER 10 mg PO DAILY 90 days potassium citrate ER 20 mEq (2 x 10 mEq (1,080 mg)) PO BID 90 days prednisone 20 mg PO DAILY semaglutide (Ozempic) mg subcut Synthroid (levothyroxine) 100 mcg PO DAILY 30 days NS HPI Comments Details: Sarah comes for follow-up. She is done well over the last year. Currently o ff oral diuretic therapy. Has not had any congestive heart failure symptoms. Denies any orthopnea, PND, leg edema. Currently still on tapering dose of prednisone for her myasthenia gravis. She is being followed by [facility]. She denies any prolonged palpitations, lightheadedness, syncope. No exertional chest pain. [facility] Medical History GERD (gastroesophageal reflux disease) Hypoglycemia Myasthenia gravis History of COVID-19 Hypothyroidism Deep vein thrombophlebitis of left leg Pulmonary embolism Congenital myasthenia gravis CKD (chronic kidney disease) Multinodular thyroid Adrenal insufficiency HLD (hyperlipidemia) HTN (hypertension) T2DM (type 2 diabetes mellitus) UTI (urinary tract infection) Trigeminy Asthma Cystitis cystica VIVI (stress urinary incontinence, female) Urinary frequency Gallstones Nocturia Urinary urgency Nephrolithiasis Surgical History Hx of colonoscopy S/P panniculectomy History of lithotripsy Hx of cystoscopy Hx of cholecystectomy History of pubovaginal sling History of hysterectomy History of gastric bypass (~2004) Family History Father CVD (cardiovascular disease) Heart attack HTN (hypertension) Mother Dementia Social History Household Members: Spouse Housing: House Are you a primary manager critical care unit to a significant other at home: No Do you presently have visiting nurse or other home services: No Alcohol intake: never Patient Tobacco Use Status: Former Tobacco user Tobacco use type: Cigarette Advance Directives Date on File: 02/18/20 service: No Current occupational status: retired and other Review of Systems Const Denies chills, Denies fatigue, Denies fever(s), Denies frequent falls, Denies weakness, Denies weight gain and Denies weight loss ENT Denies dizziness Card Denies chest pain, Denies leg edema, Denies lightheadedness, Denies palpitations, Denies dyspnea, Denies dyspnea on exertion, Denies orthopnea and Denies other (loss of consciousness) Resp Denies cough, Denies dyspnea and Denies dyspnea on exertion GI Denies hematochezia and Denies change in stool character Musc Denies abnormal gait, Denies muscle weakness, Denies numbness, Denies radiating pain into limb and Denies tingling Neuro Denies Abnormal speech present, Denies abnormal gait, Denies dizziness, Denies frequent falls, Denies numbness, Denies tingling and Denies weakness Endo Denies fatigue and Denies palpitations Physical Exam Vital Signs: Last Vital Signs Pulse 76 09/27/23 10:33 BP 120/80 09/27/23 10:33 BMI result Body Mass Index 24.7 Const General: cooperative, comfortable, no acute distress, alert and awake Nutritional Appearance: overweight Orientation/consciousness: patient oriented x3 Limitations: no limitations HEENT Head: Yes normocephalic and Yes atraumatic Neck Neck: Yes trachea midline, Yes supple and Yes no JVD Chest Chest palpation & inspection: normal inspection of the chest Resp Effort & Inspection: normal respiratory effort Auscultation: clear to auscultation bilaterally Cardio Jugular venous distension: no JVD Palpation: normal PMI Rate: regular rate Rhythm: regular rhythm Heart sounds: S1 normal heart sound present, S2 normal heart sound present, no click, no gallops and no murmurs GI Auscultation: normal bowel sounds Skin General skin exam: no rashes or lesions noted Neuro General: patient oriented x3 and no focal motor deficits Speech: No Abnormal speech present Assessment & Plan Assessment & Plan (1) Elevated brain natriuretic peptide (BNP) level: Code(s): R79.89 - Other specified abnormal findings of blood chemistry Category: Medical Plan: Elevated BNP which normalized with diuretic therapy with transient heart failure syndrome which has now resolved. She would mild LV systolic dysfunction which is also improved by last echocardiogram with LVEF of 54%. Discussed that although this heart failure syndrome was triggered by steroid therapy she is at risk for developing heart failure syndrome in the future. Advised to monitor for any signs or symptoms of heart failure. Avoid any specific therapy for the same. Continue aggressive risk factor modification with good blood pressure control as well as diabetes control. Advise avoidance of salt loading. Will follow up in the clinic if need be. Thank you for allowing me to partake in the care Coding Level of Care Code Est Pt Level 4 (86152) Diagnoses Elevated brain natriuretic peptide (BNP) level R79.89
== END 2023-09-27 11:40 | disposition home or self-care (01) ==
PROVIDERS: PCP Internal Medicine; Visit Provider Internal Medicine Cardiovascular Disease
DX: R79.89 Other specified abnormal findings of blood chemistry (principal)
CPT/HCPCS: 93010; 99214

== ENCOUNTER → 2023-09-27 10:25 | Outpatient (BNVA) | payer OTHER, SELFPAY | PROVIDERS: PCP Internal Medicine; Visit Provider Internal Medicine Cardiovascular Disease | DX: R79.89 Other specified abnormal findings of blood chemistry (principal) | CPT/HCPCS: 93005; 99212 ==

== ENCOUNTER 2023-10-07 13:33 | Outpatient (AMB) | payer OTHER, SELFPAY ==
--- NOTE | 2023-10-07 13:52 | MHC.OFFVIS ---
Intake Visit Reasons: 3M UA/PVR Follow Up Intake Note: Pt presents to the office today for a 3 month follow up UA/PVR. Urology meds:oxybutinin,Methenamine hippurate,estradiol, Blood thinners: None Allergies bee pollen [bee stings] Allergy (Intermediate, Verified 10/07/23 13:52) Swelling sertraline Allergy (Mild, Verified 10/07/23 13:52) Stomach Upset Medication List - Last Reconciled 10/07/23 by Itz Chaudhary MD albuterol sulfate 90 mcg/actuation (ProAir HFA) 90 mcg inhalation Q4H PRN alendronate (Fosamax) 70 mg PO QWEEK allopurinol 100 mg PO DAILY 90 days ascorbic acid (vitamin C) 1 g PO DAILY 90 days blood-glucose meter,continuous (Dexcom G6 Machining And Assembly Supervisor) As directed blood-glucose sensor (Dexcom G6 Sensor device) As directed blood-glucose transmitter (Dexcom G6 Transmitter device) As directed calcium carbonate (Calcium 600) 600 mg PO DAILY cholecalciferol (vitamin D3) (Vitamin D3) 50 mcg PO DAILY escitalopram oxalate 20 mg PO DAILY estradiol (Yuvafem) 10 mcg vaginal 2XW 90 days ferrous sulfate 325 mg PO DAILY methenamine hippurate 1 g PO DAILY 90 days oxybutynin chloride ER 10 mg PO DAILY 90 days potassium citrate ER 20 mEq (2 x 10 mEq (1,080 mg)) PO BID 90 days prednisone 20 mg PO DAILY semaglutide (Ozempic) mg subcut Synthroid (levothyroxine) 100 mcg PO DAILY 30 days NS HPI Comments Details: Sarah is a pleasant female. She is a patient of Dr. Montgomery. Seen for the following urologic conditions - nephrolithiasis - stress urinary incontinence - urge incontinence PVR 0 cc Positive leuks but negative nitrites Followed by Dr. Knight Continues with estradiol Continue methenamine and vitamin-C with Estrace Off Jardiance - negative urine today Six-month follow-up Recurrent urinary tract infection E coli pansensitive 04/09, 07/09 Nephrolithiasis Recurrent Prior gastric bypass TUMS with main meal Intervention - 01/07 left ureteroscopy Imaging - 01/07 CT scan left 6 mm distal ureteric stone, right 4 mm - 10/08 renal US minimal stones - 04/09 renal ultrasound 4 mm left Composition - 01/07 mixed calcium oxalate monohydrate 80% Therapeutic plan - continue potassium citrate from Dr. Knight Stress urinary incontinence Status post vaginal sling Slight feelings of incomplete emptying PVR is less than 30 cc Otherwise doing well Would like to go on the water in 2 weeks time. She is cleared for water walking but not swimming. At cystoscopy had low Valsalva leak point pressure with posterior urethra rotation Overactive Bladder Good response to oxybuytinin PFSH Medical History GERD (gastroesophageal reflux disease) Hypoglycemia Myasthenia gravis History of COVID-19 Hypothyroidism Deep vein thrombophlebitis of left leg Pulmonary embolism Congenital myasthenia gravis CKD (chronic kidney disease) Multinodular thyroid Adrenal insufficiency HLD (hyperlipidemia) HTN (hypertension) T2DM (type 2 diabetes mellitus) UTI (urinary tract infection) Trigeminy Asthma Cystitis cystica VIVI (stress urinary incontinence, female) Urinary frequency Gallstones Nocturia Urinary urgency Nephrolithiasis Surgical History Hx of colonoscopy S/P panniculectomy History of lithotripsy Hx of cystoscopy Hx of cholecystectomy History of pubovaginal sling History of hysterectomy History of gastric bypass (~2004) Family History Father CVD (cardiovascular disease) Heart attack HTN (hypertension) Mother Dementia Social History Household Members: Spouse Housing: House Are you a primary healthcare administrative assistant to a significant other at home: No Do you presently have visiting nurse or other home services: No Alcohol intake: never Patient Tobacco Use Status: Former Tobacco user Tobacco use type: Cigarette Advance Directives Date on File: 02/18/20 service: No Current occupational status: retired and other Review of Systems Const Denies chills and Denies fever(s) Card Reports no additional complaints and Denies syncope Resp Denies cough GI Denies abdominal pain and Denies heartburn Reports as per HPI and Denies change in libido Neuro Denies syncope Psych Denies change in libido Endo Denies change in libido Physical Exam Const General: cooperative, healthy appearing, comfortable and no acute distress Orientation/consciousness: patient oriented x3 HEENT Face and sinus: Yes normal facial exam Mouth: moist mucous membranes Neck Neck: Yes normal visual inspection, Yes full ROM and Yes trachea midline Chest Chest palpation & inspection: normal inspection of the chest Resp Effort & Inspection: normal respiratory effort, able to speak in complete sentences and no respiratory distress GI Inspection: Yes normal to inspection Back/Spine/Pelvis Cervical Spine: normal cervical lordosis Thoracic/Lumbar Spine: thoracic and lumbar spine normal to inspection Skin General skin exam: no rashes or lesions noted Neuro General: patient oriented x3, gait normal, tone normal and moves all extremities Extrem General: Yes normal to inspection and Yes capillary refill normal Office Procedures Post Void Residual Post Residual Void Post Void Residual (PVR): 22 [id number]-[id number] Void Residual by ultrasound Results AMB Urinalysis, Automated UA Leukoctes 125 Angelica/uL Last Edit by Hermelinda Flood CMA on 10/07/23 14:07 UA Nitrite Negative Last Edit by Hermelinda Flood CMA on 10/07/23 14:07 UA Urobilinogen 0.2 mg/dL Last Edit by Hermelinda Flood CMA on 10/07/23 14:07 UA Protein 30 mg/dL Last Edit by Hermelinda Flood CMA on 10/07/23 14:07 UA pH 5.0 Last Edit by Hermelinda Flood CMA on 10/07/23 14:07 UA Blood 0 Armond/uL Last Edit by Hermelinda Flood CMA on 10/07/23 14:07 UA Specific Orient 1.030 Last Edit by Hermelinda Flood CMA on 10/07/23 14:07 UA Ketone Positive Last Edit by Hermelinda Flood CMA on 10/07/23 14:07 UA Bilirubin 0 mg/dL Last Edit by Hermelinda Flood CMA on 10/07/23 14:07 UA Glucose 0 mg/dL Last Edit by Hermelinda Flood CMA on 10/07/23 14:07 Results Reviewed Results Reviewed: Laboratory Last Values Urine pH (Auto) 5.0 10/07/23 14:00 Specific Orient (Auto) 1.030 10/07/23 14:00 Urine Protein (Auto) 30 mg/dL 10/07/23 14:00 Glucose (UA)(Auto) 0 mg/dL 10/07/23 14:00 Urine Ketones (Auto) Positive 10/07/23 14:00 Urine Blood (Auto) 0 Armond/uL 10/07/23 14:00 Urine Nitrite (Auto) Negative 10/07/23 14:00 Urine Bilirubin (Auto) 0 mg/dL 10/07/23 14:00 Urine Urobilinogen (Auto) 0.2 mg/dL 10/07/23 14:00 Leukocyte Esterase (Auto) 125 Angelica/uL 10/07/23 14:00 Assessment & Plan Assessment & Plan (1) Recurrent urinary tract infection: Code(s): N39.0 - Urinary tract infection, site not specified Category: Medical (2) Urge incontinence: Code(s): N39.41 - Urge incontinence Category: Medical Plan Six-month follow-up Referred Dr. Pantoja stress incontinence Orders: Orders AMB Post Void Residual by ultrasound Today R32 - Unspecified urinary incontinence AMB Urinalysis Automated Today Z13.9 - Encounter for screening, unspecified Medications: Refilled estradiol (Yuvafem) 10 mcg vaginal 2XW 90 days 26 tabs 1RF N20.0 - Calculus of kidney, N39.0 - Urinary tract infection, site not specified, N95.8 - Other specified menopausal and perimenopausal disorders Patient Instructions: Imaging studies, laboratory and physical exam results were discussed and reviewed in detail. No major barriers to patient understanding were identified. An opportunity to ask questions regarding the treatment plan was provided. All questions were answered. The patient expressed understanding and agreement with the above treatment plan. The patient is aware they should contact our office by phone for worsening of their current condition or the appearance of new urologic symptoms. Compliance is encouraged with any medications and followup testing that is ordered. It is a privilege to participate in the urologic care of your patient. If you have any questions or concerns regarding treatment for the above conditions, or other urologic issues, please do not hesitate to contact me. The office telephone contact is [phone]. This note is constructed using voice recognition software. While every effort has been made to ensure accuracy audio production manager errors may have been included. Yours sincerely, Dr Itz Chaudhary MD, [facility] - Urology Providers of Expert, Compassionate Care for the Genitourinary System Coding Level of Care Code Est Pt Level 3 (70758) Diagnoses Recurrent urinary tract infection N39.0 Urge incontinence N39.41 CPT Codes Post Residual Void - PVR CPT Code: 15308-Lszu Void Residual by ultrasound ([id number])
== END 2023-10-07 15:04 | disposition home or self-care (01) ==
PROVIDERS: PCP Internal Medicine; Visit Provider Urology
DX: N39.0 Urinary tract infection, site not specified (principal); N39.41 Urge incontinence; Z13.9 Encounter for screening, unspecified
CPT/HCPCS: 99213

== ENCOUNTER → 2023-10-07 13:33 | Outpatient (BNVA) | payer OTHER, SELFPAY | PROVIDERS: PCP Internal Medicine; Visit Provider Urology | DX: N39.0 Urinary tract infection, site not specified (principal); N39.41 Urge incontinence | CPT/HCPCS: 51798; 81003; 99212 ==

== ENCOUNTER 2023-11-14 11:55 | Outpatient (REF) | payer OTHER, SELFPAY ==
[2023-11-14 14:54] LABS: Appearance Urine Turbid; Color Urine Yellow; Glucose Urine UA Negative (Negative); Leukocyte Esterase Urine Large (3+) (Negative); Nitrite Urine Positive (Negative); PH 5.5 (5.0-9.0); Specific Gravity - Urine 1.025 (1.005-1.025); UMIC TRIGGER UA YES; Urine Blood Negative (Negative); Urine Ketones Trace mg/dL (Negative); Urine Protein Trace mg/dL (Neg-Trace)
[2023-11-14 15:34] LABS: Bacteria Urine 4+ (None Seen); Hyaline Casts Urine 0-2 /LPF (0-2); RBC Urine 0-2 /HPF (0-2); WBC Urine >50 /HPF (0-5)
== END 2023-11-14 11:56 | disposition home or self-care (01) ==
LOC: HO.LAB 11:55
PROVIDERS: PCP Internal Medicine; Visit Provider Urology
DX: N39.0 Urinary tract infection, site not specified (principal); N39.41 Urge incontinence; R32 Unspecified urinary incontinence; B96.20 Unspecified Escherichia coli [E. coli] as the cause of diseases classified elsewhere
CPT/HCPCS: 81001; 87086; 87088; 87186

== ENCOUNTER 2023-12-20 09:21 | Outpatient (REF) | payer OTHER, SELFPAY ==
[2023-12-20 10:58] LABS: Anion Gap 13 (12-20); Blood Urea Nitrogen 13 mg/dL (9-16); Carbon Dioxide 28 mmol/L (22-29); Chloride 106 mmol/L (96-108); Estimated Glomerular Filt Rate 51; Sodium 142 mmol/L (135-145)
[2023-12-20 12:23] LABS: Creatinine Urine 167.73 mg/dL; Protein/Creatinine Ratio, Ur 0.19 (<0.2); Total Protein Urine Random 32 mg/dL (<12)
== END 2023-12-20 09:22 | disposition home or self-care (01) ==
LOC: HO.LAB 09:21
PROVIDERS: PCP Internal Medicine; Visit Provider Internal Medicine Nephrology
DX: I12.9 Hypertensive chronic kidney disease with stage 1 through stage 4 chronic kidney disease, or unspecified chronic kidney disease (principal); N18.30 Chronic kidney disease, stage 3 unspecified; N20.0 Calculus of kidney
CPT/HCPCS: 36415; 80051; 82565; 82570; 84156; 84520

== ENCOUNTER 2023-12-28 09:54 | Outpatient (AMB) | payer OTHER, SELFPAY ==
[2023-12-28 10:02] VITALS: BP 122/72; PULSE 83; O2SAT 97; BMI 25.9
--- NOTE | 2023-12-28 10:02 | HO.NEPHOV ---
Vital Signs 12/28/23 10:02 Height 5 ft 9 in Weight 175 lb 2 oz BMI 25.9 BP 122/72 Blood Pressure Location Rt brachial Position Sitting Pulse 83 Pulse Source Pulse Oximeter Pulse Oximetry (%) 97 Oxygen Delivery Method Room Air Intake Visit Reasons: CKD/ 6 MO FU- Conf Diffusion Furnace Operator Required: No Accompanied by: Daughter Allergies bee pollen [bee stings] Allergy (Intermediate, Verified 12/28/23 10:07) Swelling sertraline Allergy (Mild, Verified 12/28/23 10:07) Stomach Upset HPI Comments Details: I had the privilege of seeing Sarah in the office in follow-up of her chronic kidney disease. She has myasthenia gravis and has been followed up by neurologist in [facility]. She is not on Mestinone, Imuran, cellcept or IVIG. She has not had a chest CT. She is not having any weight loss, chest pain, shortness of breath, cough. She remains on significantly high dose of prednisone and has developed mariano facies. Her blood sugar control is quite suboptimal. She was on Farxiga which has been discontinued due to recurrent UTI. She has history of renal calculus and is on potassium citrate ( had USS which showed 4 mm calculus left kidney lower pole. Last 24 hour urine was in 2021). She denies nausea, vomiting, diarrhea, fever, chills, rigors, chest pain, shortness of breath, proximal nocturnal dyspnea, orthopnea, pedal edema or orthostatic symptoms. She does not take any nonsteroidal anti-inflammatory medications. She tries to maintain good hydration. She also sees urologist. He was accompanied by her daughter during this office visit. [facility] Medical History GERD (gastroesophageal reflux disease) Hypoglycemia Myasthenia gravis History of COVID-19 Hypothyroidism Deep vein thrombophlebitis of left leg Pulmonary embolism Congenital myasthenia gravis CKD (chronic kidney disease) Multinodular thyroid Adrenal insufficiency HLD (hyperlipidemia) HTN (hypertension) T2DM (type 2 diabetes mellitus) UTI (urinary tract infection) Trigeminy Asthma Cystitis cystica VIVI (stress urinary incontinence, female) Urinary frequency Gallstones Nocturia Urinary urgency Nephrolithiasis Surgical History Hx of colonoscopy S/P panniculectomy History of lithotripsy Hx of cystoscopy Hx of cholecystectomy History of pubovaginal sling History of hysterectomy History of gastric bypass (~2004) Family History Father CVD (cardiovascular disease) Heart attack HTN (hypertension) Mother Dementia Social History Household Members: Spouse Housing: House Are you a primary child care education coordinator to a significant other at home: No Do you presently have visiting nurse or other home services: No Alcohol intake: never Patient Tobacco Use Status: Former Tobacco user Tobacco use type: Cigarette Advance Directives Date on File: 02/18/20 service: No Current occupational status: retired and other Review of Systems Const All systems reviewed & are unremarkable except as noted in HPI and below Physical Exam Vital Signs: Last Vital Signs Pulse 83 12/28/23 10:02 BP 122/72 12/28/23 10:02 Pulse Ox 97 12/28/23 10:02 Oxygen Delivery Method Room Air 12/28/23 10:02 BMI result Body Mass Index 25.9 Const General: comfortable and no acute distress Orientation/consciousness: patient oriented x3 HEENT Head: Yes normocephalic Mouth: Normal oral and palatal mucosa present Eyes EOM: EOMs intact bilaterally Neck Neck: Yes supple Resp Auscultation: clear to auscultation bilaterally Cardio Jugular venous distension: no JVD Rate: regular rate GI Palpation (GI): Soft to palpation Auscultation: normal bowel sounds General: Yes no CVA tenderness Back/Spine/Pelvis Back: no CVA tenderness Skin General skin exam: no rashes or lesions noted Neuro General: patient oriented x3 and moves all extremities Extrem General: Yes no pedal edema Results Reviewed Nephrology Results: Sodium 142 mmol/L (135-145) 12/20/23 Potassium 5.0 mmol/L (3.3-5.1) 12/20/23 Chloride 106 mmol/L (96-108) 12/20/23 Carbon Dioxide 28 mmol/L (22-29) 12/20/23 BUN 13 mg/dL (9-16) 12/20/23 Creatinine 1.07 mg/dL (0.5-1.4) 12/20/23 Urine Protein Trace mg/dL (Neg-Trace) 11/14/23 Urine Creatinine 167.73 mg/dL 12/20/23 Protein/Creatinin Ratio 0.19 (<0.2) 12/20/23 Assessment & Plan Assessment & Plan (1) CKD (chronic kidney disease) stage 3, GFR 30-59 ml/min: Code(s): N18.30 - Chronic kidney disease, stage 3 unspecified Category: Medical Qualifiers: Chronic kidney disease stage 3 subtype: stage 3a (GFR 45-59) Qualified Code(s): N18.31 - Chronic kidney disease, stage 3a (2) Nephrolithiasis: Code(s): N20.0 - Calculus of kidney Category: Medical Plan Sarah has stage 3 chronic kidney disease. Her renal functions are currently stable She is renal calculus which had been stable in size. She is on potassium citrate. Her blood sugar control is suboptimal. She needs further workup and aggressive management for her myasthenia gravis by her neurologist. Her blood pressure is at goal. She avoids nonsteroidal anti-inflammatory medications and maintain good hydration. She should closely follow up with her urologist as well.(she had overactive bladder and a sling procedure done in the past). I did not make any medication changes today. I ordered follow-up lab work. All questions answered Orders: Orders Blood Urea Nitrogen 6 Months N18.31 - Chronic kidney disease, stage 3a Electrolytes 6 Months N18.31 - Chronic kidney disease, stage 3a Creatinine 6 Months N18.31 - Chronic kidney disease, stage 3a Coding Level of Care Code Est Pt Level 4 (14893) Diagnoses Stage 3a chronic kidney disease N18.31 Chronic kidney disease stage 3 subtype: stage 3a (GFR 45-59) Nephrolithiasis N20.0
== END 2023-12-28 10:35 | disposition home or self-care (01) ==
PROVIDERS: PCP Internal Medicine; Visit Provider Internal Medicine Nephrology
DX: N18.31 Chronic kidney disease, stage 3a (principal); N20.0 Calculus of kidney
CPT/HCPCS: 99214

== ENCOUNTER → 2023-12-28 09:54 | Outpatient (BNVA) | payer OTHER, SELFPAY | PROVIDERS: PCP Internal Medicine; Visit Provider Internal Medicine Nephrology | DX: N18.31 Chronic kidney disease, stage 3a (principal); N20.0 Calculus of kidney; G70.00 Myasthenia gravis without (acute) exacerbation | CPT/HCPCS: 99212 ==

== ENCOUNTER 2024-03-27 14:16 | Outpatient (AMB) | payer OTHER, SELFPAY ==
--- NOTE | 2024-03-27 14:20 | A.OFFVIS_ITS ---
Intake Visit Reasons: 6m follow up Intake Note: Patient is present for 6M F/U Urology Medication:OXYBUTYNIN,ALLOPURINOL,POTASSUM CITRATE,METHENAMINE HIPPURATE,ESTRADIOL Antibiotic Allergy:NONE Blood Thinner:NONE Dealer Compliance Representative Required: No Allergies bee pollen [bee stings] Allergy (Intermediate, Verified 03/27/24 14:22) Swelling sertraline Allergy (Mild, Verified 03/27/24 14:22) Stomach Upset HPI Comments Details: Sarah is a pleasant female. She is a patient of Dr. Alcantara Seen for the following urologic conditions - nephrolithiasis - stress urinary incontinence - urge incontinence PVR 0 cc UTI today in office Will organize culture Treat with Levaquin then used suppression Macrobid Followed by Dr. Knight Continues with estradiol Continue methenamine and vitamin-C with Estrace Off Jardiance - negative urine today Recurrent urinary tract infection E coli pansensitive 04/09, 07/09, 01/09 Nephrolithiasis Recurrent Prior gastric bypass TUMS with main meal Intervention - 01/07 left ureteroscopy Imaging - 01/07 CT scan left 6 mm distal ureteric stone, right 4 mm - 10/08 renal US minimal stones - 04/09 renal ultrasound 4 mm left Composition - 01/07 mixed calcium oxalate monohydrate 80% Therapeutic plan - continue potassium citrate from Dr. Knight Stress urinary incontinence Status post vaginal sling Slight feelings of incomplete emptying PVR is less than 30 cc Otherwise doing well Would like to go on the water in 2 weeks time. She is cleared for water walking but not swimming. At cystoscopy had low Valsalva leak point pressure with posterior urethra rotation Overactive Bladder Good response to oxybuytinin PFSH Medical History GERD (gastroesophageal reflux disease) Hypoglycemia Myasthenia gravis History of COVID-19 Hypothyroidism Deep vein thrombophlebitis of left leg Pulmonary embolism Congenital myasthenia gravis CKD (chronic kidney disease) Multinodular thyroid Adrenal insufficiency HLD (hyperlipidemia) HTN (hypertension) T2DM (type 2 diabetes mellitus) UTI (urinary tract infection) Trigeminy Asthma Cystitis cystica VIVI (stress urinary incontinence, female) Urinary frequency Gallstones Nocturia Urinary urgency Nephrolithiasis Surgical History Hx of colonoscopy S/P panniculectomy History of lithotripsy Hx of cystoscopy Hx of cholecystectomy History of pubovaginal sling History of hysterectomy History of gastric bypass (~2004) Family History Father CVD (cardiovascular disease) Heart attack HTN (hypertension) Mother Dementia Social History Household Members: Spouse Housing: House Are you a primary hospice care transitions coordinator to a significant other at home: No Do you presently have visiting nurse or other home services: No Alcohol intake: never Patient Tobacco Use Status: Former Tobacco user Tobacco use type: Cigarette Advance Directives Date on File: 02/18/20 service: No Current occupational status: retired and other Review of Systems Const Denies chills and Denies fever(s) Card Reports no additional complaints and Denies syncope Resp Denies cough GI Denies abdominal pain and Denies heartburn Reports as per HPI and Denies change in libido Neuro Denies syncope Psych Denies change in libido Endo Denies change in libido Physical Exam Const General: cooperative, healthy appearing, comfortable and no acute distress Orientation/consciousness: patient oriented x3 HEENT Face and sinus: Yes normal facial exam Mouth: moist mucous membranes Neck Neck: Yes normal visual inspection, Yes full ROM and Yes trachea midline Chest Chest palpation & inspection: normal inspection of the chest Resp Effort & Inspection: normal respiratory effort, able to speak in complete sentences and no respiratory distress GI Inspection: Yes normal to inspection Back/Spine/Pelvis Cervical Spine: normal cervical lordosis Thoracic/Lumbar Spine: thoracic and lumbar spine normal to inspection Skin General skin exam: no rashes or lesions noted Neuro General: patient oriented x3, gait normal, tone normal and moves all extremities Extrem General: Yes normal to inspection and Yes capillary refill normal Results AMB Urinalysis, Automated UA Leukoctes 125 Angelica/uL Last Edit by KATHERINE Garvey on 03/27/24 14:42 UA Nitrite Positive Last Edit by KATHERINE Garvey on 03/27/24 14:42 UA Urobilinogen 0.2 mg/dL Last Edit by KATHERINE Garvey on 03/27/24 14:4 2 UA Protein 30 mg/dL Last Edit by KATHERINE Garvey on 03/27/24 14:42 UA pH 6.0 Last Edit by KATHERINE Garvey on 03/27/24 14:42 UA Blood 25 Armond/uL Last Edit by KATHERINE Garvey on 03/27/24 14:42 UA Specific Nelson 1.025 Last Edit by KATHERINE Garvey on 03/27/24 14: 42 UA Ketone Negative Last Edit by KATHERINE Garvey on 03/27/24 14:42 UA Bilirubin 0 mg/dL Last Edit by KATHERINE Garvey on 03/27/24 14:42 UA Glucose 0 mg/dL Last Edit by KATHERINE Garvey on 03/27/24 14:42 Assessment & Plan Assessment & Plan (1) Nephrolithiasis: Code(s): N20.0 - Calculus of kidney Category: Medical (2) Urinary frequency: Code(s): R35.0 - Frequency of micturition Category: Medical Plan Start suppression antibiotics Repeat ultrasound Review in office Orders: Orders AMB Urinalysis Automated Today Z13.9 - Encounter for screening, unspecified Medications: New nitrofurantoin macrocrystal must administer with a meal/food. Start once you finish levaquin course. 50 mg PO BEDTIME 90 days 90 caps 1RF N39.0 - Urinary tract infection, site not specified levofloxacin 500 mg PO DAILY 14 days 14 tabs 0RF N39.0 - Urinary tract infection, site not specified Patient Instructions: Imaging studies, laboratory and physical exam results were discussed and reviewed in detail. No major barriers to patient understanding were identified. An opportunity to ask questions regarding the treatment plan was provided. All questions were answered. The patient expressed understanding and agreement with the above treatment plan. The patient is aware they should contact our office by phone for worsening of their current condition or the appearance of new urologic symptoms. Compliance is encouraged with any medications and followup testing that is ordered. It is a privilege to participate in the urologic care of your patient. If you have any questions or concerns regarding treatment for the above conditions, or other urologic issues, please do not hesitate to contact me. The office telephone contact is [phone]. This note is constructed using voice recognition software. While every effort has been made to ensure accuracy qc manager errors may have been included. Yours sincerely, Dr Itz Chaudhary MD, [facility] - Urology Providers of Expert, Compassionate Care for the Genitourinary System Coding Level of Care Code Est Pt Level 4 (64585) Diagnoses Nephrolithiasis N20.0 Urinary frequency R35.0
== END 2024-03-27 14:58 | disposition home or self-care (01) ==
PROVIDERS: PCP Internal Medicine; Visit Provider Urology
DX: N20.0 Calculus of kidney (principal); R35.0 Frequency of micturition; Z13.9 Encounter for screening, unspecified
CPT/HCPCS: 99214

== ENCOUNTER → 2024-03-27 14:16 | Outpatient (BNVA) | payer OTHER, SELFPAY | PROVIDERS: PCP Internal Medicine; Visit Provider Urology | DX: N20.0 Calculus of kidney (principal); R35.0 Frequency of micturition | CPT/HCPCS: 81003; 99212 ==

== ENCOUNTER 2024-06-21 12:44 | Outpatient (REF) | payer OTHER, SELFPAY ==
--- NOTE | ~2024-06-21 | US_ITS ---
EXAMINATION: US KIDNEY BILATERAL HISTORY: N39.0 - Urinary tract infection, site not specified TECHNIQUE: Real-time grayscale ultrasound imaging of the kidneys was performed and images were reviewed. COMPARISON: Comparison is made with the prior examination dated 03/23/2023. FINDINGS: Right kidney: The right kidney measures 12.1 x 4.5 x 5.3 cm. Renal parenchymal echotexture and thickness are normal. There are no masses. There is no hydronephrosis or renal calculi. Left Kidney: The left kidney measures 10.1 x 4.5 x 4.1 cm. Renal parenchymal echotexture and thickness are normal. There are no masses. There is a 2 mm nonobstructing calculus in the interpolar region. There is no hydronephrosis. US/US renal BI IMPRESSION: 2 mm left renal calculus. Otherwise unremarkable renal ultrasound. Electronically signed by: Moncho Strickland MD 06/22/2024 02:14 PM JENNIFER
--- OUTSIDE RECORDS SUMMARY | 2024-06-21 15:21 | XMS_ITS | Clinical Summary ---
Author Organization [facility] Address [address] [place] [address] Care Team Providers Care Air Operations Manager Name Role Phone Troy Montgomery Primary Care Provider [phone] Allergies Active Allergy Reactions Criticality Noted Date Comments Bee Venom Protein (Honey Bee) Swelling,Hives High Medications albuterol sulfate 90 mcg/actuation aerosol powdr breath activated Inhale 2 puffs by mouth. Active cholecalciferol , vitamin D3, 50 mcg (2,000 unit) tablet,chewable Chew and swallow 50 mcg by mouth. Active oxybutynin XL (DITROPAN XL) 10 mg tablet Take 1 tablet by mouth. 10/16/2021 Active escitalopram (LEXAPRO) 20 mg tablet 10/16/2021 Active calcium carbonate-vitam in D3 (Calcium 600 + D,3,) 600 mg-10 mcg (400 unit) per tablet 10/16/2021 Active Synthroid 100 mcg tablet Take 100 mcg by mouth. 09/19/2022 Active allopurinoL (ZYLOPRIM) 100 mg tablet Take 100 mg by mouth. 10/16/2021 Active Yuvafem 10 mcg tablet Insert into the vagina 2 times a week. 01/12/2023 Active potassium citrate ER (UROCIT-K) 10 mEq (1,080 mg) tablet Take 10 mEq by mouth once a day. 03/17/2022 Active vit C/E/Zn/coppr/lex tein/zeaxan (PRESERVISION AREDS-2 ORAL) Take by mouth 2 times a day. 04/23/2022 Active ascorbic acid, vitamin C, 1,000 mg capsule Take 1,000 mg by mouth once a day. 07/15/2023 Active methenamine (HIPREX) 1 gram tablet Take 1 g by mouth once a day. 07/15/2023 Active Ozempic 0.25 mg or 0.5 mg (2 mg/3 mL) pen injector Inject 0.25 mg under the skin per week. 02/28/2023 Active alendronate (FOSAMAX) 70 mg tablet Take 70 mg by mouth once a week. 06/01/2023 Active atorvastatin (LIPITOR) 10 mg tablet 10 mg nightly. 11/11/2023 Active metFORMIN 625 mg tablet once a day. 11/16/2023 Active aspirin chewable tablet 81 mg Chew and swallow 81 mg by mouth daily. Active predniSONE (DELTASONE) 2.5 mg tablet Take 1 tablet (2.5 mg total) by mouth once a day. 90 tablet 05/17/2024 Active predniSONE (DELTASONE) 10 mg tablet Take 1 tablet (10 mg total) by mouth once a day. 90 tablet 05/17/2024 Active Active Problems Problem Noted Date Diagnosed Date Ocular myasthenia gravis 12/06/2023 Encounters Date Type Department Care Team Description 05/17/2024 3:30 PM EST Office Visit [facility] [address] [place] [phone] Alva Thompson DO Ocular myasthenia gravis (HCC) (Primary Dx); Dry mouth; Dry eyes 03/29/2024 Refill [facility] [address] [place] [address] Alva Thompson DO 03/28/2024 myChart Message [facility] [address] [place] [address] Alva Thompson DO Levaquin from Last 3 Months Social History Tobacco Use Types Packs/Day Years Used Date Smoking Tobacco: Former Cigarettes Smokeless Tobacco: Former Tobacco Cessation:Counseling Given: Not Answered Alcohol Use Standard Drinks/Week Comments Never 0 (1 standard drink = 0.6 oz pur e alcohol) Comments Unknown Sex and Gender Information Value Date Recorded Sex Assigned at Female 10/04/2022 11:35 AM EDT Legal Sex Female 2:55 PM EDT Gender Identity Female 10/04/2022 11:35 AM EDT Sexual Orientation Straight 10/04/2022 11 :35 AM EDT Last Filed Vital Signs Vital Sign Reading Time Taken Comments Blood Pressure 122/75 05/17/2024 3:17 PM EST Pulse 87 05/17/2024 3:17 PM EST Temperature 36.3 ??C (97.3 ??F) 05/17/2024 3:17 PM ES T Respiratory Rate 18 05/17/2024 3:17 PM EST Oxygen Saturation 96% 05/17/2024 3:17 PM EST Inhaled Oxygen Concentration - - Weight 78 kg (172 lb) 05/17/2024 3:17 PM EST Height 175.3 cm (5' 9 ) 05/17/2024 3:17 PM EST Body Mass Index 25.4 05/17/2024 3:17 PM EST Plan of Treatment Upcoming Encounters Date Type Department Care Team (Late st Contact Info) Description 09/27/2024 2:45 PM EDT Office Visit [facility] [address] [place] [address] Alva Thompson, [address] [place] [address] Health Maintenance Due Date Last Done Comments Cologuard 1955 Colon Cancer Screening 1955 Colonoscopy 1954 FOBT / Fit Test 1955 Hepatitis C Screening 1955 Sigmoidoscopy [address] Lung Cancer Screening (Baseline) 2004 Osteoporosis Screening 2004 Hepatitis B Vaccines (3 of 3 - Hep B Twinrix 3-dose series) 07/31/2009 02/26/2009, 01/30/2009 DTaP,Tdap,and Td Vaccines (2 - Td or Tdap) 03/26/2020 03/26/2010 Zoster Vaccines (3 of 3) 06/24/2020 04/29/2020, 10/2016 Alcohol/Substance Use Screening 04/18/2024 Depression Screening and Follow-Up 04/18/2024 Health Care Proxy Review 04/18/2024 Social Drivers of Health Cally ual Screening 04/18/2024 COVID-19 Vaccine (2023-2 5 season) 2024 12/27/2023, 01/14/2023, 01/26/2022, Additional history exists Influenza Vaccine Completed 12/27/2023, , 02/02/2022, Additional history exists RSV Vaccine (60+ years old a nd patients) Completed 12/27/2023, 03/14/2023 Pneumococcal Vaccine: 50+ Years Completed 01/11/2024, 11/19/2022, 03/26/2010 Insurance [facility] Care Teams Air Operations Manager Relationship Specialty Start Date End Date Troy Montgomery [address] [place] [address] [place] [address] PCP - General 06/10/22
--- OUTSIDE RECORDS SUMMARY | 2024-06-21 15:21 | XMS_ITS | Clinical Summary ---
Author Organization [facility] Address [address] [place] [address] Phone Care Team Providers Care Turbine Engine Assembler Name Role Phone Troy Montgomery MD Primary Care Provider [phone] Allergies No known active allergies Medications allopurinol (ZYLOPRIM) 100 MG tablet Take 100 mg by mouth 1 (one) time each day Active Pyridostigmine [place] 30 MG tablet Take 30 mg by mouth 3 times a day Active predniSONE (DELTASONE) 1 MG tablet Take 30 mg by mouth 1 (one) time each day Active Cholecalciferol (Vitamin D3) 50 MCG (2000 UT) chewable tablet Chew 50 mcg 1 (one) time each day Active Albuterol Sulfate 108 (90 Base) MCG/ACT aerosol powder Inhale 2 puffs 4 (four) times a day if needed Active ESCITALOPRAM OXALATE PO Take 1.5 tablets by mouth 1 (one) time each day Active famotidine (PEPCID) 20 MG tablet Take 20 mg by mouth in the morning and 20 mg in the evening. Active atorvastatin (LIPITOR) 40 MG tablet Take 1 tablet by mouth 1 (one) time each day 01/13/2022 Active oxybutynin XL (DITROPAN-XL) 10 MG 24 hr tablet Take 1 tablet by mouth 1 (one) time each day 11/20/2021 Active calcium carbonate (Tums) 500 MG chewable tablet Chew 1 tablet (500 mg total) in the morning and 1 tablet (500 mg total) in the evening and 1 tablet (500 mg total) before bedtime. 100 tablet 3 03/17/2022 Active ferrous sulfate 325 (65 Fe) MG EC tablet Take 1 tablet by mouth 1 (one) time each day 06/28/2022 Active Synthroid 100 MCG tablet Take 100 mcg by mouth 1 (one) time each day 09/19/2022 Active Ozempic, 0.25 or 0.5 MG/DOSE, 2 MG/3ML solution pen-injector Inject 0.5 mg under the skin every 7 (seven) days 09/10/2022 Active Multiple Vitamins-Minera ls (PRESERVISION AREDS 2 PO) Take 2 tablets by mouth 1 (one) time each day Active Active Problems No known active problems Family History Medical History Relation Comments Cancer Mother Dementia Mother Relation Status Comments Mother Social History Tobacco Use Types Packs/Day Years Used Date Smoking Tobacco: Never Smokeless Tobacco: Never Tobacco Cessation:Counseling Given: Not Answered Alcohol Use Standard Drinks/Week Comments Yes 0 (1 standard drink = 0.6 oz pur e alcohol) Comments Unknown Sex and Gender Information Value Date Recorded Sex Assigned at Not on file Legal Sex Female 1:03 PM EDT Gender Identity Not on file Sexual Orientation Not on file Last Filed Vital Signs Vital Sign Reading Time Taken Comments Blood Pressure 110/58 09/29/2022 2:03 PM EDT Pulse 64 09/29/2022 2:03 PM EDT Temperature - - Respiratory Rate - - Oxygen Saturation 98% 09/29/2022 2:03 PM EDT Inhaled Oxygen Concentration - - Weight 78.5 kg (173 lb) 09/29/2022 2:03 PM EDT Height 175.3 cm (5' 9 ) 09/29/2022 2:03 PM EDT Body Mass Index 25.55 09/29/2022 2:03 PM EDT Plan of Treatment Health Maintenance Due Date Last Done Comments Breast Cancer Screening 1954 Pneumococcal Vaccine: 65+ Ye ars (1 of 2 - PCV) 1960 Colorectal Cancer Screening: Annual FOBT 07/20/2003 Colorectal Cancer Screening: Colonoscopy 07/20/2003 Colorectal Cancer Screening: Sigmoidoscopy 07/20/2003 Hepatitis B Vaccine (3 of 3 - Hep B Twinrix 3-dose series) 07/31/2009 02/26/2009, 01/30/2009 Influenza Vaccine (#1) [address] [place] [address] Care Teams Turbine Engine Assembler Relationship Specialty Start Date End Date Troy Montgomery MD [address] PCP - General Internal Medicine 02/09/22
--- OUTSIDE RECORDS SUMMARY | 2024-06-21 15:21 | XMS_ITS | Clinical Summary ---
Author Organization [facility] Address [address] [place] [address] Care Team Providers Care Extra Hand Name Role Phone Unavailable Primary Care Provider Unavailabl e Social History Tobacco Use Types Packs/Day Years Used Date Smoking Tobacco: Never Assessed Sex and Gender Information Value Date Recorded Sex Assigned at Not on file Gender Identity Not on file Sexual Orientation Not on file Plan of Treatment Health Maintenance Due Date Last Done Comments Hepatitis C Virus Screening 1954 DTaP/Tdap/Td Vaccines (1 - Tdap) 1973 Pneumococcal Vaccines 50+ (1 of 1 - PCV) 2004 Zoster (Shingles) Vaccine (1 of 2) 2004 COVID-19 Vaccine ( - 2023-2 5 season) 2023 RSV Vaccine 60 years and old er and Patients (1 - 1-dose 75+ series) 2029 Hepatitis B Vaccines Aged Out No long er eligible based on patient's age to complete this topic
--- OUTSIDE RECORDS SUMMARY | 2024-06-21 15:21 | XMS_ITS | Patient Health Record ---
Author Organization [facility] Address [address] [place] [address] Care Team Providers Care Personal Property Assessor Name Role Phone SANTOS PAIZ Primary Care Provider Antonino Diaz Jr Allergies Allergen (clinical drug ingredient) Drug/Non Drug Allergy documented on EMR Reaction Allergy Type Onset Date Status Bee Sting Unknown Allergy Active Reason For Referral No Information Medications Medication SIG (Take, Route, Frequency, Duration) Notes Start Date End Date Status predniSONE 20 MG 1 tablet Orally Once a day for 30 day(s) Active Atorvastatin Calcium 40 MG 1 tablet Oral ly Once a day for 30 day(s) Active Lipitor 10 MG 1 tablet Orally Once a day Active MiraLax (colon prep) 17 GM/SCOOP mixed with Gatorade or Crystal Light Orally begin at 5:00 p.m. the day before the procedure for 1 day 06/23/2022 Active Famotidine 20 MG 1 tablet at bedtime as needed Orally Once a day for 30 day(s) Active Vitamin B-6 100 MG 1 tablet Orally Once a day for 30 day(s) Active Vitamin D-3 25 MCG (1000 UT) 1 capsule Orally Once a day for 30 day(s) Active Furosemide 20 MG 1 tablet Orally Once a day for 30 day(s) Active Levothyroxine Sodium 125 MCG 1 tablet in the morning on an empty stomach Orally Once a day for 30 day(s) Active Allopurinol 100 MG 1 tablet Orally Once a day for 30 day(s) Active Sertraline HCl 100 MG 1 tablet Orally tw ice a day Active Eliquis 5 MG 1 tablet Orally Twic e a day for 30 day(s) Active Synthroid 137 MCG 1 tablet Orally Once a day Active Lasix 20 MG 1 tablet Orally Once a day for 30 day(s) Active pyRIDostigmine [place] 60 MG 1 tablet Orally every 4 hrs for 30 day(s) Active Calcium 600 MG 1 tablet with meals Orally Twice a day for 30 day(s) Active Potassium Citrate ER 10 MEQ (1080 MG) 1 tablet with meals Orally Three times a day for 30 day(s) Active oxyBUTYnin Chloride ER 10 MG 1 tablet Orally Once a day for 30 day(s) Active Trulicity 0.75 MG/0.5ML as directed Subcutaneous Active Escitalopram Oxalate 10 MG 1 tablet Oral ly Once a day for 30 day(s) Active Immunizations Vaccine Route Administration Date Status Comme nts Influenza Unknown 02/02/2022 Administered Problems Problem Type SNOMED Code ICD Code Onset Dates Problem Status W/U Status Risk Notes Problem [id number] Abdominal pain, unspecified abdominal location (R10.9) Active confirmed Plan Of Treatment Pending Test Test Name Order Date IgA 06/23/2022 TRANSGLUTAMINASE AB IGA 06/23/2022 TRANSGLUTAMINASE AB IGA 06/30/2022 Future Test Test Name Order Date UPPER GI ENDOSCOPY 10/09/2014 COLONOSCOPY 10/09/2014 COLONOSCOPY 06/23/2022 Next Appt Details Provider Name:Antonino king , 09/03/2024 11:00:00 AM, [address] [place] [address], [address], [place], [address], Insurance Providers Payer Name Payer Address Payer Phone Subscriber Number Group Number Insured Name Patient Relationship to Insured Coverage Start Date Coverage End Date FAMILY HEALTH PLAN (REFERRA L NEEDED) [address] [place] [address] [id number] GEE NARANJO Self - patient is the insured Medical (General) History Medical History History ICD Code hypothyroid diabetes mellitus deaf in right ear depression elevated cholesterol Myasthenia gravis adrenal insufficiency kidney stones DVT/PE Surgical History Surgery Date(Month/Year) tubal ligation partial hysterectomy Laparoscopic Hemal-en-Y gastric bypass lithotripsy dec 2021 Abdominoplasty Cholecystectomy Urethral sling Hospitalization History Reason Date(Month/Year) in hospital 4 times dec 2021
--- OUTSIDE RECORDS SUMMARY | 2024-06-21 15:21 | XMS_ITS | Referral Summary ---
Author Organization [facility] Address [address] [place] [address] Care Team Providers Care Counterintelligence Analyst Name Role Phone Troy Montgomery Primary Care Provider [phone] Encounters Date Type Department Care Team Description 05/17/2024 3:30 PM EST Office Visit [facility] [address] [place] [address] Alva Thompson, Ocular myasthenia gravis (HCC) (Primary Dx); Dry mouth; Dry eyes 03/29/2024 Refill [facility] [address] [place] [address] Alva Thompson DO 03/28/2024 myChart Message [facility] [address] [place] [address] Alva Thompson, DO Levaquin from Last 3 Months Allergies Active Allergy Reactions Criticality Noted Date [...] Date Diagnosed Date Ocular myasthenia gravis 12/06/2023 Social History Tobacco Use Types Packs/Day Years [...] Description 09/27/2024 2:45 PM EDT Office Visit [facility] [address] [place] [phone] Alva Thompson, [address] [place] [address] [place] [place] [address] [place] [id number] Care Teams Counterintelligence Analyst Relationship Specialty Start Date End Date Troy Montgomery [address] [place] [address] PCP - General 06/10/22
== END 2024-06-21 12:45 | disposition home or self-care (01) ==
LOC: HO.US 12:44
PROVIDERS: PCP Internal Medicine; Visit Provider Urology
DX: N39.0 Urinary tract infection, site not specified (principal); N39.41 Urge incontinence; N20.0 Calculus of kidney; N39.3 Stress incontinence (female) (male); R35.0 Frequency of micturition
CPT/HCPCS: 76775

== ENCOUNTER → 2024-06-21 12:46 | Outpatient (BNV) | payer OTHER, SELFPAY | PROVIDERS: PCP Internal Medicine; Visit Provider Radiology Diagnostic Radiology | DX: N20.0 Calculus of kidney (principal) | CPT/HCPCS: 76775 ==

== ENCOUNTER 2024-06-27 09:35 | Outpatient (AMB) | payer OTHER, SELFPAY ==
--- NOTE | 2024-06-27 09:44 | HO.NEPHOV ---
Vital Signs 06/27/24 09:46 Height 5 ft 9 in Weight 171 lb 2 oz BMI 25.3 BP 114/70 Blood Pressure Location Rt brachial Position Sitting Pulse 87 Pulse Source Pulse Oximeter Pulse Oximetry (%) 97 Oxygen Delivery Method Room Air Intake Visit Reasons: CKD Accompanied by: Self / Same As Patient Allergies bee pollen [bee stings] Allergy (Intermediate, Verified 06/27/24 09:46) Swelling sertraline Allergy (Mild, Verified 06/27/24 09:46) Stomach Upset HPI Comments Details: Sarah was seen in the office in follow-up of her chronic kidney disease. She has myasthenia gravis and has been followed up by neurologist in [facility]. She is not on Mestinone, Imuran, cellcept or IVIG. She has not had a chest CT. She is not having any weight loss, chest pain, shortness of breath, cough. She remains on significantly high dose of prednisone and has developed mariano facies. Her blood sugar control is quite suboptimal. She was on Farxiga which has been discontinued due to recurrent UTI. She has history of renal calculus and is on potassium citrate ( had USS which showed 4 mm calculus left kidney lower pole. Last 24 hour urine was in 2021). She denies nausea, vomiting, diarrhea, fever, chills, rigors, chest pain, shortness of breath, proximal nocturnal dyspnea, orthopnea, pedal edema or orthostatic symptoms. She does not take any nonsteroidal anti-inflammatory medications. She tries to maintain good hydration. She also sees urologist. [facility] Medical History GERD (gastroesophageal reflux disease) Hypoglycemia Myasthenia gravis History of COVID-19 Hypothyroidism Deep vein thrombophlebitis of left leg Pulmonary embolism Congenital myasthenia gravis CKD (chronic kidney disease) Multinodular thyroid Adrenal insufficiency HLD (hyperlipidemia) HTN (hypertension) T2DM (type 2 diabetes mellitus) UTI (urinary tract infection) Trigeminy Asthma Cystitis cystica VIVI (stress urinary incontinence, female) Urinary frequency Gallstones Nocturia Urinary urgency Nephrolithiasis Surgical History Hx of colonoscopy S/P panniculectomy History of lithotripsy Hx of cystoscopy Hx of cholecystectomy History of pubovaginal sling History of hysterectomy History of gastric bypass (~2004) Family History Father CVD (cardiovascular disease) Heart attack HTN (hypertension) Mother Dementia Social History Household Members: Spouse Housing: House Are you a primary hemodialysis patient care specialist to a significant other at home: No Do you presently have visiting nurse or other home services: No Alcohol intake: never Patient Tobacco Use Status: Former Tobacco user Tobacco use type: Cigarette Advance Directives Date on File: 02/18/20 service: No Current occupational status: retired and other Review of Systems Const All systems reviewed & are unremarkable except as noted in HPI and below Physical Exam Vital Signs: Last Vital Signs Pulse 87 06/27/24 09:46 BP 114/70 06/27/24 09:46 Pulse Ox 97 06/27/24 09:46 Oxygen Delivery Method Room Air 06/27/24 09:46 BMI result Body Mass Index 25.3 Const General: comfortable and no acute distress Orientation/consciousness: patient oriented x3 HEENT Head: Yes normocephalic Mouth: Normal oral and palatal mucosa present Eyes EOM: EOMs intact bilaterally Neck Neck: Yes supple Resp Auscultation: clear to auscultation bilaterally Cardio Jugular venous distension: no JVD Rate: regular rate GI Palpation (GI): Soft to palpation Auscultation: normal bowel sounds Skin General skin exam: no rashes or lesions noted Neuro General: patient oriented x3 and moves all extremities Extrem General: Yes no pedal edema Results Reviewed Nephrology Results: Sodium 142 mmol/L (135-145) 12/20/23 Potassium 5.0 mmol/L (3.3-5.1) 12/20/23 Chloride 106 mmol/L (96-108) 12/20/23 Carbon Dioxide 28 mmol/L (22-29) 12/20/23 BUN 13 mg/dL (9-16) 12/20/23 Creatinine 1.07 mg/dL (0.5-1.4) 12/20/23 Urine Protein Trace mg/dL (Neg-Trace) 11/14/23 Urine Creatinine 167.73 mg/dL 12/20/23 Protein/Creatinin Ratio 0.19 (<0.2) 12/20/23 Renal US 06/21/24 Assessment & Plan Assessment & Plan (1) CKD (chronic kidney disease) stage 3, GFR 30-59 ml/min: Code(s): N18.30 - Chronic kidney disease, stage 3 unspecified Category: Medical Qualifiers: Chronic kidney disease stage 3 subtype: stage 3a (GFR 45-59) Qualified Code(s): N18.31 - Chronic kidney disease, stage 3a (2) HTN (hypertension): Code(s): I10 - Essential (primary) hypertension Category: Medical Qualifiers: Hypertension type: primary hypertension Qualified Code(s): I10 - Essential (primary) hypertension (3) Nephrolithiasis: Code(s): N20.0 - Calculus of kidney Category: Medical Plan Sarah has stage 3 chronic kidney disease. Her renal functions are currently stable She is renal calculus which had been stable in size. She is on potassium citrate. Her blood sugar control is better. Her blood pressure is at goal. She avoids nonsteroidal anti-inflammatory medications and maintain good hydration. She should closely follow up with her urologist as well.(she had overactive bladder and a sling procedure done in the past). I did not make any medication changes today. I ordered follow-up lab work. All questions answered Orders: Orders Blood Urea Nitrogen Today N18.31 - Chronic kidney disease, stage 3a Creatinine Today N18.31 - Chronic kidney disease, stage 3a Electrolytes Today N18.31 - Chronic kidney disease, stage 3a Coding Level of Care Code Est Pt Level 4 (13095) Diagnoses Stage 3a chronic kidney disease N18.31 Chronic kidney disease stage 3 subtype: stage 3a (GFR 45-59) Primary hypertension I10 Hypertension type: primary hypertension Nephrolithiasis N20.0
[2024-06-27 09:46] VITALS: BP 114/70; PULSE 87; O2SAT 97; BMI 25.3
--- OUTSIDE RECORDS SUMMARY | 2024-06-27 10:29 | XMS_ITS | Clinical Summary ---
Author Organization [facility] Address [address] [place] [address] Care Team Providers Care Senior Functional Analyst Name Role Phone Troy Montgomery Primary Care Provider [phone] Allergies Active Allergy Reactions Criticality Noted Date [...] Description 05/17/2024 3:30 PM EST Office Visit [facility] [address] [place] [phone] Alva Thompson DO Ocular myasthenia gravis (HCC) (Primary Dx); Dry mouth; Dry eyes 03/29/2024 Refill [facility] [address] [place] [address] Alva Thompson DO from Last 3 Months Social History Tobacco [...] Description 09/27/2024 2:45 PM EDT Office Visit [facility] [address] [place] [phone] Alva Thompson DO [address] [place] [id number] Health Maintenance Due Date Last Done Comments [...] Years Completed 01/11/2024, 11/19/2022, 03/26/2010 Insurance [facility] Care Teams Senior Functional Analyst Relationship Specialty Start Date End Date Troy Montgomery [address] [place] [address] PCP - General 06/10/22
--- OUTSIDE RECORDS SUMMARY | 2024-06-27 10:29 | XMS_ITS | Patient Health Record ---
Author Organization [facility] Address [address] [place] [phone] Care Team Providers Care Transit Planning Director Name Role Phone SANTOS PAIZ Primary Care [...] a day for 30 day(s) Active pyRIDostigmine [place] 60 MG 1 tablet Orally every 4 [...] Problem Status W/U Status Risk Notes Problem [id number] Abdominal pain, unspecified abdominal location (R10.9) Active confirmed Plan Of Treatment Pending Test Test Name Order Date IgA 06/23/2022 TRANSGLUTAMINASE AB IGA 06/30/2022 TRANSGLUTAMINASE AB IGA 06/23/2022 Future Test Test Name Order Date UPPER GI ENDOSCOPY 10/09/2014 COLONOSCOPY 10/09/2014 COLONOSCOPY 06/23/2022 Next Appt Details Provider Name:Antonino king , 09/03/2024 11:00:00 AM, [address] [place] [address], [address], [place], [address], Insurance Providers Payer Name Payer Address Payer Phone Subscriber Number Group Number Insured Name Patient Relationship to Insured Coverage Start Date Coverage End Date FAMILY HEALTH PLAN (REFERRA L NEEDED) [address] [place] [id number] GEE NARANJO Self - patient is the [...]
--- OUTSIDE RECORDS SUMMARY | 2024-06-27 10:29 | XMS_ITS | Clinical Summary ---
Author Organization [facility] Address [address] [place] [address] Care Team Providers Care Glazing Department Supervisor Name Role Phone Unavailable Primary Care Provider [...]
--- OUTSIDE RECORDS SUMMARY | 2024-06-27 10:29 | XMS_ITS | Referral Summary ---
Author Organization [facility] Address [address] [place] [address] Care Team Providers Care Napper Tender Name Role Phone Troy Montgomery Primary Care Provider [phone] Encounters Date Type Department Care Team Description 05/17/2024 3:30 PM EST Office Visit [facility] [address] [place] [address] Alva Thompson, Ocular myasthenia gravis (HCC) (Primary Dx); Dry mouth; Dry eyes 03/29/2024 Refill [facility] [address] [place] [address] Alva Thompson, from Last 3 Months Allergies Active Allergy [...] Description 09/27/2024 2:45 PM EDT Office Visit [facility] [address] [place] [address] [phone] Alva Thompson DO [address] [place] [address] [place] [address] FAMILY Care Teams Napper Tender Relationship Specialty Start Date End Date Troy Montgomery [address] [place] [address] [facility] - General 06/10/22
--- OUTSIDE RECORDS SUMMARY | 2024-06-27 10:29 | XMS_ITS | Clinical Summary ---
Author Organization [facility] Address [address] [place] [address] Phone Care Team Providers Care Academic Interventionist Name Role Phone Troy Montgomery MD Primary Care Provider [phone] Allergies No known active allergies Medications allopurinol (ZYLOPRIM) 100 MG tablet Take 100 mg by mouth 1 (one) time each day Active Pyridostigmine [place] 30 MG tablet Take 30 mg by [...] 02/26/2009, 01/30/2009 Influenza Vaccine (#1) [address] [place] [address] Care Teams Academic Interventionist Relationship Specialty Start Date End Date Troy Montgomery MD [address] PCP - General Internal Medicine 02/09/22
== END 2024-06-27 10:05 | disposition home or self-care (01) ==
LOC: HO.HKA 09:36
PROVIDERS: PCP Internal Medicine; Visit Provider Internal Medicine Nephrology
DX: N18.31 Chronic kidney disease, stage 3a (principal); I10 Essential (primary) hypertension; N20.0 Calculus of kidney
CPT/HCPCS: 99214

== ENCOUNTER → 2024-06-27 09:35 | Outpatient (BNVA) | payer OTHER, SELFPAY | PROVIDERS: PCP Internal Medicine; Visit Provider Internal Medicine Nephrology | DX: I12.9 Hypertensive chronic kidney disease with stage 1 through stage 4 chronic kidney disease, or unspecified chronic kidney disease (principal); N18.31 Chronic kidney disease, stage 3a; N20.0 Calculus of kidney | CPT/HCPCS: 99212 ==

== ENCOUNTER 2024-06-27 10:16 | Outpatient (REF) | payer OTHER, SELFPAY ==
--- OUTSIDE RECORDS SUMMARY | 2024-06-27 11:46 | XMS_ITS | Referral Summary ---
Author Organization [facility] Address [address] [place] [address] Care Team Providers Care Welding Machine Operator Gas Name Role Phone Troy Montgomery Primary Care Provider [phone] Encounters Date Type Department Care Team Description 05/17/2024 3:30 PM EST Office Visit [facility] [address] [place] [address] Alva Thompson, Ocular myasthenia gravis (HCC) (Primary Dx); Dry mouth; Dry eyes 03/29/2024 Refill [facility] [address] [place] [address] Alva Thompson, from Last 3 Months Allergies [...] Description 09/27/2024 2:45 PM EDT Office Visit [facility] [address] [place] [address] [phone] Alva Thompson DO [address] [place] [address] [place] [address] FAMILY Care Teams Welding Machine Operator Gas Relationship Specialty Start Date End Date Troy Montgomery [address] [place] [address] [facility] - General 06/10/22
--- OUTSIDE RECORDS SUMMARY | 2024-06-27 11:46 | XMS_ITS | Clinical Summary ---
Author Organization [facility] Address [address] [place] [address] Phone Care Team Providers Care Admitting Interviewer Name Role Phone Troy Montgomery MD Primary Care Provider [phone] Allergies No known active allergies Medications allopurinol (ZYLOPRIM) 100 MG tablet Take 100 mg by mouth 1 (one) time each day Active Pyridostigmine [place] 30 MG tablet Take 30 mg by [...] 02/26/2009, 01/30/2009 Influenza Vaccine (#1) [address] [place] [address] Care Teams Admitting Interviewer Relationship Specialty Start Date End Date Troy Montgomery MD [address] PCP - General Internal Medicine 02/09/22
--- OUTSIDE RECORDS SUMMARY | 2024-06-27 11:46 | XMS_ITS | Clinical Summary ---
Author Organization [facility] Address [address] [place] [address] Care Team Providers Care Imaging Clerk Name Role Phone Troy Montgomrey Primary Care Provider [phone] Allergies Active Allergy Reactions Criticality Noted Date [...] Description 05/17/2024 3:30 PM EST Office Visit [facility] [address] [place] [phone] Alva Thompson DO Ocular myasthenia gravis (HCC) (Primary Dx); Dry mouth; Dry eyes 03/29/2024 Refill [facility] [address] [place] [address] Alva Thompson DO from Last 3 Months [...] Description 09/27/2024 2:45 PM EDT Office Visit [facility] [address] [place] [address] Alva Thompson DO [address] [place] [address] Health Maintenance Due Date Last Done Comments [...] 50+ Years Completed 01/11/2024, 11/19/2022, 03/26/2010 Insurance [facility] FAMILY Care Teams Imaging Clerk Relationship Specialty Start Date End Date Troy Montgomery [address] [place] [address] PCP - General 06/10/22
--- OUTSIDE RECORDS SUMMARY | 2024-06-27 11:46 | XMS_ITS | Clinical Summary ---
Author Organization [facility] Address [address] [place] [address] Care Team Providers Care Employment Manager Name Role Phone Unavailable Primary Care Provider [...]
[2024-06-27 13:25] LABS: Anion Gap 13 (12-20); Blood Urea Nitrogen 12 mg/dL (9-16); Carbon Dioxide 27 mmol/L (22-29); Chloride 105 mmol/L (96-108); Estimated Glomerular Filt Rate 51; Potassium 4.4 mmol/L (3.3-5.1); Sodium 141 mmol/L (135-145)
== END 2024-06-27 10:17 | disposition home or self-care (01) ==
LOC: HO.10HDL 10:16
PROVIDERS: Visit Provider Internal Medicine Nephrology
DX: N18.31 Chronic kidney disease, stage 3a (principal)
CPT/HCPCS: 36415; 80051; 82565; 84520

== ENCOUNTER 2024-07-06 11:17 | Outpatient (AMB) | payer OTHER, SELFPAY ==
--- NOTE | 2024-07-06 11:19 | MHC.OFFVIS ---
Intake Visit Reasons: Followup/US Intake Note: Pt presents to the office today for a follow up Ultrasound. Allergies bee pollen [bee stings] Allergy (Intermediate, Verified 07/06/24 11:19) Swelling sertraline Allergy (Mild, Verified 07/06/24 11:19) Stomach Upset HPI Comments Details: Sarah is a pleasant female. She is a patient of Dr. Montgomery. Seen for the following urologic conditions - nephrolithiasis - stress urinary incontinence - urge incontinence Suppression Macrobid UA today positive leukocyte, negative nitrite - we will culture Has continued with estradiol Renal ultrasound 2 mm stone Responding well with potassium citrate and allopurinol Followed by Dr. Knight Off Jardiance Recurrent urinary tract infection E coli pansensitive 04/09, 07/09, 01/09 Nephrolithiasis Recurrent Prior gastric bypass TUMS with main meal Intervention - 01/07 left ureteroscopy Imaging - 01/07 CT scan left 6 mm distal ureteric stone, right 4 mm - 10/08 renal US minimal stones - 04/09 renal ultrasound 4 mm left Composition - 01/07 mixed calcium oxalate monohydrate 80% Therapeutic plan - continue potassium citrate from Dr. Knight Stress urinary incontinence Status post vaginal sling Slight feelings of incomplete emptying PVR is less than 30 cc Otherwise doing well Would like to go on the water in 2 weeks time. She is cleared for water walking but not swimming. At cystoscopy had low Valsalva leak point pressure with posterior urethra rotation Overactive Bladder Good response to oxybuytinin PFSH Medical History GERD (gastroesophageal reflux disease) Hypoglycemia Myasthenia gravis History of COVID-19 Hypothyroidism Deep vein thrombophlebitis of left leg Pulmonary embolism Congenital myasthenia gravis CKD (chronic kidney disease) Multinodular thyroid Adrenal insufficiency HLD (hyperlipidemia) HTN (hypertension) T2DM (type 2 diabetes mellitus) UTI (urinary tract infection) Trigeminy Asthma Cystitis cystica VIVI (stress urinary incontinence, female) Urinary frequency Gallstones Nocturia Urinary urgency Nephrolithiasis Surgical History Hx of colonoscopy S/P panniculectomy History of lithotripsy Hx of cystoscopy Hx of cholecystectomy History of pubovaginal sling History of hysterectomy History of gastric bypass (~2004) Family History Father CVD (cardiovascular disease) Heart attack HTN (hypertension) Mother Dementia Social History Household Members: Spouse Housing: House Are you a primary neonatal intensive care unit nurse to a significant other at home: No Do you presently have visiting nurse or other home services: No Alcohol intake: never Patient Tobacco Use Status: Former Tobacco user Tobacco use type: Cigarette Advance Directives Date on File: 02/18/20 service: No Current occupational status: retired and other Review of Systems Const Denies chills and Denies fever(s) Card Reports no additional complaints and Denies syncope Resp Denies cough GI Denies abdominal pain and Denies heartburn Reports as per HPI and Denies change in libido Neuro Denies syncope Psych Denies change in libido Endo Denies change in libido Physical Exam Const General: cooperative, healthy appearing, comfortable and no acute distress Orientation/consciousness: patient oriented x3 HEENT Face and sinus: Yes normal facial exam Mouth: moist mucous membranes Neck Neck: Yes normal visual inspection, Yes full ROM and Yes trachea midline Chest Chest palpation & inspection: normal inspection of the chest Resp Effort & Inspection: normal respiratory effort, able to speak in complete sentences and no respiratory distress GI Inspection: Yes normal to inspection Back/Spine/Pelvis Cervical Spine: normal cervical lordosis Thoracic/Lumbar Spine: thoracic and lumbar spine normal to inspection Skin General skin exam: no rashes or lesions noted Neuro General: patient oriented x3, gait normal, tone normal and moves all extremities Extrem General: Yes normal to inspection and Yes capillary refill normal Results AMB Urinalysis, Automated UA Leukoctes 500 Angelica/uL Last Edit by Hermelinda Flood CMA on 07/06/24 11:29 UA Nitrite Negative Last Edit by Hermelinda Flood CMA on 07/06/24 11:29 UA Urobilinogen 0.2 mg/dL Last Edit by Hermelinda Flood CMA on 07/06/24 11:29 UA Protein 100 mg/dL Last Edit by Hermelinda Flood CMA on 07/06/24 11:29 UA pH 6.0 Last Edit by Hermelinda Flood CMA on 07/06/24 11:29 UA Blood 25 Armond/uL Last Edit by Hermelinda Flood CMA on 07/06/24 11:29 UA Specific [place] 1.025 Last Edit by Hermelinda Flood CMA on 07/06/24 11:29 UA Ketone Positive Last Edit by Hermelinda Flood CMA on 07/06/24 11:29 UA Bilirubin 0 mg/dL Last Edit by Hermelinda Flood CMA on 07/06/24 11:29 UA Glucose 0 mg/dL Last Edit by Hermelinda Flood CMA on 07/06/24 11:29 Results Reviewed Results Reviewed: Laboratory Last Values Urine pH (Auto) 6.0 07/06/24 11:24 Specific [place] (Auto) 1.025 07/06/24 11:24 Urine Protein (Auto) 100 mg/dL 07/06/24 11:24 Glucose (UA)(Auto) 0 mg/dL 07/06/24 11:24 Urine Ketones (Auto) Positive 07/06/24 11:24 Urine Blood (Auto) 25 Armond/uL 07/06/24 11:24 Urine Nitrite (Auto) Negative 07/06/24 11:24 Urine Bilirubin (Auto) 0 mg/dL 07/06/24 11:24 Urine Urobilinogen (Auto) 0.2 mg/dL 07/06/24 11:24 Leukocyte Esterase (Auto) 500 Angelica/uL 07/06/24 11:24 Assessment & Plan Assessment & Plan (1) Nephrolithiasis: Code(s): N20.0 - Calculus of kidney Category: Medical (2) Cystitis cystica: Code(s): N30.80 - Other cystitis without hematuria Category: Medical Plan Six-month follow-up Orders: Orders AMB Urinalysis Automated Today N39.0 - Urinary tract infection, site not specified Urine Culture Today N39.0 - Urinary tract infection, site not specified Medications: Refilled nitrofurantoin macrocrystal must administer with a meal/food. Start once you finish levaquin course. 50 mg PO BEDTIME 90 days 90 caps 1RF N39.0 - Urinary tract infection, site not specified ascorbic acid (vitamin C) 1 g PO DAILY 90 days 90 tabs 1RF N30.80 - Other cystitis without hematuria, N39.0 - Urinary tract infection, site not specified Patient Instructions: This note is constructed using voice recognition software. While every effort has been made to ensure accuracy fourdrinier machine operator errors may have been included. Imaging studies, laboratory and physical exam results were discussed and reviewed in detail. No major barriers to patient understanding were identified. An opportunity to ask questions regarding the treatment plan was provided. All questions were answered. The patient expressed understanding and agreement with the above treatment plan. The patient is aware they should contact our office by phone for worsening of their current condition or the appearance of new urologic symptoms. Compliance is encouraged with any medications and followup testing that is ordered. It is a privilege to participate in the urologic care of your patient. If you have any questions or concerns regarding treatment for the above conditions, or other urologic issues, please do not hesitate to contact me. The office telephone contact is [phone]. Sincerely, Dr Itz Chaudhary MD, [facility] - Urology Compassionate Specialist Care for the Genitourinary System Coding Level of Care Code Est Pt Level 3 (41463) Complex EM visit Add On G2211 Diagnoses Nephrolithiasis N20.0 Cystitis cystica N30.80
--- OUTSIDE RECORDS SUMMARY | 2024-07-06 13:48 | XMS_ITS | Clinical Summary ---
Author Organization [facility] Address [address] [place] [address] Phone Care Team Providers Care Network Operations Center Engineer Name Role Phone Troy Montgomery MD Primary Care Provider Allergies No known active allergies Medications allopurinol (ZYLOPRIM) 100 MG tablet Take 100 mg by mouth 1 (one) time each day Active Pyridostigmine [place] 30 MG tablet Take 30 mg by [...] Influenza Vaccine (#1) [address] [place] [address] Care Teams Network Operations Center Engineer Relationship Specialty Start Date End Date Troy Montgomery MD [address] PCP - General Internal Medicine 02/09/22
--- OUTSIDE RECORDS SUMMARY | 2024-07-06 13:49 | XMS_ITS | Referral Summary ---
Author Organization [facility] Address [address] [place] [address] Care Team Providers Care Marine Erector Name Role Phone Troy Montgomery Primary Care Provider Encounters Date Type Department Care Team Description 05/17/2024 3:30 PM EST Office Visit [facility] [address] [place] [address] Alva Thompson, Ocular myasthenia gravis (Primary Dx); Dry mouth; Dry eyes from Last 3 Months Allergies Active Allergy [...] mouth once a day. 03/17/2022 Active vit C/E/Zn/coppr/lxe tein/zeaxan (PRESERVISION AREDS-2 ORAL) Take by mouth [...] mouth once a day. 90 tablet 05/17/2024 5 Active Active Problems Problem Noted Date Diagnosed [...] Description 09/27/2024 2:45 PM EDT Office Visit [facility] [address] [place] [address] lAva Thompson, [address] [place] [address] FAMILY Care Teams Marine Erector Relationship Specialty Start Date End Date Troy Montgomery [address] [place] [address] PCP - General 06/10/22
--- OUTSIDE RECORDS SUMMARY | 2024-07-06 13:49 | XMS_ITS | Clinical Summary ---
Author Organization [facility] Address [address] [place] [address] Care Team Providers Care Painter Foreman Name Role Phone Troy Montgomery Primary Care Provider [phone] Allergies Active Allergy Reactions Criticality Noted Date [...] Description 05/17/2024 3:30 PM EST Office Visit [facility] [address] [place] [address] Alva Thompson, Ocular myasthenia gravis (Primary Dx); Dry mouth; Dry eyes from Last 3 Months Social History Tobacco [...] Description 09/27/2024 2:45 PM EDT Office Visit [facility] [address] [place] [address] Alva Thompson, DO [address] [place] [address] Health Maintenance Due Date Last Done Comments [...] Health Cally ual Screening 04/18/2024 COVID-19 Vaccine (7 - 2024-2 5 season) 2024 12/27/2023, 01/14/2023, 01/26/2022, Additional history exists Influenza Vaccine Completed 12/27/2023, , 02/02/2022, Additional history exists RSV Vaccine (60+ years old a nd patients) Completed 12/27/2023, 03/14/2023 Pneumococcal Vaccine: 50+ Years Completed 01/11/2024, 11/19/2022, 03/26/2010 Insurance [facility] FAMILY Care Teams Painter Foreman Relationship Specialty Start Date End Date Troy Montgomery [address] [place] [id number] PCP - General 06/10/22
--- OUTSIDE RECORDS SUMMARY | 2024-07-06 13:49 | XMS_ITS | Patient Health Record ---
Author Organization [facility] Address [address] [place] [address] Care Team Providers Care Shipping Weigher Name Role Phone SANTOS PAIZ Primary Care Provider Antonino Diaz Jr [phone] Allergies Allergen (clinical drug ingredient) Drug/Non Drug [...] a day for 30 day(s) Active pyRIDostigmine [place] 60 MG 1 tablet Orally every 4 [...] Problem Status W/U Status Risk Notes Problem [id number] Abdominal pain, unspecified abdominal location (R10.9) Active confirmed Plan Of Treatment Pending Test Test Name Order Date IgA 06/23/2022 TRANSGLUTAMINASE AB IGA 06/23/2022 TRANSGLUTAMINASE AB IGA 06/30/2022 Future Test Test Name Order Date UPPER GI ENDOSCOPY 10/09/2014 COLONOSCOPY 10/09/2014 COLONOSCOPY 06/23/2022 Next Appt Details Provider Name:Antonino king , 09/03/2024 11:00:00 AM, [address] [place] [address], [address], [place], [address], Insurance Providers Payer Name Payer Address Payer Phone Subscriber Number Group Number Insured Name Patient Relationship to Insured Coverage Start Date Coverage End Date FAMILY [employer] PLAN (REFERRA L NEEDED) [address] [place] [phone] [id number] GEE NARANJO Self - patient is the [...]
== END 2024-07-06 11:54 | disposition home or self-care (01) ==
LOC: HO.HUSH 11:18
PROVIDERS: PCP Internal Medicine; Visit Provider Urology
DX: N20.0 Calculus of kidney (principal); N30.80 Other cystitis without hematuria; N39.0 Urinary tract infection, site not specified
CPT/HCPCS: 99213

== ENCOUNTER 2024-07-06 11:17 | Outpatient (REF) | payer OTHER, SELFPAY | END 2024-07-06 11:18 | disposition home or self-care (01) | LOC: HO.LAB 11:17 | PROVIDERS: PCP Internal Medicine; Visit Provider Urology | DX: N20.0 Calculus of kidney (principal); N30.90 Cystitis, unspecified without hematuria | CPT/HCPCS: 81003; 87086; 99212 ==

== ENCOUNTER 2024-08-13 15:02 | Outpatient (REF) | payer OTHER, SELFPAY ==
--- OUTSIDE RECORDS SUMMARY | 2024-08-13 17:56 | XMS_ITS | Clinical Summary ---
Author Organization [facility] Address [address] [place] [address] Phone Care Team Providers Care Artillery Officer Name Role Phone Troy Montgomery MD Primary Care Provider [phone] Allergies No known active allergies Medications allopurinol (ZYLOPRIM) 100 MG tablet Take 100 mg by mouth 1 (one) time each day Active Pyridostigmine [place] 30 MG tablet Take 30 mg by [...] Comments Breast Cancer Screening 1955 Pneumococcal Vaccine: 50+ Ye ars (1 of 2 - PCV) 1973 Colorectal Cancer Screening: Annual FOBT 07/20/2003 Colorectal Cancer Screening: Colonoscopy 07/20/2003 Colorectal Cancer Screening: Sigmoidoscopy 07/20/2003 Hepatitis B Vaccine (3 of 3 - Hep B Twinrix 3-dose series) 07/31/2009 02/26/2009, 01/30/2009 Influenza Vaccine (Season Ended) [address] [place] [address] Care Teams Artillery Officer Relationship Specialty Start Date End Date Troy Montgomery MD [address] PCP - General Internal Medicine 02/09/22
--- OUTSIDE RECORDS SUMMARY | 2024-08-13 17:56 | XMS_ITS | Clinical Summary ---
Author Organization [facility] Address [address] [place] [address] Care Team Providers Care Poultry Breeder Name Role Phone Troy Montgomery Primary Care Provider [phone] Allergies Active Allergy Reactions Criticality Noted Date Comments Bee Venom Protein (Honey Bee) Swelling,Hives High Medications albuterol sulfate 90 mcg/actuation aerosol powdr breath activated Inhale 2 puffs by mouth. Active cholecalcifero l, vitamin D3, 50 mcg (2,000 unit) tablet,chewabl e Chew and swallow 50 mcg by mouth. Active oxybutynin XL (DITROPAN XL) 10 mg tablet Take 1 tablet by mouth. 2 Active escitalopram (LEXAPRO) 20 mg tablet 2 Active calcium carbonate-francis min D3 (Calcium 600 + D,3,) 600 mg-10 mcg (400 unit) per tablet 2 Active Synthroid 100 mcg tablet Take 100 mcg by mouth. 3 Active allopurinoL (ZYLOPRIM) 100 mg tablet Take 100 mg by mouth. 2 Active Yuvafem 10 mcg tablet Insert into the vagina 2 times a week. 3 Active potassium citrate ER (UROCIT-K) 10 mEq (1,080 mg) tablet Take 10 mEq by mouth once a day. 2 Active vit C/E/Zn/coppr/l utein/zeaxan (PRESERVISION AREDS-2 ORAL) Take by mouth 2 times a day. 3 Active ascorbic acid, vitamin C, 1,000 mg capsule Take 1,000 mg by mouth once a day. 4 Active methenamine (HIPREX) 1 gram tablet Take 1 g by mouth once a day. 4 Active Ozempic 0.25 mg or 0.5 mg (2 mg/3 mL) pen injector Inject 0.25 mg under the skin per week. 3 Active alendronate (FOSAMAX) 70 mg tablet Take 70 mg by mouth once a week. 4 Active atorvastatin (LIPITOR) 10 mg tablet 10 mg nightly. 4 Active metFORMIN 625 mg tablet once a day. 4 Active aspirin chewable tablet 81 mg Chew and swallow 81 mg by mouth daily. Active predniSONE (DELTASONE) 10 mg tablet TAKE 1 TABLET BY MOUTH ONCE A DAY 90 tablet 5 Active predniSONE (DELTASONE) 2.5 mg tablet TAKE 1 TABLET BY MOUTH ONCE A DAY 90 tablet 5 Active predniSONE (DELTASONE) 2.5 mg tablet Take 1 tablet (2.5 mg total) by mouth once a day. 90 tablet 5 08/04/19 25 Discontinued predniSONE (DELTASONE) 10 mg tablet Take 1 tablet (10 mg total) by mouth once a day. 90 tablet 5 08/04/19 25 Discontinued Active Problems Problem Noted Date Diagnosed Date Ocular myasthenia gravis 12/06/2023 Encounters Date Type Department Care Team Description 08/02/2024 Refill [facility] [address] [place] [address] Alva Thompson DO 05/17/2024 3:30 PM EST Office Visit [facility] [address] [place] [phone] Alva Thompson DO Ocular myasthenia gravis (Primary Dx); Dry mouth; [...] Office Visit [facility] [address] [place] [phone] Alva Thompson, [address] [place] [address] Health Maintenance Due Date Last Done Comments [...] ual Screening 04/18/2024 COVID-19 Vaccine (7 - 2023-2 5 season) 2024 12/27/2023, 01/14/2023, 01/26/2022, Additional history exists Influenza Vaccine Completed 12/27/2023, , 02/02/2022, Additional history exists RSV Vaccine (60+ years old a nd patients) Completed 12/27/2023, 03/14/2023 Pneumococcal Vaccine: 50+ Years Completed 01/11/2024, 11/19/2022, 03/26/2010 Insurance [facility] FAMILY Care Teams Poultry Breeder Relationship Specialty Start Date End Date Troy Montgomery [address] [place] [address] [place] [address] PCP - General 06/10/22
--- OUTSIDE RECORDS SUMMARY | 2024-08-13 17:56 | XMS_ITS | Clinical Summary ---
Author Organization [facility] Address [address] [place] [address] Care Team Providers Care Parts And Service Manager Name Role Phone Unavailable Primary Care Provider Unavailabl e Social History Tobacco Use Types Packs/Day Years Used Date Smoking Tobacco: Never Assessed Comments Unknown Sex and Gender Information Value Date Recorded Sex Assigned at Not on file Legal Sex Female 7:02 PM EST Gender Identity Not on file Sexual Orientation [...]
--- OUTSIDE RECORDS SUMMARY | 2024-08-13 17:56 | XMS_ITS | Referral Summary ---
Author Organization [facility] Address [address] [place] [address] Care Team Providers Care Carpenter Assistant Name Role Phone Troy Montgomery Primary Care Provider Encounters Date Type Department Care Team Description 08/02/2024 Refill [facility] [address] [place] [address] Alva Thompson DO 05/17/2024 3:30 PM EST Office Visit [facility] [address] [place] [phone] Alva Thompson, DO Ocular myasthenia gravis (Primary Dx); Dry [...] Description 09/27/2024 2:45 PM EDT Office Visit [facility] [address] [place] [address] Alva Thompson, [address] [place] [address] [place] [address] [place] [address] [address] [place] [address] Care Teams Carpenter Assistant Relationship Specialty Start Date End Date Troy Montgomery [address] [place] [id number] PCP - General 06/10/22
== END 2024-08-13 15:03 | disposition home or self-care (01) ==
LOC: HO.LAB 15:02
PROVIDERS: PCP Internal Medicine; Visit Provider Otolaryngology
DX: J30.89 Other allergic rhinitis (principal)
CPT/HCPCS: 36415; 86003

== ENCOUNTER 2024-08-14 08:59 | Outpatient (AMB) | payer OTHER, SELFPAY ==
--- NOTE | 2024-08-14 09:28 | MHC.OFFVIS ---
Vital Signs 08/14/24 09:36 Height 5 ft 9 in Weight 169 lb 12.095 oz BMI 25.1 BP 112/72 Blood Pressure Location Lt brachial Position Sitting Pulse 86 Pulse Source Pulse Oximeter Pulse Oximetry (%) 98 Oxygen Delivery Method Room Air Intake Visit Reasons: SS/ per req earlier date and time New Patient Intake Note: Patient presents for SS. Allergies bee pollen [bee stings] Allergy (Intermediate, Verified 08/14/24 09:33) Swelling sertraline Allergy (Mild, Verified 08/14/24 09:33) Stomach Upset Medication List - Last Reconciled 08/14/24 by Nhi Cabrera MD albuterol sulfate 90 mcg/actuation (ProAir HFA) 90 mcg inhalation Q4H PRN alendronate (Fosamax) 70 mg PO QWEEK allopurinol 100 mg PO DAILY 90 days ascorbic acid (vitamin C) 1 g PO DAILY 90 days atorvastatin 10 mg PO DAILY blood-glucose sensor (Savedaily G6 Sensor device) As directed blood-glucose transmitter (Savedaily G6 Transmitter device) As directed blood-glucose,neuropsychiatric aide,cont ([employer] G6 Director Of Safety And Security) As directed calcium carbonate (Calcium 600) 600 mg PO DAILY cholecalciferol (vitamin D3) (Vitamin D3) 50 mcg PO DAILY escitalopram oxalate 20 mg PO DAILY estradiol (Yuvafem) 10 mcg vaginal 2XW 90 days ferrous sulfate 325 mg PO DAILY metformin 1,000 mg PO DAILY methenamine hippurate 1 g PO DAILY 90 days nitrofurantoin macrocrystal 50 mg PO BEDTIME 90 days oxybutynin chloride ER 10 mg PO DAILY 90 days potassium citrate ER 20 mEq (2 x 10 mEq (1,080 mg)) PO BID 90 days prednisone 10 mg PO DAILY prednisone 2.5 mg PO DAILY semaglutide (Ozempic) mg subcut Synthroid (levothyroxine) 100 mcg PO DAILY 30 days NS HPI Comments Details: Patient is a 69-year-old female with hypertension, diabetes, hyperlipidemia, osteoporosis on Fosamax, myasthenia gravis on chronic steroids and non crystal proven gout on allopurinol here today for the evaluation possibility of Sjogren's in the setting of severe dry mouth Patient states that 4 years ago she was diagnosed with ocular myasthenia gravis and has been on long courses of steroids since then. As around the same time she started to notice dry eyes and dry mouth. Her dry mouth has been complicated by difficulty swallowing dry foods, multiple cavities needing tooth removal and at times her tongue or her lips sticking to her teeth. Denies rashes, photosensitivity, alopecia, oral/nasal ulcers, lymphadenopathy, chest pain/shortness of breath, inflammatory type joint pain, foamy urine, lower extremity edema, muscle weakness, Raynaud's Also denies history of seizure, CVA, psychosis, history of kidney problems, history of cytopenias. History of provoked DVT after prolonged hospitalization OB History: +1 ( at 6 months, unsure cause) No preeclampsia or births [facility] Medical History (Reviewed 07/06/24 @ 11:24 by Hermelinda Flood [facility]) GERD (gastroesophageal reflux disease) Hypoglycemia Myasthenia gravis History of COVID-19 Hypothyroidism Deep vein thrombophlebitis of left leg Pulmonary embolism Congenital myasthenia gravis CKD (chronic kidney disease) Multinodular thyroid Adrenal insufficiency HLD (hyperlipidemia) HTN (hypertension) T2DM (type 2 diabetes mellitus) UTI (urinary tract infection) Trigeminy Asthma Cystitis cystica VIVI (stress urinary incontinence, female) Urinary frequency Gallstones Nocturia Urinary urgency Nephrolithiasis Surgical History Hx of colonoscopy S/P panniculectomy History of lithotripsy Hx of cystoscopy Hx of cholecystectomy History of pubovaginal sling History of hysterectomy History of gastric bypass (~2004) Family History Father CVD (cardiovascular disease) Heart attack HTN (hypertension) Mother Dementia Social History Household Members: Spouse Housing: House Are you a primary child care education coordinator to a significant other at home: No Do you presently have visiting nurse or other home services: No Alcohol intake: never Patient Tobacco Use Status: Former Tobacco user Tobacco use type: Cigarette Advance Directives Date on File: 02/18/20 service: No Current occupational status: retired and other Review of Systems Const Details: Review of Systems Constitutional: Denies fever, chills, weight loss ENT: Denies vision changes, eye pain or eye redness, dental caries, dry mouth GI: Denies nausea, vomiting, diarrhea, abdominal pain, change in BM Pulm: Denies SOB, MOREIRA, hemoptysis, wheezing Cards: Denies chest pain, palpitations Skin: Denies Raynaud's, rash, nail changes, photosensitivity, BEVELING MACHINE OPERATOR: Denies headaches, weakness, paresthesias, recurrent falls MSK: as per HPI All other systems reviewed and are unremarkable except noted above Physical Exam Vital Signs: Last Vital Signs Pulse 86 08/14/24 09:36 BP 112/72 08/14/24 09:36 Pulse Ox 98 08/14/24 09:36 Oxygen Delivery Method Room Air 08/14/24 09:36 BMI result Body Mass Index 25.1 Vital signs reviewed Physical Examination CONSTITUITIONAL Patient alert and cooperative. Well appearing and in no apparent painful distress HEENT Conjunctiva and sclera clear. ?Pupils equal round and reactive to light. ?No lymphadenopathy. ? Elsa's test after 5 minutes: 13mm on the right, 12mm on the left Mouth with decreased salivary pool CHEST/RESPIRATORY SYSTEM Normal respiratory effort and able to speak in complete sentences. ?Clear to auscultation bilaterally. ?No crackles, rales, rhonchi, wheezes heard. CARDIAC SYSTEM Regular rate and rhythm. ?S1 and S2 heard no murmurs. ?Radial pulses intact bilaterally MSK Hands: ?Able to make a fist. No synovitis noted to the MCPs, PIPs or DIPs. ?Slightly puffy Wrists: ?Full range of motion at the wrists without pain. ?No tenderness to palpation or synovitis noted to the wrists. Elbows: Full range of motion without pain. No tenderness, weakness, swelling, increased warmth or erythema. Shoulders: Full range of active range of motion without pain. No tenderness, weakness, swelling, increased warmth or erythema. Knees: ?Full range of motion. ?No tenderness, swelling, increased warmth or erythema.?No effusion or crepitations Ankles: Full range of motion. ?No tenderness, swelling, increased warmth or erythema.? Feet: ?Negative squeeze test. ?No tenderness to palpation or swelling of the MTPs. Tender points:?No tenderness to palpation of the bilateral trapezius, supraspinatus, greater trochanters, anterior costochondral junctions, bilateral gluteal areas, bilateral suboccipital muscle insertions SKIN Skin intact without rashes. Results Reviewed Results Reviewed: Laboratory Tests 03/17/23 06/27/24 14:38 10:18 WBC 13.8 H RBC 4.60 Hgb 13.7 Hct 43.3 Plt Count 222 Sodium 141 Potassium 4.4 Chloride 105 Carbon Dioxide 27 BUN 12 Creatinine 1.06 Immunology labs 02/10/22 06/23/22 07/07/22 13:44 10:36 07:39 Rheumatoid Factor < 15.0 SANAM Screen NEGATIVE Tiss Transglutamin IgG 2.8 Anti-IA2 Antibody <5.4 Assessment & Plan Assessment & Plan (1) Dry mouth: Code(s): R68.2 - Dry mouth, unspecified Plan: #Dry mouth Patient is a 69-year-old female with myasthenia gravis on chronic steroids is here today for the evaluation of severe dry mouth. Differentials for dry mouth include Sjogren's, diabetes, salivary gland disorders such as sialolithiasis, smoking or alcohol use, and hormonal changes. Elsa's test equivocal with respect to dry eyes. We will evaluate for Sjogren's, blood work including SSA/SSB and send to ENT for lip biopsy. Discussed the risks and benefits of lip biopsy including post biopsy site neuropathy. Plan - CBC, CMP, ESR, CRP, SSA, SSB, SANAM, [place], CASING IN LINE FEEDER, C3, C4, RF, SPEP, IEP - ENT referral for lip biopsy - RTC after results are in Plan I spent 42 minutes reviewing the record and labs, taking a history, examining the patient, discussing the treatment plan, ordering diagnostic work up and documenting in the medical record Orders: Orders Complete Blood Count Auto Diff Today M35.00 - Sjogren syndrome, unspecified Comprehensive Met. Panel Today M35.00 - Sjogren syndrome, unspecified Complement C4 Today M35.00 - Sjogren syndrome, unspecified C Reactive Protein Today M35.00 - Sjogren syndrome, unspecified SANAM Reflex Titer and Pattern Today M35.00 - Sjogren syndrome, unspecified Sm Sm/CASING IN LINE FEEDER Antibodies Today M35.00 - Sjogren syndrome, unspecified Scleroderma 70 Antibody Today M35.00 - Sjogren syndrome, unspecified Protein Electrophoresis, Serum Today M35.00 - Sjogren syndrome, unspecified Immunoglobulins,IgG IgA IgM Today M35.00 - Sjogren syndrome, unspecified Complement C3 Today M35.00 - Sjogren syndrome, unspecified Erythrocyte Sedimentation Rate Today M35.00 - Sjogren syndrome, unspecified Anti DNA DS Antibody Today M35.00 - Sjogren syndrome, unspecified Sjogren's Antibodies Today M35.00 - Sjogren syndrome, unspecified Immunofixation Pnl, Serum Today M35.00 - Sjogren syndrome, unspecified Creatine Kinase Total Today M35.00 - Sjogren syndrome, unspecified Rheumatoid Factor Today M35.00 - Sjogren syndrome, unspecified Referrals Ear/Nose/Throat Referral M35.00 - Sjogren syndrome, unspecified Coding Level of Care Code New Pt Level 4 (14235) Complex EM visit Add On G2211 Diagnoses Dry mouth R68.2
[2024-08-14 09:36] VITALS: BP 112/72; PULSE 86; O2SAT 98; BMI 25.1
--- OUTSIDE RECORDS SUMMARY | 2024-08-14 09:36 | XMS_ITS | Referral Summary ---
Author Organization [facility] Address [address] [place] [address] Care Team Providers Care Pocket Setter Name Role Phone Troy Montgomery Primary Care Provider [phone] Encounters Date Type Department Care Team Description 08/02/2024 Refill [facility] [address] [place] [address] Alva Thompson DO 05/17/2024 3:30 PM EST Office Visit [facility] [address] [place] [address] Alva Thompson, DO Ocular myasthenia gravis (Primary [...] Description 09/27/2024 2:45 PM EDT Office Visit [facility] [address] [place] [address] Alva Thompson, [address] [place] [address] [place] [address] [place] [address] [place] [address] Care Teams Pocket Setter Relationship Specialty Start Date End Date Troy Montgomery [address] [place] [address] PCP - General 06/10/22
--- OUTSIDE RECORDS SUMMARY | 2024-08-14 09:36 | XMS_ITS | Clinical Summary ---
Author Organization [facility] Address [address] [place] [address] Care Team Providers Care Network Developer Name Role Phone Unavailable Primary Care Provider [...]
--- OUTSIDE RECORDS SUMMARY | 2024-08-14 09:36 | XMS_ITS | Clinical Summary ---
Author Organization [facility] Address [address] [place] [address] Phone Care Team Providers Care Medical Technician Name Role Phone Troy Montgomery MD Primary Care Provider Allergies No known active allergies Medications allopurinol (ZYLOPRIM) 100 MG tablet Take 100 mg by mouth 1 (one) time each day Active Pyridostigmine [place] 30 MG tablet Take 30 mg by [...] 01/30/2009 Influenza Vaccine (Season Ended) [address] [place] [address] Care Teams Medical Technician Relationship Specialty Start Date End Date Troy Montgomery MD [address] PCP - General Internal Medicine 02/09/22
--- OUTSIDE RECORDS SUMMARY | 2024-08-14 09:36 | XMS_ITS | Clinical Summary ---
Author Organization [facility] Address [address] [place] [address] Care Team Providers Care Plaster Form Maker Name Role Phone Troy Montgomery Primary Care Provider [phone] Allergies Active Allergy Reactions Criticality Noted Date [...] Type Department Care Team Description 08/02/2024 Refill [facility] [address] [place] [address] Alva Thompson DO 05/17/2024 3:30 PM EST Office Visit [facility] [address] [place] [phone] Al[place] Thompson DO Ocular myasthenia gravis (Primary [...] Description 09/27/2024 2:45 PM EDT Office Visit [facility] [address] [place] [phone] Alva Thompson, [address] [place] [address] Health Maintenance Due Date Last Done Comments [...] Years Completed 01/11/2024, 11/19/2022, 03/26/2010 Insurance [facility] FAMILY Care Teams Plaster Form Maker Relationship Specialty Start Date End Date Troy Montgomery [address] [place] [address] [place] [address] PCP - General 06/10/22
== END 2024-08-14 10:35 | disposition home or self-care (01) ==
LOC: HO.RHE 09:02
PROVIDERS: PCP Internal Medicine; Visit Provider Student in an Organized Health Care Education/Training Program
DX: R68.2 Dry mouth, unspecified (principal)
CPT/HCPCS: 99204

== ENCOUNTER → 2024-08-14 08:59 | Outpatient (BNVA) | payer OTHER, SELFPAY | PROVIDERS: PCP Internal Medicine; Visit Provider Student in an Organized Health Care Education/Training Program | DX: R68.2 Dry mouth, unspecified (principal) | CPT/HCPCS: 99202 ==

== ENCOUNTER 2024-08-14 10:41 | Outpatient (REF) | payer OTHER, SELFPAY ==
--- OUTSIDE RECORDS SUMMARY | 2024-08-14 12:22 | XMS_ITS | Referral Summary ---
Author Organization [facility] Address [address] [place] [address] Care Team Providers Care Manager Presentation Name Role Phone Troy Montgomery Primary Care Provider [phone] Encounters Date Type Department Care Team Description 08/02/2024 Refill [facility] [address] [place] [address] Alva Thompson DO 05/17/2024 3:30 PM EST Office Visit [facility] [address] [place] [phone] Alva Thompson, DO Ocular myasthenia gravis (Primary [...] Description 09/27/2024 2:45 PM EDT Office Visit [facility] [address] [place] [address] Alva Thompson, [address] [place] [address] [place] [address] [place] [address] [place] [address] Care Teams Manager Presentation Relationship Specialty Start Date End Date Troy Montgomery [address] [place] [address] PCP - General 06/10/22
--- OUTSIDE RECORDS SUMMARY | 2024-08-14 12:22 | XMS_ITS | Clinical Summary ---
Author Organization [facility] Address [address] [place] [address] Phone Care Team Providers Care Waxer Operator Name Role Phone Troy Montgomery MD Primary Care Provider [phone] Allergies No known active allergies Medications allopurinol (ZYLOPRIM) 100 MG tablet Take 100 mg by mouth 1 (one) time each day Active Pyridostigmine [place] 30 MG tablet Take 30 mg by [...] 01/30/2009 Influenza Vaccine (Season Ended) [address] [place] [address] Care Teams Waxer Operator Relationship Specialty Start Date End Date Troy Montgomery MD [address] PCP - General Internal Medicine 02/09/22
--- OUTSIDE RECORDS SUMMARY | 2024-08-14 12:22 | XMS_ITS | Clinical Summary ---
Author Organization [facility] Address [address] [place] [address] Care Team Providers Care Composition Weatherboard Applier Name Role Phone Troy Montgomery Primary Care Provider Allergies Active Allergy Reactions Criticality Noted Date [...] Type Department Care Team Description 08/02/2024 Refill [facility] [address] [place] [phone] Alva Thompson DO 05/17/2024 3:30 PM EST Office Visit [facility] [address] [place] [address] Alva Thompson DO Ocular myasthenia gravis (Primary [...] Description 09/27/2024 2:45 PM EDT Office Visit [facility] [address] [place] [phone] Alva Thompson, [address] [place] [address] Health Maintenance Due Date Last Done Comments [...] 50+ Years Completed 01/11/2024, 11/19/2022, 03/26/2010 Insurance [facility] FAMILY Care Teams Composition Weatherboard Applier Relationship Specialty Start Date End Date Troy Montgomery [address] [place] [address] [place] [address] PCP - General 06/10/22
--- OUTSIDE RECORDS SUMMARY | 2024-08-14 12:22 | XMS_ITS | Clinical Summary ---
Author Organization [facility] Address [address] [place] [address] Care Team Providers Care Absorption Plant Operator Name Role Phone Unavailable Primary Care Provider [...]
[2024-08-14 13:55] LABS: MANUAL DIFF FLAG NO
[2024-08-14 14:00] LABS: Basophils Absolute Auto 0.1 X10*3/uL (0.0-0.2); Basophils Percent Auto 0.4 % (0-2); Eosinophils Absolute Auto 0.1 X10*3/uL (0.0-0.4); Eosinophils Percent Auto 0.7 % (0-4); Hematocrit 37.4 % (37.0-47.0); Imm Gran Abs Auto 0.08 X10*3/uL (0.00-0.03); Imm Gran Pct Auto 0.6 % (0.0-0.4); Lymphocytes Absolute Auto 1.6 X10*3/uL (1.2-4.9); Lymphocytes Percent Auto 11.8 % (20-40); Mean Corpuscular HGB Conc 32.1 g/dl (31.0-35.0); Mean Corpuscular Hemoglobin 28.8 pg (27.0-33.0); Mean Corpuscular Volume 89.7 fL (80.0-98.0); Monocytes Absolute Auto 0.7 X10*3/uL (0.1-1.2); Monocytes Percent Auto 5.4 % (2-11); Neutrophils Absolute Auto 11.2 x10*3/uL (2.0-8.3); Neutrophils Percent Auto 81.1 % (45-73); Platelet Count 292 X10*3/uL (160-400); Red Blood Count 4.17 X10*6/uL (4.20-5.50); Red Cell Distribution Width 13.9 % (11.0-16.0); White Blood Count 13.8 X10*3/uL (4.8-10.8)
[2024-08-14 14:40] LABS: Erythrocyte Sedimentation Rate 44 MM/HR (0-20)
[2024-08-14 14:42] LABS: Rheumatoid Factor < 13.0 IU/mL (<15.0)
[2024-08-14 14:53] LABS: Alanine Aminotransferase 31 U/L (0-31); Albumin Level 3.7 g/dL (3.5-5.0); Alkaline Phosphatase 69 U/L (39-117); Anion Gap 14 (12-20); Aspartate Amino Transferase 30 U/L (5-31); Bilirubin Total 0.6 mg/dL (0.0-1.0); Blood Urea Nitrogen 13 mg/dL (9-16); C Reactive Protein 2.51 mg/dL (< or = 0.50); Calcium 9.5 mg/dL (8.4-10.2); Carbon Dioxide 27 mmol/L (22-29); Chloride 104 mmol/L (96-108); Estimated Glomerular Filt Rate 56; Glucose Random 150 mg/dL (60-115); Potassium 4.2 mmol/L (3.3-5.1); Sodium 141 mmol/L (135-145); Total Protein 6.8 g/dL (6.5-8.0)
[2024-08-16 05:53] LABS: Complement C3 201 mg/dL (83-193)
[2024-08-16 13:59] LABS: Anti Nuclear Antibody Screen NEGATIVE (NEGATIVE)
[2024-08-17 11:48] LABS: IgA 301 mg/dL (70-320); IgG 885 mg/dL (600-1540); IgM 103 mg/dL (50-300)
[2024-08-17 21:52] LABS: Anti DNA DS Antibody <1 IU/mL; Antibody to SS-A Antigen <1.0 NEG AI (<1.0 NEG); Antibody to SS-B Antigen <1.0 NEG AI (<1.0 NEG); SM/Ribonucleoprotein Ab <1.0 NEG AI (<1.0 NEG); Scleroderma 70 Antibody <1.0 NEG AI (<1.0 NEG); Smith Protein <1.0 NEG AI (<1.0 NEG)
[2024-08-19 17:28] LABS: Prot Elec - Albumin 3.4 g/dL (3.8-4.8); Prot Elec - Alpha1 0.4 g/dL (0.2-0.3); Prot Elec - Beta 1 0.5 g/dL (0.4-0.6); Prot Elec - Beta 2 0.5 g/dL (0.2-0.5); Prot Elec - Gamma 0.8 g/dL (0.8-1.7); Prot Elec - Total Protein 6.4 g/dL (6.1-8.1)
== END 2024-08-14 10:42 | disposition home or self-care (01) ==
LOC: HO.10HDL 10:41
PROVIDERS: Visit Provider Student in an Organized Health Care Education/Training Program
DX: M35.00 Sjogren syndrome, unspecified (principal)
CPT/HCPCS: 36415; 80053; 82550; 82784; 84165; 85025; 85652; 86038; 86140; 86160; 86225; 86235; 86334; 86431

== ENCOUNTER 2024-08-15 13:41 | Outpatient (REF) | payer OTHER, SELFPAY ==
[2024-08-15 14:23] LABS: Appearance Urine Cloudy; Color Urine Yellow; Glucose Urine UA Negative (Negative); Leukocyte Esterase Urine Small (1+) (Negative); Nitrite Urine Negative (Negative); PH 6.5 (5.0-9.0); Specific Gravity - Urine 1.025 (1.005-1.025); UMIC TRIGGER UA YES; Urine Blood Negative (Negative); Urine Ketones Trace mg/dL (Negative); Urine Protein Trace mg/dL (Neg-Trace)
[2024-08-15 14:37] LABS: Bacteria Urine 3+ (None Seen); Hyaline Casts Urine 0-2 /LPF (0-2); RBC Urine 0-2 /HPF (0-2)
--- OUTSIDE RECORDS SUMMARY | 2024-08-15 14:58 | XMS_ITS | Clinical Summary ---
Author Organization [facility] Address [address] [place] [address] Care Team Providers Care Patch Machine Operator Name Role Phone Unavailable Primary Care [...]
--- OUTSIDE RECORDS SUMMARY | 2024-08-15 14:58 | XMS_ITS | Referral Summary ---
Author Organization [facility] Address [address] [place] [address] Care Team Providers Care Biomedical Technician Name Role Phone Troy Montgomery Primary Care Provider [phone] Encounters Date Type Department Care Team Description 08/02/2024 Refill [facility] [address] [place] [address] Alva Thompson DO 05/17/2024 3:30 PM EST Office Visit [facility] [address] [place] [address] Alva Thompson, DO Ocular myasthenia gravis (Primary [...] Description 09/27/2024 2:45 PM EDT Office Visit [facility] [address] [place] [address] Alva Thompson, [address] [place] [address] [place] [address] [place] [address] [place] [address] Care Teams Biomedical Technician Relationship Specialty Start Date End Date Troy Montgomery [address] [place] [address] PCP - General 06/10/22
--- OUTSIDE RECORDS SUMMARY | 2024-08-15 14:58 | XMS_ITS | Clinical Summary ---
Author Organization [facility] Address [address] [place] [address] Care Team Providers Care Garment Manufacturer Name Role Phone Troy Montgomery Primary Care Provider [phone] Allergies Active Allergy Reactions Criticality Noted Date [...] Type Department Care Team Description 08/02/2024 Refill [facility] [address] [place] [address] Alva Thompson DO 05/17/2024 3:30 PM EST Office Visit [facility] [address] [place] [address] Alva Thompson DO Ocular myasthenia gravis (Primary [...] Description 09/27/2024 2:45 PM EDT Office Visit [facility] [address] [place] [address] Alva Thompson, [address] [place] [address] Health Maintenance Due Date Last Done Comments [...] Years Completed 01/11/2024, 11/19/2022, 03/26/2010 Insurance [facility] FAMILY Care Teams Garment Manufacturer Relationship Specialty Start Date End Date Troy Montgomery [address] [place] [address] [place] [address] PCP - General 06/10/22
--- OUTSIDE RECORDS SUMMARY | 2024-08-15 14:58 | XMS_ITS | Clinical Summary ---
Author Organization [facility] Address [address] [place] [address] Phone Care Team Providers Care Education Reviewer Name Role Phone Troy Montgomery MD Primary Care Provider [phone] Allergies No known active allergies Medications allopurinol (ZYLOPRIM) 100 MG tablet Take 100 mg by mouth 1 (one) time each day Active Pyridostigmine [place] 30 MG tablet Take 30 mg by [...] 01/30/2009 Influenza Vaccine (Season Ended) [address] [place] [address] Care Teams Education Reviewer Relationship Specialty Start Date End Date Troy Montgomery MD [address] PCP - General Internal Medicine 02/09/22
== END 2024-08-15 13:42 | disposition home or self-care (01) ==
LOC: HO.LAB 13:41
PROVIDERS: PCP Internal Medicine; Visit Provider Urology
DX: N39.0 Urinary tract infection, site not specified (principal)
CPT/HCPCS: 81001; 87086

== ENCOUNTER 2024-09-18 09:52 | Day surgery (SDC) | payer OTHER, SELFPAY ==
--- OUTSIDE RECORDS SUMMARY | 2024-09-03 12:30 | XMS_ITS | Clinical Summary ---
Author Organization [facility] Address [address] [place] [address] Phone Care Team Providers Care Supervisor Cold Rolling Name Role Phone Troy Montgomery MD Primary Care Provider [phone] Allergies No known active allergies Medications allopurinol (ZYLOPRIM) 100 MG tablet Take 100 mg by mouth 1 (one) time each day Active Pyridostigmine [place] 30 MG tablet Take 30 mg by [...] 01/30/2009 Influenza Vaccine (Season Ended) [address] [place] [address] Care Teams Supervisor Cold Rolling Relationship Specialty Start Date End Date Troy Montgomery MD [address] PCP - General Internal Medicine 02/09/22
--- OUTSIDE RECORDS SUMMARY | 2024-09-03 12:30 | XMS_ITS | Clinical Summary ---
Author Organization [facility] Address [address] [place] [address] Care Team Providers Care Placement Specialist Name Role Phone Unavailable Primary Care Provider [...]
--- OUTSIDE RECORDS SUMMARY | 2024-09-03 12:30 | XMS_ITS | Clinical Summary ---
Author Organization [facility] Address [address] [place] [address] Care Team Providers Care Medical Center Representative Name Role Phone Troy Montgomery Primary Care Provider [phone] Allergies Active Allergy Reactions Criticality Noted Date [...] BY MOUTH ONCE A DAY 90 tablet 08/03/2024 Active predniSONE (DELTASONE) 2.5 mg tablet TAKE 1 TABLET BY MOUTH ONCE A DAY 90 tablet 08/03/2024 Active Active Problems Problem Noted Date Diagnosed Date Ocular myasthenia gravis 12/06/2023 Encounters Date Type Department Care Team Description 08/02/2024 Refill [facility] [address] [place] [address] Alva Thompson DO from Last 3 Months [...] Description 09/27/2024 2:45 PM EDT Office Visit [facility] [address] [place] [address] [phone] Alva Thompson, DO [address] [place] [address] [phone] Health Maintenance Due Date Last Done Comments [...] Zoster Vaccines (3 of 3) 06/24/2020 04/29/2020, 0310/2016 Alcohol/Substance Use Screening 04/18/2024 Depression Screening and [...] Completed 01/11/2024, 11/19/2022, 03/26/2010 Insurance [facility] FAMILY Care Teams Medical Center Representative Relationship Specialty Start Date End Date Troy Montgomery [address] [place] [address] PCP - General 06/10/22
--- OUTSIDE RECORDS SUMMARY | 2024-09-03 12:30 | XMS_ITS | Referral Summary ---
Author Organization [facility] Address [address] [place] [address] Care Team Providers Care Kaiako Kura [place] Maori Name Role Phone Troy Montgomery Primary Care Provider [phone] Encounters Date Type Department Care Team Description 08/02/2024 Refill [facility] [address] [place] [address] Alva Thompson, DO from Last 3 Months Allergies Active Allergy [...] Description 09/27/2024 2:45 PM EDT Office Visit [facility] [address] [place] [address] [phone] Alva Thompson, DO [address] [place] [address] Insurance [facility] FAMILY Care Teams Kaiako Kura [place] Maori Relationship Specialty Start Date End Date Troy Montgomery [address] [place] [address] [place] [address] PCP - General 06/10/22
[2024-09-18 06:28] VITALS: BMI 25.5
[2024-09-18 09:57] VITALS: BP 101/67; PULSE 89; RESP 20; TEMP 36.9; O2SAT 97; BMI 25.8
[2024-09-18 10:07] LABS: Glucose, Whole Blood 139 mg/dL (60-115)
[2024-09-18] MEDS: Lactated Ringers 1,000 ML 100 ML IVCONT (10:17)
--- NOTE | 2024-09-18 10:43 | P.CONAN_ITS ---
Documented by User: Tricia Cao NP 09/17/24 12:27 HPI - Anesthesia Eval Consult details Narrative: 69yo F for Upper Endoscopy with Balloon Dilitation Myasthenia gravis - prednisone 12.5 daily, follows [facility] Neuro [place] [facility] [place]. Stable at 06/2024 office visit Followed [facility] [place] for elevated BNP. Echo ok and BNP normalized. Last visit 2023 with prn f/u only Eval'd by ENT for difficulty swallowing. Partial exam but nml finding. Rec'd GI f/u Hx DVT/PE 2021 Anesthesia Pre-Procedure Meds Is the patient on any of the following meds?: GLP1/DPP4 PMFSH Active Problems Active Problems: All Active Problems Recurrent urinary tract infection (Acute) CKD (chronic kidney disease) stage 3, GFR 30-59 ml/min (Acute) Urge incontinence (Acute) Urinary incontinence (Acute) Thyroid nodule (Acute) Calculus of distal left ureter (Acute) Acute UTI (Acute) MELVA (acute kidney injury) (Acute) Pulmonary emboli (Acute) History of Hemal-en-Y gastric bypass (Acute) Overweight (Acute) Acid reflux (Acute) Pericardial effusion (Acute) Hypothyroidism (Acute) Elevated brain natriuretic peptide (BNP) level (Acute) COVID (Acute) Abdominal pain (Acute) Hypoglycemia (Acute) Hypothyroidism (Acute) CKD (chronic kidney disease) (Acute) Multinodular thyroid (Acute) Adrenal insufficiency (Acute) HLD (hyperlipidemia) (Acute) HTN (hypertension) (Acute) T2DM (type 2 diabetes mellitus) (Acute) Nephrolithiasis (Acute) Cystitis cystica (Acute) VIVI (stress urinary incontinence, female) (Acute) Urinary frequency (Acute) Past Medical History Medical History GERD (gastroesophageal reflux disease) Hypoglycemia Myasthenia gravis History of COVID-19 Hypothyroidism Deep vein thrombophlebitis of left leg Pulmonary embolism Congenital myasthenia gravis CKD (chronic kidney disease) Multinodular thyroid Adrenal insufficiency HLD (hyperlipidemia) HTN (hypertension) T2DM (type 2 diabetes mellitus) UTI (urinary tract infection) Trigeminy Asthma Cystitis cystica VIVI (stress urinary incontinence, female) Urinary frequency Gallstones Nocturia Urinary urgency Nephrolithiasis Family History Family History Father CVD (cardiovascular disease) Heart attack HTN (hypertension) Mother Dementia Family history of problems with anesthesia: No Surgical History Surgical History Hx of colonoscopy S/P panniculectomy History of lithotripsy Hx of cystoscopy Hx of cholecystectomy History of pubovaginal sling History of hysterectomy History of gastric bypass (~2004) History of Problems with Anesthesia: No Social History Social History Household Members: Spouse Housing: House Are you a primary child care director to a significant other at home: No Do you presently have visiting nurse or other home services: No Alcohol intake: never Patient Tobacco Use Status: Former Tobacco user Tobacco use type: Cigarette Have you been hit, kicked, punched, or otherwise hurt by someone within the past year? If so, by whom?: No Are you DNR?: No Advance Directives: No Advance Directives Information Provided: Yes Advance Directives Date on File: 02/18/20 service: No Current occupational status: retired and other Meds Allergies Allergy/AdvReac Type Severity Reaction Status Date / Time bee pollen [bee stings] Allergy Intermediate Swelling Verified 08/14/24 09:33 sertraline Allergy Mild Stomach Verified 08/14/24 09:33 Upset Home Medications ?Medication ?Instructions ?Recorded ?Confirmed ?Last Taken ?Type albuterol sulfate 90 mcg/actuation 90 mcg inhalation Q4H PRN 12/03/21 09/18/24 03/03/22 History aerosol inhaler (ProAir HFA) Shortness Of Breath calcium carbonate (Calcium 600) 600 mg PO DAILY 12/03/21 09/18/24 05/05/22 History cholecalciferol (vitamin D3) 50 50 mcg PO DAILY 12/23/21 09/18/24 05/05/22 History mcg (2,000 unit) tablet (Vitamin D3) escitalopram oxalate 20 mg tablet 20 mg PO DAILY 03/30/23 09/18/24 Unknown History ferrous sulfate 325 mg (65 mg 325 mg PO DAILY 03/30/23 09/18/24 Unknown History iron) tablet,delayed release semaglutide 2 mg/dose (8 mg/3 mL) 2 mg subcut QWEEK 03/30/23 09/18/24 09/05/24 History subcutaneous pen injector (Ozempic) alendronate 70 mg tablet (Fosamax) 70 mg PO QWEEK 06/29/23 09/18/24 Unknown History atorvastatin 10 mg tablet 10 mg PO DAILY 12/28/23 09/18/24 Unknown History metformin 500 mg tablet 1,000 mg PO DAILY 12/28/23 09/18/24 Unknown History prednisone 10 mg tablet 10 mg PO DAILY 06/27/24 09/18/24 Unknown History prednisone 2.5 mg tablet 2.5 mg PO DAILY 06/27/24 09/18/24 Unknown History Exam Pertinent Lab Results Pertinent Lab Results: Laboratory Tests 08/14/24 10:48 WBC 13.8 H Hgb 12.0 Hct 37.4 Plt Count 292 D Sodium 141 Potassium 4.2 Chloride 104 Carbon Dioxide 27 BUN 13 Creatinine 0.98 Narrative Narrative: ECHO 2022 Conclusions: - The left ventricular systolic function is low normal. The calculated ejection fraction is 54% by biplane method. - There is a small loculated pericardial effusion overlying the left ventricle. Assessment and Plan Assessment Anesthesia Assessment: Chart Reviewed Final Anesthetic Review Family History of Problems with Anesthesia: No History of Problems with Anesthesia: No Documented by User: Neda [email or web address] DO 09/18/24 10:50 HPI - Anesthesia Eval Anesthesia Pre-Procedure Meds Is the patient on any of the following meds?: GLP1/DPP4 [facility] Past Medical History Medical History GERD (gastroesophageal reflux disease) Hypoglycemia Myasthenia gravis History of COVID-19 Hypothyroidism Deep vein thrombophlebitis of left leg Pulmonary embolism Congenital myasthenia gravis CKD (chronic kidney disease) Multinodular thyroid Adrenal insufficiency HLD (hyperlipidemia) HTN (hypertension) T2DM (type 2 diabetes mellitus) UTI (urinary tract infection) Trigeminy Asthma Cystitis cystica VIVI (stress urinary incontinence, female) Urinary frequency Gallstones Nocturia Urinary urgency Nephrolithiasis Family History Family History Father CVD (cardiovascular disease) Heart attack HTN (hypertension) Mother Dementia Family history of problems with anesthesia: No Surgical History Surgical History Hx of colonoscopy S/P panniculectomy History of lithotripsy Hx of cystoscopy Hx of cholecystectomy History of pubovaginal sling History of hysterectomy History of gastric bypass (~2004) History of Problems with Anesthesia: No Social History Social History Household Members: Spouse Housing: House Are you a primary child care director to a significant other at home: No Do you presently have visiting nurse or other home services: No Alcohol intake: never Patient Tobacco Use Status: Former Tobacco user Tobacco use type: Cigarette Have you been hit, kicked, punched, or otherwise hurt by someone within the past year? If so, by whom?: No Are you DNR?: No Advance Directives: No Advance Directives Information Provided: Yes Advance Directives Date on File: 02/18/20 service: No Current occupational status: retired and other Meds Allergies Allergy/AdvReac Type Severity Reaction Status Date / Time bee pollen [bee stings] Allergy Intermediate Swelling Verified 08/14/24 09:33 sertraline Allergy Mild Stomach Verified 08/14/24 09:33 Upset Home Medications ?Medication ?Instructions ?Recorded ?Confirmed ?Last Taken ?Type albuterol sulfate 90 mcg/actuation 90 mcg inhalation Q4H PRN 12/03/21 09/18/24 03/03/22 History aerosol inhaler (ProAir HFA) Shortness Of Breath calcium carbonate (Calcium 600) 600 mg PO DAILY 12/03/21 09/18/24 05/05/22 History cholecalciferol (vitamin D3) 50 50 mcg PO DAILY 12/23/21 09/18/24 05/05/22 History mcg (2,000 unit) tablet (Vitamin D3) escitalopram oxalate 20 mg tablet 20 mg PO DAILY 03/30/23 09/18/24 Unknown History ferrous sulfate 325 mg (65 mg 325 mg PO DAILY 03/30/23 09/18/24 Unknown History iron) tablet,delayed release semaglutide 2 mg/dose (8 mg/3 mL) 2 mg subcut QWEEK 03/30/23 09/18/24 09/05/24 History subcutaneous pen injector (Ozempic) alendronate 70 mg tablet (Fosamax) 70 mg PO QWEEK 06/29/23 09/18/24 Unknown Hist ory atorvastatin 10 mg tablet 10 mg PO DAILY 12/28/23 09/18/24 Unknown History metformin 500 mg tablet 1,000 mg PO DAILY 12/28/23 09/18/24 Unknown History prednisone 10 mg tablet 10 mg PO DAILY 06/27/24 09/18/24 Unknown History prednisone 2.5 mg tablet 2.5 mg PO DAILY 06/27/24 09/18/24 Unknown History Exam Exam Date and Time: 09/18/24 1045 Height,Weight and Vital Signs: Height 5 ft 8.5 in Weight 78.2 kg Vital Signs Temperature 98.5 F 09/18/24 09:57 Pulse Rate 89 09/18/24 09:57 Respiratory Rate 20 09/18/24 09:57 Blood Pressure 101/67 09/18/24 09:57 Pulse Oximetry 97 09/18/24 09:57 Oxygen Delivery Method Room Air 09/18/24 09:57 Temperature 98.5 F 09/18/24 09:57 Pulse Rate 89 09/18/24 09:57 Respiratory Rate 20 09/18/24 09:57 Blood Pressure 101/67 09/18/24 09:57 Pulse Oximetry 97 09/18/24 09:57 Oxygen Delivery Method Room Air 09/18/24 09:57 Airway Mallampati Class: II TM Dist: >3cm Neck ROM: Full Loose/Missing/Broken Teeth: No (patient denies any loose or broken teeth) Heart: S1S2 Lungs: CTAB Assessment and Plan Assessment Anesthesia Assessment: Anesthesia Plan Discussed and Chart Reviewed Final Anesthetic Review Family History of Problems with Anesthesia: No History of Problems with Anesthesia: No NPO: Yes ASA Class: III Final Preanesthetic Review: No Changes in Pt Med Stat, Meds/Allgs Chart Reviewed, Consent Obtained/Reviewed and Anes Risks/Benef Reviewed Patient Risk: Intermediate Procedure Risk: Low Anesthetic Plan Anesthetic Plan: MAC: and Agree w/ Assess. and Plan Disposition: Standard PACU
--- NOTE | 2024-09-18 10:54 | MHC.SHP ---
Pre-Procedural Eval Section A - 24 Hr Update-Section A only Date of Service: 09/18/24 The patient is an INPATIENT: No Changes since office visit: No Cold of Flu in the past 2 weeks, No New Medical Problems, No Changes in Medication and No Patient answered all questions The patient has been examined within 24 hours of the surgical procedure. The History & Physical has been completed within 30 days and I have reviewed it.: Yes Section B - Complete if H&P > 30 days Chief Complaint: Dysphagia, unspecified Allergies: Allergies Allergy/AdvReac Type Severity Reaction Status Date / Time bee pollen [bee stings] Allergy Intermediate Swelling Verified 08/14/24 09:33 sertraline Allergy Mild Stomach Verified 08/14/24 09:33 Upset Plan I have reviewed the history and physical and performed a pertinent physical examination on my patient. No changes have occurred unless specified. Time Spent With Patient Time: Total time managing care of this patient today ____ minutes.
[2024-09-18 11:26] VITALS: BP 116/57; PULSE 71; RESP 16; TEMP 36.1; O2SAT 97
[2024-09-18 11:41] VITALS: BP 126/61; PULSE 72; RESP 20; TEMP 36.2; O2SAT 99
--- NOTE | 2024-09-18 12:33 | OP_ITS ---
DATE OF SERVICE: 09/18/2024 SURGEON: Antonino Kaur MD PREOPERATIVE DIAGNOSIS: POSTOPERATIVE DIAGNOSIS: PROCEDURE PERFORMED: ESTIMATED BLOOD LOSS: COMPLICATIONS: ANESTHESIA: Monitored anesthesia care. ASSISTANTS: SPECIMENS: PROCEDURES PERFORMED: Upper endoscopy with balloon dilation and biopsy. INDICATION: Dysphagia. DESCRIPTION OF PROCEDURE: History and physical was performed. The risks and benefits of the procedure were explained to the patient. Informed consent was obtained. The patient was placed in the left lateral decubitus position. The Olympus video gastroscope was introduced into the esophagus, stomach, and small intestine. Examination was performed and the scope was removed. She tolerated the procedure well and was returned to recovery area in stable condition. FINDINGS: 1. Esophagus: The esophagus was normal. There was no stricture. The scope easily passed through the upper esophageal and lower esophageal sphincters. 2. Stomach: The stomach showed surgical changes consistent with her prior history of gastric bypass. There were surgical luis seen at the gastrojejunal anastomosis. There was a small ulceration measuring approximately 2 cm at the anastomosis consistent with an anastomotic ulcer. Biopsies were obtained from the ulcer and from the gastric pouch. 3. Balloon dilation of the upper esophageal and lower esophageal sphincters was performed with a 20 mm balloon inflated to its recommended pressure for 60 seconds at each sphincter. IMPRESSION: 1. Dysphagia. 2. Anastomotic ulcer. RECOMMENDATION: Follow up the biopsy results. MD AVE Dye/JOSE / [id number]
== END 2024-09-18 12:33 | disposition home or self-care (01) ==
PROVIDERS: PCP Internal Medicine; Visit Provider Internal Medicine Gastroenterology
PROC: (CPT 43249; principal; 2024-09-18 11:50)
DX: R13.10 Dysphagia, unspecified (principal); K28.9 Gastrojejunal ulcer, unspecified as acute or chronic, without hemorrhage or perforation; K29.50 Unspecified chronic gastritis without bleeding; K21.9 Gastro-esophageal reflux disease without esophagitis; E11.22 Type 2 diabetes mellitus with diabetic chronic kidney disease; I12.9 Hypertensive chronic kidney disease with stage 1 through stage 4 chronic kidney disease, or unspecified chronic kidney disease; N18.30 Chronic kidney disease, stage 3 unspecified; E27.40 Unspecified adrenocortical insufficiency; E78.00 Pure hypercholesterolemia, unspecified; E03.9 Hypothyroidism, unspecified; G70.00 Myasthenia gravis without (acute) exacerbation; N30.80 Other cystitis without hematuria; J45.909 Unspecified asthma, uncomplicated; R00.8 Other abnormalities of heart beat; H91.91 Unspecified hearing loss, right ear; F32.A Depression, unspecified; Z86.718 Personal history of other venous thrombosis and embolism; Z87.442 Personal history of urinary calculi; Z79.84 Long term (current) use of oral hypoglycemic drugs; Z79.85 Long-term (current) use of injectable non-insulin antidiabetic drugs; Z79.52 Long term (current) use of systemic steroids; Z79.899 Other long term (current) drug therapy; Z88.8 Allergy status to other drugs, medicaments and biological substances; Z98.84 Bariatric surgery status; Z90.49 Acquired absence of other specified parts of digestive tract; Z98.890 Other specified postprocedural states; Z87.891 Personal history of nicotine dependence
CPT/HCPCS: 43249; 43239; 82947; 88305; 88342; C1726; J2704

== ENCOUNTER 2024-12-27 10:48 | Outpatient (REF) | payer OTHER, SELFPAY ==
[2024-12-27 11:57] LABS: Anion Gap 11 (12-20); Blood Urea Nitrogen 13 mg/dL (9-16); Carbon Dioxide 30 mmol/L (22-29); Chloride 108 mmol/L (96-108); Estimated Glomerular Filt Rate 55; Potassium 4.2 mmol/L (3.3-5.1); Sodium 145 mmol/L (135-145)
--- OUTSIDE RECORDS SUMMARY | 2024-12-27 14:39 | XMS_ITS | Clinical Summary ---
Author Organization [facility] Address [address] [place] [address] Care Team Providers Care Radioisotope Technician Name Role Phone Troy Montgomery Primary [...] swallow 81 mg by mouth daily. Active omeprazole (PriLOSEC) 10 mg capsule 20 mg once a day. 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 Encounters Date Type Department Care Team Description 12/10/2024 myChart Message [facility] [address] [place] [phone] Real Monahan LPN refill 12/10/2024 Refill [facility] [address] [place] [phone] Alva Thompson, DO 11/12/2024 Refill [facility] [address] [place] [phone] Alva Thompson, DO 09/27/2024 2:45 PM EDT Office Visit [facility] [address] [place] [address] Alva Thompson DO Ocular myasthenia gravis (HCC) (Primary Dx) from Last 3 Months Social History Tobacco [...] Sign Reading Time Taken Comments Blood Pressure 101/64 09/27/2024 2:26 PM EDT Pulse 83 09/27/2024 2:26 PM EDT Temperature 37.2 C (99 F) 09/27/2024 2:26 PM EDT Respiratory Rate 16 09/27/2024 2:26 PM EDT Oxygen Saturation 99% 09/27/2024 2:26 PM EDT Inhaled Oxygen Concentration - - Weight 75.8 kg (167 lb) 09/27/2024 2:26 PM EDT Height 175.3 cm (5' 9 ) 09/27/2024 2:26 PM EDT Body Mass Index 24.66 09/27/2024 2:26 PM EDT Plan of Treatment Upcoming Encounters Date Type Department Care Team (Late st Contact Info) Description 01/24/2025 3:30 PM EDT Office Visit [facility] [address] [place] [address] Zahra Sandoval MD [address] [place] [address] Health Maintenance Due Date Last Done Comments [...] Health Cally ual Screening 04/18/2024 COVID-19 Vaccine (2023- 5 season) 2024 12/27/2023, 01/14/2023, 01/26/2022, Additional history exists Influenza Vaccine (#1) 2024 , 02/23/2023, 02/02/2022, Additional history exists RSV Vaccine (60+ years old a nd patients) Completed 12/27/2023, 03/14/2023 Pneumococcal Vaccine: 50+ Years Completed 01/11/2024, 11/19/2022, 03/26/2010 Insurance [facility] Care Teams Radioisotope Technician Relationship Specialty Start Date End Date Troy Montgomery [address] [place] [address] [id number] [facility] - General 06/10/22
--- OUTSIDE RECORDS SUMMARY | 2024-12-27 14:39 | XMS_ITS | Clinical Summary ---
Author Organization [facility] Address [address] [place] [address] Care Team Providers Care Textile Technologist Name Role Phone Unavailable Primary Care Provider Unavailabl e Social History Tobacco Use Types Packs/Day Years Used Date Smoking Tobacco: Never Assessed Comments Unknown Sex and Gender Information Value Date Recorded Sex Assigned at Not on file Legal Sex Female 7:02 PM EST Gender Identity Not on file Sexual Orientation Not on file Plan of Treatment Health Maintenance Due Date Last Done Comments Advance Care Planning 1955 Hepatitis C Virus Screening 1955 DTaP/Tdap/Td Vaccines (1 - Tdap) 1973 Pneumococcal Vaccines 50+ (1 of 1 - PCV) 2004 Zoster (Shingles) Vaccine (1 of 2) 2004 COVID-19 Vaccine (1 - 2023-2 5 season) 2024 RSV Vaccine 60 years and old er and Patients (1 - 1-dose 75+ series) 2029 Hepatitis B Vaccines Aged Out No long er eligible based on patient's age to complete this topic
--- OUTSIDE RECORDS SUMMARY | 2024-12-27 14:39 | XMS_ITS | Encounter Summary ---
Author Organization [facility] Address [address] [place] [address] Phone Care Team Providers Care Mass Communications Instructor Name Role Phone Troy Montgomery MD Primary Care Provider [phone] Reason for Visit * Reason Comments Medication Refill Encounter Details Date Type Department Care Team (Late st Contact Info) Description 12/24/2024 Refill [facility] [address] [place] [address] Jessica Cordero PA-C [address] [place] [address] [email or web address] Medication Refill Social History Tobacco Use Types Packs/Day Years Used Date Smoking Tobacco: Former Cigarettes Q uit: 02/01/1982 Smokeless Tobacco: Never Alcohol Use Standard Drinks/Week Comments Never 0 (1 standard drink = 0.6 oz pur e alcohol) Education Answer Date Recorded Are you interested in more education? Not on kate e 07/27/2023 Are you concerned about learning? Not on file 07/27/2023 No 07/27/2023 No 07/27/2023 Digital Access Answer Date Recorded No 07/27/2023 No 07/27/2023 Reliable internet access at home? Not on file 07/27/2023 Device with a working camera? Not on file Comments Unknown Sex and Gender Information Value Date Recorded Sex Assigned at Female 05/18/2024 4:04 PM EST Legal Sex Female 2:22 PM EDT Gender Identity Female 05/18/2024 4:04 PM EST Sexual Orientation Straight 05/18/2024 4: 04 PM EST documented as of this encounter Progress Notes * Rebekah Sánchez MA - 12/24/2024 11:33 AM EDT Rx Care Gap Status - Instructions for Clinical Staff (prescriber discretion applies): > Mismatch review guide > At least one request does not meet full criteria. Specifics below. > Labs due: Please remind patient. > Orders needed: Click OPA and Accept to open SmartSet. Labs due for pended Rx Requests: TSH Other labs due based on Medication List: Uric Acid - Needs order * CBC - Needs order * LFTs - Needs order * Visit Info Last visit: 12/14/2024 Jessica Cordero PA-C - Endocrinology [facility] > Requested f/u: Return in about 8 months (around 08/14/2025). Upcoming visit: 05/17/2025 Lynda Conner MD - Endocrinology [facility] ACTIONS TAKEN BY Rebekah Sánchez MA - Labs needed - Teed up orders and/or reminded pt. Thyroid Medication Rx Protocol - levothyroxine sodium Criteria not met; renew for up to 3 months. Visit in the past 14 months: Yes Clinical criteria: - TSH within past year: Yes - Last TSH was normal: No Repeat labs and adjust clinical management as appropriate. Lab Results Component Value Date TSH 4.27 (H) 12/14/2024 FREE T4 1.6 12/14/2024 No Health Maintenance Labs Overdue documented in this encounter Plan of Treatment Upcoming Encounters Date Type Department Care Team (Late st Contact Info) Description 05/17/2025 11:20 AM EST Office Visit [facility] [address] [place] [address] [place] [address] Lynda Conner MD [address] [place] [phone] 08/13/2025 10:00 AM EDT Office Visit [facility] [address] [place] [address] Jessica Cordero PA-C [address] [place] [address] [email or web address] documented as of this encounter Visit Diagnoses Diagnosis Acquired hypothyroidism Unspecified hypothyroidism documented in this encounter Care Teams Mass Communications Instructor Relationship Specialty Start Date End Date Troy Montgomery MD [address] [place] [phone] [email or web address] PCP - General Internal Medicine 07/14/23 documented as of this encounter Additional Source Comments The information contained in this document represents components of the legal health record. It is not the complete legal health record.[facility]
--- OUTSIDE RECORDS SUMMARY | 2024-12-27 14:40 | XMS_ITS | Clinical Summary ---
Author Organization [facility] Address [address] [place] [address] Phone Care Team Providers Care Flag Decorator Name Role Phone Troy Montgomery MD Primary Care Provider [phone] Allergies No known active allergies Medications allopurinol (ZYLOPRIM) 100 MG tablet Take 100 mg by mouth 1 (one) time each day Active Pyridostigmine Fairborn 30 MG tablet Take 30 mg by [...] series) 07/31/2009 02/26/2009, 01/30/2009 Influenza Vaccine (#1) [address] [place] [address] Care Teams Flag Decorator Relationship Specialty Start Date End Date Troy Montgomery MD [address] PCP - General Internal Medicine 02/09/22
--- OUTSIDE RECORDS SUMMARY | 2024-12-27 14:40 | XMS_ITS | Clinical Summary ---
Author Organization [facility] Address [address] [address] Phone Care Team Providers Care Chief Librarian Music Department Name Role Phone Troy Montgomery MD Primary Care Provider Allergies Active Allergy Reactions Criticality Noted Date Comments Venom-Honey Bee Throat Tightness High 02/02/2024 Medications pyridoxine, vitamin B6, (B-6) 100 mg/mL injection 023 Active methenamine (HIPREX) 1 gram tablet Take 1 g by mouth daily. 024 Active estradiol (YUVAFEM VAGL) 2 (two) times a week. 023 Active escitalopram oxalate (LEXAPRO) 10 MG tablet Take 10 mg by mouth daily. 980 Active atorvastatin (LIPITOR) 10 MG tablet Take 10 mg by mouth daily. 024 Active ascorbic acid, vitamin C, (VITAMIN C) 1000 MG tablet Take 1,000 mg by mouth daily. 024 Active alendronate (FOSAMAX) 70 MG tablet Take 70 mg by mouth every 7 days. 024 Active allopurinol (ZYLOPRIM) 100 MG tablet Take 100 mg by mouth daily. 024 Active vit C/E/Zn/coppr/lute in/zeaxan (PRESERVISION AREDS-2 ORAL) 2 (two) times a day. 023 Active potassium citrate (UROCIT-K) 10 mEq SR tablet Take 20 mEq by mouth 2 (two) times a day with meals. 024 Active oxyBUTYnin (DITROPAN-XL) 10 MG 24 hr tablet Take 10 mg by mouth daily. 023 Active azelastine (ASTELIN) 137 mcg (0.1 %) nasal spray 1 spray by Nasal route daily. Active nitrofurantoin (MACRODANTIN) 50 MG capsule Take 50 mg by mouth daily. Active aspirin 81 mg chewable tablet Take 81 mg by mouth daily. Active cetirizine (ZYRTEC) 10 MG tablet Take 10 mg by mouth daily. Active calcium carbonate-vitamin D3 1,250 mg (500 mg elemental)-400 units per tablet Take 1 tablet by mouth daily. Active DEXCOM G6 SENSOR DeviIndications:T ype 2 diabetes mellitus with peripheral neuropathy Use to monitor glucose, change q10 days 9 each 3 Active DEXCOM G6 TRANSMITTER DeviIndications:T ype 2 diabetes mellitus with peripheral neuropathy Use to monitor glucose, change q90 days 1 each 025 Active metFORMIN (GLUCOPHAGE-XR) 500 MG 24 hr tabletIndications :Type 2 diabetes mellitus with peripheral neuropathy Take 2 tablets (1,000 mg total) by mouth daily with breakfast. 180 tablet 3 Active FREESTYLE LITE Strp stripsIndications :Type 2 diabetes mellitus with peripheral neuropathy 1 each by Miscellaneous route daily. 100 strip 3 Active lancets (FREESTYLE) 28 gauge MiscIndications:T ype 2 diabetes mellitus with peripheral neuropathy test once daily 100 each 1 025 Active predniSONE (DELTASONE) 10 MG tablet 12.5 mg daily. 025 Active chlorhexidine (PERIDEX) 0.12 % solution Active predniSONE (DELTASONE) 2.5 MG tablet Take 2.5 mg by mouth daily with breakfast. Active OZEMPIC 2 mg/dose (8 mg/3 mL) subcutaneous injection penIndications:Ty pe 2 diabetes mellitus with peripheral neuropathy INJECT 2 MG UNDER THE SKIN EVERY 7 DAYS 9 mL 1 025 Active omeprazole (PRILOSEC) 20 MG capsule Take 20 mg by mouth daily. 025 Active albuterol (PROAIR HFA) 90 mcg/actuation inhaler Inhale 2 puffs into the lungs every 6 (six) hours as needed for wheezing or shortness of breath/dyspnea. Active SYNTHROID 100 mcg tabletIndications :Acquired hypothyroidism TAKE 1 TABLET BY MOUTH 6 DAYS A WEEK AND 1 1/2 TABLETS ON THE 7TH DAY 96 tablet 1 025 Active SYNTHROID 100 mcg tabletIndications :Acquired hypothyroidism Take 1 tablet 6 days a week, take 1.5 tablets on the 7th day, orally 96 tablet 1 025 2024 Discontinued Active Problems Problem Noted Date Diagnosed Date Fatigue 12/14/2024 Assessment & Plan (12/14/2024 10:22 AM EDT): Will check a vitamin D level to rule out out as possible cause of the fatigue Low vitamin B12 level 12/14/2024 Assessment & Plan (12/14/2024 10:23 AM EDT): Will check levels to determine if medication adjustments are needed Asthma 02/02/2024 Depression 02/02/2024 Hypercholesterolemia 02/02/2024 Hypothyroidism 02/02/2024 Assessment & Plan (12/14/2024 10:23 AM EDT): Will check levels to determine if medication adjustments are needed Assessment & Plan (08/26/2024 9:45 AM EDT): Will check levels & adjust rx as appropriate. Assessment & Plan (05/17/2024 9:15 AM EST): Will check levels to determine if medication adjustments are needed Assessment & Plan (02/02/2024 11:24 AM EDT): Advised to separate LT4 from calcium, iron or MVI by several hours. Myasthenia gravis 10/05/2021 CKD (chronic kidney disease) stage 3, GFR 30-59 ml/min 04/18/2020 Nephrolithiasis 04/18/2020 Recurrent UTI 04/18/2020 Urinary incontinence 04/23/2019 Type 2 diabetes mellitus with peripheral neuropa thy Assessment & Plan (12/14/2024 10:34 AM EDT): Control is reasonable based upon the patient's dexcom G6 download. No frequent or severe hypoglycemia. During the day her glucose levels are doing well. The afternoon and evenings her glucose levels are spiking- she thinks some of this is due to what she is eating. She is going to try and be careful with her food choices in the afternoon. Continue to work on eating healthy and being active. To call or message with any issues managing her glucose levels. Up to date with [facility]. Labs ordered Assessment & Plan (08/26/2024 9:44 AM EDT): 69 y.o. woman with Type 2 diabetes exacerbated by dx myesthenia/steroids. Currently control is reasonable, but not optimal, with some post-meal spikes. Dose of steroids is being tapered. To continue to work on eating healthy & keeping active. To call or send in log with problems with glucose control. Discussed options of ongoing efforts at eating healthy/avoiding high carb intake vs re-try prandial insulin in the future. Will check labs today & if control improving may continue to monitor for now on current rx. Didn't feel like insulin was helpful in the past, discussed that may be related to dosing/need to adjust, difficulty managing w/ high doses of steroids & would think likely it would help if needed. [facility]. BP under good control. Assessment & Plan (05/17/2024 9:34 AM EST): Control is reasonable based upon the patient's dexcom G6 download during the day but her glucose levels spike in the evening after taking her prednisone. No frequent or severe hypoglycemia. During the day her glucose levels are doing well. The evenings her glucose levels spike. She is going to try and be careful with her dinner carbs to see if this helps lessen the over night spikes. Continue to work on eating healthy and being active. To call or message with any issues managing her glucose levels. Up to date with [facility]. Labs ordered Assessment & Plan (02/02/2024 11:24 AM EDT): 68 y.o. woman with Type 2 diabetes exacerbated by dx myesthenia/steroids w/ difficult to control glucose despite insulin rx, uncertain specifics. Currently control is reasonable with some post-meal spikes. I am not seeing a general rise in #s through the day due to her current prednisone dose. She does have evidence of peripheral neuropathy on exam. Discussed rationale & goals for control. Role of diet, exercise, medications. buttermaker plan @ steroids is pending, but regardless, dose will likely be tapered. For now, to continue to work on eating healthy & keeping active. Advised to avoid high carb meals/snacks and to eat meals/snacks with mixed macronutrient content. To call or send in log with problems with glucose control. If continues to have inadequate control with post-meal spikes, may re-try prandial insulin in the future. Foot & nail care good. Up to date with [facility]. Follows w/ renal. BP under good control. retirement current use of oral hypoglycemic drug Assessment & Plan (05/17/2024 9:16 AM EST): Will maintain metformin dosing Long-term current use of inj ectable noninsulin antidiabetic medication Assessment & Plan (05/17/2024 9:15 AM EST): Will maintain ozempic dosing Encounters Date Type Department Care Team Description 12/24/2024 Refill [facility] [address] [place] [address] [place] [address] Jessica Cordero PA-C Medication Refill 12/14/2024 10:31 AM EDT - 12/14/2024 11:59 PM EDT Hospital Encounter [facility] [address] [place] [address] Jessica Cordero PA-C Discharge Disposition: Home or Self Care 12/14/2024 10:00 AM EDT Office Visit [facility] [address] [place] [address] Jessica Cordero PA-C Type 2 diabetes mellitus with peripheral neuropathy (Primary Dx); Acquired hypothyroidism; Fatigue, unspecified type; Low vitamin B12 level 11/05/2024 Refill [facility] [address] [place] [address] Jessica Cordero PA-C Medication Refill from Last 3 Months Family History Medical History Relation Comments Diabetes Brother 1 type 2 Hyperlipidemia Brother 1 Factor V Leiden deficiency Brother 2 Thyroid cancer Daughter 1 Factor V Leiden deficiency Father ? Heart attack Father Breast cancer Maternal Aunt Deep vein thrombosis Mother Dementia Mother Heart disease Mother Melanoma Mother Ovarian cancer Mother Pacemaker Mother Thyroid disease Mother Thyroid disease Sister 1 Crohn's disease Sister 2 Factor V Leiden deficiency Sister 3 Relation Status Comments Brother 1 Alive Brother 2 Alive Brother 3 Alive Daughter 1 Alive Daughter 2 Alive Father Maternal Aunt Alive Mother Sister 1 Alive Sister 2 Alive Sister 3 Alive Sister 4 Son Alive Social History Tobacco Use Types Packs/Day Years Used Date Smoking Tobacco: Former Cigarettes Q uit: 02/01/1982 Smokeless Tobacco: Never Tobacco Cessation:Counseling Given: Not [...] Orientation Straight 05/18/2024 4: 04 PM EST Last Filed Vital Signs Vital Sign Reading Time Taken Comments Blood Pressure 110/70 12/14/2024 10:01 AM EDT Pulse 76 12/14/2024 10:01 AM EDT Temperature - - Respiratory Rate - - Oxygen Saturation 99% 12/14/2024 10:01 AM EDT Inhaled Oxygen Concentration - - Weight 73.9 kg (163 lb) 12/14/2024 10:01 AM EDT Height 175.3 cm (5' 9.02 ) 12/14/2024 10:01 AM E DT Body Mass Index 24.06 12/14/2024 10:01 AM EDT Plan of Treatment Upcoming Encounters Date Type Department Care Team (Late st Contact Info) Description 05/17/2025 11:20 AM EST Office Visit [facility] [address] [place] [address] Lynda Conner MD [address] [place] [phone] 08/13/2025 10:00 AM EDT Office Visit [facility] [address] [place] [address] Jessica Cordero PA-C [address] [place] [phone] [email or web address] Health Maintenance Due Date Last Done Comments Adult Td,Tdap Booster 1954 DEPRESSION SCREENING 1966 HEPATITIS C SCREENING 1972 PNEUMOCOCCAL VACCINES (50+ years) (1 of 2 - PCV) 1973 MAMMOGRAM 1994 COLOGUARD 07/20/1999 COLONOSCOPY 07/20/1999 COLORECTAL CANCER SCREENING 07/20/1999 FIT TEST 07/20/1999 FOBT 07/20/1999 SIGMOIDOSCOPY 07/20/1999 VIRTUAL COLONOSCOPY 07/20/1999 ZOSTER VACCINES (1 of 2) 2004 RSV VACCINE (1 - Risk 60-74 years 1-dose series) 2014 OSTEOPOROSIS SCREENING INITIAL (ONE-TIME) 07/20/2019 DIABETIC EYE EXAM 02/02/2024 INFLUENZA VACCINE (#1) 2024 COVID-19 VACCINE ( - season) 2024 BLOOD PRESSURE 06/15/2025 12/14/2024 HEMOGLOBIN A1C 06/15/2025 12/14/2024, 05/0 11/2024, 05/08/2024 SMOKING Hx and SMOKELESS TOBACCO SCREENING 08/23/2025 08/23/2024 CREATININE LEVEL 12/14/2025 12/14/2024, 11/2024, 05/08/2024, Additional history exists TSH LEVEL 12/14/2025 12/14/2024, 05/0 11/2024, 05/08/2024, Additional history exists HEPATITIS A VACCINES Aged Out No long er eligible based on patient's age to complete this topic HIB VACCINES Aged Out No longer eligi ble based on patient's age to complete this topic MENINGOCOCCAL VACCINES (ACWY) Aged Out No longer eligible based on patient's age to complete this topic MENINGOCOCCAL VACCINES (B) Aged Out N o longer eligible based on patient's age to complete this topic Medical Devices Not on file Procedures Procedure Name Priority Date/Time Associated Diagnosis Comments FREE T4 Routine 12/14/2024 10:56 AM EDT TSH WITH REFLEX Routine 12/14/2024 10:56 AM EDT Acquired hypothyroidism HEMOGLOBIN A1C Routine 12/14/2024 10:56 AM EDT Type 2 diabetes mellitus with peripheral neuropathy ALANINE AMINOTRANSFERASE (ALT) Routine 12/14/2024 10:56 AM EDT Type 2 diabetes mellitus with peripheral neuropathy ASPARTATE AMINOTRANSFERASE (AST) Routine 12/14/2024 10:56 AM EDT Type 2 diabetes mellitus with peripheral neuropathy BASIC METABOLIC PANEL Routine 12/14/2024 10:56 AM EDT Type 2 diabetes mellitus with peripheral neuropathy 25-OH VITAMIN D Routine 12/14/2024 10:56 AM EDT Fatigue, unspecified type VITAMIN B12 Routine 12/14/2024 10:56 AM EDT Low vitamin B12 level from Last 3 Months Results * (ABNORMAL) TSH with reflex (12/14/2024 10:56 AM EDT) TSH 4.27(H) 0.27 - 4.20 uIU/mL [facility] Blood 12/14/2024 10:5 6 AM EDT 12/14/2024 10:59 AM EDT Jessica SHERIFF-Shell LAB BLOOD ORDERABL ES Final Result Performing Organization Address City/[facility]/ZIP Co de Phone Number [address] [address] * 25-OH vitamin D (12/14/2024 10:56 AM EDT) 25 OH VIT D (TOTAL) 43 30 - 60 ng/mL [facility] Blood 12/14/2024 10:5 6 AM EDT 12/14/2024 10:59 AM EDT Jessica SHERIFF-Shell LAB BLOOD ORDERABL ES Final Result Performing Organization Address [facility] Co de Phone Number [address] [address] * Alanine aminotransferase (ALT) (12/14/2024 10:56 AM EDT) ALT 38 0 - 40 U/L [facility] Blood 12/14/2024 10:5 6 AM EDT 12/14/2024 10:59 AM EDT Jessica SHERIFF-C LAB BLOOD ORDERABL ES Final Result Performing Organization Address [facility]/ZIP Co de Phone Number [address] [address] * (ABNORMAL) Aspartate aminotransferase (AST) (12/14/2024 10:56 AM EDT) AST 44(H) 0 - 37 U/L [facility] Blood 12/14/2024 10:5 6 AM EDT 12/14/2024 10:59 AM EDT Jessica SHERIFF-C LAB BLOOD ORDERABL ES Final Result Performing Organization Address City/[facility]/ZIP Co de Phone Number [address] [address] * Free T4 (12/14/2024 10:56 AM EDT) FREE T4 1.6 0.9 - 1.7 ng/dL [facility] 12/14/2024 10:5 6 AM EDT 12/14/2024 10:59 AM EDT Jessica Cordero PA-C LAB BLOOD ORDERABL ES Final Result [address] [address] * (ABNORMAL) Hemoglobin A1c (12/14/2024 10:56 AM EDT) HEMOGLOBIN A1C 7.4(H) 4.3 - 5.8 % [facility] Blood 12/14/2024 10:5 6 AM EDT 12/14/2024 10:58 AM EDT Jessica Cordero PA-C LAB BLOOD ORDERABL ES Final Result Performing Organization Address [facility]/ZIP Co de Phone Number [address] [address] * (ABNORMAL) Vitamin B12 (12/14/2024 10:56 AM EDT) VITAMIN B12 >2000(H) 232 - 1245 pg/mL [facility] Blood 12/14/2024 10:5 6 AM EDT 12/14/2024 10:59 AM EDT Jessica Cordero PA-C LAB BLOOD ORDERABL ES Final Result Performing Organization Address [facility]/ZIP Co de Phone Number [address] [address] * (ABNORMAL) Basic metabolic panel (12/14/2024 10:56 AM EDT) SODIUM 138 133 - 146 mmol/L [facility] CHLORIDE 103 96 - 108 mmol/L [facility] POTASSIUM 4.5 3.3 - 5.1 mmol/L [facility] CO2 26 21 - 35 mmol/L [facility] BUN 11 6 - 19 mg/dL [facility] CREATININE 1.00 0.5 - 1.5 mg/dL [facility] GLUCOSE 154(H) 70 - 99 mg/dL [facility] CALCIUM 9.1 8.4 - 10.3 mg/dL [facility] EGFR 61 >59 mL/min/1.7 3m2 [facility] Comment:Estimated glomerular filtration rate calculated using the CKD-EPI refit equation. ANION GAP 14 10 - 20 mmol/L [facility] Blood 12/14/2024 10:5 6 AM EDT 12/14/2024 10:59 AM EDT us Jessica Cordero PA-C LAB BLOOD ORDERABL ES Final Result Performing Organization Address City/State/[facility] Co de Phone Number [facility] [address] [place] [address] from Last 3 Months Insurance [facility] HEALTH PLAN PLAN HEALTH PLAN [facility] Care Teams Chief Librarian Music Department Relationship Specialty Start Date End Date Troy Montgomery MD [address] [place] [phone] [email or web address] PCP - General Internal Medicine 07/14/23 Additional Source Comments The information contained in this document represents components of the legal health record. It is not the complete legal health record.[facility]
--- OUTSIDE RECORDS SUMMARY | 2024-12-27 14:40 | XMS_ITS | Encounter Summary ---
Author Organization [facility] Address [address] [place] [address] Care Team Providers Care Antenna Installer Name Role Phone Troy Montgomery Primary Care Provider [phone] Encounter Details Date Type Department Care Team (Late st Contact Info) Description 12/10/2024 myChart Message [facility] [address] [place] [phone] Real Monahan LPN refill Social History Tobacco Use Types Packs/Day Years Used Date Smoking Tobacco: Former Cigarettes Smokeless Tobacco: Former Alcohol Use Standard Drinks/Week Comments Never 0 (1 standard drink = 0.6 oz pur e alcohol) Comments Unknown Sex and Gender Information Value Date Recorded Sex Assigned at Female 10/04/2022 11:35 AM EDT Legal Sex Female 2:55 PM EDT Gender Identity Female 10/04/2022 11:35 AM EDT Sexual Orientation Straight 10/04/2022 11 :35 AM EDT documented as of this encounter Plan of Treatment Upcoming Encounters Date Type Department Care Team (Late st Contact Info) Description 01/24/2025 3:30 PM EDT Office Visit [facility] [address] [place] [phone] Zahra Sandoval MD [address] [place] [address] documented as of this encounter Visit Diagnoses Not on filedocumented in this encounter Care Teams Antenna Installer Relationship Specialty Start Date End Date Troy Montgomery [address] [place] [address] PCP - General 06/10/22 documented as of this encounter
== END 2024-12-27 10:49 | disposition home or self-care (01) ==
LOC: HO.LAB 10:48
PROVIDERS: PCP Internal Medicine; Visit Provider Internal Medicine Nephrology
DX: N18.31 Chronic kidney disease, stage 3a (principal)
CPT/HCPCS: 36415; 80051; 82565; 84520

== ENCOUNTER 2024-12-28 09:29 | Outpatient (AMB) | payer OTHER, SELFPAY ==
--- NOTE | 2024-12-28 09:36 | HO.NEPHOV_ITS ---
Vital Signs 12/28/24 09:40 Height 5 ft 8.5 in Weight 163 lb 4 oz BMI 24.5 BP 100/60 Blood Pressure Location Lt brachial Position Sitting Pulse 82 Pulse Source Pulse Oximeter Pulse Oximetry (%) 99 Oxygen Delivery Method Room Air Intake Visit Reasons: 6 [place] FU-Conf Director Of Customer Service Required: No Accompanied by: Self / Same As Patient Allergies bee pollen (bee stings) Allergy (Intermediate, Verified 12/28/24 09:39) Swelling sertraline Allergy (Mild, Verified 12/28/24 09:39) Stomach Upset HPI Comments Details: Sarah was seen in the office in follow-up of her mild chronic kidney disease. She has myasthenia gravis and has been followed up by neurologist in [facility]. She is not on Mestinone, Imuran, cellcept or IVIG. She has not had a chest CT. She is not having any weight loss, chest pain, shortness of breath, cough. She remains on significantly high dose of prednisone and has developed mariano facies. Her blood sugar control is quite suboptimal. She was on Farxiga which has been discontinued due to recurrent UTI. She has history of renal calculus and is on potassium citrate ( had USS which showed 4 mm calculus left kidney lower pole. Last 24 hour urine was in 2021). She denies nausea, vomiting, diarrhea, fever, chills, rigors, chest pain, shortness of breath, proximal nocturnal dyspnea, orthopnea, pedal edema or orthostatic symptoms. She does not take any nonsteroidal anti-inflammatory medications. She tries to maintain good hydration. She also sees urologist. [facility] Medical History GERD (gastroesophageal reflux disease) Hypoglycemia Myasthenia gravis History of COVID-19 Hypothyroidism Deep vein thrombophlebitis of left leg Pulmonary embolism Congenital myasthenia gravis CKD (chronic kidney disease) Multinodular thyroid Adrenal insufficiency HLD (hyperlipidemia) HTN (hypertension) T2DM (type 2 diabetes mellitus) UTI (urinary tract infection) Trigeminy Asthma Cystitis cystica VIVI (stress urinary incontinence, female) Urinary frequency Gallstones Nocturia Urinary urgency Nephrolithiasis Surgical History Hx of colonoscopy S/P panniculectomy History of lithotripsy Hx of cystoscopy Hx of cholecystectomy History of pubovaginal sling History of hysterectomy History of gastric bypass (~2004) Family History Father CVD (cardiovascular disease) Heart attack HTN (hypertension) Mother Dementia Social History Household Members: Spouse Housing: House Are you a primary pet care technician to a significant other at home: No Do you presently have visiting nurse or other home services: No Alcohol intake: never Patient Tobacco Use Status: Former Tobacco user Tobacco use type: Cigarette Advance Directives Date on File: 02/18/20 service: No Current occupational status: retired and other Review of Systems Const All systems reviewed & are unremarkable except as noted in HPI and below Physical Exam Const General: comfortable and no acute distress Orientation/consciousness: patient oriented x3 HEENT Head: Yes normocephalic Mouth: Normal oral and palatal mucosa present Eyes EOM: EOMs intact bilaterally Neck Neck: Yes supple Resp Auscultation: clear to auscultation bilaterally Cardio Jugular venous distension: no JVD Rate: regular rate GI Palpation (GI): Soft to palpation Auscultation: normal bowel sounds General: Yes no CVA tenderness Back/Spine/Pelvis Back: no CVA tenderness Skin General skin exam: no rashes or lesions noted Neuro General: patient oriented x3 and moves all extremities Extrem General: Yes no pedal edema Results Reviewed Nephrology Results: Hgb, (12.0-16.0) 12.0 g/dl 08/14/24 WBC, (4.8-10.8) 13.8 X10*3/uL H 08/14/24 Plt Count, (160-400) 292 X10*3/uL Δ 08/14/24 Sodium, (135-145) 145 mmol/L 12/27/24 Potassium, (3.3-5.1) 4.2 mmol/L 12/27/24 Chloride, (96-108) 108 mmol/L 12/27/24 Carbon Dioxide, (22-29) 30 mmol/L H 12/27/24 BUN, (9-16) 13 mg/dL 12/27/24 Creatinine, (0.5-1.4) 1.00 mg/dL 12/27/24 Calcium, (8.4-10.2) 9.5 mg/dL 08/14/24 Urine Protein, (Neg-Trace) Trace mg/dL 08/15/24 Renal US 06/21/24 Assessment & Plan Assessment & Plan (1) HTN (hypertension): Code(s): I10 - Essential (primary) hypertension Category: Medical Qualifiers: Hypertension type: primary hypertension Qualified Code(s): I10 - Essential (primary) hypertension (2) Nephrolithiasis: Code(s): N20.0 - Calculus of kidney Category: Medical (3) CKD (chronic kidney disease) stage 3, GFR 30-59 ml/min: Code(s): N18.30 - Chronic kidney disease, stage 3 unspecified Category: Medical Qualifiers: Chronic kidney disease stage 3 subtype: stage 3a (GFR 45-59) Qualified Code(s): N18.31 - Chronic kidney disease, stage 3a Plan Her renal functions are currently stable She is renal calculus which had been stable in size. She is on potassium citrate. Her blood sugar control is better. Her blood pressure is at goal. She avoids nonsteroidal anti- inflammatory medications and maintain good hydration. She should closely follow up with her urologist as well.(she had overactive bladder and a sling procedure done in the past). I did not make any medication changes today. I ordered follow-up lab work. All questions answered Orders: Orders Electrolytes 7 Months I10 - Essential (primary) hypertension, N20.0 - Calculus of kidney Protein Creatinine Ratio, Ur 7 Months I10 - Essential (primary) hypertension, N20.0 - Calculus of kidney Creatinine 7 Months I10 - Essential (primary) hypertension, N20.0 - Calculus of kidney Blood Urea Nitrogen 7 Months I10 - Essential (primary) hypertension, N20.0 - Calculus of kidney Coding Level of Care Code Est Pt Level 4 (66591) Diagnoses Primary hypertension I10 Hypertension type: primary hypertension Nephrolithiasis N20.0 Stage 3a chronic kidney disease N18.31 Chronic kidney disease stage 3 subtype: stage 3a (GFR 45-59)
[2024-12-28 09:40] VITALS: BP 100/60; PULSE 82; O2SAT 99; BMI 24.5
--- OUTSIDE RECORDS SUMMARY | 2024-12-28 10:37 | XMS_ITS | Encounter Summary ---
Author Organization [facility] Address [address] [place] [address] Care Team Providers Care Shop Manager Name Role Phone Troy Montgomery Primary Care Provider [phone] Encounter Details Date Type Department Care Team (Late st Contact Info) Description 12/10/2024 myChart Message [facility] [address] [place] [phone] Real Monahan LPN refill Social History Tobacco [...] Description 01/24/2025 3:30 PM EDT Office Visit [facility] [address] [place] [address] Zahra Sandoval MD [address] [place] [address] documented as of this encounter Visit Diagnoses Not on filedocumented in this encounter Care Teams Shop Manager Relationship Specialty Start Date End Date Troy Montgomery [address] [place] [address] PCP - General 06/10/22 documented as of this encounter
--- OUTSIDE RECORDS SUMMARY | 2024-12-28 10:37 | XMS_ITS | Clinical Summary ---
Author Organization [facility] Address [address] [place] [address] Care Team Providers Care Hand Presser Name Role Phone Troy Montgomery Primary Care Provider [phone] Allergies Active Allergy Reactions Criticality Noted Date [...] Department Care Team Description 12/10/2024 myChart Message [facility] [address] [place] [phone] Real Monahan LPN refill 12/10/2024 Refill [facility] [address] [place] [phone] Alva Thompson, DO 11/12/2024 Refill [facility] [address] [place] [address] Alva Thompson, DO 09/27/2024 2:45 PM EDT Office Visit [facility] [address] [place] [address] Alva Thompson DO Ocular myasthenia gravis (HCC) [...] Description 01/24/2025 3:30 PM EDT Office Visit [facility] [address] [place] [address] Zahra Sandoval MD [address] [place] [address] Health Maintenance Due Date Last Done Comments [...] 50+ Years Completed 01/11/2024, 11/19/2022, 03/26/2010 Insurance [facility] Care Teams Hand Presser Relationship Specialty Start Date End Date Troy Montgomery [address] [place] [phone] [facility] - General 06/10/22
--- OUTSIDE RECORDS SUMMARY | 2024-12-28 10:37 | XMS_ITS | Clinical Summary ---
Author Organization [facility] Address [address] [place] [address] Care Team Providers Care Diesel Truck Mechanic Name Role Phone Unavailable Primary Care Provider [...]
--- OUTSIDE RECORDS SUMMARY | 2024-12-28 10:37 | XMS_ITS | Clinical Summary ---
Author Organization [facility] Address [address] [place] [address] Phone Care Team Providers Care Financial Sales Associate Name Role Phone Troy Montgomery MD Primary Care Provider [phone] Allergies No known active allergies Medications allopurinol (ZYLOPRIM) 100 MG tablet Take 100 mg by mouth 1 (one) time each day Active Pyridostigmine [place] 30 MG tablet Take 30 mg by [...] 02/26/2009, 01/30/2009 Influenza Vaccine (#1) [address] [place] [address] Care Teams Financial Sales Associate Relationship Specialty Start Date End Date Troy Montgomery MD [address] PCP - General Internal Medicine 02/09/22
== END 2024-12-28 09:54 | disposition home or self-care (01) ==
LOC: HO.HKA 09:30
PROVIDERS: PCP Internal Medicine; Visit Provider Internal Medicine Nephrology
DX: I10 Essential (primary) hypertension (principal); N20.0 Calculus of kidney; N18.31 Chronic kidney disease, stage 3a
CPT/HCPCS: 99214

== ENCOUNTER → 2024-12-28 09:29 | Outpatient (BNVA) | payer OTHER, SELFPAY | PROVIDERS: PCP Internal Medicine; Visit Provider Internal Medicine Nephrology | DX: I10 Essential (primary) hypertension (principal); N20.0 Calculus of kidney; N18.31 Chronic kidney disease, stage 3a | CPT/HCPCS: 99212 ==

== ENCOUNTER 2025-01-08 11:03 | Outpatient (REF) | payer OTHER, SELFPAY | END 2025-01-08 11:04 | disposition home or self-care (01) | LOC: HO.LNP 11:03 | PROVIDERS: PCP Internal Medicine; Visit Provider Urology | DX: N20.0 Calculus of kidney (principal); N39.41 Urge incontinence; N30.80 Other cystitis without hematuria; A49.9 Bacterial infection, unspecified | CPT/HCPCS: 51798; 81003; 87086; 99212 ==

== ENCOUNTER 2025-01-08 11:03 | Outpatient (AMB) | payer OTHER, SELFPAY ==
--- NOTE | 2025-01-08 11:06 | MHC.OFFVIS ---
Intake Visit Reasons: 6m/UA Intake Note: Pt presents to the office today for a 6 mo follow up Urology meds : VIT-C , Methenamine , Oxybutynin , Potassium Blood Thinner : none PVR: 8 mls Butadiene Compressor Operator Required: No Accompanied by: Self / Same As Patient Allergies bee pollen (bee stings) Allergy (Intermediate, Verified 01/08/25 11:07) Swelling sertraline Allergy (Mild, Verified 01/08/25 11:07) Stomach Upset HPI Comments Details: Sarah is a pleasant female. She is a patient of Dr. Montgomery. Seen for the following urologic conditions - nephrolithiasis - stress urinary incontinence - urge incontinence UA today 2+ leuks. Negative nitrites. We will sent for culture. Responding well with potassium citrate and allopurinol for stones Continue with esterase Last 2 urine cultures were negative Followed by Dr. Antonia Thomas Recurrent urinary tract infection E coli pansensitive 04/09, 07/09, 01/09 Nephrolithiasis Recurrent Prior gastric bypass TUMS with main meal Intervention - 01/07 left ureteroscopy Imaging - 01/07 CT scan left 6 mm distal ureteric stone, right 4 mm - 10/08 renal US minimal stones - 04/09 renal ultrasound 4 mm left Composition - 01/07 mixed calcium oxalate monohydrate 80% Therapeutic plan - continue potassium citrate from Dr. Knight Stress urinary incontinence Status post vaginal sling Slight feelings of incomplete emptying PVR is less than 30 cc Otherwise doing well Would like to go on the water in 2 weeks time. She is cleared for water walking but not swimming. At cystoscopy had low Valsalva leak point pressure with posterior urethra rotation Overactive Bladder Good response to oxybuytinin when needed PFSH Medical History GERD (gastroesophageal reflux disease) Hypoglycemia Myasthenia gravis History of COVID-19 Hypothyroidism Deep vein thrombophlebitis of left leg Pulmonary embolism Congenital myasthenia gravis CKD (chronic kidney disease) Multinodular thyroid Adrenal insufficiency HLD (hyperlipidemia) HTN (hypertension) T2DM (type 2 diabetes mellitus) UTI (urinary tract infection) Trigeminy Asthma Cystitis cystica VIVI (stress urinary incontinence, female) Urinary frequency Gallstones Nocturia Urinary urgency Nephrolithiasis Surgical History Hx of colonoscopy S/P panniculectomy History of lithotripsy Hx of cystoscopy Hx of cholecystectomy History of pubovaginal sling History of hysterectomy History of gastric bypass (~2004) Family History Father CVD (cardiovascular disease) Heart attack HTN (hypertension) Mother Dementia Social History Household Members: Spouse Housing: House Are you a primary property caretaker to a significant other at home: No Do you presently have visiting nurse or other home services: No Alcohol intake: never Patient Tobacco Use Status: Former Tobacco user Tobacco use type: Cigarette Advance Directives Date on File: 02/18/20 service: No Current occupational status: retired and other Review of Systems Const Denies chills and Denies fever(s) Card Reports no additional complaints and Denies syncope Resp Denies cough GI Denies abdominal pain and Denies heartburn Reports as per HPI and Denies change in libido Neuro Denies syncope Psych Denies change in libido Endo Denies change in libido Physical Exam Const General: cooperative, healthy appearing, comfortable and no acute distress Orientation/consciousness: patient oriented x3 HEENT Face and sinus: Yes normal facial exam Mouth: moist mucous membranes Neck Neck: Yes normal visual inspection, Yes full ROM and Yes trachea midline Chest Chest palpation & inspection: normal inspection of the chest Resp Effort & Inspection: normal respiratory effort, able to speak in complete sentences and no respiratory distress GI Inspection: Yes normal to inspection Back/Spine/Pelvis Cervical Spine: normal cervical lordosis Thoracic/Lumbar Spine: thoracic and lumbar spine normal to inspection Skin General skin exam: no rashes or lesions noted Neuro General: patient oriented x3, gait normal, tone normal and moves all extremities Extrem General: Yes normal to inspection and Yes capillary refill normal Office Procedures Post Void Residual Post Residual Void Post Void Residual (PVR): 8 70383-Huny Void Residual by ultrasound Results AMB Urinalysis, Automated UA Leukoctes 125 Angelica/uL Last Edit by KATHERINE Duran on 01/08/25 11:30 UA Nitrite Last Edit by KATHERINE Duran on 01/08/25 11:30 UA Urobilinogen 3.5 mg/dL Last Edit by KATHERINE Duran on 01/08/25 11:30 UA Protein 1 mg/dL Last Edit by KATHERINE Duran on 01/08/25 11:30 UA pH 6.0 Last Edit by KATHERINE Duran on 01/08/25 11:30 UA Blood 0 Armond/uL Last Edit by KATHERINE Duran on 01/08/25 11:30 UA Specific [place] 1.020 Last Edit by KATHERINE Duran on 01/08/25 11:30 UA Ketone Last Edit by KATHERINE Duran on 01/08/25 11:30 UA Bilirubin 0 mg/dL Last Edit by KATHERINE Duran on 01/08/25 11:30 UA Glucose 0 mg/dL Last Edit by KATHERINE Duran on 01/08/25 11:30 Results Reviewed Results Reviewed: Laboratory Last Values Urine pH (Auto) 6.0 01/08/25 11:29 Specific [place] (Auto) 1.020 01/08/25 11:29 Urine Protein (Auto) 1 mg/dL 01/08/25 11:29 Glucose (UA)(Auto) 0 mg/dL 01/08/25 11:29 Urine Blood (Auto) 0 Armond/uL 01/08/25 11:29 Urine Bilirubin (Auto) 0 mg/dL 01/08/25 11:29 Urine Urobilinogen (Auto) 3.5 mg/dL 01/08/25 11:29 Leukocyte Esterase (Auto) 125 Angelica/uL 01/08/25 11:29 Assessment & Plan Assessment & Plan (1) Nephrolithiasis: Code(s): N20.0 - Calculus of kidney Category: Medical (2) Urge incontinence: Code(s): N39.41 - Urge incontinence Category: Medical (3) Cystitis cystica: Code(s): N30.80 - Other cystitis without hematuria Category: Medical Plan Six-month follow-up renal ultrasound Orders: Orders Urine Culture Today A49.9 - Bacterial infection, unspecified, N39.0 - Urinary tract infection, site not specified AMB Post Void Residual by ultrasound Today R35.0 - Frequency of micturition US renal BI 6 Months N20.1 - Calculus of ureter AMB Urinalysis Automated Today Z13.9 - Encounter for screening, unspecified Medications: Refilled estradiol (Yuvafem) 10 mcg vaginal 2XW 26 tabs 1RF 90 days N20.0 - Calculus of kidney, N39.0 - Urinary tract infection, site not specified, N95.8 - Other specified menopausal and perimenopausal disorders Patient Instructions: This note is constructed using voice recognition software. While every effort has been made to ensure accuracy graduate assistant errors may have been included. Imaging studies, laboratory and physical exam results were discussed and reviewed in detail. No major barriers to patient understanding were identified. An opportunity to ask questions regarding the treatment plan was provided. All questions were answered. The patient expressed understanding and agreement with the above treatment plan. The patient is aware they should contact our office by phone for worsening of their current condition or the appearance of new urologic symptoms. Compliance is encouraged with any medications and followup testing that is ordered. It is a privilege to participate in the urologic care of your patient. If you have any questions or concerns regarding treatment for the above conditions, or other urologic issues, please do not hesitate to contact me. The office telephone contact is [phone]. Sincerely, Dr Itz Chaudhary MD, [facility] - Urology Compassionate Specialist Care for the Genitourinary System Coding Level of Care Code Est Pt Level 3 (93727) Complex EM visit Add On G2211 Diagnoses Nephrolithiasis N20.0 Urge incontinence N39.41 Cystitis cystica N30.80 CPT Codes Post Residual Void - PVR CPT Code: 38501-[id number] Void Residual by ultrasound ([id number])
--- OUTSIDE RECORDS SUMMARY | 2025-01-08 13:46 | XMS_ITS | Clinical Summary ---
Author Organization [facility] Address [address] [place] [address] Phone Care Team Providers Care Manager Ct Name Role Phone Troy Montgomery MD Primary Care Provider Allergies No known active allergies Medications allopurinol (ZYLOPRIM) 100 MG tablet Take 100 mg by mouth 1 (one) time each day Active Pyridostigmine [place] 30 MG tablet Take 30 mg by [...] 02/26/2009, 01/30/2009 Influenza Vaccine (#1) [address] [place] [address] Relationship Specialty Start Date End Date Troy Montgomery MD [address] PCP - General Internal Medicine 02/09/22
--- OUTSIDE RECORDS SUMMARY | 2025-01-08 13:46 | XMS_ITS | Clinical Summary ---
Author Organization [facility] Address [address] [address] Phone Care Team Providers Care Truck Washer Name Role Phone Troy Montgomery MD Primary Care Provider [phone] Allergies Active Allergy Reactions Criticality Noted Date [...] her glucose levels. Up to date with [facility]. Labs ordered Assessment & Plan (08/26/2024 [...] help if needed. [facility]. Follows w/ renal. BP under good [...] her glucose levels. Up to date with [facility]. Labs ordered Assessment & Plan (02/02/2024 [...] for control. Role of diet, exercise, medications. termite exterminator helper plan @ steroids is pending, but regardless, [...] Follows w/ renal. BP under good control. half-way current use of oral hypoglycemic drug Assessment & Plan (05/17/2024 9:16 AM EST): Will maintain metformin dosing Long-term current use of inj ectable noninsulin antidiabetic medication Assessment & Plan (05/17/2024 9:15 AM EST): Will maintain ozempic dosing Encounters Date Type Department Care Team Description 12/24/2024 Refill [facility] [address] [place] [address] [place] [address] Jessica Cordero PA-C Medication Refill 12/14/2024 10:31 AM EDT - 12/14/2024 11:59 PM EDT Hospital Encounter [facility] [address] [place] [address] Jessica Cordero PA-C Discharge Disposition: Home or Self Care 12/14/2024 10:00 AM EDT Office Visit [facility] [address] [place] [address] Jessica Cordero PA-C Type 2 diabetes mellitus with peripheral neuropathy (Primary Dx); Acquired hypothyroidism; Fatigue, unspecified type; Low vitamin B12 level 11/05/2024 Refill [facility] [address] [place] [address] Jessica Cordero PA-C Medication Refill from Last [...] AM EST Office Visit [facility] [address] [place] [address] Lynda Conner MD [address] [place] [address] 08/13/2025 10:00 AM EDT Office Visit [facility] [address] [place] [address] Jessica Cordero PA-C [address] [place] [id number] [email or web address] Health Maintenance Due Date Last Done Comments [...] EDT) TSH 4.27(H) 0.27 - 4.20 uIU/mL [facility] Blood 12/14/2024 10:5 6 AM EDT 12/14/2024 10:59 AM EDT Jessica SHERIFF-Shell LAB BLOOD ORDERABL ES Final Result Performing Organization Address City/[facility]/ZIP Co de Phone Number [address] [address] * 25-OH vitamin D (12/14/2024 10:56 AM EDT) 25 OH VIT D (TOTAL) 43 30 - 60 ng/mL [facility] Blood 12/14/2024 10:5 6 AM EDT 12/14/2024 10:59 AM EDT Jessica SHERIFF-Shell LAB BLOOD ORDERABL ES Final Result Performing Organization Address [facility] Co de Phone Number [address] [address] * Alanine aminotransferase (ALT) (12/14/2024 10:56 AM EDT) ALT 38 0 - 40 U/L [facility] Blood 12/14/2024 10:5 6 AM EDT 12/14/2024 10:59 AM EDT Jessica SHERIFF-C LAB BLOOD ORDERABL ES Final Result Performing Organization Address [facility]/ZIP Co de Phone Number [address] [address] * (ABNORMAL) Aspartate aminotransferase (AST) (12/14/2024 10:56 AM EDT) AST 44(H) 0 - 37 U/L [facility] Blood 12/14/2024 10:5 6 AM EDT 12/14/2024 10:59 AM EDT Jessica SHERIFF-C LAB BLOOD ORDERABL ES Final Result Performing Organization Address City/[facility]/ZIP Co de Phone Number [address] [address] * Free T4 (12/14/2024 10:56 AM EDT) FREE T4 1.6 0.9 - 1.7 ng/dL [facility] 12/14/2024 10:5 6 AM EDT 12/14/2024 10:59 AM EDT Jessica Cordero PA-C LAB BLOOD ORDERABL ES Final Result [address] [address] * (ABNORMAL) Hemoglobin A1c (12/14/2024 10:56 AM EDT) HEMOGLOBIN A1C 7.4(H) 4.3 - 5.8 % [facility] Blood 12/14/2024 10:5 6 AM EDT 12/14/2024 10:58 AM EDT Jessica Cordero PA-C LAB BLOOD ORDERABL ES Final Result Performing Organization Address [facility]/ZIP Co de Phone Number [address] [address] * (ABNORMAL) Vitamin B12 (12/14/2024 10:56 AM EDT) VITAMIN B12 >2000(H) 232 - 1245 pg/mL [facility] Blood 12/14/2024 10:5 6 AM EDT 12/14/2024 10:59 AM EDT Jessica Cordero PA-C LAB BLOOD ORDERABL ES Final Result Performing Organization Address [facility]/ZIP Co de Phone Number [address] [address] * (ABNORMAL) Basic metabolic panel (12/14/2024 10:56 AM EDT) SODIUM 138 133 - 146 mmol/L [facility] CHLORIDE 103 96 - 108 mmol/L [facility] POTASSIUM 4.5 3.3 - 5.1 mmol/L [facility] CO2 26 21 - 35 mmol/L [facility] BUN 11 6 - 19 mg/dL [facility] CREATININE 1.00 0.5 - 1.5 mg/dL [facility] GLUCOSE 154(H) 70 - 99 mg/dL [facility] CALCIUM 9.1 8.4 - 10.3 mg/dL [facility] EGFR 61 >59 mL/min/1.7 3m2 [facility] Comment:Estimated glomerular filtration rate calculated using the CKD-EPI refit equation. ANION GAP 14 10 - 20 mmol/L [facility] Blood 12/14/2024 10:5 6 AM EDT 12/14/2024 10:59 AM EDT us Jessica Cordero PA-C LAB BLOOD ORDERABL ES Final Result Performing Organization Address City/State/[facility] Co de Phone Number [facility] [address] [place] [address] from Last 3 Months Insurance [facility] HEALTH PLAN PLAN HEALTH PLAN [facility] Care Teams Truck Washer Relationship Specialty Start Date End Date Troy Montgomery MD [address] [place] [id number] [email or web address] PCP - General Internal Medicine 07/14/23 Additional Source Comments The information contained in this document represents components of the legal health record. It is not the complete legal health record.[facility]
--- OUTSIDE RECORDS SUMMARY | 2025-01-08 13:46 | XMS_ITS | Clinical Summary ---
Author Organization [facility] Address [address] [place] [address] Care Team Providers Care Machine Straw Hat Presser Name Role Phone Troy Montgomery Primary Care Provider [phone] Allergies Active Allergy Reactions Criticality Noted Date [...] Department Care Team Description 12/10/2024 myChart Message [facility] [address] [place] [phone] Real Monahan LPN refill 12/10/2024 Refill [facility] [address] [place] [address] Alva Tohmpson DO 11/12/2024 Refill [facility] [address] [place] [phone] Vannozzi, Alva G., DO from Last 3 Months Social History [...] Description 01/24/2025 3:30 PM EDT Office Visit [facility] [address] [place] [address] Zahra Sandoval MD [address] [place] [address] Health Maintenance Due Date Last Done Comments [...] 50+ Years Completed 01/11/2024, 11/19/2022, 03/26/2010 Insurance [facility] Care Teams Machine Straw Hat Presser Relationship Specialty Start Date End Date Troy Montgomery [address] [place] [phone] PCP - General 06/10/22
--- OUTSIDE RECORDS SUMMARY | 2025-01-08 13:46 | XMS_ITS | Encounter Summary ---
Author Organization [facility] Address [address] [place] [address] Care Team Providers Care Database Consultant Name Role Phone Troy Montgomery Primary Care Provider [phone] Encounter Details Date Type Department Care Team (Late st Contact Info) Description 12/10/2024 myChart Message [facility] [address] [place] [phone] Real Monahan LPN refill Social History Tobacco [...] Description 01/24/2025 3:30 PM EDT Office Visit [facility] [address] [place] [address] Zahra Sandoval MD [address] [place] [address] documented as of this encounter Visit Diagnoses Not on filedocumented in this encounter Care Teams Database Consultant Relationship Specialty Start Date End Date Troy Montgomery [address] [place] [address] PCP - General 06/10/22 documented as of this encounter
--- OUTSIDE RECORDS SUMMARY | 2025-01-08 13:46 | XMS_ITS | Clinical Summary ---
Author Organization [facility] Address [address] [place] [address] Care Team Providers Care Motel Front Desk Clerk Name Role Phone Unavailable Primary Care Provider [...]
== END 2025-01-08 11:37 | disposition home or self-care (01) ==
LOC: HO.HUSH 11:04
PROVIDERS: PCP Internal Medicine; Visit Provider Urology
DX: N20.0 Calculus of kidney (principal); N39.41 Urge incontinence; N30.80 Other cystitis without hematuria; Z13.9 Encounter for screening, unspecified
CPT/HCPCS: 99213

== ENCOUNTER 2025-02-05 13:27 | Outpatient (REF) | payer OTHER, SELFPAY ==
--- NOTE | ~2025-02-05 | FL_ITS ---
EXAMINATION: XR MODIFIED BARIUM SWALLOW CLINICAL INFORMATION: Dysphagia COMPARISON: None available. TECHNIQUE: Modified Barium Swallow. FINDINGS: Fluoroscopy provided for modified barium swallow performed by the speech pathologist. Patient swallowed liquids and solids of varying consistency. No aspiration is seen. See speech pathology report for details. FLUOROSCOPY TIME: 48 seconds DOSE AREA PRODUCT: 27 uGy-m2 (microgray-meter squared) FL/FL Modified Barium Swallow IMPRESSION: As above Electronically signed by: Sid Dolan MD 02/05/2025 04:33 PM EDT
--- NOTE | 2025-02-05 16:14 | MHC.SL.IMP ---
Date of Plan of Treatment: 02/05/25 Onset of Symptoms/Illness: 02/06/20 Date Treatment Started: 02/05/25 Admitting Diagnosis: Myasthenia Gravis Primary Speech & Language Diagnosis: R13.10 Dysphagia Reason for Today's Visit: 60599 Modified Barium Swallow Study Pre-evaluation Dietary Consistencies: Regular Pre-evaluation Liquid Consistency: Thin Pre-evaluation Medication Administration: Whole with Liquid Medical History: Modified Barium Swallow Study Fluoroscopic Evaluation of Swallowing Function CPT Code 96557 Evaluation Year: 2024 Reason for Study: Patient reporting difficulty swallowing. Referring Physician: Antonino Kaur MD Evaluating Clinician: Paty Coleman MA, CCC-SHOPPING CENTRE MANAGER Study Number: 1 Patient Name: Sarah Mobley Status: Outpatient, Ambulatory Age: 69 Sex: Female Medical History Medical History GERD (gastroesophageal reflux disease) Hypoglycemia Myasthenia gravis History of COVID-19 Hypothyroidism Deep vein thrombophlebitis of left leg Pulmonary embolism Congenital myasthenia gravis CKD (chronic kidney disease) Multinodular thyroid Adrenal insufficiency HLD (hyperlipidemia) HTN (hypertension) T2DM (type 2 diabetes mellitus) UTI (urinary tract infection) Trigeminy Asthma Cystitis cystica VIVI (stress urinary incontinence, female) Urinary frequency Gallstones Nocturia Urinary urgency Nephrolithiasis Surgical History Hx of colonoscopy S/P panniculectomy History of lithotripsy Hx of cystoscopy Hx of cholecystectomy History of pubovaginal sling History of hysterectomy History of gastric bypass (~2004) Current (pre-evaluation) Intake/Diet: Route: PO Diet Grade: Regular Liquid Consistencies: Thin Pre-Study Functional Oral Intake Scale (FOIS): 7- Total oral intake with no restrictions Pain: None reported at time of study SUBJECTIVE: Patient is a 69 year old female referred for a modified barium swallow study by Dr. Kaur from [facility]. Patient has history of GERD, myasthenia gravis, pulmonary embolism, multinodular thyroid, and diabetes. She reports chronic dysphagia for the past 5 years. Patient reports feeling like her muscles ?get stuck? when she tries to swallow. She did have an MBSS done in the past on 04/05/23, which showed no evidence of aspiration or penetration. Patient had an upper endoscopy on 09/18/24 and a balloon dilation was performed on the upper esophageal and lower esophageal sphincters. Oral Motor Exam Facial Symmetry: Symmetrical Mouth Occlusion: Normal Oral-Facial Teeth Characteristics: Intact/Normal Dental Appliance Oral-Facial Lip Pucker Description: Normal Oral-Facial Smile (Lips) Description: Normal Oral-Facial Puff Cheeks Description: Normal Tongue Size: Normal Tongue Excursion Description: Normal Tongue Range of Movement Description: Normal Tongue Speed of Movement Description: Normal Tongue Strength of Movement (against opposing pressure): Normal Tongue Movement Characteristics: Normal/Absent Is patient able to manage secretions?: Yes Food and Liquid Trials: Oral Impairment: Lip Closure: 0=No labial escape Oral Impairment: Tongue Control During Bolus Hold: 1=Escape to lateral buccal cavity/floor of mouth (FOM) Oral Impairment: Bolus Preparation/Mastication: 0=Timely and efficient chewing and mashing Oral Impairment: Bolus Transport/Lingual Motion: 1= Delayed initiation of tongue motion Oral Impairment: Oral Residue: 1=Trace residue lining oral structures Oral Impairment:Initiation of Pharyngeal Swallow: 2=Bolus head at posterior laryngeal surface of epiglottis Pharyngeal Impairment: Soft Palate Elevation: 0=No bolus between soft palate (SP)/pharyngeal wall (PW) Pharyngeal Impairment: Laryngeal Elevation: 1=Partial thyroid cartilage/arytenoids to epiglottic petiole movement Pharyngeal Impairment: Anterior Hyoid Excursion: 1=Partial anterior movement Pharyngeal Impairment: Epiglottic Movement: 1=Partial inversion Pharyngeal Impairment: Laryngeal Vestibular Closure:: 0=Complete: no air/contrast in laryngeal vestibule Pharyngeal Impairment: Pharyngeal Stripping Wave: 0=Present: complete Pharyngeal Impairment: Pharyngeal Contraction: Did not test Pharyngeal Impairment: Pharyngoesophageal Segment Openin=Complete distension and complete duration: no obstruction of flow Pharyngeal Impairment: Tongue Base (TB) Retraction: 1=Trace column of contrast/air between TB and posterior PW Pharyngeal Impairment: Pharyngeal Residue: 0=Complete pharyngeal clearance Pharyngeal Impairment: Esophageal Clearance Upright Position: Did not test Impressions and Recommendations OBJECTIVE: Time-out: performed at 14:45 Evaluation Start: 14:30; Stop: 14:35 Patient Positioning: Standing Viewing Planes: LATERAL ONLY Contrast: MBSImP? Standardized Protocol using commercially prepared, standardized Barium viscosities, including: Varibar? THIN LIQUID (40% w/v, <15 cps) , Varibar? PUDDING (40% w/v, <0087-2544 cps) , 1/2 Shortbread Cookie (1 x1 x.25 ) [facility] ID: [id number] [facility] Results: Lip closure for intraoral bolus containment resulted in no labial escape. Tongue control during bolus hold allowed bolus escape to the lateral buccal cavity/floor of mouth. Bolus preparation and mastication resulted in timely and efficient chewing and mashing. Bolus transport/lingual motion demonstrated delayed initiation of tongue motion. Oral residue was a trace, lining oral structures. Initiation of the pharyngeal swallow occurred as the bolus head was at the posterior laryngeal surface of the epiglottis. Soft palate elevation resulted in no bolus between the soft palate and the pharyngeal wall. Laryngeal elevation was decreased, with partial superior movement of the thyroid cartilage/partial approximation of the arytenoids to the epiglottic petiole. Anterior hyoid excursion demonstrated partial anterior movement. Epiglottic movement resulted in partial inversion. Laryngeal vestibular closure was complete, as indicated by no air or contrast within the laryngeal vestibule at the height of the swallow. Pharyngeal stripping wave was present and complete. Pharyngeal contraction could not be determined due to logistical reasons not related to physiologic impairment. Pharyngoesophageal segment opening was completely distended for complete duration with no obstruction of bolus flow. Tongue base retraction allowed a trace column of contrast or air between the retracted tongue base and the posterior pharyngeal wall. Pharyngeal residue was not present. There was complete pharyngeal clearance. Esophageal clearance in the upright position could not be assessed due to logistical reasons not related to physiologic impairment. Oral Impairment Score: 4 Pharyngeal Impairment Score: 3 (absence of score, component 13) Esophageal Impairment Score: --- (absence of score, component 17) Laryngeal Penetration and Aspiration: Neither penetration nor aspiration was observed in today's study with Cookie, Pudding-thick, Thin. ASSESSMENT: This exam was performed by the radiologist and the speech pathologist. Patient was standing for lateral view only. She fed herself independently and trialed the following consistencies: -Thin liquid (individual cup sips) -Puree (mixture applesauce w/ barium pudding) -Regular (shortbread cookie coated w/ barium pudding) No escape from the interlabial space. There was some contrast pooling to the floor of mouth, but no premature spillage posteriorly from the oral cavity. Mastication was timely and efficient. Posterior lingual motion was delayed in initiation, but with brisk movement. Pharyngeal swallow trigger was mildly delayed, initiated as the bolus head reached the posterior laryngeal surface of the epiglottis. Post-swallow, there was mild residue on the tongue and palate. Patient cleared the oral cavity with two swallows. No evidence of nasopharyngeal reflux. Partial laryngeal elevation and partial epiglottic inversion. There was complete laryngeal vestibular closure. No evidence of aspiration or penetration during this exam. Complete pharyngeal clearance. The following compensatory strategies have not been used until today's study, but when employed, improved swallowing function: Additional Swallow(s) per Bolus eliminated Oral Residue Liquid Intake Recommendation: Thin Dietary Recommendations: Regular Medication Administration: Whole with Liquid Please contact the pharmacy regarding appropriate crushable or liquid drug formulations that are available whenever modified delivery is recommended. Compensatory Strategies Recommended: Sitting Upright (90 deg), Small Bites and Sips, Alternate Liquids/Solids, Rate of Ingestion Change Recommendation for Speech Therapy: NA:Typical Evaluation Text Comment: Intake Recommendations: Route: PO Diet Grade: Regular Liquid Consistencies: Thin Post-Study Functional Oral Intake Scale (FOIS): 7- Total oral intake with no restrictions No evidence of aspiration or penetration. Piece meal clearing of the oral cavity. No significant pharyngeal retention seen. Therapy Recommendations: Speech Therapy is not indicated at this time, as patient?s swallow is deemed functional in the oral and pharyngeal phases. Patient to follow-up w/ GI as indicated. Clinician - Supplemental, Miscellaneous Communication: It is important to note MBSS objective studies are snapshots in time and Patient function might vary with factors such as time of day or concomitant medical conditions. For this reason, the final treatment plan for this patient should rest with their medical care team. Additional recommendations should be considered with the totality of the Patient in mind. Thank for the opportunity to participate in the care of this patient. If you have any questions about the content of this report, please contact the [facility] at [facility]. Education: Education regarding findings from today's study and plans for therapy were provided to Patient only through Verbal Instruction. Understanding was expressed by the Patient only. Hospitality Team Member Clinician/Clinical Fellow: No Supervisory Statement: N/A Speech Language Pathologist: Paty Coleman M.A., [facility]-SHOPPING CENTRE MANAGER
--- OUTSIDE RECORDS SUMMARY | 2025-02-05 17:34 | XMS_ITS | Data Portability ---
Author Organization [place] - [facility], Allergy Address [address] [address] Care Team Providers Care Pet Resort Concierge Name Role Phone SANTOS PAIZ Primary Care Provider [phone] Assessment No assessment recorded. Plan of Treatment Reminders Order Date Submit Date Provider Last Modified By Organization Details Last Modified Time Details Appointments None recorded. Lab surgical pathology study - right lower lip, eval for Sjogren's, Cc: Dr. Nhi Cabrera at [facility] 2024 025 JIM [facility] (Centralized Electronic Ordering - All Locations), Patient Can Go To The Location Of Their Choice, [id number] 5 13:47:28 Referral None recorded. Procedures None recorded. Surgeries None recorded. Imaging None recorded. Medication Orders None recorded. Patient TargetsNo targets recorded. Patient InstructionsNo instructions recorded. Reason for Referral None Reported. Results Created Date Observation Date Name Description Value Unit Range Abnormal Flag Note LastModifiedBy Organization Detail LastModifiedTime Result Notes None recorded. Problems Name Problem SNOMED Code Status Onset Date Resolution Date Notes Provider Name and Address Organization Details Recorded Time Dizziness and giddiness 883890801 Active 2018 Dizziness and giddiness; Note: Date Diagnosed: 11/13/2018 11:40 AM (R42) Not Available [facility] 4 02:32:46 M ni re's disease 78460811 Active 2018 Meniere's disease, right ear; Note: Date Diagnosed: 11/13/2018 11:39 AM (H81.01) Not Available [facility] 4 02:32:59 Sensorine ural hearing loss of bilateral ears 661503956 Active 2018 Sensorineu ral hearing loss, bilateral; Note: Date Diagnosed: 11/13/2018 11:41 AM (H90.3) Not Available [facility] 4 02:32:47 Sensorine ural hearing loss 56637217 Active 2018 Sensorineu ral hearing loss, unilateral , right ear, with unrestrict ed hearing on the contralate ral side; Note: Date Diagnosed: 11/13/2018 11:41 AM (H90.41) Not Available [facility] 4 02:32:43 Xerostomi a 46025527 Active 2024 BRIT PEREZ MD [address] [place] [address],[place] [address], [place], [address] , [facility] 5 14:50:43 Problem Notes None recorded. Procedures Surgical History Date Name Laterality Status Provider Name and Address Organization Details Recorded Time Minor salivary gland biopsy_JMS completed BRIT PEREZ MD [address] [place] [address], [place], [address], [facility] 11/30/2024 14:50:24 Imaging Results None recorded. Procedure Notes None recorded. Medical Equipment None Reported. Allergies No known drug allergies Medications Name Sig Start Date Stop Date Status Note LastModified by Organization Details LastModified Time amoxicill in 500 mg capsule TAKE 1 CAPSULE BY MOUTH 3 TIMES A DAY DIRECTED START 2 DAYS PRIOR TO DENTAL SURGICAL PROCEDUR E. 11/05 completed Not Available Not Available Not Available metformin 500 mg tablet Take 1 tablet twice a day by oral route. active Not Available Not Available No t Available prednison e 10 mg tablet Take 1 tablet every day by oral route. active Not Available Not Available No t Available trazodone 50 mg tablet 11/30 completed Medicati on ID: [id number] D uration Value: 30 Brand Name: trazodon e Send Method: E-Prescr ibed Sub s Allowed: subs OK Medic ationGen ericName : trazodon e Not Available Not Available Not Available atorvasta tin 10 mg tablet active Medicati on ID: [id number] D uration Value: 90 Brand Name: atorvast atin Sen d Method: E-Prescr ibed Sub s Allowed: subs OK Medic ationGen ericName : atorvast atin Not Available Not Available Not Available oxybutyni n chloride ER 10 mg tablet,ex tended release 24 hr Take 1 tablet every day by oral route. active Not Available Not Available No t Available alendrona te 70 mg tablet Take 1 tablet every week by oral route. active Not Available Not Available No t Available Synthroid 100 mcg tablet Take 1 tablet every day by oral route. active Not Available Not Available No t Available allopurin ol 100 mg tablet Take 1 tablet every day by oral route. active Not Available Not Available No t Available ketorolac 0.5 % eye drops PLEASE SEE ATTACHED FOR DETAILED DIRECTIO NS active Not Available Not Available No t Available prednison e 2.5 mg tablet Take 1 tablet every day by oral route. active Not Available Not Available No t Available aspirin 81 mg tablet Take 1 tablet every day by oral route. active Not Available Not Available No t Available ibuprofen 600 mg tablet TAKE 1 TABLET BY MOUTH EVERY 8 HOURS NEEDED FOR PAIN 11/30 completed Not Available Not Available Not Available estradiol 0.01% (0.1 mg/gram) vaginal cream Insert by vaginal route. active Not Available Not Available No t Available levothyro xine 112 mcg tablet 11/30 completed Medicati on ID: [id number] D uration Value: 90 Brand Name: levothyr oxine Se nd Method: E-Prescr ibed Sub s Allowed: subs OK Medic ationGen ericName : levothyr oxine Not Available Not Available Not Available methenami ne 1 g tablet Take 1 tablet 4 times a day by oral route. active Not Available Not Available No t Available escitalop elana 10 mg tablet active Medicati on ID: [id number] D uration Value: 90 Brand Name: escitalo pram oxalate Send Method: E-Prescr ibed Sub s Allowed: subs OK Medic ationGen ericName : escitalo pram oxalate Not Available Not Available Not Available chlorhexi dine gluconate 0.12 % mouthwash RINSE WITH 1/2 OUNCE BY MOUTH TWICE A DAY DIRECTED AND DO NOT SWALLOW 11/30 completed Not Available Not Available Not Available ProAir HFA 90 mcg/actua tion aerosol inhaler active Medicati on ID: [id number] D uration Value: 25 Brand Name: Elicia HFA Send Method: E-Prescr ibed Sub s Allowed: subs OK Medic ationGen ericName : ProAir HFA Not Available Not Available Not Available nitrofura ntoin 100 mg tablet Take by oral route. active Not Available Not Available No t Available Yuvafem 10 mcg vaginal tablet Insert 1 tablet every day by vaginal route for 14 days. active Not Available Not Available No t Available Ozempic 2 mg/dose (8 mg/3 mL) subcutane ous pen injector Inject by subcutan eous route. active Not Available Not Available No t Available potassium chloride 10 mEq oral packet Take 1 packet twice a day by oral route. active Not Available Not Available No t Available PreserVis ion AREDS 2 CO Q-10 active Not Available Not Available No t Available Vitals Date Recorded Body height Body mass index (BMI) Body weight Provider Name and Address Organization Details Last Updated DateTime 11/30/2024 175.26 cm 24.7 kg/m2 69492.93 g Vianey Posadas [place] - [facility] 11/30/2024 14:47:32 Social History None recorded. Functional Status None recorded. Mental Status None recorded. Family History Nothing Reported. Medical History Condition Response Diabetes Y Hearing Loss Y GERD/Reflux Y Sleep Disorder Y Thyroid Problems Y Glaucoma Y Depression Y Asthma Y Kidney Disease Y Gynecological HistoryNo gynecological history recorded. Obstetrics History GPAL:G 0 P 0 0 0 0 Past Encounters Encounter ID Performer Location Encounter Start Date Encounter Closed Date Diagnosis/Indication Diagnosis SNOMED-CT Code Diagnosis ICD10 Code Diagnosis IMO Codes Diagnosis Note [id number] BRIT PEREZ MD [facility] [address] [address] 11/30/2024 14:38:40 11/30/2024 15:08:15 Xerostomia [id number] R68.2 [id number] 69-year-ol d female presents today for evaluation of dry mouth. She has seen a rheumatolo gist and a biopsy to evaluate for Sjogren's was recommende amrita. Risks including bleeding, infection, and on diagnosis, localized numbness were reviewed and she agreed to proceed. We reviewed local wound care. She may follow-up as needed. Health Concerns Section Related Observation LastModified by Organization Detai ls LastModified Time None Recorded Concern Status LastModified by Organization Details LastModified Time None Recorded Advance Directives Directive None Recorded Payers Insurance Date Sequence Insurance Name Policy Number Policy Pereira Covered Member ID Pereira Member ID Guarantor Name 11/30/2024 1 [facility] [employer] - FAMILY HE[employer] PLAN (POS) [id number] Sarah Dimitri Mobley [id number] Sarah Mobley Notes Date Note Type Note Provider Name and Address Organization Details Recorded Time 11/30/2024 text/html 69-year-old female presents today for evaluation of dry mouth. She has had neurology evaluation and lip biopsy was recommended. Notes some difficulty swallowing Sjogren's ab came back negative. Positive SANAM. Thyroid levels are ok. Does have myasthenia gravis on prednisone at 12.5 mg every other day, 10 mg every other day. BRIT PEREZ MD [address] [place] [address], [phone], [facility] - [facility] 12/03/2024 08:04:02 OBGyn Episode No OBEpisode recorded.
== END 2025-02-05 13:28 | disposition home or self-care (01) ==
LOC: HO.XRAY 13:27
PROVIDERS: PCP Internal Medicine; Visit Provider Internal Medicine Gastroenterology
DX: R13.10 Dysphagia, unspecified (principal)
CPT/HCPCS: 74230; 92611

== ENCOUNTER → 2025-02-05 14:37 | Outpatient (BNV) | payer OTHER, SELFPAY | PROVIDERS: PCP Internal Medicine; Visit Provider Radiology Diagnostic Ultrasound | DX: R13.10 Dysphagia, unspecified (principal) | CPT/HCPCS: 74230 ==

== ENCOUNTER 2025-03-08 11:55 | Outpatient (REF) | payer OTHER, SELFPAY ==
--- OUTSIDE RECORDS SUMMARY | 2025-03-08 12:37 | XMS_ITS | Clinical Summary ---
Author Organization [facility] Address [address] [place] [address] Phone Care Team Providers Care Tea Leaf Reader Name Role Phone Troy Montgomery MD Primary Care Provider [phone] Allergies No known active allergies Medications allopurinol (ZYLOPRIM) 100 MG tablet Take 100 mg by mouth 1 (one) time each day Active Pyridostigmine [place] 30 MG tablet Take 30 mg by [...] 02/26/2009, 01/30/2009 Influenza Vaccine (#1) [address] [place] [address] Care Teams Tea Leaf Reader Relationship Specialty Start Date End Date Troy Montgomery MD [address] PCP - General Internal Medicine 02/09/22
--- OUTSIDE RECORDS SUMMARY | 2025-03-08 12:37 | XMS_ITS | Data Portability ---
Author Organization [place] - [facility], Allergy Address [address] [address] Care Team Providers Care Diver'S Tender Name Role Phone SANTOS PAIZ Primary Care Provider Assessment No assessment recorded. Plan of Treatment Reminders Order Date Submit Date Provider Last Modified By Organization Details Last Modified Time Details Appointments None recorded. Lab surgical pathology study - right lower lip, eval for Sjogren's, Cc: Dr. Nhi Cabrera at [facility] 2024 025 JIM [facility] (Centralized Electronic Ordering - All Locations), Patient Can Go To The Location Of Their Choice, [address] 5 13:47:28 Referral None recorded. Procedures None [...] Organization Details Recorded Time Dizziness and giddiness 012002034 Active 2018 Dizziness and giddiness; Note: Date Diagnosed: 11/13/2018 11:40 AM (R42) Not Available [facility] 4 02:32:46 M ni re's disease 77677716 Active 2018 Meniere's disease, right ear; Note: Date Diagnosed: 11/13/2018 11:39 AM (H81.01) Not Available [facility] 4 02:32:59 Sensorine ural hearing loss of bilateral ears 046252482 Active 2018 Sensorineu ral hearing loss, bilateral; Note: Date Diagnosed: 11/13/2018 11:41 AM (H90.3) Not Available [facility] 4 02:32:47 Sensorine ural hearing loss 85431906 Active 2018 Sensorineu ral hearing loss, unilateral , right ear, with unrestrict ed hearing on the contralate ral side; Note: Date Diagnosed: 11/13/2018 11:41 AM (H90.41) Not Available [facility] 4 02:32:43 Xerostomi a 46420609 Active 2024 BRIT PEREZ MD [address] [place] [address],[place] [address], [place], [address] , [facility] 5 14:50:43 Problem Notes None recorded. Procedures Surgical History Date Name Laterality Status Provider Name and Address Organization Details Recorded Time Minor salivary gland biopsy_JMS completed BRIT PEREZ MD [address] [place] [address], [place], [address], [facility] 11/30/2024 14:50:24 Imaging Results None recorded. Procedure [...] mg tablet 11/30 completed Medicati on ID: [id number] D uration Value: 30 Brand Name: trazodon e Send Method: E-Prescr ibed Sub s Allowed: subs OK Medic ationGen ericName : trazodon e Not Available Not Available Not Available atorvasta tin 10 mg tablet active Medicati on ID: [id number] D uration Value: 90 Brand Name: atorvast [...] mcg tablet 11/30 completed Medicati on ID: [id number] D uration Value: 90 Brand Name: levothyr oxine Se nd Method: E-Prescr ibed Sub s Allowed: subs OK Medic ationGen ericName : levothyr oxine Not Available Not Available Not Available methenami ne 1 g tablet Take 1 tablet 4 times a day by oral route. active Not Available Not Available No t Available escitalop elana 10 mg tablet active Medicati on ID: [id number] D uration Value: 90 Brand Name: escitalo [...] tion aerosol inhaler active Medicati on ID: [id number] D uration Value: 25 Brand Name: Elicia [...] Updated DateTime 11/30/2024 175.26 cm 24.7 kg/m2 57748.93 g Vianey Posadas [place] - [facility] 11/30/2024 14:47:32 Social History None recorded. Functional [...] ICD10 Code Diagnosis IMO Codes Diagnosis Note [id number] BRIT PEREZ MD [facility] [address] [address] 11/30/2024 14:38:40 11/30/2024 15:08:15 Xerostomia [id number] R68.2 [id number] 69-year-ol d female presents today for evaluation [...] Pereira Member ID Guarantor Name 11/30/2024 1 [facility] - FAMILY HEALTH PLAN (POS) [id number] Sarah Dimitri Mobley [id number] Sarah Mobley Notes Date Note Type Note [...] mg every other day. BRIT PEREZ MD [address] [place] [address], [phone], [facility] - [facility] 12/03/2024 08:04:02 OBGyn Episode No OBEpisode recorded.
--- OUTSIDE RECORDS SUMMARY | 2025-03-08 12:37 | XMS_ITS | Clinical Summary ---
Author Organization [facility] Address [address] [place] [address] Care Team Providers Care Split Leather Department Supervisor Name Role Phone Troy Montgomery Primary Care Provider [phone] Allergies Active Allergy Reactions Criticality Noted Date [...] (LEXAPRO) 20 mg tablet 2 Active calcium carbonate-vitam in D3 (Calcium 600 [...] mouth once a day. 2 Active vit C/E/Zn/coppr/lex tein/zeaxan (PRESERVISION AREDS-2 ORAL) [...] 20 mg once a day. 5 Active pyridostigmine (MESTINON) 60 mg tabletIndicatio ns:Ocular myasthenia gravis Take 1 tablet (60 mg total) by mouth 3 times a day as needed (For worsening symptoms of myasthenia gravis). 30 tablet 5 Active predniSONE (DELTASONE) 2.5 mg tablet Take 1 tablet (2.5 mg total) by mouth once a day. 90 tablet 5 Active predniSONE (DELTASONE) 10 mg tablet Take 1 tablet (10 mg total) by mouth once a day. 90 tablet 5 Active predniSONE (DELTASONE) 5 mg tablet Take 1 tablet (5 mg total) by mouth once a day. 30 tablet 1 5 Active Active Problems Problem Noted Date Diagnosed Date Ocular myasthenia gravis 12/06/2023 Encounters Date Type Department Care Team Description 02/15/2025 myChart Message [facility] [address] [place] [phone] Zahra Sandoval MD Prednisone decrease 01/24/2025 3:30 PM EDT Office Visit [facility] [address] [place] [phone] Zahra Sandoval MD Ocular myasthenia gravis (Primary Dx) 12/10/2024 myChart Message [facility] [address] [place] [phone] Real Monahan LPN refill 12/10/2024 Refill [facility] [address] [place] [phone] Alva Thompson, from Last 3 Months Social History Tobacco [...] Sign Reading Time Taken Comments Blood Pressure 112/73 01/24/2025 3:15 PM EDT Pulse 85 01/24/2025 3:15 PM EDT Temperature 36.9 C (98.5 F) 01/24/2025 3:15 PM EDT Respiratory Rate 16 01/24/2025 3:15 PM EDT Oxygen Saturation 98% 01/24/2025 3:15 PM EDT Inhaled Oxygen Concentration - - Weight 73 kg (161 lb) 01/24/2025 3:15 PM EDT Height 175.3 cm (5' 9 ) 01/24/2025 3:15 PM EDT Body Mass Index 23.78 01/24/2025 3:15 PM EDT Plan of Treatment Upcoming Encounters Date Type Department Care Team (Late st Contact Info) Description 07/11/2025 2:45 PM EDT Office Visit [facility] [address] [place] [phone] Zahra Sandoval MD [address] [place] [address] Health Maintenance Due Date Last Done Comments [...] Health Cally ual Screening 04/18/2024 COVID-19 Vaccine (2024-2 6 season) 2025 01/07/2025, 12/27/2023, 01/14/2023, Additional history exists Fall Risk Screening 01/24/2026 01/24/2025 RSV Vaccine (60+ years old a nd patients) Completed 12/27/2023, 03/14/2023 Pneumococcal Vaccine: 50+ Years Completed 01/11/2024, 11/19/2022, 03/26/2010 Influenza Vaccine Completed 01/07/2025, , 02/23/2023, Additional history exists [place] [address] [place] [address] [place] [id number] Care Teams Split Leather Department Supervisor Relationship Specialty Start Date End Date Troy Montgomery [address] [place] [address] PCP - General 06/10/22
--- OUTSIDE RECORDS SUMMARY | 2025-03-08 12:37 | XMS_ITS | Clinical Summary ---
Author Organization [facility] Address [address] [address] Phone Care Team Providers Care Pension Consultant Name Role Phone Troy Montgomery MD Primary Care Provider [phone] Allergies Active Allergy Reactions Criticality Noted Date Comments Venom-Honey Bee Throat Tightness High 02/02/2024 Medications pyridoxine, vitamin B6, (B-6) 100 mg/mL injection 04/23/19 23 Active methenamine (HIPREX) 1 gram tablet Take 1 g by mouth daily. 11/12/19 24 Active estradiol (YUVAFEM VAGL) 2 (two) times a week. 10/22/19 23 Active escitalopram oxalate (LEXAPRO) 10 MG tablet Take 10 mg by mouth daily. 04/18/18 80 Active atorvastatin (LIPITOR) 10 MG tablet Take 10 mg by mouth daily. 11/16/19 24 Active ascorbic acid, vitamin C, (VITAMIN C) 1000 MG tablet Take 1,000 mg by mouth daily. 07/15/19 24 Active alendronate (FOSAMAX) 70 MG tablet Take 70 mg by mouth every 7 days. 06/10/19 24 Active allopurinol (ZYLOPRIM) 100 MG tablet Take 100 mg by mouth daily. 12/12/19 24 Active vit C/E/Zn/coppr/lutei n/zeaxan (PRESERVISION AREDS-2 ORAL) 2 (two) times a day. 04/23/19 23 Active potassium citrate (UROCIT-K) 10 mEq SR tablet Take 20 mEq by mouth 2 (two) times a day with meals. 11/27/19 Active oxyBUTYnin (DITROPAN-XL) 10 MG 24 hr tablet Take 10 mg by mouth daily. 09/20/19 Active azelastine (ASTELIN) 137 mcg (0.1 %) nasal spray 1 spray by Nasal route daily. 11/05/19 Active nitrofurantoin (MACRODANTIN) 50 MG capsule Take 50 mg by mouth daily. Active aspirin 81 mg chewable tablet Take 81 mg by mouth daily. Active cetirizine (ZYRTEC) 10 MG tablet Take 10 mg by mouth daily. Active calcium carbonate-vitamin D3 1,250 mg (500 mg elemental)-400 units per tablet Take 1 tablet by mouth daily. Active DEXCOM G6 SENSOR DeviIndications:Ty pe 2 diabetes mellitus with peripheral neuropathy Use to monitor glucose, change q10 days 9 each 3 05/08/19 25 Active DEXCOM G6 TRANSMITTER DeviIndications:Ty pe 2 diabetes mellitus with peripheral neuropathy Use to monitor glucose, change q90 days 1 each 05/08/19 25 Active metFORMIN (GLUCOPHAGE-XR) 500 MG 24 hr tabletIndications: Type 2 diabetes mellitus with peripheral neuropathy Take 2 tablets (1,000 mg total) by mouth daily with breakfast. 180 tablet 3 05/08/19 25 Active FREESTYLE LITE Strp stripsIndications: Type 2 diabetes mellitus with peripheral neuropathy 1 each by Miscellaneous route daily. 100 strip 3 05/08/19 25 Active lancets (FREESTYLE) 28 gauge MiscIndications:Ty pe 2 diabetes mellitus with peripheral neuropathy test once daily 100 each 1 05/10/19 25 Active predniSONE (DELTASONE) 10 MG tablet 12.5 mg daily. 05/24/19 25 Active chlorhexidine (PERIDEX) 0.12 % solution 08/22/19 Active predniSONE (DELTASONE) 2.5 MG tablet Take 2.5 mg by mouth daily with breakfast. Active OZEMPIC 2 mg/dose (8 mg/3 mL) subcutaneous injection penIndications:Typ e 2 diabetes mellitus with peripheral neuropathy INJECT 2 MG UNDER THE SKIN EVERY 7 DAYS 9 mL 1 11/07/19 25 Active omeprazole (PRILOSEC) 20 MG capsule Take 20 mg by mouth daily. 11/01/19 25 Active albuterol (PROAIR HFA) 90 mcg/actuation inhaler Inhale 2 puffs into the lungs every 6 (six) hours as needed for wheezing or shortness of breath/dyspnea. Active SYNTHROID 100 mcg tabletIndications: Acquired hypothyroidism TAKE 1 TABLET BY MOUTH 6 DAYS A WEEK AND 1 1/2 TABLETS ON THE 7TH DAY 96 tablet 1 12/25/19 25 Active Active Problems Problem Noted Date Diagnosed [...] her glucose levels. Up to date with [facility]. Labs ordered Assessment & Plan (08/26/2024 [...] help if needed. Up to date with [facility]. Follows w/ renal. BP under good control. [...] her glucose levels. Up to date with [facility]. Labs ordered Assessment & Plan (02/02/2024 [...] for control. Role of diet, exercise, medications. [facility] plan @ steroids is pending, but regardless, [...] Follows w/ renal. 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 Assessment & Plan (05/17/2024 9:16 AM EST): Will maintain metformin dosing Long-term current use of inj ectable noninsulin antidiabetic medication Assessment & Plan (05/17/2024 9:15 AM EST): Will maintain ozempic dosing Encounters Date Type Department Care Team Description 12/24/2024 Refill [facility] Endocrinology [address] [place] [address] [place] [address] Jessica Cordero PA-C Medication Refill 12/14/2024 10:31 AM EDT - 12/14/2024 11:59 PM EDT Hospital Encounter [facility] [address] [place] [address] Jessica Cordero PA-C Discharge Disposition: Home or Self Care 12/14/2024 10:00 AM EDT Office Visit [facility] [address] [place] [address] [place] [address] Jessica Cordero PA-C Type 2 diabetes mellitus with peripheral neuropathy (Primary Dx); Acquired hypothyroidism; Fatigue, unspecified type; Low vitamin B12 level from Last 3 Months Family History Medical [...] 11:20 AM EST Office Visit [facility] [address] [place] [address] [place] [address] Lynda Conner MD [address] [place] [address] 08/13/2025 10:00 AM EDT Office Visit [facility] [address] [place] [address] Jessica Cordero PA-C [address] [place] [address] [email or web address] Health Maintenance Due Date Last Done Comments Adult Td,Tdap Booster 1954 DEPRESSION SCREENING 1966 HEPATITIS C SCREENING 1972 PNEUMOCOCCAL VACCINES (50+ years) (1 of 2 - PCV) 1973 MAMMOGRAM 1994 COLOGUARD 07/20/1999 COLONOSCOPY 07/20/1999 COLORECTAL CANCER SCREENING 07/20/1999 FIT TEST 07/20/1999 FOBT 07/20/1999 SIGMOIDOSCOPY 07/20/1999 VIRTUAL COLONOSCOPY 07/20/1999 RSV VACCINE (1 - Risk 50-74 years 1-dose series) 2004 ZOSTER VACCINES (1 of 2) 2004 OSTEOPOROSIS SCREENING INITIAL (ONE-TIME) 07/20/2019 DIABETIC EYE EXAM 02/02/2024 INFLUENZA VACCINE (#1) 2024 COVID-19 VACCINE (1 - season) 2024 BLOOD PRESSURE 06/15/2025 12/14/2024 [...] mellitus with peripheral neuropathy BASIC METABOLIC PANEL (BMP) Routine 12/14/2024 10:56 AM EDT Type 2 diabetes mellitus with peripheral neuropathy 25-OH VITAMIN D Routine 12/14/2024 10:56 AM EDT Fatigue, unspecified type VITAMIN B12 Routine 12/14/2024 10:56 AM EDT Low vitamin B12 level from Last 3 Months Results * (ABNORMAL) TSH with reflex (12/14/2024 10:56 AM EDT) TSH 4.27(H) 0.27 - 4.20 uIU/mL [facility] Blood 12/14/2024 10:5 6 AM EDT 12/14/2024 10:59 AM EDT us Jessica Cordero PA-C LAB BLOOD BKR RORO MONCADA Final Result [facility] [address] [place] [address] * 25-OH vitamin D (12/14/2024 10:56 AM EDT) 25 OH VIT D (TOTAL) 43 30 - 60 ng/mL [facility] Blood 12/14/2024 10:5 6 AM EDT 12/14/2024 10:59 AM EDT us Jessica Cordero PA-C LAB BLOOD BKR ORDE RABLES Final Result [address] [address] * Alanine aminotransferase (ALT) (12/14/2024 10:56 AM EDT) ALT 38 0 - 40 U/L [facility] Blood 12/14/2024 10:5 6 AM EDT 12/14/2024 10:59 AM EDT us Jessica Cordero PA-C LAB BLOOD BKR ORDE RABLAMBERT Final Result Performing Organization Address [facility]/ZIP Co de Phone Number [address] [address] * (ABNORMAL) Aspartate aminotransferase (AST) (12/14/2024 10:56 AM EDT) AST 44(H) 0 - 37 U/L [facility] Blood 12/14/2024 10:5 6 AM EDT 12/14/2024 10:59 AM EDT us Jessica SHERIFF-C LAB BLOOD BKR ORDE RABLES Final Result Performing Organization Address City/[facility]/ZIP Co de Phone Number [address] [address] * Free T4 (12/14/2024 10:56 AM EDT) FREE T4 1.6 0.9 - 1.7 ng/dL [facility] 12/14/2024 10:5 6 AM EDT 12/14/2024 10:59 AM EDT us Jessica Cordero PA-C LAB BLOOD BKR ORDE RABLES Final Result Performing Organization Address City/[facility]/ZIP Co de Phone Number [address] [address] * (ABNORMAL) Hemoglobin A1c (12/14/2024 10:56 AM EDT) HEMOGLOBIN A1C 7.4(H) 4.3 - 5.8 % [facility] Blood 12/14/2024 10:5 6 AM EDT 12/14/2024 10:58 AM EDT us Jessica Cordero PA-C LAB BLOOD BKR ORDE RABLAMBERT Final Result Performing Organization Address [facility]/ZIP Co de Phone Number [address] [address] * (ABNORMAL) Vitamin B12 (12/14/2024 10:56 AM EDT) VITAMIN B12 >2000(H) 232 - 1245 pg/mL [facility] Blood 12/14/2024 10:5 6 AM EDT 12/14/2024 10:59 AM EDT us Jessica Cordero PA-C LAB BLOOD BKR ORDE RABLAMBERT Final Result [address] [address] * (ABNORMAL) Basic metabolic panel (12/14/2024 10:56 AM EDT) SODIUM 138 133 - 146 mmol/L [facility] CHLORIDE 103 96 - 108 mmol/L [facility] POTASSIUM 4.5 3.3 - 5.1 mmol/L [facility] CO2 26 21 - 35 mmol/L [facility] BUN 11 6 - 19 mg/dL [facility] CREATININE 1.00 0.5 - 1.5 mg/dL [facility] GLUCOSE 154(H) 70 - 99 mg/dL [facility] CALCIUM 9.1 8.4 - 10.3 mg/dL [facility] EGFR 61 >59 mL/min/1.7 3m2 [facility] Comment:Estimated glomerular filtration rate calculated using the CKD-EPI refit equation. ANION GAP 14 10 - 20 mmol/L [facility] Blood 12/14/2024 10:5 6 AM EDT 12/14/2024 10:59 AM EDT us Jessica Cordero PA-C LAB BLOOD BKR RORO MONCADA Final Result [facility] [address] [place] [address] from Last 3 Months Insurance [facility] HEALTH PLAN PLAN HEALTH PLAN [facility] [employer] Care Teams Pension Consultant Relationship Specialty Start Date End Date Troy Montgomery MD [address] [place] [phone] [email or web address] PCP - General Internal Medicine 07/14/23 Additional Source Comments The information contained in this document represents components of the legal health record. It is not the complete legal health record.[facility]
[2025-03-08 13:54] LABS: Appearance Urine Turbid; Glucose Urine UA Negative (Negative); PH 5.5 (5.0-9.0); Specific Gravity - Urine 1.025 (1.005-1.025); UMIC TRIGGER UA YES
== END 2025-03-08 11:56 | disposition home or self-care (01) ==
LOC: HO.LAB 11:55
PROVIDERS: PCP Internal Medicine; Visit Provider Urology
DX: N39.0 Urinary tract infection, site not specified (principal)
CPT/HCPCS: 81001; 87086

== ENCOUNTER 2025-03-12 12:45 | Outpatient (REF) | payer OTHER, SELFPAY ==
--- NOTE | ~2025-03-12 | US_ITS ---
EXAMINATION: US KIDNEY BILATERAL HISTORY: N20.1 - Calculus of ureter TECHNIQUE: Real-time grayscale ultrasound imaging of the kidneys was performed and images were reviewed. COMPARISON: Comparison is made with the prior examination dated 06/21/2024. FINDINGS: Right kidney: The right kidney measures 11.2 x 4.8 x 4.6 cm. Renal parenchymal echotexture and thickness are normal. There are no masses. There is no hydronephrosis or renal calculi. Left Kidney: The left kidney measures 10.2 x 3.8 x 4.0 cm. Renal parenchymal echotexture and thickness are normal. There are no masses. There is a nonobstructing 5 x 3 x 3 mm calculus in the interpolar region. There is no hydronephrosis. US/US renal BI IMPRESSION: 5 mm left renal calculus. Otherwise unremarkable renal ultrasound. Electronically signed by: Moncho Striclkand MD 03/12/2025 01:45 PM EST
--- OUTSIDE RECORDS SUMMARY | 2025-03-12 16:24 | XMS_ITS | Clinical Summary ---
Author Organization Located [facility] Address [address] [address] Phone Care Team Providers Care Pantographer Name Role Phone Troy Montgomery MD Primary Care Provider [phone] Allergies Active Allergy Reactions Criticality Noted Date [...] her glucose levels. Up to date with [facility]. Labs ordered Assessment & Plan (08/26/2024 9:44 [...] her glucose levels. Up to date with [facility]. Labs ordered Assessment & Plan (02/02/2024 11:24 [...] for control. Role of diet, exercise, medications. jail plan @ steroids is pending, but regardless, [...] Follows w/ renal. BP under good control. 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 Assessment & Plan (05/17/2024 9:16 AM EST): Will maintain metformin dosing Long-term current use of inj ectable noninsulin antidiabetic medication Assessment & Plan (05/17/2024 9:15 AM EST): Will maintain ozempic dosing Encounters Date Type Department Care Team Description 12/24/2024 Refill [facility] Endocr[facility] [address] [place] [address] [place] [address] Jessica Cordero PA-C Medication Refill 12/14/2024 10:31 AM EDT - 12/14/2024 11:59 PM EDT Hospital Encounter [facility] [address] [place] [address] Jessica Cordero PA-C Discharge Disposition: Home or Self Care 12/14/2024 10:00 AM EDT Office Visit [facility] [address] [place] [address] [place] [address] Jessica Cordero PA-C Type 2 diabetes mellitus [...] 11:20 AM EST Office Visit [facility] [address] [place] [address] [place] [address] Lynda Conner MD [address] [place] [address] 08/13/2025 10:00 AM EDT Office Visit [facility] [address] [place] [address] Jessica Cordero PA-C [address] [place] [address] [email or web address] Health Maintenance Due Date [...] EDT) TSH 4.27(H) 0.27 - 4.20 uIU/mL [facility] Blood 12/14/2024 10:5 6 AM EDT 12/14/2024 10:59 AM EDT us Jessica Cordero PA-C LAB BLOOD BKR RORO MONCADA Final Result [facility] [address] [place] [address] * 25-OH vitamin D (12/14/2024 10:56 AM EDT) 25 OH VIT D (TOTAL) 43 30 - 60 ng/mL [facility] Blood 12/14/2024 10:5 6 AM EDT 12/14/2024 10:59 AM EDT us Jessica Cordero PA-C LAB BLOOD BKR ORDE RABLES Final Result [address] [address] * Alanine aminotransferase (ALT) (12/14/2024 10:56 AM EDT) ALT 38 0 - 40 U/L [facility] Blood 12/14/2024 10:5 6 AM EDT 12/14/2024 10:59 AM EDT us Jessica Cordero PA-C LAB BLOOD BKR ORDE RABLAMBERT Final Result Performing Organization Address [facility]/ZIP Co de Phone Number [address] [address] * (ABNORMAL) Aspartate aminotransferase (AST) (12/14/2024 10:56 AM EDT) AST 44(H) 0 - 37 U/L [facility] Blood 12/14/2024 10:5 6 AM EDT 12/14/2024 10:59 AM EDT us Jessica SHERIFF-C LAB BLOOD BKR ORDE RABLES Final Result Performing Organization Address City/[facility]/ZIP Co de Phone Number [address] [address] * Free T4 (12/14/2024 10:56 AM EDT) FREE T4 1.6 0.9 - 1.7 ng/dL [facility] 12/14/2024 10:5 6 AM EDT 12/14/2024 10:59 AM EDT us Jessica Cordero PA-C LAB BLOOD BKR ORDE RABLES Final Result Performing Organization Address City/[facility]/ZIP Co de Phone Number [address] [address] * (ABNORMAL) Hemoglobin A1c (12/14/2024 10:56 AM EDT) HEMOGLOBIN A1C 7.4(H) 4.3 - 5.8 % [facility] Blood 12/14/2024 10:5 6 AM EDT 12/14/2024 10:58 AM EDT us Jessica Cordero PA-C LAB BLOOD BKR ORDE RABLAMBERT Final Result Performing Organization Address [facility]/ZIP Co de Phone Number [address] [address] * (ABNORMAL) Vitamin B12 (12/14/2024 10:56 AM EDT) VITAMIN B12 >2000(H) 232 - 1245 pg/mL [facility] Blood 12/14/2024 10:5 6 AM EDT 12/14/2024 10:59 AM EDT us Jessica Cordero PA-C LAB BLOOD BKR ORDE RABLAMBERT Final Result [address] [address] * (ABNORMAL) Basic metabolic panel (12/14/2024 10:56 AM EDT) SODIUM 138 133 - 146 mmol/L [facility] CHLORIDE 103 96 - 108 mmol/L [facility] POTASSIUM 4.5 3.3 - 5.1 mmol/L [facility] CO2 26 21 - 35 mmol/L [facility] BUN 11 6 - 19 mg/dL [facility] CREATININE 1.00 0.5 - 1.5 mg/dL [facility] GLUCOSE 154(H) 70 - 99 mg/dL [facility] CALCIUM 9.1 8.4 - 10.3 mg/dL [facility] EGFR 61 >59 mL/min/1.7 3m2 [facility] Comment:Estimated glomerular filtration rate calculated using the CKD-EPI refit equation. ANION GAP 14 10 - 20 mmol/L [facility] Blood 12/14/2024 10:5 6 AM EDT 12/14/2024 10:59 AM EDT us Jessica Cordero PA-C LAB BLOOD BKR RORO MONCADA Final Result [facility] [address] [place] [address] from Last 3 Months Insurance [facility] [employer] HEALTH PLAN PLAN HEALTH PLAN [facility] [employer] Care Teams Pantographer Relationship Specialty Start Date End Date Troy Montgomery MD [address] [place] [phone] [email or web address] PCP - General Internal Medicine 07/14/23 Additional Source Comments The information contained in this document represents components of the legal health record. It is not the complete legal health record.[facility]
--- OUTSIDE RECORDS SUMMARY | 2025-03-12 16:24 | XMS_ITS | Data Portability ---
Author Organization [place] - [facility], Allergy Address [address] [address] Care Team Providers Care [employer] Repairer Name Role Phone SANTOS PAIZ Primary Care Provider [phone] Assessment No assessment recorded. Plan of Treatment Reminders Order Date Submit Date Provider Last Modified By Organization Details Last Modified Time Details Appointments None recorded. Lab surgical pathology study - right lower lip, eval for Sjogren's, Cc: Dr. Nhi Cabrera at [facility] 2024 025 JIM [facility] (Centralized Electronic Ordering - All Locations), Patient Can Go To The Location Of Their Choice, [id number] 13:47:28 Referral None recorded. Procedures None [...] Organization Details Recorded Time Dizziness and giddiness 163532126 Active 2018 Dizziness and giddiness; Note: Date Diagnosed: 11/13/2018 11:40 AM (R42) Not Available [facility] 4 02:32:46 M ni re's disease 09551903 Active 2018 Meniere's disease, right ear; Note: Date Diagnosed: 11/13/2018 11:39 AM (H81.01) Not Available [facility] 4 02:32:59 Sensorine ural hearing loss of bilateral ears 798338293 Active 2018 Sensorineu ral hearing loss, bilateral; Note: Date Diagnosed: 11/13/2018 11:41 AM (H90.3) Not Available [facility] 4 02:32:47 Sensorine ural hearing loss 91947231 Active 2018 Sensorineu ral hearing loss, unilateral , right ear, with unrestrict ed hearing on the contralate ral side; Note: Date Diagnosed: 11/13/2018 11:41 AM (H90.41) Not Available [facility] 4 02:32:43 Xerostomi a 80995262 Active 2024 BRIT PEREZ MD [address] [place] [address],[place] [address], [place], [address] , [facility] 5 14:50:43 Problem Notes None recorded. Procedures Surgical History Date Name Laterality Status Provider Name and Address Organization Details Recorded Time Minor salivary gland biopsy_JMS completed BRIT PEREZ MD [address] [place] [address], [place], [address], [facility] 11/30/2024 14:50:24 Imaging Results None recorded. Procedure [...] mg tablet 11/30 completed Medicati on ID: [id number] D uration Value: 30 Brand Name: trazodon e Send Method: E-Prescr ibed Sub s Allowed: subs OK Medic ationGen ericName : trazodon e Not Available Not Available Not Available atorvasta tin 10 mg tablet active Medicati on ID: [id number] D uration Value: 90 Brand Name: atorvast [...] mcg tablet 11/30 completed Medicati on ID: [id number] D uration Value: 90 Brand Name: levothyr oxine Se nd Method: E-Prescr ibed Sub s Allowed: subs OK Medic ationGen ericName : levothyr oxine Not Available Not Available Not Available methenami ne 1 g tablet Take 1 tablet 4 times a day by oral route. active Not Available Not Available No t Available escitalop elana 10 mg tablet active Medicati on ID: [id number] D uration Value: 90 Brand Name: escitalo [...] tion aerosol inhaler active Medicati on ID: [id number] D uration Value: 25 Brand Name: Elicia [...] Updated DateTime 11/30/2024 175.26 cm 24.7 kg/m2 51084.93 g Vianey Posadas [place] - [facility] 11/30/2024 14:47:32 Social History None recorded. Functional Status None recorded. Mental Status None recorded. Family History Nothing Reported. Medical History Condition Response Diabetes Y Hearing Loss Y Thyroid Problems Y Glaucoma Y Depression Y Asthma Y Sleep Disorder Y GERD/Reflux Y Kidney Disease Y Gynecological HistoryNo gynecological history recorded. Obstetrics History GPAL:G 0 P 0 0 0 0 Past Encounters Encounter ID Performer Location Encounter Start Date Encounter Closed Date Diagnosis/Indication Diagnosis SNOMED-CT Code Diagnosis ICD10 Code Diagnosis IMO Codes Diagnosis Note [id number] BRIT PEREZ MD [facility] [address] [address] 11/30/2024 14:38:40 11/30/2024 15:08:15 Xerostomia [id number] R68.2 5044 69-year-ol d female presents today for evaluation [...] Pereira Member ID Guarantor Name 11/30/2024 1 [facility] - [employer] (POS) [id number] Sarah Dimitri Mobley [id number] Sarah Mobley Notes Date Note Type Note [...] mg every other day. BRIT PEREZ MD [address] [place] [address], [id number], [facility] - [facility] 12/03/2024 08:04:02 OBGyn Episode No OBEpisode recorded.
--- OUTSIDE RECORDS SUMMARY | 2025-03-12 16:24 | XMS_ITS | Clinical Summary ---
Author Organization [facility] Address [address] [place] [address] Care Team Providers Care Dental Ceramist Name Role Phone Troy Montgomery Primary Care Provider [phone] Allergies Active Allergy Reactions Criticality Noted Date [...] Department Care Team Description 02/15/2025 myChart Message [facility] [address] [place] [id number] Zahra Sandoval MD Prednisone decrease 01/24/2025 3:30 PM EDT Office Visit [facility] [address] [place] [id number] Zahra Sandoval MD Ocular myasthenia gravis (Primary Dx) 12/10/2024 myChart Message [facility] [address] [place] [phone] Real Monahan LPN refill 12/10/2024 Refill [facility] [address] [place] [id number] Alva Thompson, from Last 3 Months Social [...] Description 07/11/2025 2:45 PM EDT Office Visit [facility] [address] [place] [id number] Zahra Sandoval MD [address] [place] [phone] Health Maintenance Due Date Last Done Comments [...] 01/07/2025, , 02/23/2023, Additional history exists [place] [address] [place] [address] [place] [id number] Care Teams Dental Ceramist Relationship Specialty Start Date End Date Troy Montgomery [address] [place] [address] PCP - General 06/10/22
--- OUTSIDE RECORDS SUMMARY | 2025-03-12 16:24 | XMS_ITS | Clinical Summary ---
Author Organization [facility] Address [address] [place] [address] Phone Care Team Providers Care Retail Field Merchandiser Name Role Phone Troy Montgomery MD Primary Care Provider [phone] Allergies No known active allergies Medications allopurinol (ZYLOPRIM) 100 MG tablet Take 100 mg by mouth 1 (one) time each day Active Pyridostigmine Oldsmar 30 MG tablet Take 30 mg by [...] 02/26/2009, 01/30/2009 Influenza Vaccine (#1) [address] [place] [address] Care Teams Retail Field Merchandiser Relationship Specialty Start Date End Date Troy Montgomery MD [address] PCP - General Internal Medicine 02/09/22
== END 2025-03-12 12:46 | disposition home or self-care (01) ==
LOC: HO.US 12:45
PROVIDERS: PCP Internal Medicine; Visit Provider Nurse Practitioner Family
DX: N20.1 Calculus of ureter (principal); M54.9 Dorsalgia, unspecified
CPT/HCPCS: 76775

== ENCOUNTER → 2025-03-12 12:47 | Outpatient (BNV) | payer OTHER, SELFPAY | PROVIDERS: PCP Internal Medicine; Visit Provider Radiology Diagnostic Radiology | DX: N20.0 Calculus of kidney (principal) | CPT/HCPCS: 76775 ==